=== PATIENT | male | born 1945 | race Caucasian/White ===

== ENCOUNTER 2018-05-06 15:55 | Inpatient (IN) | payer BC, OTHER ==
--- NOTE | 2018-05-06 16:17 | PDOC ---
Rapid Medical Evaluation Medical Evaluation: Allergies Allergy/AdvReac Type Severity Reaction Status Date / Time No Known Drug Allergies Allergy Verified 08/05/14 16:34 05/06/18 16:12 I have performed a brief in-person evaluation of this patient. The patient presents with a chief complaint of: b/l LE edema w/ sob, scant urine and constipation x several months. No CP. H/o HTN, HLD, PAD, AAA s/ open repair, RBBB, former smoker, COPD not on oxygen, BPH PMD: Dr Mcclendon Cards: Dr Borden Pertinent physical exam findings:Stable w/ ?minimal gross dyspnea and b/l LE edema I have ordered the following:ekg/cxr/labs The patient will proceed to the ED for further evaluation Discharge Disposition - Diagnosis SOB (shortness of breath) - Referrals - Patient Instructions - Post Discharge Activity
--- NOTE | 2018-05-06 16:35 | PDOC ---
History of Present Illness - General History Source: Patient <Verona Hardy - Last Filed: 05/06/18 18:29> - History of Present Illness Initial Comments: 05/06/18 16:36 Mr. Cuadra is a 72 yo male w/ pmh of peripheral neuropathy, HLD, COPD, femoral artery bypass, distant triple A repair, hernia repair, and appendectomy who presents for evaluation of several week history of shortness of breath on exertion with additional leg swelling and difficulty urinating. Patient reports this has never happened before. He describes his difficulty urinating as difficulty initiating stream although he is still able to urinate. The patient denies chest pain, headache and dizziness. Denies fever, chills, nausea, vomit, diarrhea and constipation. Denies dysuria, frequency, urgency and hematuria. Allergies: NKDA <Jose Miguel Mohan - Last Filed: 05/06/18 19:18> - General Chief Complaint: Shortness of Breath Stated Complaint: PCP SENT FOR ADMIT Time Seen by Provider: 05/06/18 16:22 Past History <Verona Hardy - Last Filed: 05/06/18 18:29> - Past Medical History Anemia: No Asthma: No Cancer: No Cardiac Disorders: Yes CVA: No COPD: Yes CHF: No Dementia: No Diabetes: No GI Disorders: No Disorders: No HTN: No Hypercholesterolemia: Yes Liver Disease: No Seizures: No Thyroid Disease: No - Surgical History Abdominal Surgery: Yes (umbilical hernia repair) Appendectomy: Yes Cardiac Surgery: Yes (femeral artery bypass) Cholecystectomy: No Lung Surgery: No Neurologic Surgery: No Orthopedic Surgery: No - Immunization History Immunization Up to Date: Yes - Suicide/Smoking/Psychosocial Hx Smoking Status: Yes Smoking History: Former smoker Have you smoked in the past 12 months: No Number of Cigarettes Smoked Daily: 2 If you are a former smoker, when did you quit?: 6 mos ago Information on smoking cessation initiated: No 'Breaking Loose' booklet given: 09/10/16 Hx Alcohol Use: Yes (socially beer) Drug/Substance Use Hx: No Substance Use Type: None Hx Substance Use Treatment: No <Jose Miguel Mohan - Last Filed: 05/06/18 19:18> - Past Medical History Allergies/Adverse Reactions: Allergies Allergy/AdvReac Type Severity Reaction Status Date / Time No Known Drug Allergies Allergy Verified 05/06/18 16:29 Home Medications: Ambulatory Orders Aspirin [Baby Aspirin] 81 mg PO DAILY 01/26/12 Atorvastatin Ca [Lipitor] 20 mg PO DAILY #0 tab 12/15/12 Duloxetine [Cymbalta -] 90 mg PO DAILY #0 capsule. 12/15/12 Tamsulosin HCl [Flomax -] 0.4 mg PO HS #0 cap.er.24h 12/15/12 Dutasteride [Avodart] 0.5 mg PO HS 08/05/14 Valsartan [Diovan] 160 mg PO DAILY 09/02/16 Oxycodone HCl/Acetaminophen [Percocet 5-325 mg Tablet] 1 tab PO Q4H PRN #42 tablet MDD 6 09/09/16 Review of Systems - Review of Systems Comments:: 05/06/18 18:08 GENERAL/CONSTITUTIONAL: No fever or chills. No weakness. HEAD, EYES, EARS, NOSE AND THROAT: No change in vision. No ear pain or discharge. No sore throat. CARDIOVASCULAR: +Dyspnea on exertion RESPIRATORY: No cough, wheezing, or hemoptysis. GASTROINTESTINAL: No nausea, vomiting, diarrhea or constipation. GENITOURINARY: No dysuria, frequency, or change in urination. MUSCULOSKELETAL: +Bilateral leg swelling. SKIN: No rash NEUROLOGIC: No headache, vertigo, loss of consciousness, or change in strength/ sensation. ENDOCRINE: No increased thirst. No abnormal weight change HEMATOLOGIC/LYMPHATIC: No anemia, easy bleeding, or history of blood clots. ALLERGIC/IMMUNOLOGIC: No hives or skin allergy. <Jose Miguel Mohan - Last Filed: 05/06/18 19:18> *Physical Exam - Vital Signs Last Vital Signs Temp Pulse Resp BP Pulse Ox 98.1 F 72 20 102/54 98 05/06/18 16:17 05/06/18 16:17 05/06/18 16:17 05/06/18 16:17 05/06/18 16:17 <Verona Hardy - Last Filed: 05/06/18 18:29> - Vital Signs Last Vital Signs Temp Pulse Resp BP Pulse Ox 98.1 F 72 20 102/54 98 05/06/18 16:17 05/06/18 16:17 05/06/18 16:17 05/06/18 16:17 05/06/18 16:17 - Physical Exam Comments: 05/06/18 18:09 GENERAL: Awake, alert, and fully oriented, in no acute distress HEAD: No signs of trauma, normocephalic, atraumatic EYES: PERRLA, EOMI, sclera anicteric, conjunctiva clear ENT: Auricles normal inspection, hearing grossly normal, nares patent, oropharynx clear without exudates. Moist mucosa NECK: Normal ROM, supple, no lymphadenopathy, JVD, or masses LUNGS: +Coarse lung sounds diffusely. No distress, speaks full sentences HEART: +Tachycardic, normal S1 and S2, no murmurs, rubs or gallops, peripheral pulses normal and equal bilaterally. ABDOMEN: Soft, nontender, normoactive bowel sounds. No guarding, no rebound. No masses EXTREMITIES: + 2+ HAMIDA lower extremity edema. Normal range of motion. No clubbing or cyanosis. NEUROLOGICAL: Cranial nerves II through XII grossly intact. Normal speech, normal gait, no focal sensorimotor deficits SKIN: Warm, Dry, normal turgor, no rashes or lesions noted. <Jose Miguel Mohan - Last Filed: 05/06/18 19:18> Procedures - Bedside Ultrasound Bedside Ultrasound: Cardiac Remarks: 05/06/18 17:29 POCUS Echo exam Advanced Practice Registered Nurse: Marcell Attending physician: Hayley Indication: chest pain +/- dyspnea Views: PSLA, PSS, A4, SX, IVC Findings: [x] pericardial effusion: no [x] ejection fraction: moderately depressed 30-50% on visual estimation [x] RV < LV [x] IVC size: plethoric (>2cm), min collapsibility <50% with inspiration Impression: moderately depressed LV function. plethoric IVC c/w hyper volemia POCUS Thoracic exam Advanced Practice Registered Nurse: Marcell Attending physician: Hayley Views: right anterior thorax, right lateral thorax, right posterior thorax, right base Left anterior thorax, left lateral thorax, left posterior thorax, left base Findings: [x] lung sliding: Yes - bilaterally [x] pleural effusion: No [x] B line profile, scant bilaterally, <3 B lines in both lung felix Impression: <B lines bilaterally with lung sliding, otherwise normal thoracic exam and no acute findings. 05/06/18 17:39 <Verona Hardy - Last Filed: 05/06/18 18:29> Heart Score/ECG Review - ECG Impressions Normal ECG: No Non-specific ST Elevation: No Tachycardia: Afib w/rapid Vent rate <Verona Hardy - Last Filed: 05/06/18 18:29> ED Treatment Course - LABORATORY CBC & Chemistry Diagram: 05/06/18 16:20 05/06/18 16:20 - ADDITIONAL ORDERS Additional order review: 05/06/18 16:20 RBC 4.32 MCV 95.0 MCHC 33.0 RDW 13.8 MPV 9.6 Neutrophils % 88.8 H Lymphocytes % 3.9 L D Monocytes % 7.1 Eosinophils % 0.0 D Basophils % 0.2 <Verona Hardy - Last Filed: 05/06/18 18:29> - LABORATORY CBC & Chemistry Diagram: 05/06/18 16:20 05/06/18 16:20 <Jose Miguel Mohan - Last Filed: 05/06/18 19:18> Medical Decision Making - Medical Decision Making 05/06/18 17:35 05/06/18 17:46 <Verona Hardy - Last Filed: 05/06/18 18:29> - Medical Decision Making Mr. Cuadra is a 72 yo male w/ pmh as described who presents for evaluation of symptoms concerning for CHF. Patient noted to have new onset afib on EKG, labs as below. Bedside US revealed decreased contractility c/w afib. Given elevated BNP, CXR suspicious for fluid overload, HAMIDA pedal edema, and corresponding US decision made to admit. Discussed patient with Dr. Suarez (cardiology) who will evaluate inpatient. Admitting to telemetry for further evaluation. Patient also noted to have rectal temperature of 100.6; blood cultures and IV ABX added to treatment regimen. Laboratory Results - last 24 hr 05/06/18 05/06/18 05/06/18 16:20 16:20 16:20 WBC 16.3 H RBC 4.32 Hgb 13.6 Hct 41.1 MCV 95.0 MCH 31.4 MCHC 33.0 RDW 13.8 Plt Count 201 D MPV 9.6 Absolute Neuts (auto) 14.4 Neutrophils % 88.8 H Lymphocytes % 3.9 L D Monocytes % 7.1 Eosinophils % 0.0 D Basophils % 0.2 Nucleated RBC % 0 Sodium 131 L Potassium 5.3 H Chloride 96 L Carbon Dioxide 24 D Anion Gap 11 BUN 51 H Creatinine 2.0 H Creat Clearance w eGFR 33.10 Random Glucose 91 Calcium 8.6 Total Bilirubin 2.3 H AST 836 H D ALT 894 H D Alkaline Phosphatase 335 H Creatine Kinase 612 H Creatine Kinase Index 2.6 CK-MB (CK-2) 16.26 H Troponin I 0.06 H D B-Natriuretic Peptide 93523.98 H Total Protein 6.3 L Albumin 3.1 L <Jose Miguel Mohan - Last Filed: 05/06/18 19:18> *DC/Admit/Observation/Transfer - Discharge Dispostion Decision to Admit order: Yes <Verona Hardy - Last Filed: 05/06/18 18:29> - Discharge Dispostion Decision to Admit order: Yes <Jose Miguel Mohan - Last Filed: 05/06/18 19:18> Diagnosis at time of Disposition: SOB (shortness of breath), COPD with exacerbation, Atrial fibrillation with RVR Acute exacerbation of CHF (congestive heart failure) Qualifiers: Heart failure type: unspecified Qualified Code(s): I50.9 - Heart failure, unspecified - Discharge Dispostion Condition at time of disposition: Guarded
[2018-05-06] MEDS ORDERED: LABETALOL HCL 5 MG/1 ML (200MG/40ML VIAL) IVPB ONE (17:01)
[2018-05-06] MEDS ORDERED: dilTIAZem HCL 125 MG/25 ML - 25 ML VIAL ONE (17:01)
[2018-05-06 17:05] LABS: BASO % 0.2 % (0-2.0); HEMATOCRIT 41.1 % (35.4-49); HEMOGLOBIN 13.6 GM/dL (11.7-16.9); LYMPH % 3.9 % (8-40); MCH 31.4 pg (25.7-33.7); MEAN PLT VOLUME 9.6 fl (7.5-11.1); MONO % 7.1 % (3.8-10.2); NEUT % 88.8 % (42.8-82.8); PLATELET COUNT 201 K/MM3 (134-434); RBC 4.32 M/mm3 (4.00-5.60); RDW 13.8 % (11.9-15.9); WHITE BLOOD COUNT 16.3 K/mm3 (4.0-10.0)
[2018-05-06] MEDS ORDERED: methylPREDNISolone NA SUCC 125 MG/2 ML VIAL IVPUSH ONE (17:08)
[2018-05-06] MEDS ORDERED: ALBUTEROL SO4 2.5/IPRATROPIUM 0.5 INH SOL 3 ML VIAL.NEB. NEB ONE ×4 (17:08→17:53)
[2018-05-06] MEDS ORDERED: dilTIAZem HCL 50 MG/10 ML - 10 ML VIAL IVPUSH ONE (17:09)
[2018-05-06] MEDS ORDERED: dilTIAZem HCL 60 MG TABLET (FP) ONE (17:20)
[2018-05-06] MEDS ORDERED: FUROSEMIDE 40 MG/4 ML INJECTABLE VIAL IVPUSH ONE ×2 (17:44→21:15)
--- NOTE | 2018-05-06 17:45 | PDOC ---
Attending Attestation - Physicial Exam PE: 05/06/18 18:37 General: Well appearing, awake and alert, NAD. HEENT: NCAT, PERRL, EOMI, clear conjunctiva, anicteric, moist mucus membranes, clear oropharynx, no oral lesions.. Neck: (+) JVD. neck supple, FROM Chest: no chest wall tenderness Resp: (+) bilateral wheezing w/ decreased breath sounds bilaterally. CTAB, (+) Mild respiratory distress, on Supplemental O2. CVS: irregularly irregular, tachycardic. 2+ peripheral pulses throughout, 4+ pitting edema bilaterally Abdomen: (+) distended but obese. soft, NT, no peritoneal signs. Back: nontender, normal inspection and ROM MSK: (+) 4+ bilateral pitting edema. No calf tenderness. COLUNGA x4, ROM intact. No clubbing or cyanosis. normal bulk and tone. Neuro: alert, oriented appropriately; no focal neurologic deficits. Skin: warm and well perfused, cap refill <2 sec, normal color; no rash <Mely Pagan - Last Filed: 05/06/18 18:37> - Resident Resident Name: Jose Miguel Mohan - ED Attending Attestation I have performed the following: I have examined & evaluated the patient, The case was reviewed & discussed with the resident, I agree w/resident's findings & plan - HPI HPI: 05/06/18 18:45 Mr. Oscar Cuadra is a 72-year-old male with a past medical history HLD, and COPD presents to the emergency department with shortness of breath. The patient presents with progressively worsening dyspnea for the past 2 weeks, accompanied with bilateral lower extremity edema, mild nonproductive cough and worsening dyspnea on exertion. +f abdominal bloating, with difficulty voiding and having bowel movements, but has BPH The patient states an improvement to lower extremity edema about 6-7 months prior s/p quitting smoking, states the past 2 weeks the leg swelling and dyspnea has been worsening. The patient reports last swing grinder f/u was 2 years ago, reports getting a cardiac echo done, with non- significant results. Denies recent medication change. Denies the use of water pills. Denies recent travel or sick contact. Denies past history of blood clot or anemia. Denies the use of O2 at home. Denies chest pain. Allergies: NKDA Social history: Former smoker, quit smoking 6-7 months ago. Occasional alcohol use reported. Denies the use of recreational drugs. Surgical history: AAA repair, femoral artery bypass, Appendectomy, and Hernia repair. PCP: Dr. Mcclendon. Sander And Polisher: Dr. Mina. - Medical Decision Making 05/06/18 17:46 MDM: Khalif 72 YOM with H/o HTN, HLD, PAD, AAA s/ open repair, RBBB, former smoker, COPD not on oxygen, BPH presenting with leg swelling, SOB and new onset Afib. SOB and leg edema progressively worsening x 2 weeks with minimal exertion , +nonproductive cough; no changes in meds. Last seen swing grinder 2 years ago. DDx SOB: ACS, PE, COPD exacerbation, new onset CHF, pulmonary edema, pleurisy, pneumonia, viral syndrome. effusion. anemia, electrolyte/metabolic derangements. Vital signs wnl, afebrile, however Afib RVR in 150s. mild respiratory distress on supp O2. treat as both Afib RVR, COPD/CHF exacerbation. EKG with afib RVR at 155 bpm Interventions: duonebs x3, solumedrol, diltiazem IV/PO. lasix. tylenol. ASA 325mg x1. Cef/azithromycin for CAP coverage. blood cultures. Bedside POCUS exam echo and thoracic performed for SOB, views obtained (PSLA, PSS, SX, a4, IVC, bilateral lung felix and bases)= findings consistent with new onset CHF with plethoric IVC/moderately depressed EF 30-50% on visual estimation, scant non-diffuse B lines bilaterally w/o pleural effusions, RV<LV and no pericardial effusion. - leukocytosis noted 16K, but prior results with elevated WBC ct, +fever rectally, contributing to Rapid Afib, also concurrently new onset CHF. will give Ceftriaxone/azithromycin for presumed respiratory infection/pneumonia, hold fluids as hypervolemic and nonseptic appearing. blood cultures x2 for fever , r/o bacteremia. - based on results -Will diurese when Afib rate control. Lasix 40mg IV x1, PO diltiazem for rate control. caution with labile pressures with antihypertensive agents and diuresis. BNP also significantly elevated c/w CHF. - trop elevated 0.06 likely demand with RVR, will give ASA 324 x1 - LFTS elevated, unclear etiology, possibly infectious vs inflammatory. c/w trending. - cards consulted, admit to Dr. Mcclendon/N[facility] service - spoke with Dr. Hollis will come to see - Admit for new onset CHF/possibly mixed COPD, new onset Afib RVR, early pneumonia and medical management. 05/06/18 18:39 05/06/18 18:46 <Verona Hardy - Last Filed: 05/06/18 18:47> Heart Score/ECG Review - ECG Impressions Normal ECG: No Non-specific ST Elevation: No Tachycardia: Afib w/rapid Vent rate <Verona Hardy - Last Filed: 05/06/18 18:47>
[2018-05-06] MEDS ORDERED: methylPREDNISolone NA SUCC 125 MG/2 ML VIAL ONE (17:53)
[2018-05-06] MEDS ORDERED: FUROSEMIDE 40 MG/4 ML INJECTABLE VIAL ONE (17:53)
[2018-05-06] MEDS ORDERED: dilTIAZem HCL 60 MG TABLET (FP) PO ONE ×2 (18:07→21:15)
[2018-05-06 18:23] LABS: ALBUMIN 3.1 g/dl (3.4-5.0); ANION GAP 11 (8-16); BILIRUBIN,TOTAL 2.3 mg/dL (0.2-1.0); BLOOD UREA NITROGEN 51 mg/dL (7-18); CALCIUM 8.6 mg/dL (8.5-10.1); CHLORIDE 96 mmol/L (98-107); CO2 24 mmol/L (21-32); GLUCOSE,RANDOM 91 mg/dL (74-106); SODIUM 131 mmol/L (136-145); TOT PROT 6.3 g/dl (6.4-8.2)
[2018-05-06 18:25] LABS: ALK PHOS 335 U/L (45-117)
[2018-05-06 18:28] LABS: POTASSIUM 5.3 mmol/L (3.5-5.1); SGPT/ALT 894 U/L (12-78)
[2018-05-06 18:29] LABS: SGOT/AST 836 U/L (15-37)
[2018-05-06] MEDS ORDERED: CEFTRIAXONE 1,000 MG in DEXTROSE 5%-WATER - 50 ML IVPB ONE (18:32)
[2018-05-06] MEDS ORDERED: AZITHROMYCIN IVPB 500 MG in DEXTROSE 5%-WATER - 250 ML IVPB ONE (18:32)
[2018-05-06] MEDS ORDERED: ACETAMINOPHEN 500 MG TABLET (FP) PO ONE (18:32)
[2018-05-06] MEDS ORDERED: oxyCODONE HCL 5 MG TABLET PO PRN (18:36)
[2018-05-06] MEDS ORDERED: ACETAMINOPHEN 325 MG TABLET (FP) PO PRN (18:36)
[2018-05-06] MEDS ORDERED: ASPIRIN 81 MG CHEWABLE TABLETS PO ONE (18:38)
[2018-05-06] MEDS ORDERED: ACETAMINOPHEN 325 MG TABLET (FP) ONE (18:39)
[2018-05-06] MEDS ORDERED: CEFTRIAXONE 1 GM/50 ML BAG ONE (18:40)
[2018-05-06] MEDS ORDERED: AZITHROMYCIN IVPB 250 ML IVPB ONE (18:40)
--- NOTE | 2018-05-06 18:56 | HP ---
Admitting History and Physical - Primary Care Physician PCP: Franklyn Mcclendon - Admission Chief Complaint: SOB and Leg swelling History of Present Illness: 72 yrs old pleasant man lives at home with the H/O Morbid Obesity BMI 39.2 , Htn, Dyslipedemia, COPD ex smoker quit in Oct 2017,PAD s/p AAA repair 12 yrs ago and Femoral bypass 4 yrs ago, bph last cardiology visit and ECHo was > 2 yrs ago present with c/o gradually worsening, SOB, KENNEY, decrease in ET, lower extremity swelling and dry cough for past 2-3 wks lately feels very weak and SOB even walking short distances or climbing 1 storry in the house, denies any palpittaion, chest pain, fevr, chills or expectoration, c/o mild subjective fever, on arrival to ED EKG shows Afib with RVR VR 152, , elevated BNP, TWBC, CXR pulmonary congestion SOB, hypertensive received Labetalol, Lasix IV 40 mg once, Diltizem 10 mg IVSS and 60 PO, at the tome of examination History Source: Patient - Past Medical History Cardiovascular: Yes: Aneurysm, Hyperlipdemia Pulmonary: Yes: COPD Musculoskeletal: Yes: Chronic low back pain - Past Surgical History Past Surgical History: Yes: AAA Repair, Appendectomy, Hernia Repair - Smoking History Smoking history: Former smoker Have you smoked in the past 12 months: No Aproximately how many cigarettes per day: 2 If you are a former smoker, when did you quit?: 6 mos ago - Alcohol/Substance Use Hx Alcohol Use: Yes (socially beer) Home Medications - Allergies Allergies/Adverse Reactions: Allergies Allergy/AdvReac Type Severity Reaction Status Date / Time No Known Drug Allergies Allergy Verified 05/06/18 16:29 - Home Medications Home Medications: Ambulatory Orders Aspirin [Baby Aspirin] 81 mg PO DAILY 01/26/12 Atorvastatin Ca [Lipitor] 20 mg PO DAILY #0 tab 12/15/12 Duloxetine [Cymbalta -] 90 mg PO DAILY #0 capsule.dr 12/15/12 Tamsulosin HCl [Flomax -] 0.4 mg PO HS #0 cap.er.24h 12/15/12 Dutasteride [Avodart] 0.5 mg PO HS 08/05/14 Valsartan [Diovan] 160 mg PO DAILY 09/02/16 Oxycodone HCl/Acetaminophen [Percocet 5-325 mg Tablet] 1 tab PO Q4H PRN #42 tablet MDD 6 09/09/16 Family Disease History - Family Disease History Family History: Unremarkable Review of Systems - Review of Systems Constitutional: reports: Diaphoresis Eyes: denies: Blind Spots, Blurred Vision, Double Vision HENT: denies: Difficult Swallowing, Ear Discharge, Ear Pain Neck: denies: Decreased ROM, Lumps, Pain on Movement Cardiovascular: reports: Edema, Palpitations, Shortness of Breath. denies: Chest Pain Respiratory: reports: Cough, Exercise Intolerance, SOB Gastrointestinal: denies: Abdominal Pain, Bloating Genitourinary: denies: Burning, Discharge, Dysuria Musculoskeletal: reports: Back Pain Neurological: denies: Change in LOC, Change in Speech Endocrine: denies: Excessive Sweating Hematology/Lymphatic: denies: Easily Bruised Psychiatric: reports: No Symptoms Physical Examination Vital Signs: Vital Signs Temperature 100.6 F H 05/06/18 18:29 Pulse Rate 134 H 05/06/18 18:10 Respiratory Rate 24 H 05/06/18 18:10 Blood Pressure 89/64 05/06/18 18:10 O2 Sat by Pulse Oximetry (%) 100 05/06/18 18:10 Constitutional: Yes: Well Nourished, No Distress, Calm Eyes: Yes: Conjunctiva Clear, EOM Intact HENT: Yes: Atraumatic, Normocephalic, Hoarseness Neck: Yes: Supple, Trachea Midline. No: Decreased ROM, Lymphadenopathy Cardiovascular: Yes: WNL, Tachycardia, Pulse Irregular, JVD, S1, S2 Respiratory: Yes: Regular, SOB Musculoskeletal: Yes: Back Pain. No: Joint Stiffness Edema: RUE: 1+, LLE: 1+ Peripheral Pulses: Left Doralis Pedis: 1+, Right Dorsalis Pedis: 1+ Neurological: Yes: Alert, Oriented, Aphasia ...Motor Strength: WNL, LUE, LLE, RUE Labs: CBC, BMP 05/06/18 16:20 05/06/18 16:20 Laboratory Results - last 24 hr 05/06/18 05/06/18 05/06/18 16:20 16:20 16:20 WBC 16.3 H RBC 4.32 Hgb 13.6 Hct 41.1 MCV 95.0 MCH 31.4 MCHC 33.0 RDW 13.8 Plt Count 201 D MPV 9.6 Absolute Neuts (auto) 14.4 Neutrophils % 88.8 H Lymphocytes % 3.9 L D Monocytes % 7.1 Eosinophils % 0.0 D Basophils % 0.2 Nucleated RBC % 0 Sodium 131 L Potassium 5.3 H Chloride 96 L Carbon Dioxide 24 D Anion Gap 11 BUN 51 H Creatinine 2.0 H Creat Clearance w eGFR 33.10 Random Glucose 91 Calcium 8.6 Magnesium Total Bilirubin 2.3 H AST 836 H D ALT 894 H D Alkaline Phosphatase 335 H Creatine Kinase 612 H Creatine Kinase Index 2.6 CK-MB (CK-2) 16.26 H Troponin I 0.06 H D B-Natriuretic Peptide 33867.98 H Total Protein 6.3 L Albumin 3.1 L Triglycerides Cholesterol Total LDL Cholesterol HDL Cholesterol 05/06/18 05/06/18 20:15 20:15 WBC RBC Hgb Hct MCV MCH MCHC RDW Plt Count MPV Absolute Neuts (auto) Neutrophils % Lymphocytes % Monocytes % Eosinophils % Basophils % Nucleated RBC % Sodium Potassium Chloride Carbon Dioxide Anion Gap BUN Creatinine Creat Clearance w eGFR Random Glucose Calcium Magnesium 2.0 Total Bilirubin AST ALT Alkaline Phosphatase Creatine Kinase Creatine Kinase Index CK-MB (CK-2) Troponin I 0.06 H B-Natriuretic Peptide Total Protein Albumin Triglycerides 63 Cholesterol 88 Total LDL Cholesterol 47 HDL Cholesterol 36 L Imaging - Results X-ray: Report Reviewed (Chest: Diffuse congestion with minimal effusion) EKG: Report Reviewed (Afib with RVR) Problem List - Problems (1) Acute exacerbation of CHF (congestive heart failure) Assessment/Plan: Present with CHS symptoms with Afib , Bed side ECHO shows Low EF will F/U ECHO , most luikely tachycardia induced F/U ECHO.Lasix 40 mg IVSS BID, Cardiology consult, will Introduce B Blockers, Valsartan held for worsening renal functions. Code(s): I50.9 - HEART FAILURE, UNSPECIFIED Qualifiers: Heart failure type: systolic Qualified Code(s): I50.23 - Acute on chronic systolic (congestive) heart failure (2) Atrial fibrillation with RVR Assessment/Plan: New Onset Recived IV D+iltizem 10 mg and 60 mg PO , night now rate is acceptable received Lovenox 100 mg once corrected with renal functions in ED will discussed with cardiology for AC F/U ECHO Code(s): I48.91 - UNSPECIFIED ATRIAL FIBRILLATION (3) COPD with exacerbation Assessment/Plan: Rx Smoker diffuse wheezing low dose steroid resume advair and PRN Duobneb Code(s): J44.1 - CHRONIC OBSTRUCTIVE PULMONARY DISEASE W (ACUTE) EXACERBATION (4) Elevated troponin I level Assessment/Plan: elevated troponin I no EKG changes, no chest pain most likely due to Demand ischemnia con ASA LDL at target cont Statin and Code(s): R74.8 - ABNORMAL LEVELS OF OTHER SERUM ENZYMES (5) Morbid obesity Assessment/Plan: Nutrition consult as out patient Code(s): E66.01 - MORBID (SEVERE) OBESITY DUE TO EXCESS CALORIES (6) JACKIE (acute kidney injury) Assessment/Plan: Worsening renal functions most likely obstructive uropathy will F/U recommendations cont Cevallos catheter and Renal consult Code(s): N17.9 - ACUTE KIDNEY FAILURE, UNSPECIFIED (7) Abdominal aortic aneurysm Assessment/Plan: Opertaed 12 yrs ago cont Statin Optimize BP Code(s): I71.4 - ABDOMINAL AORTIC ANEURYSM, WITHOUT RUPTURE (8) Dyslipidemia Assessment/Plan: LDL < 50 wi;ll optimize statin dose Code(s): E78.5 - HYPERLIPIDEMIA, UNSPECIFIED (9) Transaminitis Assessment/Plan: Elevated SGOT PT most likely congestive Hepatopathy on stain, considering morbid obesity vcan be due to ROJAS will F/U Hepatitis panel F/U LFTS, GI consult, Hold Statin LDL < 50 Code(s): R74.0 - NONSPEC ELEV OF LEVELS OF TRANSAMNS & LACTIC ACID DEHYDRGNSE (10) Urinary retention due to benign prostatic hyperplasia Assessment/Plan: Cont home meds s/p foleys consult Code(s): N40.1 - BENIGN PROSTATIC HYPERPLASIA WITH LOWER URINARY TRACT SYMP; R33.8 - OTHER RETENTION OF URINE
[2018-05-06] MEDS ORDERED: ENOXAPARIN NA (PORCINE) 100 MG/1 ML DISP.SYRIN SQ ONE ×3 (19:02→19:18)
[2018-05-06] MEDS ORDERED: ASPIRIN 325 MG TABLET ONE (19:12)
[2018-05-06] MEDS ORDERED: dilTIAZem HCL 25 MG/5 ML - 5 ML VIAL IV ONE (21:00)
[2018-05-06] MEDS ORDERED: PT OWN MED DRAWER 7, Y5N ONE (21:08)
[2018-05-06] MEDS ORDERED: dilTIAZem HCL 25 MG/5 ML - 5 ML VIAL IVPUSH ONE (21:15)
[2018-05-06] MEDS: TAMSULOSIN HCL 0.4 MG CAP.ER.24H (FP) PO SCH (21:17)
[2018-05-06] MEDS: FLUTICASONE/SALMETEROL 100 MCG/50 MCG DISKUS IH SCH (22:14)
[2018-05-06] MEDS: DUTASTERIDE 0.5 MG CAP (FP) PO SCH (22:15)
[2018-05-07] MEDS: methylPREDNISolone NA SUCC 125 MG/2 ML VIAL IVPB SCH ×2 (02:02→09:52)
[2018-05-07 02:25] LABS: URINE APPEARANCE CLEAR; URINE BILIRUBIN NEGATIVE (<2.0 mg/dL); URINE GLUCOSE (UA) NEGATIVE (NEGATIVE); URINE KETONE NEGATIVE (NEGATIVE); URINE LEUK ESTERASE NEGATIVE (NEGATIVE); URINE NITRITE NEGATIVE (NEGATIVE)
[2018-05-07 02:35] LABS: URINE PROTEIN 1+ (NEGATIVE)
[2018-05-07 02:36] LABS: URINE COLOR DK YELLOW
[2018-05-07 02:43] LABS: EPI CELLS RARE /HPF (FEW); URINE HYALINE CAST 9 /lpf; URINE MUCUS RARE
[2018-05-07 07:37] LABS: BASO % 0.1 % (0-2.0); HEMATOCRIT 37.2 % (35.4-49); HEMOGLOBIN 12.5 GM/dL (11.7-16.9); LYMPH % 4.4 % (8-40); MCH 31.7 pg (25.7-33.7); MCHC 33.4 g/dl (32.0-35.9); MEAN CELL VOLUME 94.9 fl (80-96); MEAN PLT VOLUME 9.5 fl (7.5-11.1); MONO % 2.6 % (3.8-10.2); NEUT % 92.9 % (42.8-82.8); PLATELET COUNT 162 K/MM3 (134-434); RBC 3.92 M/mm3 (4.00-5.60); WHITE BLOOD COUNT 12.8 K/mm3 (4.0-10.0)
[2018-05-07 08:08] LABS: CHLORIDE 94 mmol/L (98-107); POTASSIUM 4.6 mmol/L (3.5-5.1); SODIUM 130 mmol/L (136-145)
[2018-05-07 08:17] LABS: ALBUMIN 2.6 g/dl (3.4-5.0); ALK PHOS 263 U/L (45-117); ANION GAP 11 (8-16); BILIRUBIN,TOTAL 1.3 mg/dL (0.2-1.0); BLOOD UREA NITROGEN 60 mg/dL (7-18); CO2 25 mmol/L (21-32); CREATININE 2.2 mg/dL (0.7-1.3); GLUCOSE,RANDOM 136 mg/dL (74-106); TOT PROT 5.6 g/dl (6.4-8.2)
[2018-05-07 08:35] LABS: SGOT/AST 469 U/L (15-37); SGPT/ALT 691 U/L (12-78)
--- NOTE | 2018-05-07 08:58 | CON.CARD ---
Consult Consult Specialty:: Cardiology Referred by:: Nissa Reason for Consultation:: afib, CHF exac - History of Present Illness Chief Complaint: dyspnea, leg swelling History of Present Illness: 72M h/o HTN, HLD, COPD, ex smoker, PAD s/p AAA repair 12 years ago, femoral bypass 4 years ago p/w carrizales, lower extremity swelling, cough. In ER noted to have afib with RVR rate 150s, elevated BNP and WBC, CXR showed pulm congestion. Received labetolol, diltiazem 10 mg IV and diltiazem 60 mg PO. Rate initially improved, lasix had been ordered but held due to borderline BPs. Rate increased later to 130s, given additional diltiazem 10 mg IV and 60 mg PO as well as lasix 40 mg IV x 1. Also received IV abx for possible infection given elevated WBC. Symptoms had been ongoing for two weeks, patient feels better this morning. Also had urinary retention which improved with booth placement.. - History Source History Provided By: Patient Limitations to Obtaining History: No Limitations - Past Medical History Cardio/Vascular: Yes: Aneurysm, Hyperlipdemia Pulmonary: Yes: COPD Musculoskeletal: Yes: Chronic low back pain - Past Surgical History Past Surgical History: Yes: AAA Repair, Appendectomy, Hernia Repair - Alcohol/Substance Use Hx Alcohol Use: Yes (socially beer) - Smoking History Smoking history: Former smoker Have you smoked in the past 12 months: No Aproximately how many cigarettes per day: 2 If you are a former smoker, when did you quit?: 6 mos ago Home Medications - Allergies Allergies/Adverse Reactions: Allergies Allergy/AdvReac Type Severity Reaction Status Date / Time No Known Drug Allergies Allergy Verified 05/06/18 16:29 - Home Medications Home Medications: Ambulatory Orders Aspirin [Baby Aspirin] 81 mg PO DAILY 01/26/12 Atorvastatin Ca [Lipitor] 20 mg PO DAILY #0 tab 12/15/12 Duloxetine [Cymbalta -] 90 mg PO DAILY #0 capsule. 12/15/12 Tamsulosin HCl [Flomax -] 0.4 mg PO HS #0 cap.er.24h 12/15/12 Dutasteride [Avodart] 0.5 mg PO HS 08/05/14 Valsartan [Diovan] 160 mg PO DAILY 09/02/16 Oxycodone HCl/Acetaminophen [Percocet 5-325 mg Tablet] 1 tab PO Q4H PRN #42 tablet MDD 6 09/09/16 Review of Systems - Review of Systems Constitutional: reports: No Symptoms Eyes: reports: No Symptoms HENT: reports: No Symptoms Neck: reports: No Symptoms Cardiovascular: reports: Shortness of Breath Respiratory: reports: SOB on Exertion Gastrointestinal: reports: No Symptoms Musculoskeletal: reports: No Symptoms Neurological: reports: No Symptoms Endocrine: reports: No Symptoms Psychiatric: reports: No Symptoms Vital Signs: Vital Signs Temperature 98.8 F 05/07/18 01:17 Pulse Rate 107 H 05/07/18 06:00 Respiratory Rate 20 05/07/18 01:17 Blood Pressure 118/62 05/07/18 06:00 O2 Sat by Pulse Oximetry (%) 95 05/06/18 20:00 Constitutional: Yes: Well Nourished, No Distress, Calm Eyes: Yes: Conjunctiva Clear, EOM Intact HENT: Yes: Atraumatic, Normocephalic Neck: Yes: Supple Respiratory: Yes: Regular, Rales Gastrointestinal: Yes: Normal Bowel Sounds, Soft Renal/: Yes: Other (booth) Cardiovascular: Yes: Tachycardia, Pulse Irregular JVD: Yes Edema: Yes Edema: LLE: 1+, RLE: 1+ - Other Data Labs, Other Data: CBC, BMP 05/07/18 06:00 05/07/18 06:00 Troponin, BNP 05/06/18 05/06/18 05/06/18 16:20 16:20 20:15 Troponin I 0.06 H D 0.06 H B-Natriuretic Peptide 12463.98 H 05/07/18 05/07/18 06:00 06:00 Troponin I 0.04 D Cancelled B-Natriuretic Peptide Troponin, BNP 05/06/18 05/06/18 05/06/18 16:20 16:20 20:15 Troponin I 0.06 H D 0.06 H B-Natriuretic Peptide 15893.98 H 05/07/18 05/07/18 06:00 06:00 Troponin I 0.04 D Cancelled B-Natriuretic Peptide Assessment/Plan EKG 05/06/18 afib with RVR 155, RBBB tele afib with rates 110s-130s, occ 150s 72M h/o HTN, HLD, COPD, ex smoker, PAD s/p AAA repair 12 years ago, femoral bypass 4 years ago p/w carrizales, lower extremity swelling, cough for two weeks with new afib, CHF exac, JACKIE, leukocytosis Afib with RVR - rate control improved with diltiazem, start diltiazem 60 mg TID - if no contraindication would start anticoagulation with NOAC, currently has JACKIE in setting of urinary retention - has received lovenox - check echo, ordered CHF exacerbation - per patient prior echo was 2 years ago, check echo - may be due to acute AFib with RVR - improved SOB with IV lasix last night, holding on additional dose for now given rise in Cr, now s/p booth, if uop improves can give additional dose of IV lasix 40 mg in afternoon Elevated troponin - borderline elevation likely in setting of afib with RVR and CHF exac, flat trend, unlikely ACS COPD - on advair, duonebs, low dose steroid JACKIE - holding home valsartan - booth inserted today for obstructive uropathy - monitor Cr H/o AAA s/p repair - cont statin, asa HLD - cont statin
--- NOTE | 2018-05-07 09:01 | PN ---
Progress Note, Physician Chief Complaint: Feels improved less SOB, Foleys was inserted for urinary retention - Current Medication List Current Medications: Active Medications Acetaminophen (Tylenol -) 325 mg PO Q4H PRN PRN Reason: PAIN LEVEL 1-5 Stop: 05/09/18 18:35 Albuterol/Ipratropium (Duoneb -) 1 amp NEB Q6H PRN PRN Reason: SHORTNESS OF BREATH Aspirin (Asa -) 81 mg PO DAILY [facility] Atorvastatin Calcium (Lipitor -) 20 mg PO HS [facility] Duloxetine HCl (Cymbalta -) 90 mg PO DAILY [facility] Dutasteride (Avodart -) 0.5 mg PO HS [facility] Last Admin: 05/06/18 22:15 Dose: 0.5 mg Methylprednisolone Sodium Succinate (Solu-Medrol -) 60 mg IVPB Q8H-IV [facility] Last Admin: 05/07/18 02:02 Dose: 60 mg Oxycodone HCl (Roxicodone -) 5 mg PO Q4H PRN PRN Reason: PAIN LEVEL 1-5 Fluticasone/Salmeterol (Advair 100mcg/50mcg -) 1 puff IH BID [facility] Last Admin: 05/06/18 22:14 Dose: 1 puff Tamsulosin HCl (Flomax -) 0.4 mg PO HS [facility] Last Admin: 05/06/18 21:17 Dose: 0.4 mg - Objective Vital Signs: Vital Signs Temperature 98.8 F 05/07/18 01:17 Pulse Rate 107 H 05/07/18 06:00 Respiratory Rate 20 05/07/18 01:17 Blood Pressure 118/62 05/07/18 06:00 O2 Sat by Pulse Oximetry (%) 95 05/06/18 20:00 Constitutional: No SOB HEENT: No Difficult Swallowing, Ear Discharge, Ear Pain, mm moist Neck: NO JVD Decreased ROM, Lumps, Pain on Movement Cardiovascular: Irr S1S2 Tachycardia no murmur or Gallop Respiratory: B/L Basal crepts Gastrointestinal: Obese, non tender BS + Genitourinary: Urinary retention s/p Foleys LE and Musculoskeletal: rep Pulse +, Edema regressing, Back Pain Neurological: No AOx3 non focal Labs: CBC, BMP 05/07/18 06:00 05/07/18 06:00 Problem List - Problems (1) Acute exacerbation of CHF (congestive heart failure) Assessment/Plan: Present with CHS symptoms with Afib , Bed side ECHO shows Low EF will F/U ECHO , most luikely tachycardia induced F/U ECHO.Lasix , Cardiology consult, will Introduce B Blockers, Valsartan held for worsening renal functions. Code(s): I50.9 - HEART FAILURE, UNSPECIFIED Qualifiers: Heart failure type: systolic Qualified Code(s): I50.23 - Acute on chronic systolic (congestive) heart failure (2) Atrial fibrillation with RVR Assessment/Plan: New Onset Received IV D+iltizem 10 mg and 60 mg PO , additional 60 PO and 10 IV at night now rate is acceptable received Lovenox 100 mg once corrected with renal functions in ED will discussed with cardiology for AC F/U ECHO Code(s): I48.91 - UNSPECIFIED ATRIAL FIBRILLATION (3) COPD with exacerbation Assessment/Plan: Rx Smoker diffuse wheezing low dose steroid resume advair and PRN Duobneb Code(s): J44.1 - CHRONIC OBSTRUCTIVE PULMONARY DISEASE W (ACUTE) EXACERBATION (4) Elevated troponin I level Assessment/Plan: elevated troponin I no EKG changes, no chest pain most likely due to Demand ischemnia con ASA LDL at target cont Statin and Diltizem Code(s): R74.8 - ABNORMAL LEVELS OF OTHER SERUM ENZYMES (5) Morbid obesity Assessment/Plan: Nutrition consult as out patient Code(s): E66.01 - MORBID (SEVERE) OBESITY DUE TO EXCESS CALORIES (6) JACKIE (acute kidney injury) Assessment/Plan: Worsening renal functions most likely obstructive uropathy will F/U recommendations cont Cevallos catheter and Renal consult Code(s): N17.9 - ACUTE KIDNEY FAILURE, UNSPECIFIED (7) Abdominal aortic aneurysm Assessment/Plan: Opertaed 12 yrs ago cont Statin Optimize BP Code(s): I71.4 - ABDOMINAL AORTIC ANEURYSM, WITHOUT RUPTURE (8) Dyslipidemia Assessment/Plan: LDL < 50 will optimize statin dose Code(s): E78.5 - HYPERLIPIDEMIA, UNSPECIFIED (9) Transaminitis Assessment/Plan: Elevated SGOT PT most likely congestive Hepatopathy on stain, considering morbid obesity vcan be due to ROJAS will F/U Hepatitis panel F/U LFTS, GI consult, Hold Statin LDL < 50 Code(s): R74.0 - NONSPEC ELEV OF LEVELS OF TRANSAMNS & LACTIC ACID DEHYDRGNSE (10) Urinary retention due to benign prostatic hyperplasia Assessment/Plan: S/P Foleys catheter Code(s): N40.1 - BENIGN PROSTATIC HYPERPLASIA WITH LOWER URINARY TRACT SYMP; R33.8 - OTHER RETENTION OF URINE
[2018-05-07] MEDS: DULoxetine HCL 30 MG CAPSULE.DR (FP) PO SCH (09:51)
[2018-05-07] MEDS: ASPIRIN 81 MG CHEWABLE TABLETS PO SCH (09:51)
[2018-05-07] MEDS: FLUTICASONE/SALMETEROL 100 MCG/50 MCG DISKUS IH SCH ×2 (09:52→21:28)
[2018-05-07 10:55] LABS: ANISOCYTOSIS 1+; MACROCYTOSIS 1+; PLATELET ESTIMATE NORMAL
[2018-05-07] MEDS ORDERED: predniSONE 20 MG TABLET (UD) PO SCH (11:30)
[2018-05-07] MEDS: DOXYCYCLINE INJECTION 100 MG in DEXTROSE 5%-WATER - 100 ML IVPB SCH ×2 (12:31→21:30)
[2018-05-07] MEDS ORDERED: dilTIAZem HCL 60 MG TABLET (FP) PO SCH (14:00)
[2018-05-07] MEDS ORDERED: dilTIAZem HCL 25 MG/5 ML - 5 ML VIAL IV ONE (14:45)
--- NOTE | 2018-05-07 17:48 | CON.NEP ---
Consult Consult Specialty:: nephrology Referred by:: feliz Reason for Consultation:: renal failure - History of Present Illness Chief Complaint: new onset afib and hf History of Present Illness: 72M h/o HTN, HLD, COPD, ex smoker, PAD s/p AAA repair 12 years ago, femoral bypass 4 years ago p/w dyspnea on exertion ,lower extremity swelling, cough for two weeks found to be with new onset afib, CHF exac, JACKIE, leukocytosis EKG 05/06/18 afib with RVR 155, RBBB tele afib with rates 110s-130s, occ 150s - Past Medical History Cardio/Vascular: Yes: Aneurysm, Hyperlipdemia Pulmonary: Yes: COPD Musculoskeletal: Yes: Chronic low back pain - Past Surgical History Past Surgical History: Yes: AAA Repair, Appendectomy, Hernia Repair - Alcohol/Substance Use Hx Alcohol Use: Yes (socially beer) - Smoking History Smoking history: Former smoker Have you smoked in the past 12 months: No Aproximately how many cigarettes per day: 2 If you are a former smoker, when did you quit?: 6 mos ago Home Medications - Allergies Allergies/Adverse Reactions: Allergies Allergy/AdvReac Type Severity Reaction Status Date / Time No Known Drug Allergies Allergy Verified 05/06/18 16:29 - Home Medications Home Medications: Ambulatory Orders Aspirin [Baby Aspirin] 81 mg PO DAILY 01/26/12 Atorvastatin Ca [Lipitor] 20 mg PO DAILY #0 tab 12/15/12 Duloxetine [Cymbalta -] 90 mg PO DAILY #0 capsule.dr 12/15/12 Tamsulosin HCl [Flomax -] 0.4 mg PO HS #0 cap.er.24h 12/15/12 Dutasteride [Avodart] 0.5 mg PO HS 08/05/14 Valsartan [Diovan] 160 mg PO DAILY 09/02/16 Oxycodone HCl/Acetaminophen [Percocet 5-325 mg Tablet] 1 tab PO Q4H PRN #42 tablet MDD 6 09/09/16 Nephrology Consult - Height Height: 5 ft 7 in - Weight Weight: 250 lb - BMI Body Mass Index (BMI): 39.1 - Lab Results CBC,BMP: CBC, BMP 05/07/18 06:00 05/07/18 06:00 Anion Gap: Anion Gap Anion Gap 11 (8-16) 05/07/18 06:00 - Physical Examination Vital Signs: Vital Signs Temperature 96.8 F L 05/07/18 13:50 Pulse Rate 140 H 05/07/18 13:50 Respiratory Rate 18 05/07/18 13:50 Blood Pressure 121/51 05/07/18 13:50 O2 Sat by Pulse Oximetry (%) 95 05/07/18 10:00 Assessment/Plan JACKIE- in setting of heart dailure symptoms and leg edema may be 2/2 decreased cardiac output/ cardiac decompensation and renal hypoperfusion valsartan could impair autoregulation- agree with it being held r/o obstructive component viven h/o urinary retention -renal and bladder sono -monitor urine output and labs for renal function Afib with RVR CHF exacerbation COPD - on advair, duonebs, low dose steroid H/o AAA s/p repair - cont statin, asa HLD - cont statin Plan- follow serum chemistries
[2018-05-07] MEDS ORDERED: dilTIAZem HCL 30 MG TABLET (FP) PO ONE (18:15)
[2018-05-07] MEDS ORDERED: dilTIAZem HCL 30 MG TABLET (FP) ONE (21:25)
[2018-05-07] MEDS ORDERED: dilTIAZem HCL 60 MG TABLET (FP) ONE (21:25)
[2018-05-07] MEDS: DUTASTERIDE 0.5 MG CAP (FP) PO SCH (21:29)
[2018-05-07] MEDS: TAMSULOSIN HCL 0.4 MG CAP.ER.24H (FP) PO SCH (21:29)
[2018-05-07] MEDS: DILTIAZEM 30 MG, DILTIAZEM 60 MG PO SCH (21:29)
[2018-05-07] MEDS ORDERED: ATORVASTATIN CA 20 MG TABLET (FP) PO SCH (22:00)
[2018-05-08] MEDS ORDERED: VANCOMYCIN 1,000 MG in DEXTROSE 5%-WATER - 250 ML IVPB ONE (01:15)
[2018-05-08] MEDS ORDERED: dilTIAZem HCL 30 MG TABLET (FP) ONE ×3 (05:39→21:30)
[2018-05-08] MEDS ORDERED: dilTIAZem HCL 60 MG TABLET (FP) ONE ×3 (05:39→21:30)
[2018-05-08] MEDS: DILTIAZEM 30 MG, DILTIAZEM 60 MG PO SCH ×3 (05:40→21:34)
[2018-05-08 07:32] LABS: BASO % 0.1 % (0-2.0); HEMATOCRIT 37.1 % (35.4-49); HEMOGLOBIN 12.5 GM/dL (11.7-16.9); LYMPH % 2.8 % (8-40); MCH 31.5 pg (25.7-33.7); MCHC 33.6 g/dl (32.0-35.9); MEAN CELL VOLUME 93.8 fl (80-96); MEAN PLT VOLUME 9.4 fl (7.5-11.1); MONO % 3.7 % (3.8-10.2); NEUT % 93.4 % (42.8-82.8); PLATELET COUNT 202 K/MM3 (134-434); RBC 3.95 M/mm3 (4.00-5.60); RDW 13.9 % (11.9-15.9); WHITE BLOOD COUNT 17.7 K/mm3 (4.0-10.0)
[2018-05-08 07:59] LABS: CHLORIDE 91 mmol/L (98-107); POTASSIUM 4.8 mmol/L (3.5-5.1); SODIUM 128 mmol/L (136-145)
[2018-05-08 08:05] LABS: ANION GAP 11 (8-16); BLOOD UREA NITROGEN 66 mg/dL (7-18); CO2 26 mmol/L (21-32); CREATININE 2.1 mg/dL (0.7-1.3); GLUCOSE,RANDOM 132 mg/dL (74-106)
--- NOTE | 2018-05-08 09:05 | CON.GU ---
Consult Consult Specialty:: Urology Reason for Consultation:: AUR - History of Present Illness Chief Complaint: 72 yo male pt of Dr Olsen followed for BPH on Avodart and Tamsulosin now in AUR. Failed voiding trial. Cr 2.1 - Past Medical History Cardio/Vascular: Yes: Aneurysm, Hyperlipdemia Pulmonary: Yes: COPD Musculoskeletal: Yes: Chronic low back pain - Past Surgical History Past Surgical History: Yes: AAA Repair, Appendectomy, Hernia Repair - Alcohol/Substance Use Hx Alcohol Use: Yes (socially beer) - Smoking History Smoking history: Former smoker Have you smoked in the past 12 months: No Aproximately how many cigarettes per day: 2 If you are a former smoker, when did you quit?: 6 mos ago Home Medications - Allergies Allergies/Adverse Reactions: Allergies Allergy/AdvReac Type Severity Reaction Status Date / Time No Known Drug Allergies Allergy Verified 05/06/18 16:29 - Home Medications Home Medications: Ambulatory Orders Aspirin [Baby Aspirin] 81 mg PO DAILY 01/26/12 Atorvastatin Ca [Lipitor] 20 mg PO DAILY #0 tab 12/15/12 Duloxetine [Cymbalta -] 90 mg PO DAILY #0 capsule. 12/15/12 Tamsulosin HCl [Flomax -] 0.4 mg PO HS #0 cap.er.24h 12/15/12 Dutasteride [Avodart] 0.5 mg PO HS 08/05/14 Valsartan [Diovan] 160 mg PO DAILY 09/02/16 Oxycodone HCl/Acetaminophen [Percocet 5-325 mg Tablet] 1 tab PO Q4H PRN #42 tablet MDD 6 09/09/16 Physical Exam- Vital Signs: Vital Signs Temperature 97.6 F 05/08/18 05:30 Pulse Rate 125 H 05/08/18 05:30 Respiratory Rate 20 05/08/18 05:30 Blood Pressure 94/60 05/08/18 05:30 O2 Sat by Pulse Oximetry (%) 95 05/07/18 10:00 Labs: CBC, BMP 05/08/18 06:00 05/08/18 06:00 Problem List - Problems (1) Urinary retention due to benign prostatic hyperplasia Assessment/Plan: 72 yo makle on BPH meds now in AUR. Cevallos to sd clear. Would obtain CHANTEL Consider bph procedure for retention Code(s): N40.1 - BENIGN PROSTATIC HYPERPLASIA WITH LOWER URINARY TRACT SYMP; R33.8 - OTHER RETENTION OF URINE (2) Urinary retention due to benign prostatic hyperplasia Code(s): N40.1 - BENIGN PROSTATIC HYPERPLASIA WITH LOWER URINARY TRACT SYMP; R33.8 - OTHER RETENTION OF URINE (3) Urinary reflux, chronic, as indication for ute nephrectomy Code(s): N13.70 - VESICOURETERAL-REFLUX, UNSPECIFIED
[2018-05-08] MEDS ORDERED: FUROSEMIDE 40 MG/4 ML INJECTABLE VIAL IVPUSH ONE (09:50)
[2018-05-08] MEDS ORDERED: DEXTROSE 5%-WATER - 50 ML IVPB ONE (09:53)
[2018-05-08] MEDS ORDERED: cefTRIAXone SODIUM 1 GM VIAL ONE (09:53)
[2018-05-08] MEDS ORDERED: HEPARIN NA (PORCINE) 5,000 UNITS/ML 1ML VIAL IVPUSH PRN ×2 (09:54)
--- NOTE | 2018-05-08 09:56 | PN ---
Progress Note (short form) - Note Progress Note: s: no cp sob palps, feels better. edema improving as well. Tele: HR 100s-100s afib, occ 120s o: Vital Signs Period Temp Pulse Resp BP Sys/Carroll Pulse Ox Last 24 Hr 96.8 F-98.5 F 121-140 18-20 94-121/51-60 95 Constitutional: Yes: Well Nourished, No Distress, Calm Eyes: Yes: Conjunctiva Clear, EOM Intact HENT: Yes: Atraumatic, Normocephalic Neck: Yes: Supple Respiratory: Yes: Regular, Rales Gastrointestinal: Yes: Normal Bowel Sounds, Soft Renal/: Yes: Other (booth) Cardiovascular: Yes: Tachycardia, Pulse Irregular JVD: Yes Edema: Yes Edema: LLE: 1+, RLE: 1+ Current Medications Generic Name Dose Route Start Last Admin Trade Name Freq PRN Reason Stop Dose Admin Acetaminophen 325 mg 05/06/18 18:36 Tylenol - PO 05/09/18 18:35 Q4H PRN PAIN LEVEL 1-5 Albuterol/Ipratropium 1 amp 05/06/18 18:49 Duoneb - NEB Q6H PRN SHORTNESS OF BREATH Aspirin 81 mg 05/07/18 10:00 05/07/18 09:51 Asa - PO 81 mg DAILY KINGSLEY Administration Atorvastatin Calcium 20 mg 05/07/18 22:00 05/07/18 21:29 Lipitor - PO 20 mg HS KINGSLEY Administration Diltiazem HCl 30 mg/ Diltiazem 90 mg 05/07/18 22:00 05/08/18 05:40 HCl 60 mg PO 90 mg TID KINGSLEY Administration Duloxetine HCl 90 mg 05/07/18 10:00 05/07/18 09:51 Cymbalta - PO 90 mg DAILY KINGSLEY Administration Dutasteride 0.5 mg 05/06/18 22:00 05/07/18 21:29 Avodart - PO 0.5 mg HS KINGSLEY Administration Furosemide 40 mg 05/08/18 09:50 Lasix Injection - IVPUSH 05/08/18 09:51 ONCE ONE Ceftriaxone Sodium 1 gm/ 50 mls @ 100 mls/hr 05/08/18 10:00 Dextrose IVPB DAILY KINGSLEY Doxycycline Hyclate 100 mg/ 100 mls @ 100 mls/hr 05/07/18 11:30 05/07/18 21: 30 Dextrose IVPB 100 mls/hr BID KINGSLEY Administration Oxycodone HCl 5 mg 05/06/18 18:36 Roxicodone - PO Q4H PRN PAIN LEVEL 1-5 Prednisone 40 mg 05/07/18 11:30 05/07/18 12:32 Deltasone - PO Not Given DAILY KINGSLEY Fluticasone/Salmeterol 1 puff 05/06/18 22:00 05/07/18 21:28 Advair 100mcg/50mcg - IH 1 puff BID KINGSLEY Administration Tamsulosin HCl 0.4 mg 05/06/18 22:00 05/07/18 21:29 Flomax - PO 0.4 mg HS KINGSLEY Administration Assessment/Plan EKG 05/06/18 afib with RVR 155, RBBB tele afib with rates 110s-130s, occ 150s 72M h/o HTN, HLD, COPD, ex smoker, PAD s/p AAA repair 12 years ago, femoral bypass 4 years ago p/w carrizales, lower extremity swelling, cough for two weeks with new afib, CHF exac, JACKIE, leukocytosis Afib with RVR - rate control improved with diltiazem, continue - has received lovenox, renal function improving however Cr 2.1 - start heparin gtt, transition to NOAC prior to dc if no contraindication - check echo, ordered CHF exacerbation - per patient prior echo was 2 years ago, check echo - 05/06 received IV lasix 40 mg x1 in PM, 05/07 Cr 2.1->2.5 with obstruction and booth placement with improving UOP - lasix 40 mg IV x 1 05/08, monitor Cr, daily weights, I/O Elevated troponin - borderline elevation likely in setting of afib with RVR and CHF exac, flat trend, unlikely ACS COPD - on advair, duonebs, low dose steroid JACKIE - holding home valsartan - booth inserted today for obstruction, urology and nephrology consulted - monitor Cr H/o AAA s/p repair - cont statin, asa HLD - cont statin MSSA bacteremia - no signs/sx of infection - ID consulted - echo ordered
[2018-05-08] MEDS: DULoxetine HCL 30 MG CAPSULE.DR (FP) PO SCH (09:57)
[2018-05-08] MEDS: FLUTICASONE/SALMETEROL 100 MCG/50 MCG DISKUS IH SCH ×2 (09:57→21:35)
[2018-05-08] MEDS: predniSONE 10 MG TABLET (UD) PO SCH (09:57)
[2018-05-08] MEDS: ASPIRIN 81 MG CHEWABLE TABLETS PO SCH (09:57)
[2018-05-08] MEDS: DOXYCYCLINE INJECTION 100 MG in DEXTROSE 5%-WATER - 100 ML IVPB SCH (09:58)
[2018-05-08] MEDS ORDERED: CEFTRIAXONE 1 GM in DEXTROSE 5%-WATER - 50 ML IVPB SCH (10:00)
--- NOTE | 2018-05-08 10:01 | PN ---
Progress Note, Physician Chief Complaint: Patient Feels improved less SOB, Foleys was inserted for urinary retention, remained wafebrile, blood culture both bottles grew Gram + Cocci on clusters , considering H/O AAA repair and Femoral bypass , Vancomycin added last night - Current Medication List Current Medications: Active Medications Acetaminophen (Tylenol -) 325 mg PO Q4H PRN PRN Reason: PAIN LEVEL 1-5 Stop: 05/09/18 18:35 Albuterol/Ipratropium (Duoneb -) 1 amp NEB Q6H PRN PRN Reason: SHORTNESS OF BREATH Aspirin (Asa -) 81 mg PO DAILY [facility] Last Admin: 05/07/18 09:51 Dose: 81 mg Atorvastatin Calcium (Lipitor -) 20 mg PO [facility] Last Admin: 05/07/18 21:29 Dose: 20 mg Diltiazem HCl 30 mg/ Diltiazem (HCl 60 mg) 90 mg PO TID [facility] Last Admin: 05/08/18 05:40 Dose: 90 mg Duloxetine HCl (Cymbalta -) 90 mg PO DAILY [facility] Last Admin: 05/07/18 09:51 Dose: 90 mg Dutasteride (Avodart -) 0.5 mg PO [facility] Last Admin: 05/07/18 21:29 Dose: 0.5 mg Ceftriaxone Sodium 1 gm/ (Dextrose) 50 mls @ 100 mls/hr IVPB DAILY [facility] Doxycycline Hyclate 100 mg/ (Dextrose) 100 mls @ 100 mls/hr IVPB BID [facility] Last Admin: 05/07/18 21:30 Dose: 100 mls/hr Oxycodone HCl (Roxicodone -) 5 mg PO Q4H PRN PRN Reason: PAIN LEVEL 1-5 Prednisone (Deltasone -) 30 mg PO DAILY [facility] Fluticasone/Salmeterol (Advair 100mcg/50mcg -) 1 puff IH BID [facility] Last Admin: 05/07/18 21:28 Dose: 1 puff Tamsulosin HCl (Flomax -) 0.4 mg PO [facility] Last Admin: 05/07/18 21:29 Dose: 0.4 mg - Objective Vital Signs: Vital Signs Temperature 97.6 F 05/08/18 05:30 Pulse Rate 125 H 05/08/18 05:30 Respiratory Rate 20 05/08/18 05:30 Blood Pressure 94/60 05/08/18 05:30 O2 Sat by Pulse Oximetry (%) 95 05/07/18 10:00 Constitutional: No c/o fever chills or nausea HEENT: Mm mdry, no anemia, PERRLA, EOMI Neck: No JVd No BruitDecreased ROM, Lumps, Pain on Movement Cardiovascular: Irregular , no tachycardia no murmur Respiratory: No c/o Cough, Minimal basal crepts Gastrointestinal: No Abdominal Pain, no Bloating, BS + Genitourinary: S/P Foleys for retention Burning, Discharge, Dysuria Musculoskeletal & LE: reports: Back Pain, Edema LE is improving Neurological: AOx3 Change in LOC, Change in Speech Labs: CBC, BMP 05/08/18 06:00 05/08/18 06:00 - ....Imaging Other: Report Reviewed (Blood Culture Grew Possible MSSA in both Bottles) Problem List - Problems (1) Acute exacerbation of CHF (congestive heart failure) Assessment/Plan: Present with CHS symptoms with Afib , Bed side ECHO shows Low EF will F/U ECHO , most luikely tachycardia induced, responsded to Lasix and rate control with PO Diltiazem , yesterday lasix was on Hold. F/U ECHO.Cardiology consult, Valsartan held for worsening renal functions. Code(s): I50.9 - HEART FAILURE, UNSPECIFIED Qualifiers: Heart failure type: systolic Qualified Code(s): I50.23 - Acute on chronic systolic (congestive) heart failure (2) Atrial fibrillation with RVR Assessment/Plan: Cont Diltizem will consider adding AC after discussing with cardiology High [id number] score Code(s): I48.91 - UNSPECIFIED ATRIAL FIBRILLATION (3) COPD with exacerbation Assessment/Plan: Rx Smoker diffuse wheezing on hospitalization now improved no c/o cough or expectoration low dose steroid resume advair and PRN Duobneb will decrese PO Prednisone to 30 mg, on IV Ceftriaxone and Doxy Vanco added for + Blood culture Code(s): J44.1 - CHRONIC OBSTRUCTIVE PULMONARY DISEASE W (ACUTE) EXACERBATION (4) Elevated troponin I level Assessment/Plan: elevated troponin I no EKG changes, no chest pain most likely due to Demand ischemnia con ASA LDL at target cont Statin and Code(s): R74.8 - ABNORMAL LEVELS OF OTHER SERUM ENZYMES (5) Morbid obesity Assessment/Plan: Nutrition consult as out patient Code(s): E66.01 - MORBID (SEVERE) OBESITY DUE TO EXCESS CALORIES (6) JACKIE (acute kidney injury) Assessment/Plan: Worsening renal functions most likely obstructive uropathy will F/U recommendations cont Cevallos catheter and Renal consult and consult Code(s): N17.9 - ACUTE KIDNEY FAILURE, UNSPECIFIED (7) Abdominal aortic aneurysm Assessment/Plan: Opertaed 12 yrs ago cont Statin Optimize BP Code(s): I71.4 - ABDOMINAL AORTIC ANEURYSM, WITHOUT RUPTURE (8) Dyslipidemia Assessment/Plan: LDL < 50 wi;ll optimize statin dose Code(s): E78.5 - HYPERLIPIDEMIA, UNSPECIFIED (9) Transaminitis Assessment/Plan: Elevated SGOT PT most likely congestive Hepatopathy on stain, considering morbid obesity vcan be due to ROJAS will F/U Hepatitis panel F/U LFTS, GI consult, Hold Statin LDL < 50 Code(s): R74.0 - NONSPEC ELEV OF LEVELS OF TRANSAMNS & LACTIC ACID DEHYDRGNSE (10) Gram-positive bacteremia Assessment/Plan: Blood culture Grew Possible MSSA in both bottles sensitivity is pending will F/ U ECHO patient is status post AAA repair, recived one Gm Vancomycin F/U ID input Code(s): R78.81 - BACTEREMIA (11) Elevated WBC count Assessment/Plan: Most likely steroid induced although blood culture is + CXr no infiltrate intial UA -ve will Rpt UA decrese Prednisone to 30 mg daily. Code(s): D72.829 - ELEVATED WHITE BLOOD CELL COUNT, UNSPECIFIED
--- NOTE | 2018-05-08 11:23 | PN ---
Progress Note (short form) - Note Progress Note: ID consult dictated imp/reccd 72 year old man PMH copd, htn, Hyper lipidemia,, history of AAA repair and FEMFEM bypass, BPH admitted with 2 week history of bilateral lower extremity edema poor urinary output no fevers or chills at home went to see dr cabrales on Wednesday who advised admission has been using his advair frequently due to SOB found to be in rapid afib with CHF acute urinary retention requiring booth catheter now BACTEREMIA- admission cultures are now positive no skin sores but some abrasions on the knees Staph Bacteremia r/o endocarditis repeat blood cultures esr/crp echo prior AAA repair and bypass noted also has right shoulder replacement Thrush nystatin new afib chf abnl LFTs-?congestion, consider ultrasound, hep serology, avoid hepatotoxic agents appears to be improving, trend CPK as well urinary retention JACKIE suspect a component of the leukocytosis may be due to steroids d/c ceftriaxone and doxycycline continue vancomycin for now by levels due to changing renal function until final ID and sensitivity are back add cefazolin d/w patient and at length d/w hospitalist and re dye hand Problem List - Problems (1) Gram-positive bacteremia Code(s): R78.81 - BACTEREMIA (2) Thrush Code(s): B37.0 - CANDIDAL STOMATITIS (3) Atrial fibrillation with RVR Code(s): I48.91 - UNSPECIFIED ATRIAL FIBRILLATION (4) Urinary retention due to benign prostatic hyperplasia Code(s): N40.1 - BENIGN PROSTATIC HYPERPLASIA WITH LOWER URINARY TRACT SYMP; R33.8 - OTHER RETENTION OF URINE (5) Acute exacerbation of CHF (congestive heart failure) Code(s): I50.9 - HEART FAILURE, UNSPECIFIED Qualifiers: Heart failure type: systolic Qualified Code(s): I50.23 - Acute on chronic systolic (congestive) heart failure (6) Transaminitis Code(s): R74.0 - NONSPEC ELEV OF LEVELS OF TRANSAMNS & LACTIC ACID DEHYDRGNSE
--- NOTE | 2018-05-08 12:11 | CON.GI ---
Consult Consult Specialty:: GI Referred by:: Dr. Hollis Reason for Consultation:: Abnormal LFTs - History of Present Illness Chief Complaint: "I've been getting more short of breath and my legs were swelling" History of Present Illness: 72 M admitted for evaluation of progressive shortness of breath and LE swelling over the last 2 weeks. He attributed this to his known history of COPD and started using Advair more frequently. He saw his PMD Dr. Mcclendon wednesday who sent him to the ER. He was noted to have new onset a.fib have an elevated WBC, elevated transaminases and ALP/Bili. He denies a history of alcohol use, known family or personal history of liver disease, recent change in medications, OTC supplements. He takes aleve 3-4 times per week for back pain. He denied any associated abdominal pain but noticed a diminished appetite , constipation and less ferequent urination. He currently continues to be short of breath. he was evaluated by Dr. Manjarrez in the past and believes that his last colonoscopy was 2-3 years ago (OK per Mr. Cuadra). there is no family history of colorectaql cancer or other GI malignancy. - History Source History Provided By: Patient, Family Member ( bedside) Limitations to Obtaining History: No Limitations - Past Medical History Cardio/Vascular: Yes: Aneurysm, Hyperlipdemia Pulmonary: Yes: COPD Musculoskeletal: Yes: Chronic low back pain (Spinal stenosis) - Past Surgical History Past Surgical History: Yes: AAA Repair, Appendectomy, Bypass (fem-pop bypass), Hernia Repair (bilateral inguinal) Additional Surgical History: Right shoulder surgery - Alcohol/Substance Use Hx Alcohol Use: Yes (socially beer) - Smoking History Smoking history: Former smoker Have you smoked in the past 12 months: No Aproximately how many cigarettes per day: 2 If you are a former smoker, when did you quit?: 6 mos ago - Social History Usual Living Arrangement: With Spouse ADL: Independent Occupation: Retired Banker Place of : [facility] History of Recent Travel: No Home Medications - Allergies Allergies/Adverse Reactions: Allergies Allergy/AdvReac Type Severity Reaction Status Date / Time No Known Drug Allergies Allergy Verified 05/06/18 16:29 - Home Medications Home Medications: Ambulatory Orders Aspirin [Baby Aspirin] 81 mg PO DAILY 01/26/12 Atorvastatin Ca [Lipitor] 20 mg PO DAILY #0 tab 12/15/12 Duloxetine [Cymbalta -] 90 mg PO DAILY #0 capsule.dr 12/15/12 Tamsulosin HCl [Flomax -] 0.4 mg PO HS #0 cap.er.24h 12/15/12 Dutasteride [Avodart] 0.5 mg PO HS 08/05/14 Valsartan [Diovan] 160 mg PO DAILY 09/02/16 Oxycodone HCl/Acetaminophen [Percocet 5-325 mg Tablet] 1 tab PO Q4H PRN #42 tablet MDD 6 09/09/16 Family Disease History - Family Disease History Other Family History: No family history of colorectal cancer or other GI malignancy Review of Systems - Review of Systems Constitutional: denies: Unintentional Wgt. Loss Cardiovascular: denies: Chest Pain Respiratory: reports: SOB, SOB on Exertion Gastrointestinal: reports: Constipation. denies: Abdominal Pain, Diarrhea, Melena, Rectal Bleeding Physical Exam-GI Vital Signs: Vital Signs Temperature 97.9 F 05/08/18 10:00 Pulse Rate 100 H 05/08/18 10:00 Respiratory Rate 20 05/08/18 10:00 Blood Pressure 100/59 05/08/18 10:00 O2 Sat by Pulse Oximetry (%) 96 05/08/18 10:00 Constitutional: Yes: Calm Eyes: No: Sclera Icterus HENT: Yes: Thrush (+ oropharyngeal thrush) Cardiovascular: Yes: Tachycardia, Pulse Irregular Respiratory: Yes: Tachypnea, Wheezes (fine expiratory wheezing bilaterally) Gastrointestinal Inspection: Yes: Hernia (+ incisional hernia at the right paramedian caudad border of his aneurysm repair scar), Scars (long midline vertical abdominopelvic surgical scar). No: Distention ...Auscultate: Yes: Normoactive Bowel Sounds ...Palpate: Yes: Soft. No: Hepatomegaly, Splenomegaly, Tenderness ...Percussion: No: Tympanitic ...Rectal Exam: Yes: Other (No external lesions, no masses, no fecal impaction, trace light brown guaiac negative stool, 3+ prostate) Edema: Yes Edema: RUE: 1+ (distal RUE/Hand), LLE: 2+, RLE: 2+ Neurological: Yes: Alert, Oriented Labs: CBC, BMP 05/08/18 06:00 05/08/18 06:00 Hepatic Panel Total Bilirubin 1.3 mg/dL (0.2-1.0) H 05/07/18 06:00 AST 469 U/L (15-37) H D 05/07/18 06:00 ALT 691 U/L (12-78) H D 05/07/18 06:00 Alkaline Phosphatase 263 U/L (45-117) H D 05/07/18 06:00 Albumin 2.6 g/dl (3.4-5.0) L 05/07/18 06:00 Microbiology 05/06/18 18:48 Blood - Peripheral Venous Blood Culture - Preliminary Presumptive Mssa (Pbp2a Neg) 05/06/18 18:48 Blood - Peripheral Venous Blood Culture - Preliminary Presumptive Mssa (Pbp2a Neg) Problem List - Problems (1) Abnormal liver function tests Assessment/Plan: Mixed hepatocellular / cholestatic, Asymptomatic: Suspect congestive hepatopathy secondary to CHF / A. Fib Inflammatory process such as cholecystitis / cholangitis less likely and staph not common biliary tract pathogen Advise: Imaging of hepatobiliary tract: US ordered. pending findings of US, if he can tolerate, MRCP would be warranted Hepatitis A/B/C serologies ordered Monitor LFTs Eliminate non essential hepatotoxic agents. On nystatin S/S as opposed to diflucan secondary to liver dysfunction Code(s): R94.5 - ABNORMAL RESULTS OF LIVER FUNCTION STUDIES
[2018-05-08 12:24] LABS: URINE APPEARANCE CLOUDY; URINE BILIRUBIN NEGATIVE (<2.0 mg/dL); URINE COLOR YELLOW; URINE GLUCOSE (UA) NEGATIVE (NEGATIVE); URINE KETONE NEGATIVE (NEGATIVE); URINE LEUK ESTERASE 2+ (NEGATIVE); URINE NITRITE NEGATIVE (NEGATIVE); URINE PROTEIN NEGATIVE (NEGATIVE); URINE UROBILINOGEN NEGATIVE mg/dL (0.2-1.0)
[2018-05-08 12:30] LABS: URINE HYALINE CAST 87 /lpf; URINE MUCUS FEW
[2018-05-08] MEDS ORDERED: PT OWN MED DRAWER 7, Y5N ONE ×3 (12:37→21:31)
[2018-05-08] MEDS: NYSTATIN 500,000 UNITS/5 ML SUSPENSION PO SCH ×3 (12:49→23:12)
[2018-05-08] MEDS: HEPARIN - 25,000 UNIT in SODIUM CHLORIDE 495 ML IV SCH ×2 (12:49→20:25)
--- NOTE | 2018-05-08 13:18 | CONS ---
DATE OF CONSULTATION: DATE OF DICTATION: 05/08/2018 REQUESTED BY: Carlene Hollis MD The patient was seen and examined. Case was discussed with Dr. Hollis. I spoke with the jointer machine operator, Dr. Suarez, as well. This is a 72-year-old man, past medical history of hypertension, hyperlipidemia, obesity, COPD. He just stopped smoking 9 months ago. He presented to Dr. Mcclendon on Wednesday, who is his primary doctor, with 2 weeks of bilateral leg edema. He has a history of BPH and he had marked drop in his urinary output. He had been short of breath. He had been over-using his Advair at home to help with his breathing. He was seen by Dr. Mcclendon, who noted his legs were edematous and he appeared dyspneic, and advised him to come to the emergency room. He was evaluated in the emergency room, where he was found to be in rapid atrial fibrillation. He had a ventricular rate of over 150, he had an elevated BNP. He had a chest x-ray notable for congestion and lower extremity swelling. He was admitted with these findings. He had a low-grade temperature of 100.6 in the emergency room, and cultures were obtained. He denies any fevers or chills at home. He has been working for the last couple of weeks on an outdoor project, creating a pool for his grandkids. He has an abrasion on his knee. He has several ecchymoses on his arms, which he attributes to the work he had been doing. He has no known drug allergies. His medications as an outpatient include Diovan, Flomax, Percocet, Avodart, Cymbalta, Lipitor, and aspirin. Past medical history is notable for obesity, hypertension, hyperlipidemia, COPD, benign prostatic hypertrophy. Surgical history is notable for a left inguinal hernia repair in 2016. He fell off the roof of his house cleaning the gutter, and he underwent a right shoulder hemiarthroplasty in 2013. He is also status post femorofemoral bypass with Dr. Edge, which he reports he had prior to the shoulder replacement; and 12 years ago he had an abdominal aortic aneurysm, which was an open repair, done by Dr. Edge as well. His family history is notable for aneurysms in his mother and a sibling. SOCIAL HISTORY: He is . He lives with his . He is a former smoker. He just stopped smoking 9 months ago. He drinks alcohol socially and he retired 3 years ago. REVIEW OF SYSTEMS: He notes no chills or fevers at home. He has had this marked dyspnea and swelling of his legs, accompanied by a dry cough and lack of urine output. HOSPITAL COURSE: Since admission, he was treated with doxycycline and this morning when his blood cultures results were called in, he was given vancomycin and ceftriaxone. He was seen by Urology and he had a urinary catheter placed yesterday for urinary retention. He was seen by Renal, seen by Cardiology, and he was also started on some prednisone for possible COPD exacerbation. He received a dose of Lasix as well this morning. PHYSICAL EXAMINATION: General: He is awake and alert. Vital Signs: His temperature is 97.9, after 100.6. He has had no further fever. Pulse 100. Blood pressure 100/59. Respiratory rate 20. Saturating 96% on 3 L. He reports improvement in his dyspnea. HEENT: He is normocephalic. His eyes are anicteric. He has dentures, currently unable to remove, but both his tongue and his posterior pharynx, he has thrush. He has no conjunctival petechiae. Neck: Supple. Lungs: Scattered rhonchi. Heart: Irregularly irregular. Distant heart sounds. I do not here any murmurs. Abdomen: Soft, nontender. Extremities: He has bilateral lower extremity edema, which the family reports is much improved. He has no open abrasions on his feet. He has a small abrasion on his knee. He has no Osler nodes or Janeway lesions at this time. His labs are notable on admission. His white count was 16.3, today is 17.7, hemoglobin 12.5, platelets are 202. His BUN on admission was 51 and creatinine 2, with an AST of 836, ALT of 894, alkaline phosphatase of 335, and a CPK of 612. Repeat today, AST is 469, ALT is 691, with an alkaline phosphatase of 263. His urinalysis is negative except for 1+ protein and 1 white cell. Blood cultures, 4 of 4 bottles drawn in the emergency room, have gram-positive cocci in clusters, further ID pending. In summary, this is a 72-year-old man with staphylococcus bacteremia, rule out endocarditis, source may be the skin abrasions but otherwise no clear source is noted. Would check a sedimentation rate and a CRP. Would get an echo. He has had prior abdominal aortic aneurysm repair and bypass, as well as shoulder replacement. Currently there are no signs of anything to suggest septic arthritis of his shoulder and he has no skin manifestations consistent with endocarditis. The case was discussed with the jointer machine operator, who will follow up on the echo tomorrow. Number 2, thrush, most likely secondary to his Advair use. Would suggest nystatin, hold Diflucan given his abnormal LFTs. Number 3, new atrial fibrillation with congestive heart failure, possible chronic obstructive pulmonary disease exacerbation. Abnormal LFTs, possibly congestion. Would consider an ultrasound, hepatitis serologies. Will try to avoid hepatotoxic agents. Appears to be improving. Would trend a CPK as well. Urinary retention: Cevallos is in place but he does appear to have acute kidney injury with continued elevated creatinine, which is new. I suspect a component of leukocytosis may be due to steroids, which have been started since admission. I would stop his ceftriaxone and doxycycline at this time. Would continue vancomycin until further results can be obtained about the blood cultures. Case was discussed at length with the patient and his , as well as the hospitalist, Dr. Hollis, and the jointer machine operator. CINDY MANDEL M.D. [id number]
[2018-05-08 13:35] LABS: ANISOCYTOSIS 0; MACROCYTOSIS 0; PLATELET ESTIMATE NORMAL
[2018-05-08 17:10] LABS: ALBUMIN 2.8 g/dl (3.4-5.0); BILIRUBIN,DIRECT 0.7 mg/dL (0.0-0.2); BILIRUBIN,TOTAL 1.1 mg/dL (0.2-1.0); TOT PROT 5.9 g/dl (6.4-8.2)
[2018-05-08] MEDS ORDERED: VANCOMYCIN 1 GM PREMIX - 1 GM/200 ML BAG IVPB ONE (18:30)
[2018-05-08] MEDS ORDERED: MAGNESIUM HYDROXIDE 400 MG/5 ML SUSPENSION PO PRN (21:22)
[2018-05-08] MEDS ORDERED: MAG HYDROX/AL HYDROX/SIMETH 30 ML UNIT-DOSE CUP PO PRN (21:23)
[2018-05-08] MEDS ORDERED: MAGNESIUM HYDROX 2400MG/30ML ORAL SUSPENSION 30 ML CUP PO PRN (21:24)
[2018-05-08] MEDS: DUTASTERIDE 0.5 MG CAP (FP) PO SCH (21:34)
[2018-05-08] MEDS: TAMSULOSIN HCL 0.4 MG CAP.ER.24H (FP) PO SCH (21:34)
[2018-05-08] MEDS: RANITIDINE HCL 150 MG TABLET (FP) PO SCH (21:34)
[2018-05-09] MEDS: CEFAZOLIN 2 GM/D5W 2 GM/50 ML ML IVPB SCH ×3 (02:24→22:30)
[2018-05-09] MEDS ORDERED: dilTIAZem HCL 30 MG TABLET (FP) ONE ×3 (05:19→20:38)
[2018-05-09] MEDS ORDERED: dilTIAZem HCL 60 MG TABLET (FP) ONE ×3 (05:19→20:37)
[2018-05-09] MEDS: NYSTATIN 500,000 UNITS/5 ML SUSPENSION PO SCH ×4 (05:24→23:03)
[2018-05-09] MEDS: DILTIAZEM 30 MG, DILTIAZEM 60 MG PO SCH ×3 (05:24→21:12)
[2018-05-09] MEDS: ALBUTEROL SO4 2.5/IPRATROPIUM 0.5 INH SOL 3 ML VIAL.NEB. NEB PRN (05:30)
[2018-05-09 06:26] LABS: BASO % 0.2 % (0-2.0); HEMATOCRIT 35.8 % (35.4-49); HEMOGLOBIN 12.1 GM/dL (11.7-16.9); LYMPH % 4.1 % (8-40); MCH 31.7 pg (25.7-33.7); MCHC 33.7 g/dl (32.0-35.9); MEAN CELL VOLUME 94.2 fl (80-96); MEAN PLT VOLUME 9.2 fl (7.5-11.1); MONO % 5.1 % (3.8-10.2); NEUT % 90.6 % (42.8-82.8); PLATELET COUNT 192 K/MM3 (134-434); RDW 13.6 % (11.9-15.9); WHITE BLOOD COUNT 17.3 K/mm3 (4.0-10.0)
[2018-05-09 06:57] LABS: ANION GAP 11 (8-16); BLOOD UREA NITROGEN 76 mg/dL (7-18); CALCIUM 7.7 mg/dL (8.5-10.1); CHLORIDE 92 mmol/L (98-107); CO2 24 mmol/L (21-32); CREATININE 2.9 mg/dL (0.7-1.3); GLUCOSE,RANDOM 121 mg/dL (74-106); POTASSIUM 5.2 mmol/L (3.5-5.1); SODIUM 127 mmol/L (136-145)
[2018-05-09 07:03] LABS: ALBUMIN 2.8 g/dl (3.4-5.0); BILIRUBIN,DIRECT 0.6 mg/dL (0.0-0.2); BILIRUBIN,TOTAL 0.9 mg/dL (0.2-1.0)
[2018-05-09 07:04] LABS: TOT PROT 5.6 g/dl (6.4-8.2)
[2018-05-09] MEDS: FLUTICASONE/SALMETEROL 100 MCG/50 MCG DISKUS IH SCH ×2 (09:17→21:11)
[2018-05-09] MEDS: DULoxetine HCL 30 MG CAPSULE.DR (FP) PO SCH (09:18)
[2018-05-09] MEDS: ASPIRIN 81 MG CHEWABLE TABLETS PO SCH (09:18)
[2018-05-09] MEDS: predniSONE 10 MG TABLET (UD) PO SCH (09:18)
[2018-05-09] MEDS: RANITIDINE HCL 150 MG TABLET (FP) PO SCH ×2 (09:18→21:11)
--- NOTE | 2018-05-09 09:41 | PN ---
GI Progress Note Subjective: No acute events States feeling "a little better" in terms of his shortness of breath No abdominal pain - Objective Vital Signs: Vital Signs Temperature 97.0 F L 05/09/18 05:20 Pulse Rate 118 H 05/09/18 05:20 Respiratory Rate 22 05/09/18 05:20 Blood Pressure 107/50 05/09/18 05:20 O2 Sat by Pulse Oximetry (%) 97 05/08/18 20:43 Constitutional: Calm Eyes: No: Sclera Icterus HENT: Yes: Thrush (improved pharyngeal candidiasis) Cardiovascular: Yes: Tachycardia, Pulse Irregular Respiratory: Yes: Diminished (at bases b/l) ...Auscultate: Yes: Normoactive Bowel Sounds ...Palpate: No: Hepatomegaly, Splenomegaly, Tenderness ...Percussion: No: Tympanitic Edema: Yes Edema: LLE: 2+, RLE: 2+ Neurological: Yes: Alert, Oriented Labs: CBC, BMP 05/09/18 05:45 05/09/18 05:45 Hepatic Panel Total Bilirubin 0.9 mg/dL (0.2-1.0) 05/09/18 05:45 Direct Bilirubin 0.6 mg/dL (0.0-0.2) H 05/09/18 05:45 AST 142 U/L (15-37) H D 05/09/18 05:45 ALT 449 U/L (12-78) H 05/09/18 05:45 Alkaline Phosphatase 204 U/L (45-117) H D 05/09/18 05:45 Albumin 2.8 g/dl (3.4-5.0) L 05/09/18 05:45 Problem List - Problems (1) Abnormal liver function tests Assessment/Plan: Improving LFT abnormality. Suspect component of congestive hepatopathy Hepatitis serologies pending Abdominal US pending for today Code(s): R94.5 - ABNORMAL RESULTS OF LIVER FUNCTION STUDIES (2) Oropharyngeal candidiasis Assessment/Plan: Receiving nystatin S/S. improvement in appearacne of pharyngeal candidiasis Code(s): B37.0 - CANDIDAL STOMATITIS
--- NOTE | 2018-05-09 10:46 | EKG ---
Test Reason : Blood Pressure : / mmHG Vent. Rate : 155 BPM Atrial Rate : 163 BPM P-R Int : 000 ms QRS Dur : 144 ms QT Int : 312 ms P-R-T Axes : 000 -16 060 degrees QTc Int : 501 ms ATRIAL FIBRILLATION WITH RAPID VENTRICULAR RESPONSE RIGHT BUNDLE BRANCH BLOCK ABNORMAL ECG WHEN COMPARED WITH ECG OF 09-SEP-2016 16:32, ATRIAL FIBRILLATION HAS REPLACED SINUS RHYTHM VENT. RATE HAS INCREASED BY 88 BPM Confirmed by JAVIER UBENO, RICKY ([id number]) on 05/09/2018 10:46:20 AM Referred By: Confirmed By:RICKY HERRERA MD
[2018-05-09] MEDS ORDERED: PT OWN MED DRAWER 7, Y5N ONE ×2 (11:45→20:38)
[2018-05-09] MEDS: HEPARIN - 25,000 UNIT in SODIUM CHLORIDE 495 ML IV SCH (11:48)
--- NOTE | 2018-05-09 12:33 | PN ---
Progress Note (short form) - Note Progress Note: feels improved having echo no complaints feels better Vital Signs Period Temp Pulse Resp BP Sys/Carroll Pulse Ox Last 24 Hr 96.9 F-97.9 F 80-130 18-22 93-123/47-72 97 cor-rrr llungs decreased bs at bases abd soft,nt ext trace edema CBC, BMP 05/09/18 05:45 05/09/18 05:45 Microbiology 05/08/18 11:35 Blood - Peripheral Venous Blood Culture - Preliminary NO GROWTH OBTAINED AFTER 24 HOURS, INCUBATION TO CONTINUE FOR 4 DAYS. 05/08/18 11:30 Blood - Peripheral Venous Blood Culture - Preliminary NO GROWTH OBTAINED AFTER 24 HOURS, INCUBATION TO CONTINUE FOR 4 DAYS. 05/06/18 18:48 Blood - Peripheral Venous Blood Culture - Final Staphylococcus Aureus 05/06/18 18:48 Blood - Peripheral Venous Blood Culture - Preliminary Presumptive Mssa (Pbp2a Neg) Laboratory Tests 05/06/18 05/08/18 05/09/18 16:20 16:11 05:45 Creatine Kinase 612 H C-Reactive Protein Random Vancomycin 7.91 14.92 05/09/18 05:45 Creatine Kinase C-Reactive Protein 4.9 H Random Vancomycin a/p MSSA bacteremia r/o endocarditis repeat blood cultures pending esr/crp echo prior AAA repair and bypass noted also has right shoulder replacement cefazolin Thrush-improved nystatin new afib chf abnl LFTs-?congestion, consider ultrasound, hep serology, avoid hepatotoxic agents appears to be improving, trend CPK as well urinary retention JACKIE suspect a component of the leukocytosis may be due to steroids continue cefazolin await echo and repeat cultures adjust antibiotics for elevated creatinine Problem List - Problems (1) Gram-positive bacteremia Code(s): R78.81 - BACTEREMIA (2) Atrial fibrillation with RVR Code(s): I48.91 - UNSPECIFIED ATRIAL FIBRILLATION (3) Acute exacerbation of CHF (congestive heart failure) Code(s): I50.9 - HEART FAILURE, UNSPECIFIED Qualifiers: Heart failure type: systolic Qualified Code(s): I50.23 - Acute on chronic systolic (congestive) heart failure (4) Transaminitis Code(s): R74.0 - NONSPEC ELEV OF LEVELS OF TRANSAMNS & LACTIC ACID DEHYDRGNSE (5) Urinary retention due to benign prostatic hyperplasia Code(s): N40.1 - BENIGN PROSTATIC HYPERPLASIA WITH LOWER URINARY TRACT SYMP; R33.8 - OTHER RETENTION OF URINE (6) Thrush Code(s): B37.0 - CANDIDAL STOMATITIS
--- NOTE | 2018-05-09 13:24 | PN ---
Progress Note (short form) - Note Progress Note: s: no cp sob palps, feels that sob is much better, edema near resolved Tele: HR 100s-100s afib, occ 120s o: Vital Signs Period Temp Pulse Resp BP Sys/Carroll Pulse Ox Last 24 Hr 96.8 F-98.5 F 121-140 18-20 94-121/51-60 95 Constitutional: Yes: Well Nourished, No Distress, Calm Eyes: Yes: Conjunctiva Clear, EOM Intact HENT: Yes: Atraumatic, Normocephalic Neck: Yes: Supple Respiratory: Yes: Regular, Rales Gastrointestinal: Yes: Normal Bowel Sounds, Soft Renal/: Yes: Other (booth) Cardiovascular: Yes: Tachycardia, Pulse Irregular JVD: Yes Edema: Yes Edema: LLE: 1+, RLE: 1+ Current Medications Generic Name Dose Route Start Last Admin Trade Name Freq PRN Reason Stop Dose Admin Acetaminophen 325 mg 05/06/18 18:36 Tylenol - PO 05/09/18 18:35 Q4H PRN PAIN LEVEL 1-5 Albuterol/Ipratropium 1 amp 05/06/18 18:49 Duoneb - NEB Q6H PRN SHORTNESS OF BREATH Aspirin 81 mg 05/07/18 10:00 05/07/18 09:51 Asa - PO 81 mg DAILY KINGSLEY Administration Atorvastatin Calcium 20 mg 05/07/18 22:00 05/07/18 21:29 Lipitor - PO 20 mg HS KINGSLEY Administration Diltiazem HCl 30 mg/ Diltiazem 90 mg 05/07/18 22:00 05/08/18 05:40 HCl 60 mg PO 90 mg TID KINGSLEY Administration Duloxetine HCl 90 mg 05/07/18 10:00 05/07/18 09:51 Cymbalta - PO 90 mg DAILY KINGSLEY Administration Dutasteride 0.5 mg 05/06/18 22:00 05/07/18 21:29 Avodart - PO 0.5 mg HS KINGSLEY Administration Furosemide 40 mg 05/08/18 09:50 Lasix Injection - IVPUSH 05/08/18 09:51 ONCE ONE Ceftriaxone Sodium 1 gm/ 50 mls @ 100 mls/hr 05/08/18 10:00 Dextrose IVPB DAILY KINGSLEY Doxycycline Hyclate 100 mg/ 100 mls @ 100 mls/hr 05/07/18 11:30 05/07/18 21: 30 Dextrose IVPB 100 mls/hr BID KINGSLEY Administration Oxycodone HCl 5 mg 05/06/18 18:36 Roxicodone - PO Q4H PRN PAIN LEVEL 1-5 Prednisone 40 mg 05/07/18 11:30 05/07/18 12:32 Deltasone - PO Not Given DAILY KINGSLEY Fluticasone/Salmeterol 1 puff 05/06/18 22:00 05/07/18 21:28 Advair 100mcg/50mcg - IH 1 puff BID KINGSLEY Administration Tamsulosin HCl 0.4 mg 05/06/18 22:00 05/07/18 21:29 Flomax - PO 0.4 mg HS KINGSLEY Administration Assessment/Plan EKG 05/06/18 afib with RVR 155, RBBB tele afib with rates 110s-130s, occ 150s 72M h/o HTN, HLD, COPD, ex smoker, PAD s/p AAA repair 12 years ago, femoral bypass 4 years ago p/w carrizales, lower extremity swelling, cough for two weeks with new afib, CHF exac, JACKIE, leukocytosis Afib with RVR - rate control improved with diltiazem, continue - has received lovenox, renal function improving however Cr 2.1 - start heparin gtt, transition to NOAC prior to dc if no contraindication - echo read pending CHF exacerbation - per patient prior echo was 2 years ago, check echo - 05/06 received IV lasix 40 mg x1 in PM, 05/07 Cr 2.1->2.5 with obstruction and booth placement with improving UOP - lasix 40 mg IV x 1 05/08, Cr 2.1 -> 2.9 today, nephrology consulted, uop noted in booth - hold lasix today, dyspnea and edema Elevated troponin - borderline elevation likely in setting of afib with RVR and CHF exac, flat trend, unlikely ACS COPD - on advair, duonebs, low dose steroid JACKIE - holding home valsartan - booth inserted today for obstruction, urology and nephrology consulted - monitor Cr H/o AAA s/p repair - cont statin, asa HLD - cont statin MSSA bacteremia - no signs/sx of infection - ID consulted - echo ordered for r/o endocarditis, pending
--- NOTE | 2018-05-09 14:05 | PN ---
Progress Note, Physician Chief Complaint: Mr Cuadra says he is feeling much better today. Says no longer sob. Swelling much improved. No cp or n/v. - Current Medication List Current Medications: Active Medications Acetaminophen (Tylenol -) 325 mg PO Q4H PRN PRN Reason: PAIN LEVEL 1-5 Stop: 05/09/18 18:35 Al Hydroxide/Mg Hydroxide (Mylanta Oral Suspension -) 30 ml PO Q6H PRN PRN Reason: INDIGESTION Last Admin: 05/08/18 21:34 Dose: 30 ml Albuterol/Ipratropium (Duoneb -) 1 amp NEB Q6H PRN PRN Reason: SHORTNESS OF BREATH Last Admin: 05/09/18 05:30 Dose: 1 amp Aspirin (Asa -) 81 mg PO DAILY [facility] Last Admin: 05/09/18 09:18 Dose: 81 mg Diltiazem HCl 30 mg/ Diltiazem (HCl 60 mg) 90 mg PO TID [facility] Last Admin: 05/09/18 05:24 Dose: 90 mg Duloxetine HCl (Cymbalta -) 90 mg PO DAILY [facility] Last Admin: 05/09/18 09:18 Dose: 90 mg Dutasteride (Avodart -) 0.5 mg PO HS [facility] Last Admin: 05/08/18 21:34 Dose: 0.5 mg Heparin Sodium (Porcine) (Heparin -) 1,000 unit IVPUSH PRN PRN PRN Reason: Heparin Heparin Sodium (Porcine) (Heparin -) 5,000 unit IVPUSH PRN PRN PRN Reason: Heparin Last Admin: 05/08/18 20:24 Dose: 5,000 unit Heparin Sodium (Porcine) 25, (000 unit/ Sodium Chloride) 500 mls @ 20 mls/hr IV TITR [facility]; Protocol Last Admin: 05/09/18 11:48 Dose: 1,150 unit/hr, 23 mls/hr Cefazolin Sodium/Dextrose (Ancef 2 Gm Premixed Ivpb -) 2 gm in 50 mls @ 100 mls /hr IVPB BID [facility] Magnesium Hydroxide (Milk Of Magnesia -) 30 ml PO HS PRN PRN Reason: INDIGESTION Nystatin (Nystatin Oral Suspension -) 500,000 units PO Q6HPO [facility] Last Admin: 05/09/18 11:48 Dose: 500,000 units Oxycodone HCl (Roxicodone -) 5 mg PO Q4H PRN PRN Reason: PAIN LEVEL 1-5 Prednisone (Deltasone -) 30 mg PO DAILY [facility] Last Admin: 05/09/18 09:18 Dose: 30 mg Ranitidine HCl (Zantac -) 150 mg PO BID [facility] Last Admin: 05/09/18 09:18 Dose: 150 mg Fluticasone/Salmeterol (Advair 100mcg/50mcg -) 1 puff IH BID [facility] Last Admin: 05/09/18 09:17 Dose: 1 puff Tamsulosin HCl (Flomax -) 0.4 mg PO HS [facility] Last Admin: 05/08/18 21:34 Dose: 0.4 mg - Objective Vital Signs: Vital Signs Temperature 36.1 C L 05/09/18 05:20 Pulse Rate 118 H 05/09/18 05:20 Respiratory Rate 22 05/09/18 05:20 Blood Pressure 107/50 05/09/18 05:20 O2 Sat by Pulse Oximetry (%) 97 05/09/18 09:00 Constitutional: Yes: No Distress, Calm, Obese Cardiovascular: Yes: Pulse Irregular. No: Tachycardia, Gallop, Murmur, Rub Respiratory: Yes: Regular, CTA Bilaterally. No: Rales, Rhonchi, Wheezes Gastrointestinal: Yes: Normal Bowel Sounds, Soft. No: Distention, Tenderness Extremities: Yes: WNL Edema: Yes Edema: LLE: 1+, RLE: 1+ Labs: CBC, BMP 05/09/18 05:45 05/09/18 05:45 Problem List - Problems (1) Atrial fibrillation with RVR Assessment/Plan: -appreciate cardiology assistance -continue diltiazem -continue heparin gtt Code(s): I48.91 - UNSPECIFIED ATRIAL FIBRILLATION (2) Acute exacerbation of CHF (congestive heart failure) Assessment/Plan: -secondary to afib with rvr -much improved with lasix and heart rate control -follow up ECHO results Code(s): I50.9 - HEART FAILURE, UNSPECIFIED Qualifiers: Heart failure type: systolic Qualified Code(s): I50.23 - Acute on chronic systolic (congestive) heart failure (3) MSSA bacteremia Assessment/Plan: -case d/w Dr Mccray -continue cefazolin -will need at least 4 weeks Code(s): R78.81 - BACTEREMIA (4) COPD (chronic obstructive pulmonary disease) Assessment/Plan: -not in exacerbation -stop prednisone -continue bronchodilators Code(s): J44.9 - CHRONIC OBSTRUCTIVE PULMONARY DISEASE, UNSPECIFIED (5) JACKIE (acute kidney injury) Assessment/Plan: -nephrology following Code(s): N17.9 - ACUTE KIDNEY FAILURE, UNSPECIFIED (6) Abnormal liver function tests Assessment/Plan: -suspect secondary to congestion -improving -appreciate GI assistance Code(s): R94.5 - ABNORMAL RESULTS OF LIVER FUNCTION STUDIES (7) Thrush Assessment/Plan: -continue nystatin -improving Code(s): B37.0 - CANDIDAL STOMATITIS (8) Urinary retention due to benign prostatic hyperplasia Assessment/Plan: -appreciate urology assistance -booht in place Code(s): N40.1 - BENIGN PROSTATIC HYPERPLASIA WITH LOWER URINARY TRACT SYMP; R33.8 - OTHER RETENTION OF URINE
--- NOTE | 2018-05-09 15:18 | PN ---
Progress Note, Physician Chief Complaint: The patient seen in is room. Cevallos catheter draining large amounts of ark urine. Still minimally short of breath. No chest pain. History of Present Illness: 72M h/o HTN, HLD, COPD, ex smoker, PAD s/p AAA repair 12 years ago, femoral bypass 4 years ago , lower extremity swelling, cough. In ER noted to have afib with RVR rate 150s, elevated BNP and WBC, CXR showed pulm congestion. Received labetolol, diltiazem 10 mg IV and diltiazem 60 mg PO. The patient has h/o BPH, s/p TURP, and during this hospitalization, the patient went into acute urinary retention, and a Cevallos catheter was place. renal functions still with no signs of improvement. - Current Medication List Current Medications: Active Medications Acetaminophen (Tylenol -) 325 mg PO Q4H PRN PRN Reason: PAIN LEVEL 1-5 Stop: 05/09/18 18:35 Al Hydroxide/Mg Hydroxide (Mylanta Oral Suspension -) 30 ml PO Q6H PRN PRN Reason: INDIGESTION Last Admin: 05/08/18 21:34 Dose: 30 ml Albuterol/Ipratropium (Duoneb -) 1 amp NEB Q6H PRN PRN Reason: SHORTNESS OF BREATH Last Admin: 05/09/18 05:30 Dose: 1 amp Aspirin (Asa -) 81 mg PO DAILY [facility] Last Admin: 05/09/18 09:18 Dose: 81 mg Diltiazem HCl 30 mg/ Diltiazem (HCl 60 mg) 90 mg PO TID [facility] Last Admin: 05/09/18 14:12 Dose: 90 mg Duloxetine HCl (Cymbalta -) 90 mg PO DAILY [facility] Last Admin: 05/09/18 09:18 Dose: 90 mg Dutasteride (Avodart -) 0.5 mg PO HS [facility] Last Admin: 05/08/18 21:34 Dose: 0.5 mg Heparin Sodium (Porcine) (Heparin -) 1,000 unit IVPUSH PRN PRN PRN Reason: Heparin Heparin Sodium (Porcine) (Heparin -) 5,000 unit IVPUSH PRN PRN PRN Reason: Heparin Last Admin: 05/08/18 20:24 Dose: 5,000 unit Heparin Sodium (Porcine) 25, (000 unit/ Sodium Chloride) 500 mls @ 20 mls/hr IV TITR [facility]; Protocol Last Admin: 05/09/18 11:48 Dose: 1,150 unit/hr, 23 mls/hr Cefazolin Sodium/Dextrose (Ancef 2 Gm Premixed Ivpb -) 2 gm in 50 mls @ 100 mls /hr IVPB BID [facility] Magnesium Hydroxide (Milk Of Magnesia -) 30 ml PO HS PRN PRN Reason: INDIGESTION Nystatin (Nystatin Oral Suspension -) 500,000 units PO Q6HPO [facility] Last Admin: 05/09/18 11:48 Dose: 500,000 units Oxycodone HCl (Roxicodone -) 5 mg PO Q4H PRN PRN Reason: PAIN LEVEL 1-5 Ranitidine HCl (Zantac -) 150 mg PO BID [facility] Last Admin: 05/09/18 09:18 Dose: 150 mg Fluticasone/Salmeterol (Advair 100mcg/50mcg -) 1 puff IH BID [facility] Last Admin: 05/09/18 09:17 Dose: 1 puff Tamsulosin HCl (Flomax -) 0.4 mg PO HS [facility] Last Admin: 05/08/18 21:34 Dose: 0.4 mg - Objective Vital Signs: Vital Signs Temperature 96.5 F L 05/09/18 14:00 Pulse Rate 93 H 05/09/18 14:00 Respiratory Rate 22 05/09/18 10:00 Blood Pressure 101/63 05/09/18 14:00 O2 Sat by Pulse Oximetry (%) 97 05/09/18 09:00 Constitutional: Yes: Well Nourished, Anxious Eyes: Yes: Conjunctiva Clear HENT: Yes: Normocephalic Cardiovascular: Yes: Tachycardia, S1, S2 Respiratory: Yes: CTA Bilaterally, Diminished, Rhonchi, Wheezes Gastrointestinal: Yes: Normal Bowel Sounds, Abdomen, Obese Genitourinary: Yes: Cevallos Present Edema: Yes Edema: LLE: Trace, RLE: Trace Neurological: Yes: Alert, Oriented Labs: CBC, BMP 05/09/18 05:45 05/09/18 05:45 Problem List - Problems (1) JACKIE (acute kidney injury) Code(s): N17.9 - ACUTE KIDNEY FAILURE, UNSPECIFIED (2) Acute exacerbation of CHF (congestive heart failure) Code(s): I50.9 - HEART FAILURE, UNSPECIFIED Qualifiers: Heart failure type: systolic Qualified Code(s): I50.23 - Acute on chronic systolic (congestive) heart failure (3) Atrial fibrillation with RVR Code(s): I48.91 - UNSPECIFIED ATRIAL FIBRILLATION (4) COPD with exacerbation Code(s): J44.1 - CHRONIC OBSTRUCTIVE PULMONARY DISEASE W (ACUTE) EXACERBATION (5) Dyslipidemia Code(s): E78.5 - HYPERLIPIDEMIA, UNSPECIFIED (6) Morbid obesity Code(s): E66.01 - MORBID (SEVERE) OBESITY DUE TO EXCESS CALORIES (7) Acute urinary retention Code(s): R33.8 - OTHER RETENTION OF URINE Assessment/Plan 72M h/o HTN, HLD, COPD, ex smoker, PAD s/p AAA repair 12 years ago, femoral bypass 4 years ago p/w carrizales, lower extremity swelling, cough. The patient has new onset A Fib. Now has a Cevallos catheter for acute urinary retention. No signs of renal recovery yet. JACKIE, most likely related to altered renal hemodynamics. But one need to consider the possibility of intrinsic renal injury (with renal ischemia.) Will monitor the renl functions. Avoid Hypotensions. IV fluids to continue. Will monitor the renal functions with you. Thank you. Kristyn Castro MD
--- NOTE | 2018-05-09 17:11 | ECHO ---
Name: CHELLE NAVARRO Exam:Adult Echocardiogram Study Date: 05/09/2018 12:06 PM Age: 72 yrs Reason For Study: SYNCOPE Height: 67 in Weight: 250 lb BSA: 2.2 m2 MMode/2D Measurements & Calculations IVSd: 1.0 cm Ao root diam: 3.4 cm LVIDd: 5.6 cm LA dimension: 5.0 cm LVIDs: 4.7 cm ACS: 0.99 cm LVPWd: 1.0 cm IVSs: 1.0 cm LVPWs: 1.1 cm EDV(Teich): 150.6 ml ESV(Teich): 104.3 ml LVOT diam: 2.1 cm Doppler Measurements & Calculations MV E max venkatesh: 59.9 cm/sec Ao V2 max: 195.5 cm/sec MV A max venkatesh: 62.4 cm/sec Ao max P.4 mmHg MV E/A: 0.96 Ao V2 mean: 149.0 cm/sec Ao mean P.7 mmHg Ao V2 VTI: 28.2 cm KOLE(I,D): 1.4 cm2 KOLE(V,D): 1.3 cm2 LV V1 max P.2 mmHg MR max venkatesh: 393.9 cm/sec LV V1 mean P.2 mmHg MR max P.1 mmHg LV V1 max: 73.4 cm/sec LV V1 mean: 50.4 cm/sec LV V1 VTI: 11.7 cm SV(LVOT): 39.4 ml TR max venkatesh: 220.2 cm/sec TR max P.5 mmHg Med Peak E' Venkatesh: 7.8 cm/sec Med E/e': 7.7 Lat Peak E' Venkatesh: 9.4 cm/sec Lat E/e': 6.4 Procedure Technically limited study. Left Ventricle The left ventricle is normal in size. Left ventricular systolic function is severely reduced. Ejectio n Fraction = 30-35%. There is severe global hypokinesis of the left ventricle. Right Ventricle The right ventricle is mildly dilated. The right ventricular systolic function is moderately reduced. Atria The left atrium is moderately dilated. The right atrium is mild to moderately dilated. Mitral Valve There is mild mitral annular calcification. There is mild mitral regurgitation. Tricuspid Valve The tricuspid valve is normal in structure and function. There is mild tricuspid regurgitation. Pulmo nary artery systolic pressure is at least 39 mmHg assuming RA pressure of 8 mmHg (normal IVC with <50% col lapse). Aortic Valve There is moderate aortic sclerosis.;. There is mild aortic valve thickening. The calculated aortic va lve area using the continuity equation is 1.3 cm2. Aortic mean pressure gradient= 10 mmHg. DI (dimentionless i ndex) is 0.37. No aortic regurgitation is present. Pulmonic Valve The pulmonic valve is not well visualized. Great Vessels The aortic root is normal size. Pericardium/Pleura There is no pericardial effusion. Interpretation Summary Technically limited study The left ventricle is normal in size. Left ventricular systolic function is severely reduced. There is severe global hypokinesis of the left ventricle. Ejection Fraction = 30-35%. The right ventricle is mildly dilated. The right ventricular systolic function is moderately reduced. The left atrium is moderately dilated. The right atrium is mild to moderately dilated. There is mild mitral regurgitation. There is mild mitral annular calcification. There is mild tricuspid regurgitation. Pulmonary artery systolic pressure is at least 39 mmHg assuming RA pressure of 8 mmHg (normal IVC wit h <50% collapse) There is moderate aortic sclerosis There is mild aortic valve thickening. See aortic valve gradient as outlined There is no pericardial effusion. Previous study is not available for comparison Shelton Mercado MD 05/09/2018 05:11 PM
[2018-05-09] MEDS: DUTASTERIDE 0.5 MG CAP (FP) PO SCH (21:12)
[2018-05-09] MEDS: TAMSULOSIN HCL 0.4 MG CAP.ER.24H (FP) PO SCH (21:12)
[2018-05-09] MEDS ORDERED: TAMSULOSIN HCL 0.4 MG CAP.ER.24H (FP) PO ONE (22:19)
[2018-05-09] MEDS ORDERED: OXYBUTYNIN CHLORIDE 5 MG TABLET PO ONE (22:52)
[2018-05-10] MEDS ORDERED: dilTIAZem HCL 60 MG TABLET (FP) ONE ×2 (05:02→13:32)
[2018-05-10] MEDS ORDERED: dilTIAZem HCL 30 MG TABLET (FP) ONE ×2 (05:02→13:32)
[2018-05-10] MEDS: DILTIAZEM 30 MG, DILTIAZEM 60 MG PO SCH ×2 (05:10→15:27)
[2018-05-10] MEDS: NYSTATIN 500,000 UNITS/5 ML SUSPENSION PO SCH ×4 (05:10→23:17)
[2018-05-10 06:08] LABS: HEP.C VIRUS AB <0.1 s/co ratio (0.0-0.9)
[2018-05-10 06:08] LABS: HBSAG SCREEN Negative (Negative); HEP B CORE AB, TOT Negative (Negative)
[2018-05-10 07:15] LABS: HEMATOCRIT 37.4 % (35.4-49); HEMOGLOBIN 12.4 GM/dL (11.7-16.9); MCH 31.2 pg (25.7-33.7); MCHC 33.2 g/dl (32.0-35.9); MEAN CELL VOLUME 94.1 fl (80-96); MEAN PLT VOLUME 9.1 fl (7.5-11.1); PLATELET COUNT 195 K/MM3 (134-434); RBC 3.98 M/mm3 (4.00-5.60); WHITE BLOOD COUNT 17.2 K/mm3 (4.0-10.0)
[2018-05-10 07:36] LABS: INR 1.17 (0.83-1.09); PROTHROMBIN TIME (PATIENT) 13.2 SEC (9.7-13.0)
[2018-05-10 08:02] LABS: CHLORIDE 92 mmol/L (98-107); POTASSIUM 5.7 mmol/L (3.5-5.1); SODIUM 127 mmol/L (136-145)
[2018-05-10 08:21] LABS: ALBUMIN 3.1 g/dl (3.4-5.0); ALK PHOS 196 U/L (45-117); ANION GAP 13 (8-16); BILIRUBIN,DIRECT 0.6 mg/dL (0.0-0.2); BILIRUBIN,TOTAL 0.9 mg/dL (0.2-1.0); BLOOD UREA NITROGEN 78 mg/dL (7-18); CALCIUM 8.1 mg/dL (8.5-10.1); CO2 22 mmol/L (21-32); CREATININE 2.8 mg/dL (0.7-1.3); GLUCOSE,RANDOM 73 mg/dL (74-106); MAGNESIUM 2.6 mg/dL (1.8-2.4); SGOT/AST 108 U/L (15-37); SGPT/ALT 284 U/L (12-78); TOT PROT 6.1 g/dl (6.4-8.2)
[2018-05-10] MEDS ORDERED: PT OWN MED DRAWER 7, Y5N ONE ×2 (08:43→20:51)
[2018-05-10] MEDS ORDERED: SODIUM POLYSTYRENE SULFONATE 15 GM/60 ML BOTTLE PO ONE (08:54)
[2018-05-10] MEDS: DULoxetine HCL 30 MG CAPSULE.DR (FP) PO SCH (09:20)
[2018-05-10] MEDS: RANITIDINE HCL 150 MG TABLET (FP) PO SCH ×2 (09:20→21:33)
[2018-05-10] MEDS: FLUTICASONE/SALMETEROL 100 MCG/50 MCG DISKUS IH SCH ×2 (09:21→21:33)
[2018-05-10] MEDS: ASPIRIN 81 MG CHEWABLE TABLETS PO SCH (09:21)
[2018-05-10] MEDS: CEFAZOLIN 2 GM/D5W 2 GM/50 ML ML IVPB SCH ×2 (09:21→18:00)
--- NOTE | 2018-05-10 11:08 | PN ---
Progress Note, Physician Chief Complaint: Mr Cuadra had some pain at the booth site yesterday but improved today. No cp, sob, n/v. - Current Medication List Current Medications: Active Medications Al Hydroxide/Mg Hydroxide (Mylanta Oral Suspension -) 30 ml PO Q6H PRN PRN Reason: INDIGESTION Last Admin: 05/08/18 21:34 Dose: 30 ml Albuterol/Ipratropium (Duoneb -) 1 amp NEB Q6H PRN PRN Reason: SHORTNESS OF BREATH Last Admin: 05/09/18 05:30 Dose: 1 amp Aspirin (Asa -) 81 mg PO DAILY [facility] Last Admin: 05/10/18 09:21 Dose: 81 mg Diltiazem HCl 30 mg/ Diltiazem (HCl 60 mg) 90 mg PO TID [facility] Last Admin: 05/10/18 05:10 Dose: 90 mg Duloxetine HCl (Cymbalta -) 90 mg PO DAILY [facility] Last Admin: 05/10/18 09:20 Dose: 90 mg Dutasteride (Avodart -) 0.5 mg PO HS [facility] Last Admin: 05/09/18 21:12 Dose: 0.5 mg Heparin Sodium (Porcine) (Heparin -) 1,000 unit IVPUSH PRN PRN PRN Reason: Heparin Last Admin: 05/10/18 07:55 Dose: 1,000 unit Heparin Sodium (Porcine) (Heparin -) 5,000 unit IVPUSH PRN PRN PRN Reason: Heparin Last Admin: 05/08/18 20:24 Dose: 5,000 unit Heparin Sodium (Porcine) 25, (000 unit/ Sodium Chloride) 500 mls @ 20 mls/hr IV TITR [facility]; Protocol Last Titration: 05/10/18 07:57 Dose: 1,250 unit/hr, 25 mls/hr Cefazolin Sodium/Dextrose (Ancef 2 Gm Premixed Ivpb -) 2 gm in 50 mls @ 100 mls /hr IVPB BID [facility] Last Admin: 05/10/18 09:21 Dose: 100 mls/hr Magnesium Hydroxide (Milk Of Magnesia -) 30 ml PO HS PRN PRN Reason: INDIGESTION Nystatin (Nystatin Oral Suspension -) 500,000 units PO Q6HPO [facility] Last Admin: 05/10/18 05:10 Dose: 500,000 units Oxycodone HCl (Roxicodone -) 5 mg PO Q4H PRN PRN Reason: PAIN LEVEL 1-5 Last Admin: 05/09/18 21:59 Dose: 5 mg Ranitidine HCl (Zantac -) 150 mg PO BID [facility] Last Admin: 05/10/18 09:20 Dose: 150 mg Fluticasone/Salmeterol (Advair 100mcg/50mcg -) 1 puff IH BID [facility] Last Admin: 05/10/18 09:21 Dose: 1 puff Tamsulosin HCl (Flomax -) 0.4 mg PO HS [facility] Last Admin: 05/09/18 21:12 Dose: 0.4 mg - Objective Vital Signs: Vital Signs Temperature 36.4 C 05/10/18 10:00 Pulse Rate 108 H 05/10/18 10:00 Respiratory Rate 20 05/10/18 10:00 Blood Pressure 137/80 05/10/18 10:00 O2 Sat by Pulse Oximetry (%) 98 05/10/18 09:00 Constitutional: Yes: No Distress, Calm, Obese Cardiovascular: Yes: Pulse Irregular. No: Tachycardia, Gallop, Murmur, Rub Respiratory: Yes: Regular, On Nasal O2, Wheezes (slight). No: CTA Bilaterally, Rales, Rhonchi Gastrointestinal: Yes: Normal Bowel Sounds, Soft. No: Distention, Tenderness Extremities: Yes: WNL Edema: No Labs: CBC, BMP 05/10/18 06:10 05/10/18 06:10 INR, PTT INR 1.17 (0.83-1.09) 05/10/18 06:10 Problem List - Problems (1) Atrial fibrillation with RVR Code(s): I48.91 - UNSPECIFIED ATRIAL FIBRILLATION (2) Acute exacerbation of CHF (congestive heart failure) Code(s): I50.9 - HEART FAILURE, UNSPECIFIED Qualifiers: Heart failure type: systolic Qualified Code(s): I50.23 - Acute on chronic systolic (congestive) heart failure (3) MSSA bacteremia Code(s): R78.81 - BACTEREMIA (4) COPD (chronic obstructive pulmonary disease) Code(s): J44.9 - CHRONIC OBSTRUCTIVE PULMONARY DISEASE, UNSPECIFIED (5) JACKIE (acute kidney injury) Code(s): N17.9 - ACUTE KIDNEY FAILURE, UNSPECIFIED (6) Abnormal liver function tests Code(s): R94.5 - ABNORMAL RESULTS OF LIVER FUNCTION STUDIES (7) Thrush Code(s): B37.0 - CANDIDAL STOMATITIS (8) Urinary retention due to benign prostatic hyperplasia Code(s): N40.1 - BENIGN PROSTATIC HYPERPLASIA WITH LOWER URINARY TRACT SYMP; R33.8 - OTHER RETENTION OF URINE (9) Hyperkalemia Code(s): E87.5 - HYPERKALEMIA Assessment/Plan (1) Atrial fibrillation with RVR Assessment/Plan: -appreciate cardiology assistance -continue diltiazem -continue heparin gtt Code(s): I48.91 - UNSPECIFIED ATRIAL FIBRILLATION (2) Acute exacerbation of CHF (congestive heart failure) Assessment/Plan: -ECHO reviewed -EF 30-35% -cardiology following -holding lasix as appears stable and with acute renal failure Code(s): I50.9 - HEART FAILURE, UNSPECIFIED Qualifiers: Heart failure type: systolic Qualified Code(s): I50.23 - Acute on chronic systolic (congestive) heart failure (3) MSSA bacteremia Assessment/Plan: -case d/w Dr Mccray -continue cefazolin -will need at least 4 weeks -suspect leukocytosis exacerbated by steroids Code(s): R78.81 - BACTEREMIA (4) COPD (chronic obstructive pulmonary disease) Assessment/Plan: -not in exacerbation -continue bronchodilators Code(s): J44.9 - CHRONIC OBSTRUCTIVE PULMONARY DISEASE, UNSPECIFIED (5) JACKIE (acute kidney injury) Assessment/Plan: -nephrology following and case discussed Code(s): N17.9 - ACUTE KIDNEY FAILURE, UNSPECIFIED (6) Abnormal liver function tests Assessment/Plan: -suspect secondary to congestion -improving -appreciate GI assistance Code(s): R94.5 - ABNORMAL RESULTS OF LIVER FUNCTION STUDIES (7) Thrush Assessment/Plan: -continue nystatin -improving Code(s): B37.0 - CANDIDAL STOMATITIS (8) Urinary retention due to benign prostatic hyperplasia Assessment/Plan: -appreciate urology assistance -booth in place Code(s): N40.1 - BENIGN PROSTATIC HYPERPLASIA WITH LOWER URINARY TRACT SYMP; R33.8 - OTHER RETENTION OF URINE (9) Hyperkalemia -suspect secondary to renal function and heparin gtt -case d/w cardiology and nephrology -kayexalate given -will recheck later today -continue heparin gtt currently but may need to stop if continues to elevate -renal diet to limit potassium intake
[2018-05-10] MEDS: HEPARIN - 25,000 UNIT in SODIUM CHLORIDE 495 ML IV SCH (12:00)
--- NOTE | 2018-05-10 13:58 | PN ---
Progress Note (short form) - Note Progress Note: urine is clearing today. continue booth for now.
--- NOTE | 2018-05-10 15:41 | PN ---
Progress Note, Physician Chief Complaint: sob History of Present Illness: sob signif improved vs admit, ditto for weakness. still sob and wheezing (wheezes chronically from copd he says) legs swollen no cp, palpitations ex cigs - Current Medication List Current Medications: Active Medications Al Hydroxide/Mg Hydroxide (Mylanta Oral Suspension -) 30 ml PO Q6H PRN PRN Reason: INDIGESTION Last Admin: 05/08/18 21:34 Dose: 30 ml Albuterol/Ipratropium (Duoneb -) 1 amp NEB Q6H PRN PRN Reason: SHORTNESS OF BREATH Last Admin: 05/09/18 05:30 Dose: 1 amp Aspirin (Asa -) 81 mg PO DAILY [facility] Last Admin: 05/10/18 09:21 Dose: 81 mg Diltiazem HCl 30 mg/ Diltiazem (HCl 60 mg) 90 mg PO TID [facility] Last Admin: 05/10/18 15:27 Dose: 90 mg Duloxetine HCl (Cymbalta -) 90 mg PO DAILY [facility] Last Admin: 05/10/18 09:20 Dose: 90 mg Dutasteride (Avodart -) 0.5 mg PO HS [facility] Last Admin: 05/09/18 21:12 Dose: 0.5 mg Heparin Sodium (Porcine) (Heparin -) 1,000 unit IVPUSH PRN PRN PRN Reason: Heparin Last Admin: 05/10/18 07:55 Dose: 1,000 unit Heparin Sodium (Porcine) (Heparin -) 5,000 unit IVPUSH PRN PRN PRN Reason: Heparin Last Admin: 05/08/18 20:24 Dose: 5,000 unit Heparin Sodium (Porcine) 25, (000 unit/ Sodium Chloride) 500 mls @ 20 mls/hr IV TITR [facility]; Protocol Last Admin: 05/10/18 12:00 Dose: 1,250 unit/hr, 25 mls/hr Cefazolin Sodium/Dextrose (Ancef 2 Gm Premixed Ivpb -) 2 gm in 50 mls @ 100 mls /hr IVPB BID [facility] Last Admin: 05/10/18 09:21 Dose: 100 mls/hr Magnesium Hydroxide (Milk Of Magnesia -) 30 ml PO HS PRN PRN Reason: INDIGESTION Nystatin (Nystatin Oral Suspension -) 500,000 units PO Q6HPO [facility] Last Admin: 05/10/18 11:12 Dose: 500,000 units Oxycodone HCl (Roxicodone -) 5 mg PO Q4H PRN PRN Reason: PAIN LEVEL 1-5 Last Admin: 05/09/18 21:59 Dose: 5 mg Ranitidine HCl (Zantac -) 150 mg PO BID [facility] Last Admin: 05/10/18 09:20 Dose: 150 mg Fluticasone/Salmeterol (Advair 100mcg/50mcg -) 1 puff IH BID [facility] Last Admin: 05/10/18 09:21 Dose: 1 puff Tamsulosin HCl (Flomax -) 0.4 mg PO HS [facility] Last Admin: 05/09/18 21:12 Dose: 0.4 mg - Objective Vital Signs: Vital Signs Temperature 97.5 F L 05/10/18 14:00 Pulse Rate 111 H 05/10/18 14:00 Respiratory Rate 20 05/10/18 14:00 Blood Pressure 117/74 05/10/18 14:00 O2 Sat by Pulse Oximetry (%) 98 05/10/18 09:00 Constitutional: Yes: No Distress, Calm, Obese Eyes: No: Sclera Icterus HENT: No: Nasal Congestion Cardiovascular: Yes: Pulse Irregular (decr intensity sounds), S1, S2, Other ( PMI non diplaced). No: Gallop, Murmur Respiratory: Yes: CTA Bilaterally. No: Accessory Muscle Use, Rales, Wheezes Gastrointestinal: Yes: Normal Bowel Sounds, Soft. No: Tenderness Musculoskeletal: Yes: Other (No kyphosis) Extremities: No: Cold Edema: Yes (2+ pretibs) Integumentary: No: Jaundice Neurological: Yes: Alert, Oriented (x3) Psychiatric: No: Agitated Labs: CBC, BMP 05/10/18 06:10 05/10/18 06:10 INR, PTT INR 1.17 (0.83-1.09) 05/10/18 06:10 Assessment/Plan EKG 05/06/18 afib with RVR 155, RBBB Echo 04/27 (here): nl LV size, severely reduced LVSF global (EF 30-35%). mild RVE , mod decr RVSF. L/TODD. mild MR/TR. no signif (KOLE 1.3, mean gradient 10). RVSP at least 39. tele: AF 100s-110s 72M h/o HTN, HLD, COPD, ex smoker, PAD s/p AAA repair 12 years ago, femoral bypass 4 years ago p/w carrizales, lower extremity swelling, cough for two weeks with new afib, CHF exac, JACKIE, leukocytosis Afib with RVR - rate control has been suboptimal here, receiving diltiazem hi dose (90 TID) - d/c diltiazem in setting of severe LV dysfunction of unknown etiology--change to lopressor 50 tid with prn IV pushes (doubt bronchospasm will tolerate propranolol with nonselective b-antagonism effects) - may need amio gtt in the short term if hypotension precludes adequate BB dose - given severe LV dysfunction/CHF, with strong suspicion that AF caused his LV dysfunction, and/or AF is driving ongoing CHF decomp, and difficult to control HRs (hypotension), will plan for DCCV at time of EL. defer EL until HF status is better optimized--? 05/12 - cont UFH gtt as doing--NOAC to be inititated later once renal fxn stable and no invasive procedures planned acute syst CHF - global LV dysfunction, ? due to rapid AF (unknown duration--no sx's at home until decomp CHF) - need to r/o diffuse CAD in PAD pt with mult other RFs--defer ischemia eval until other active issues resolve. will consider MPI vs cath at that time, depending on pt preferences and renal fxn outcome - 05/06 received IV lasix 40 mg x1 in PM, 05/07 Cr 2.1->2.5 with obstruction and booth placement with improving UOP - 05/08 given lasix 40 mg IV x 1 with Cr 2.1 -> 2.9 - 05/09 lasix held - 05/10: no weights. clinically appears likely volume up still, severe LE edema with sob/wheezing (? copd component as well). creat improving 2.5. net positive fluid status yesterday, today appears to be auto-diuresing at a brisker pace ( 750cc already)--? post-ATN diuresis. lasix 80 IV x 1 now. - daily wts.--reassess wt, I/O and renal fxn in AM. MSSA bacteremia - no signs/sx of infection - pt with shoulder hardware, LE arterial graft material--may need minimum of 4 weeks abx regardless - no other stigmata of I.E., no vegetations seen on echo, no signif valve dysfunction. - d/w'd ID--BCx's positive again today. will possibly need EL to r/o valvular involvement--also planned eventually for cardioversion, as above. - no urgent indications for EL at this time as there is no indication of hemodynamically significant valve lesion or other I.E. complications that would be an indication for surgical treatment Elevated troponin - intermediate range, flat trend--not c/w ACS - trop sec to decomp CHF vs demand ischemia from rapid AF COPD - on advair, duonebs, low dose steroid JACKIE, ? underlying CKD - no baseline creat values available - creat 2.0 on admit--worsened significantly after only 2 doses of IV lasix (40 mg). bun progressively rising - component of urinary obstruction, booth placed, following - suspect also component of cardiorenal syndrome +/- low output (renal note appreciated--suspect hemodynamic cause) - holding home valsartan - bun/creat improving, ? component of post-ATN resolution as well. transaminitis: - AST/LT 800s on admit--both trending down progressively - likely congestive hepatopathy per GI, improving with improvement in HF status - sonogram with fatty infiltration vs hepatocellular dz picture - plan per GI H/o AAA s/p repair - holding home statin due to acute LFT elevation here--resume once LFTs stabilize - stop ASA, as pt now on AC
[2018-05-10 16:29] LABS: ANION GAP 8 (8-16); BLOOD UREA NITROGEN 74 mg/dL (7-18); CHLORIDE 92 mmol/L (98-107); CO2 27 mmol/L (21-32); CREATININE 2.5 mg/dL (0.7-1.3); GLUCOSE,RANDOM 82 mg/dL (74-106); POTASSIUM 4.5 mmol/L (3.5-5.1); SODIUM 127 mmol/L (136-145)
--- NOTE | 2018-05-10 17:26 | PN ---
Progress Note (short form) - Note Progress Note: Renal follow up for JACKIE Pt seen and examined at the bedside no acute complaints denies any sob, chest pain, abd pain, N/V booth in place with clear urine Vital Signs Temperature 97.5 F L 05/10/18 14:00 Pulse Rate 111 H 05/10/18 14:00 Respiratory Rate 20 05/10/18 14:00 Blood Pressure 117/74 05/10/18 14:00 O2 Sat by Pulse Oximetry (%) 98 05/10/18 09:00 Intake & Output 05/07/18 05/08/18 05/09/18 05/10/18 23:59 23:59 23:59 23:59 Intake Total 500 1208 615 161 Output Total 1100 775 950 750 Balance -600 433 335 -589 Weight 113.398 kg NAD awake and alert RRR, No M/R CTA soft NT/ND + edema in LE CBC, BMP 05/10/18 06:10 05/10/18 15:30 Current Medications Al Hydroxide/Mg Hydroxide (Mylanta Oral Suspension -) 30 ml PO Q6H PRN PRN Reason: INDIGESTION Last Admin: 05/08/18 21:34 Dose: 30 ml Albuterol/Ipratropium (Duoneb -) 1 amp NEB Q6H PRN PRN Reason: SHORTNESS OF BREATH Last Admin: 05/09/18 05:30 Dose: 1 amp Diltiazem HCl 30 mg/ Diltiazem (HCl 60 mg) 90 mg PO TID [facility] Last Admin: 05/10/18 15:27 Dose: 90 mg Duloxetine HCl (Cymbalta -) 90 mg PO DAILY [facility] Last Admin: 05/10/18 09:20 Dose: 90 mg Dutasteride (Avodart -) 0.5 mg PO HS [facility] Last Admin: 05/09/18 21:12 Dose: 0.5 mg Heparin Sodium (Porcine) (Heparin -) 1,000 unit IVPUSH PRN PRN PRN Reason: Heparin Last Admin: 05/10/18 07:55 Dose: 1,000 unit Heparin Sodium (Porcine) (Heparin -) 5,000 unit IVPUSH PRN PRN PRN Reason: Heparin Last Admin: 05/08/18 20:24 Dose: 5,000 unit Heparin Sodium (Porcine) 25, (000 unit/ Sodium Chloride) 500 mls @ 20 mls/hr IV TITR [facility]; Protocol Last Admin: 05/10/18 12:00 Dose: 1,250 unit/hr, 25 mls/hr Cefazolin Sodium/Dextrose (Ancef 2 Gm Premixed Ivpb -) 2 gm in 50 mls @ 100 mls /hr IVPB Q8H-IV [facility] Magnesium Hydroxide (Milk Of Magnesia -) 30 ml PO HS PRN PRN Reason: INDIGESTION Nystatin (Nystatin Oral Suspension -) 500,000 units PO Q6HPO [facility] Last Admin: 05/10/18 17:02 Dose: 500,000 units Oxycodone HCl (Roxicodone -) 5 mg PO Q4H PRN PRN Reason: PAIN LEVEL 1-5 Last Admin: 05/09/18 21:59 Dose: 5 mg Ranitidine HCl (Zantac -) 150 mg PO BID [facility] Last Admin: 05/10/18 09:20 Dose: 150 mg Fluticasone/Salmeterol (Advair 100mcg/50mcg -) 1 puff IH BID [facility] Last Admin: 05/10/18 09:21 Dose: 1 puff Tamsulosin HCl (Flomax -) 0.4 mg PO HS [facility] Last Admin: 05/09/18 21:12 Dose: 0.4 mg 72M h/o HTN, HLD, COPD, ex smoker, PAD s/p AAA repair 12 years ago, femoral bypass 4 years ago p/w carrizales, lower extremity swelling, cough and found to have new onset afib with CHF and JACKIE. #JACKIE (baseline Cr is 0.8 in January 2018) secondary to hemodyanic injury/renal hypoprofusion +/- obstruction/urinary retention #New Afib #Acute CHF #Hyponatremia in setting of volume overload Cr peaked at 2.9, now 2.5 wit repeat labs would hold Lasix for now as pt is not acutely sob check urine studies for FeNa, FeUrea maintain booth for now continue rate control of Afib keep MAP > 65 Trend daily weights, renal function and electrolytes Joe Boss DO
--- NOTE | 2018-05-10 17:28 | PN ---
Progress Note (short form) - Note Progress Note: a bit more tachypneic today but overall feels well sitting at bedside Vital Signs Period Temp Pulse Resp BP Sys/Carroll Pulse Ox Last 24 Hr 96.5 F-97.8 F 92-117 18-20 85-137/36-80 95-98 no thrush cor-rrr lungs occasional wheeze abd soft,nt ext +edema CBC, BMP 05/10/18 06:10 05/10/18 15:30 Microbiology 05/08/18 11:30 Blood - Peripheral Venous Blood Culture - Preliminary Staphylococcus Latex Coag Pos 05/08/18 11:35 Blood - Peripheral Venous Blood Culture - Preliminary Staphylococcus Latex Coag Pos 05/06/18 18:48 Blood - Peripheral Venous Blood Culture - Final Staphylococcus Aureus 05/06/18 18:48 Blood - Peripheral Venous Blood Culture - Final Staphylococcus Aureus echo noted ef 30% a/p Staph Bacteremia-MSSA- day #3 antibiotics r/o endocarditis repeat blood cultures again today continue cefazolin- avoiding nafcillin due to elevated LFTS (now improving) may need EL if he fails to clear his bacteremia prior AAA repair and bypass noted also has right shoulder replacement Thrush-improved nystatin new afib chf abnl LFTs-?congestion, consider ultrasound, hep serology, avoid hepatotoxic agents appears to be improving, trend CPK as well urinary retention JACKIE suspect a component of the leukocytosis may be due to steroids-d/hernandez after dose yesterday d/w cardiology Problem List - Problems (1) Gram-positive bacteremia Code(s): R78.81 - BACTEREMIA (2) Thrush Code(s): B37.0 - CANDIDAL STOMATITIS (3) Atrial fibrillation with RVR Code(s): I48.91 - UNSPECIFIED ATRIAL FIBRILLATION (4) Urinary retention due to benign prostatic hyperplasia Code(s): N40.1 - BENIGN PROSTATIC HYPERPLASIA WITH LOWER URINARY TRACT SYMP; R33.8 - OTHER RETENTION OF URINE (5) Acute exacerbation of CHF (congestive heart failure) Code(s): I50.9 - HEART FAILURE, UNSPECIFIED Qualifiers: Heart failure type: systolic Qualified Code(s): I50.23 - Acute on chronic systolic (congestive) heart failure (6) Transaminitis Code(s): R74.0 - NONSPEC ELEV OF LEVELS OF TRANSAMNS & LACTIC ACID DEHYDRGNSE
[2018-05-10] MEDS ORDERED: FUROSEMIDE 40 MG/4 ML INJECTABLE VIAL IVPUSH ONE (17:30)
[2018-05-10] MEDS ORDERED: METOPROLOL TARTRATE 5 MG/5 ML VIAL IVPUSH PRN (17:36)
[2018-05-10] MEDS: ALBUTEROL SO4 2.5/IPRATROPIUM 0.5 INH SOL 3 ML VIAL.NEB. NEB PRN (20:30)
[2018-05-10] MEDS: TAMSULOSIN HCL 0.4 MG CAP.ER.24H (FP) PO SCH (21:33)
[2018-05-10] MEDS: DUTASTERIDE 0.5 MG CAP (FP) PO SCH (21:33)
[2018-05-10] MEDS ORDERED: METOPROLOL TARTRATE 50 MG TABLET (FP) PO SCH (22:00)
--- NOTE | 2018-05-11 01:13 | RAPID ---
Physical Examination Vital Signs: Vital Signs Temperature 98.0 F 05/10/18 20:40 Pulse Rate 117 H 05/10/18 20:40 Respiratory Rate 24 05/10/18 20:40 Blood Pressure 117/82 05/10/18 20:40 O2 Sat by Pulse Oximetry (%) 93 L 05/10/18 20:35 Findings/Remarks: Rapid response was called at 1am. On arrival, nurse reported patient has new onset altered mental status and "color change from being flushed to sallow". Patient being treated for CHF exacerbation and MSSA bacteremia rule out endocarditis. Patient is no acute distress, denies any pain. Patient wants to use the bathroom and is unaware of where he is. PE: VS:BP 104/58 HR 80 RR 14 O2sat 96% Temp 96.7 General:A &Ox2, no acute distress Eyes: Pupils, EOMI Lungs: clear b/l HEart: Irregularly irregular rate abdomen: soft, nontender Neuro: nonfocal, CN intact, motor strength 5/5 Assessment/Plan: 72 year old male being treated for CHF, Afib and MSSA bacteremia with new onset altered mental status. -will order CBC, CMP, EKG, Lactate, Trop, UA -will follow-up. Labs: CBC, BMP 05/10/18 06:10 05/10/18 15:30
--- NOTE | 2018-05-11 02:06 | PROC ---
Intubation - Intubation Reason for Intubation: Respiratory Failure Time of Intubation: 01:45 Intubation Method: orotracheal Blade used: Mac (4) Tube Size (cm): 8.0 Tube position @ lip (cm): 23 Tube position confirmed by: Direct visualization, CO2 detector, Chest x-ray, Breath sounds Breath Sounds after Intubation: equal Post Intubation Xray: Yes
[2018-05-11] MEDS: CEFAZOLIN 2 GM/D5W 2 GM/50 ML ML IVPB SCH ×2 (02:08→09:52)
[2018-05-11] MEDS ORDERED: PHENYLEPHRINE HCL 10 MG/1 ML SINGLE DOSE VIAL ONE ×3 (02:11→14:50)
[2018-05-11] MEDS: PHENYLEPHRINE HCL 20,000 MCG in SODIUM CHLORIDE 248 ML IVPB SCH ×2 (02:15→09:53)
[2018-05-11 02:33] LABS: BASO % 0.1 % (0-2.0); EOS % 0.1 % (0-4.5); HEMATOCRIT 33.6 % (35.4-49); HEMOGLOBIN 11.2 GM/dL (11.7-16.9); LYMPH % 6.6 % (8-40); MCH 31.5 pg (25.7-33.7); MCHC 33.2 g/dl (32.0-35.9); MEAN CELL VOLUME 94.8 fl (80-96); MONO % 8.5 % (3.8-10.2); NEUT % 84.7 % (42.8-82.8); PLATELET COUNT 173 K/MM3 (134-434); RBC 3.55 M/mm3 (4.00-5.60); WHITE BLOOD COUNT 13.6 K/mm3 (4.0-10.0)
--- NOTE | 2018-05-11 02:37 | CONSULT ---
Consultation: REQUESTING PROVIDER: CONSULT REQUEST: We have been asked to medically evaluate this patient for ( specify). HISTORY OF PRESENT ILLNESS: The patient is a 72 year old male with a significant PMH of CHF, low EF, new onset A.Fib., PAD s/p AAA repair, femoral bypass, BPH, obesity, COPD, former smoker (quit in 6 months ago) presented to the hospital with SOB, rapid A.Fib, treated for suspected endocarditis due to MSSA, CHF exacerbation, transaminitis. Rapid responses was initiated for AMS and seizure activity noticed by the nurse. The patient fell to the ground in the bathroom, but was able to communicate and his vital signs were stable. Later on the patient lost consciousness, code 99 was called. ROSC in 9 minutes, 2 epinephrines given, intubated and admitted to ICU for further monitoring. In ICU the patient was found to be hypotensive to 53/42, phenylephrine and dobutamine was started with good response. REVIEW OF SYSTEMS: N/A, the patient is intubated. PHYSICAL EXAMINATION Vital Signs - 24 hr 05/10/18 05/10/18 05/10/18 05:15 09:00 10:00 Temperature 97.5 F L 97.6 F Pulse Rate 101 H 108 H Respiratory 20 20 Rate Blood Pressure 100/56 137/80 O2 Sat by Pulse 98 Oximetry (%) 05/10/18 05/10/18 05/10/18 14:00 16:30 20:35 Temperature 97.5 F L 96.8 F L Pulse Rate 111 H 112 H Respiratory 20 20 Rate Blood Pressure 117/74 111/70 O2 Sat by Pulse 93 L Oximetry (%) 05/10/18 05/11/18 20:40 02:05 Temperature 98.0 F Pulse Rate 117 H Respiratory 24 16 Rate Blood Pressure 117/82 O2 Sat by Pulse Oximetry (%) GENERAL: Intubated, sedated. HEAD: Normal with no signs of trauma. EYES: Pupils equal, round and reactive to light, sclera anicteric, conjunctiva clear. EARS, NOSE, THROAT: oropharynx clear without exudates. Moist mucous membranes. NECK: Normal range of motion, supple without lymphadenopathy. LUNGS: Breath sounds equal, clear to auscultation bilaterally. No wheezes, and no crackles. No accessory muscle use. HEART: Regular rate and rhythm, normal S1 and S2 without murmur, rub or gallop. ABDOMEN: Obese, soft, nontender, not distended, normoactive bowel sounds, no guarding, no rebound, no masses. UPPER EXTREMITIES: 2+ pulses, warm, no peripheral edema. LOWER EXTREMITIES: 1+ pulses, warm, well-perfused. No calf tenderness. No peripheral edema. Cold to touch. NEUROLOGICAL: Intubated, sedated. SKIN: Warm, dry, normal turgor, no rashes. Laboratory Results - last 24 hr 05/08/18 05/09/18 05/10/18 16:11 05:45 06:00 WBC RBC Hgb Hct MCV MCH MCHC RDW Plt Count MPV Absolute Neuts (auto) Neutrophils % Lymphocytes % Monocytes % Eosinophils % Basophils % Nucleated RBC % PT with INR INR PTT (Actin FS) Sodium Potassium Chloride Carbon Dioxide Anion Gap BUN Creatinine Creat Clearance w eGFR Random Glucose Serum Osmolality 289 Calcium Phosphorus Magnesium Total Bilirubin Direct Bilirubin AST ALT Alkaline Phosphatase Total Protein Albumin Urine Osmolality U Random Total Protein Ur Random Sodium Ur Random Potassium Ur Random Chloride Ur Random Urea Nitrogn Urine Creatinine Hepatitis A IgM Ab Negative Hepatitis A Ab Total Negative Hep Bs Antigen Negative Negative Hep Bs Antibody Non reactive Hep B Core Total Ab Negative Hep B Core IgM Ab Negative Hep C Ab Diagnostic <0.1 Hepatitis C Antibody <0.1 Liver Fibrosis Interp 05/10/18 05/10/18 05/10/18 06:10 06:10 06:10 WBC 17.2 H RBC 3.98 L Hgb 12.4 Hct 37.4 MCV 94.1 MCH 31.2 MCHC 33.2 RDW 14.0 Plt Count 195 MPV 9.1 Absolute Neuts (auto) Neutrophils % Lymphocytes % Monocytes % Eosinophils % Basophils % Nucleated RBC % PT with INR 13.20 INR 1.17 PTT (Actin FS) 47.0 D Sodium Potassium Chloride Carbon Dioxide Anion Gap BUN Creatinine Creat Clearance w eGFR Random Glucose Serum Osmolality Calcium Phosphorus Magnesium Total Bilirubin Direct Bilirubin AST ALT Alkaline Phosphatase Total Protein Albumin Urine Osmolality U Random Total Protein Ur Random Sodium Ur Random Potassium Ur Random Chloride Ur Random Urea Nitrogn Urine Creatinine Hepatitis A IgM Ab Hepatitis A Ab Total Hep Bs Antigen Hep Bs Antibody Hep B Core Total Ab Hep B Core IgM Ab Hep C Ab Diagnostic Hepatitis C Antibody Liver Fibrosis Interp 05/10/18 05/10/18 05/10/18 06:10 12:00 12:00 WBC RBC Hgb Hct MCV MCH MCHC RDW Plt Count MPV Absolute Neuts (auto) Neutrophils % Lymphocytes % Monocytes % Eosinophils % Basophils % Nucleated RBC % PT with INR INR PTT (Actin FS) Sodium 127 L Potassium 5.7 H Chloride 92 L Carbon Dioxide 22 Anion Gap 13 BUN 78 H Creatinine 2.8 H Creat Clearance w eGFR 22.45 Random Glucose 73 L D Serum Osmolality Calcium 8.1 L Phosphorus 5.0 H Magnesium 2.6 H D Total Bilirubin 0.9 Direct Bilirubin 0.6 H AST 108 H D ALT 284 H D Alkaline Phosphatase 196 H Total Protein 6.1 L Albumin 3.1 L Urine Osmolality 524 U Random Total Protein 71 H Cancelled Ur Random Sodium 23 Ur Random Potassium 19.9 Ur Random Chloride < 10 Ur Random Urea Nitrogn 975 Urine Creatinine 120.0 Cancelled Hepatitis A IgM Ab Hepatitis A Ab Total Hep Bs Antigen Hep Bs Antibody Hep B Core Total Ab Hep B Core IgM Ab Hep C Ab Diagnostic Hepatitis C Antibody Liver Fibrosis Interp 05/10/18 05/10/18 05/10/18 12:00 13:40 15:30 WBC RBC Hgb Hct MCV MCH MCHC RDW Plt Count MPV Absolute Neuts (auto) Neutrophils % Lymphocytes % Monocytes % Eosinophils % Basophils % Nucleated RBC % PT with INR INR PTT (Actin FS) 55.6 Sodium 127 L Potassium 4.5 D Chloride 92 L Carbon Dioxide 27 D Anion Gap 8 BUN 74 H Creatinine 2.5 H Creat Clearance w eGFR 25.59 Random Glucose 82 Serum Osmolality Calcium 8.0 L Phosphorus Magnesium Total Bilirubin Direct Bilirubin AST ALT Alkaline Phosphatase Total Protein Albumin Urine Osmolality U Random Total Protein Ur Random Sodium Ur Random Potassium Ur Random Chloride Ur Random Urea Nitrogn Cancelled Urine Creatinine Hepatitis A IgM Ab Hepatitis A Ab Total Hep Bs Antigen Hep Bs Antibody Hep B Core Total Ab Hep B Core IgM Ab Hep C Ab Diagnostic Hepatitis C Antibody Liver Fibrosis Interp 05/11/18 02:20 WBC 13.6 H RBC 3.55 L Hgb 11.2 L Hct 33.6 L MCV 94.8 MCH 31.5 MCHC 33.2 RDW 14.0 Plt Count 173 MPV 9.0 Absolute Neuts (auto) 11.5 Neutrophils % 84.7 H Lymphocytes % 6.6 L D Monocytes % 8.5 Eosinophils % 0.1 D Basophils % 0.1 Nucleated RBC % 1 H PT with INR INR PTT (Actin FS) Sodium Potassium Chloride Carbon Dioxide Anion Gap BUN Creatinine Creat Clearance w eGFR Random Glucose Serum Osmolality Calcium Phosphorus Magnesium Total Bilirubin Direct Bilirubin AST ALT Alkaline Phosphatase Total Protein Albumin Urine Osmolality U Random Total Protein Ur Random Sodium Ur Random Potassium Ur Random Chloride Ur Random Urea Nitrogn Urine Creatinine Hepatitis A IgM Ab Hepatitis A Ab Total Hep Bs Antigen Hep Bs Antibody Hep B Core Total Ab Hep B Core IgM Ab Hep C Ab Diagnostic Hepatitis C Antibody Liver Fibrosis Interp Active Medications Generic Name Dose Route Start Last Admin Trade Name Freq PRN Reason Stop Dose Admin Al Hydroxide/Mg Hydroxide 30 ml 05/08/18 21:23 05/08/18 21:34 Mylanta Oral Suspension - PO 30 ml Q6H PRN Administration INDIGESTION Albuterol/Ipratropium 1 amp 05/06/18 18:49 05/10/18 20:30 Duoneb - NEB 1 amp Q6H PRN Administration SHORTNESS OF BREATH Duloxetine HCl 90 mg 05/07/18 10:00 05/10/18 09:20 Cymbalta - PO 90 mg DAILY KINGSLEY Administration Dutasteride 0.5 mg 05/06/18 22:00 05/10/18 21:33 Avodart - PO 0.5 mg HS KINGSLEY Administration Heparin Sodium (Porcine) 1,000 unit 05/08/18 09:54 05/10/18 07:55 Heparin - IVPUSH 1,000 unit PRN PRN Administration Heparin Heparin Sodium (Porcine) 5,000 unit 05/08/18 09:54 05/08/18 20:24 Heparin - IVPUSH 5,000 unit PRN PRN Administration Heparin Heparin Sodium (Porcine) 25, 500 mls @ 20 mls/hr 05/08/18 10:00 05/10/18 12: 00 000 unit/ Sodium Chloride IV 1,250 unit/hr TITR KINGSLEY 25 mls/hr Administration Protocol 1,000 UNIT/HR Cefazolin Sodium/Dextrose 2 gm in 50 mls @ 100 mls/hr 05/10/18 18:00 18:00 Ancef 2 Gm Premixed Ivpb - IVPB 100 mls/hr Q8H-IV KINGSLEY Administration Phenylephrine HCl 20,000 mcg/ 250 mls @ 75 mls/hr 05/11/18 02:15 05/11/18 02: 15 Sodium Chloride IVPB 100 mcg/min TITR KINGSLEY 75 mls/hr Administration Protocol 100 MCG/MIN Magnesium Hydroxide 30 ml 05/08/18 21:24 Milk Of Magnesia - PO HS PRN INDIGESTION Metoprolol Tartrate 5 mg 05/10/18 17:36 Lopressor Injection - IVPUSH Q1H PRN TACHYCARDIA Metoprolol Tartrate 50 mg 05/10/18 22:00 05/10/18 22:46 Lopressor - PO 50 mg TID KINGSLEY Administration Nystatin 500,000 units 05/08/18 12:00 05/10/18 23:17 Nystatin Oral Suspension - PO 500,000 units Q6HPO KINGSLEY Administration Oxycodone HCl 5 mg 05/06/18 18:36 05/09/18 21:59 Roxicodone - PO 5 mg Q4H PRN Administration PAIN LEVEL 1-5 Ranitidine HCl 150 mg 05/08/18 22:00 05/10/18 21:33 Zantac - PO 150 mg BID KINGSLEY Administration Fluticasone/Salmeterol 1 puff 05/06/18 22:00 05/10/18 21:33 Advair 100mcg/50mcg - IH 1 puff BID KINGSLEY Administration Tamsulosin HCl 0.4 mg 05/06/18 22:00 05/10/18 21:33 Flomax - PO 0.4 mg HS KINGSLEY Administration ASSESSMENT/PLAN: The patient is a 72 year old male with a significant PMH of CHF, low EF 30-35%, A.Fib., PAD s/p AAA repair, femoral bypass, BPH, obesity, COPD, former smoker ( quit in 6 months ago) presented to the hospital with SOB, new onset rapid A.Fib , treated for suspected endocarditis due to MSSA, CHF exacerbation, transaminitis. s/p cardiac arrest with ROSC acute hypoxic respiratory failure CHF exacerbation MSSA bacteremia new onset A.Fib COPD leukocytosis AAA JACKIE HTN obesity BPH PAD hyperlipidemia Plan: -unknown cause of his unresponsiveness, possibly related to endocarditis, less likely PE, ACS, troponins negative, although EKG with T wave inversions in inferior -leads, BP controlled with two peripheral pressors; dobutamine and phenylephrine-consulted with Dr Mina, keep MAP >65 -currently intubated and sedated with Versed, FIO2 80%, PEEP 5, TV 550, will obtain ABG -LA elevated to 2.6, f/u in AM -the patient was found to have AMS before the event, he also fell down, CT head w/o contrast ordered for the morning when his BP is stable -hold Heparin drip for now, wait for CT results -repleated Mg 2g IV, f/u -continue Metoprol tartrate -continue antibiotics; Vancomycin and Cefazolin -continue GI PPX, DVT PPX Family present at bedside. Full code. Dispo: We will continue to follow the patient. Thank you for this consultative opportunity. Problem List - Problems (1) JACKIE (acute kidney injury) Code(s): N17.9 - ACUTE KIDNEY FAILURE, UNSPECIFIED (2) Abdominal aortic aneurysm Code(s): I71.4 - ABDOMINAL AORTIC ANEURYSM, WITHOUT RUPTURE (3) Abnormal liver function tests Code(s): R94.5 - ABNORMAL RESULTS OF LIVER FUNCTION STUDIES (4) Acute exacerbation of CHF (congestive heart failure) Code(s): I50.9 - HEART FAILURE, UNSPECIFIED Qualifiers: Heart failure type: systolic Qualified Code(s): I50.23 - Acute on chronic systolic (congestive) heart failure (5) COPD (chronic obstructive pulmonary disease) Code(s): J44.9 - CHRONIC OBSTRUCTIVE PULMONARY DISEASE, UNSPECIFIED (6) COPD with exacerbation Code(s): J44.1 - CHRONIC OBSTRUCTIVE PULMONARY DISEASE W (ACUTE) EXACERBATION (7) Dyslipidemia Code(s): E78.5 - HYPERLIPIDEMIA, UNSPECIFIED (8) Elevated WBC count Code(s): D72.829 - ELEVATED WHITE BLOOD CELL COUNT, UNSPECIFIED (9) Gram-positive bacteremia Code(s): R78.81 - BACTEREMIA (10) MSSA bacteremia Code(s): R78.81 - BACTEREMIA (11) Morbid obesity Code(s): E66.01 - MORBID (SEVERE) OBESITY DUE TO EXCESS CALORIES (12) SOB (shortness of breath) Code(s): R06.02 - SHORTNESS OF BREATH (13) Transaminitis Code(s): R74.0 - NONSPEC ELEV OF LEVELS OF TRANSAMNS & LACTIC ACID DEHYDRGNSE Visit type - Emergency Visit Emergency Visit: Yes ED Registration Date: 05/06/18 Care time: The patient presented to the Emergency Department on the above date and was hospitalized for further evaluation of their emergent condition. - New Patient This patient is new to me today: Yes Date on this admission: 05/11/18 - Critical Care Critical Care patient: Yes Total Critical Care Time (in minutes): 40 Critical Care Statement: The care of this patient involved high complexity decision making to prevent further life threatening deterioration of the patient 's condition and/or to evaluate & treat vital organ system(s) failure or risk of failure.
[2018-05-11] MEDS ORDERED: DOBUTAMINE 250 MG/D5W - 250,000 MCG/250 ML INFUS.BAG ONE (02:48)
[2018-05-11 02:51] LABS: ARTERIAL BLD GAS O2 SATURATION 99.6 % (90-98.9); ARTERIAL BLOOD GAS BASE EXCESS -5.7 meq/l (-2-2); ARTERIAL BLOOD GAS PCO2 45.3 mmHg (35-45); ARTERIAL BLOOD GAS pH 7.28 (7.35-7.45)
--- NOTE | 2018-05-11 02:51 | HOSP ---
Subjective - Review of Symptoms Events since last encounter: Pt is s/p cardiac arrest. Initially a rapid response was called for patient as he was more confused from his baseline. As per RN, MIKY AGUIRREL. Pt alert, talking, but believes he is in a restaurant. Stated he had to have a BM. A second rapid response was called when nurses heard him fall to the ground. he was found on the ground face down, agonally breathing, ? seizure activity, was rolled over onto his back and pulled partially out of the bathroom. he began to kick and punch and then became unresponsive and was not breathing. CPR was initiated and a code 99 was called. Pt was given a total of 2 doses epinephrine and resumed spontaneously breathing on his own with rhythm on monitor appearing to be afib. SBP 159. Respirations were deep and labored but slow and oxygen saturation was in 80s. Pt was intubated and transferred to the ICU. In the ICU pt is unresponsive to noxious stimuli. Physical Examination Vital Signs: Vital Signs Temperature 99.3 F 05/11/18 02:00 Pulse Rate 72 05/11/18 02:35 Respiratory Rate 16 05/11/18 02:30 Blood Pressure 62/36 05/11/18 02:35 O2 Sat by Pulse Oximetry (%) 93 L 05/10/18 20:35 Constitutional: Yes: Other (sedated s/p intubation) Cardiovascular: Yes: Pulse Irregular, S1, S2 Respiratory: Yes: Other (severely diminished bilat) Gastrointestinal: Yes: Soft, Distention Edema: LLE: 2+, RLE: 2+ Labs: CBC, BMP 05/11/18 02:20 Hospitalist Encounter Assessment: 72 year old male with a significant PMH of CHF, low EF, new onset A.Fib., PAD s/ p AAA repair, femoral bypass, BPH, obesity, COPD, former smoker (quit in 6 months ago) presented to the hospital with SOB, rapid A.Fib, treated for suspected endocarditis due to MSSA as well as CHF exacerbation now s/p cardiac arrest. s/p cardiac arrest - started on phenylephrine gtt for BP, not responding. - dw Dr. Mina who recommends dobutamine gtt in addition to phenylephrine. if pt becomes tachycardic, may initiate amiodarone - will need CT head as pt likely hit his head and was on heparin drip. CT when bp stable - monitor mental status and initiate sedation if restless - CXR with increased congestion noted c/w previous ECG, bp too low for lasix , would redose lasix when BP improves - labs ordered: CBC, CMP, lactic acid, troponin - dc po meds, reinitiate metoprolol when BP stable - ECG with new TWI in inferior leads, cardiology f/u in am This pt currently requires continued ICU level care. Critical Care Total Critical Care Time (in minutes): 50 Critical Care Statement: The care of this patient involved high complexity decision making to prevent further life threatening deterioration of the patient 's condition and/or to evaluate & treat vital organ system(s) failure or risk of failure.
[2018-05-11 02:53] LABS: ALLENS TEST POSITIVE
[2018-05-11 02:55] LABS: ALBUMIN 1.9 g/dl (3.4-5.0); ANION GAP 9 (8-16); BILIRUBIN,TOTAL 0.6 mg/dL (0.2-1.0); BLOOD UREA NITROGEN 59 mg/dL (7-18); CHLORIDE 104 mmol/L (98-107); CO2 22 mmol/L (21-32); CREATININE 2.1 mg/dL (0.7-1.3); GLUCOSE,RANDOM 110 mg/dL (74-106); MAGNESIUM 1.6 mg/dL (1.8-2.4); POTASSIUM 3.6 mmol/L (3.5-5.1); SGOT/AST 90 U/L (15-37); SGPT/ALT 128 U/L (12-78); SODIUM 135 mmol/L (136-145)
[2018-05-11 02:58] LABS: ALK PHOS 120 U/L (45-117)
[2018-05-11 02:59] LABS: CALCIUM 5.5 mg/dL (8.5-10.1)
[2018-05-11] MEDS: DOBUTAMINE 250 MG/D5W - 250,000 MCG/250 ML INFUS.BAG IV SCH ×5 (03:19→15:04)
[2018-05-11] MEDS ORDERED: MAGNESIUM SULF 50% (8.12 MEQ/2 ML-1 GM VIAL) IVPB ONE (03:19)
[2018-05-11] MEDS: MIDAZOLAM 100 MG in SODIUM CHLORIDE 100 ML IVPB SCH ×2 (03:37→11:51)
[2018-05-11 05:56] LABS: BASO % 0.2 % (0-2.0); EOS % 0.1 % (0-4.5); HEMATOCRIT 30.3 % (35.4-49); HEMOGLOBIN 9.9 GM/dL (11.7-16.9); LYMPH % 2.8 % (8-40); MCH 31.7 pg (25.7-33.7); MCHC 32.8 g/dl (32.0-35.9); MEAN CELL VOLUME 96.6 fl (80-96); MEAN PLT VOLUME 9.5 fl (7.5-11.1); MONO % 11.7 % (3.8-10.2); NEUT % 85.2 % (42.8-82.8); PLATELET COUNT 152 K/MM3 (134-434); RBC 3.14 M/mm3 (4.00-5.60); RDW 14.2 % (11.9-15.9); WHITE BLOOD COUNT 13.3 K/mm3 (4.0-10.0)
[2018-05-11 06:15] LABS: ALBUMIN 1.5 g/dl (3.4-5.0); ANION GAP 17 (8-16); BILIRUBIN,TOTAL 1.1 mg/dL (0.2-1.0); BLOOD UREA NITROGEN 48 mg/dL (7-18); CHLORIDE 87 mmol/L (98-107); CO2 18 mmol/L (21-32); CREATININE 2.2 mg/dL (0.7-1.3); MAGNESIUM 1.8 mg/dL (1.8-2.4); SGOT/AST 60 U/L (15-37); SGPT/ALT 92 U/L (12-78)
[2018-05-11 06:20] LABS: ALK PHOS 99 U/L (45-117)
[2018-05-11 06:43] LABS: CALCIUM < 5.0 mg/dL (8.5-10.1); GLUCOSE,RANDOM 781 mg/dL (74-106); POTASSIUM 2.8 mmol/L (3.5-5.1); SODIUM 122 mmol/L (136-145)
[2018-05-11] MEDS ORDERED: POTASSIUM CHLORIDE 20 MEQ PREMIX IVPB 100 ML IVPB ONE (06:48)
[2018-05-11 06:56] LABS: ARTERIAL BLD GAS O2 SATURATION 99.5 % (90-98.9); ARTERIAL BLOOD GAS BASE EXCESS -3.8 meq/l (-2-2); ARTERIAL BLOOD GAS PCO2 46.1 mmHg (35-45)
[2018-05-11 06:58] LABS: ALLENS TEST POSITIVE
[2018-05-11] MEDS: KCL 10 MEQ IVPB 10 MEQ/100 ML INFUS.BAG IVPB SCH ×3 (07:01→11:51)
[2018-05-11] MEDS ORDERED: PT OWN MED DRAWER 7, Y5N ONE (08:05)
[2018-05-11 08:53] LABS: URINE APPEARANCE CLOUDY; URINE BILIRUBIN NEGATIVE (<2.0 mg/dL); URINE COLOR AMBER; URINE GLUCOSE (UA) NEGATIVE (NEGATIVE); URINE KETONE NEGATIVE (NEGATIVE); URINE NITRITE NEGATIVE (NEGATIVE); URINE UROBILINOGEN NEGATIVE mg/dL (0.2-1.0)
[2018-05-11 08:54] LABS: URINE LEUK ESTERASE 2+ (NEGATIVE); URINE PROTEIN 3+ (NEGATIVE)
[2018-05-11 09:00] LABS: EPI CELLS RARE /HPF (FEW); URINE HYALINE CAST 83 /lpf; URINE MUCUS RARE
--- NOTE | 2018-05-11 09:04 | PROC ---
Central Line Insertion Indication: Vasopressor Risks and Benefits Explained: Yes Consent on Chart: Yes Central Line: Triple Lumen Catheter Anesthesia: 1% Lidocaine Sterile Technique: Yes Ultrasound Guided Assistance: Yes Position: Right Internal Jugular Post Insertion: Yes: Chest X-Ray Ordered Sterile Dressing Applied: Yes Remarks: RIJ Central line placed under sterile conditions with ultrasound guidance with lidocaine 1% for local anesthetic with supervision under Dr. Iza He and Dr. Mane. Modified seldinger technique used to insert guide wire and triple lumen catheter. Guide wire removed. Placement confirmed with CXR.
--- NOTE | 2018-05-11 09:10 | PN ---
Progress Note (short form) - Note Progress Note: S: patient intubated and sedated. overnight had episode of altered mental status, ANTENNA RIGGER was called, patient then took of his own monitor and went to the bathroom to have BM (had been given kayexalate earlier in the day) and was found unresponsive after someone heard him fell. was in cardiac arrest, CPR was initiated, epi given x 2, ROSC was attained. no documentation of rhythm other than "no rhythm," no shocks given. New TWI noted on EKG, cardiology called overnight. Patient was intubated, started on phenylephrine drip as well as dobutamine. head CT was ordered not done yet given pt was on heparin gtt. ex smoker Current Medications Generic Name Dose Route Start Last Admin Trade Name Freq PRN Reason Stop Dose Admin Al Hydroxide/Mg Hydroxide 30 ml 05/08/18 21:23 05/08/18 21:34 Mylanta Oral Suspension - PO 30 ml Q6H PRN Administration INDIGESTION Albuterol/Ipratropium 1 amp 05/06/18 18:49 05/10/18 20:30 Duoneb - NEB 1 amp Q6H PRN Administration SHORTNESS OF BREATH Heparin Sodium (Porcine) 1,000 unit 05/08/18 09:54 05/10/18 07:55 Heparin - IVPUSH 1,000 unit PRN PRN Administration Heparin Heparin Sodium (Porcine) 5,000 unit 05/08/18 09:54 05/08/18 20:24 Heparin - IVPUSH 5,000 unit PRN PRN Administration Heparin Heparin Sodium (Porcine) 25, 500 mls @ 20 mls/hr 05/08/18 10:00 05/10/18 12: 00 000 unit/ Sodium Chloride IV 1,250 unit/hr TITR KINGSLEY 25 mls/hr Administration Protocol 1,000 UNIT/HR Cefazolin Sodium/Dextrose 2 gm in 50 mls @ 100 mls/hr 05/10/18 18:00 02:08 Ancef 2 Gm Premixed Ivpb - IVPB 100 mls/hr Q8H-IV KINGSLEY Administration Phenylephrine HCl 20,000 mcg/ 250 mls @ 75 mls/hr 05/11/18 02:15 05/11/18 02: 35 Sodium Chloride IVPB 180 mcg/min TITR KINGSLEY 135 mls/hr Titration Protocol 100 MCG/MIN Dobutamine HCl/Dextrose 250,000 mcg in 250 mls @ 35.516 mls/hr 05/11/18 03:00 05/11/18 03:19 Dobutamine 250 Mg/D5w - IV 15 mcg/kg/min TITR KINGSLEY 106.549 mls/hr Titration Protocol 5 MCG/KG/MIN Midazolam HCl 100 mg/ Sodium 100 mls @ 1 mls/hr 05/11/18 03:30 05/11/18 03:37 Chloride IVPB 5 mg/hr TITR IKNGSLEY 5 mls/hr Administration Protocol 1 MG/HR Potassium Chloride 10 meq in 100 mls @ 100 mls/hr 05/11/18 07:00 05/11/18 07: 01 Potassium Chloride 10 Meq Premix Ivpb - IVPB 05/11/18 10:59 100 mls/hr Q60M KINGSLEY Administration Fluticasone/Salmeterol 1 puff 05/06/18 22:00 05/10/18 21:33 Advair 100mcg/50mcg - IH 1 puff BID KINGSLEY Administration - Objective Vital Signs: Vital Signs Period Temp Pulse Resp BP Sys/Carroll Pulse Ox Last 24 Hr 96.8 F-99.3 F 72-117 16-24 55-137/36-82 93-100 Constitutional: Yes: intubated, sedated Obese Eyes: No: Sclera Icterus HENT: No: NCAT Cardiovascular: +JVD, Pulse Irregular (decr intensity sounds), S1, S2, Other ( PMI non diplaced). No: Gallop, Murmur Respiratory: mechanically ventilated, no rales Gastrointestinal: Yes: Normal Bowel Sounds, Soft. No: Tenderness Musculoskeletal: Yes: Other (No kyphosis) Extremities: No: Cold Edema: Yes (2+ pretibs) Integumentary: No: Jaundice Neurological: Yes: Alert, Oriented (x3) Psychiatric: No: Agitated Assessment/Plan EKG 05/06/18 afib with RVR 155, RBBB Echo 04/27 (here): nl LV size, severely reduced LVSF global (EF 30-35%). mild RVE , mod decr RVSF. L/TODD. mild MR/TR. no signif (KOLE 1.3, mean gradient 10). RVSP at least 39. tele: AF 100s-110s EKG 05/11/18 afib rate 70s, diffuse TWI 72M h/o HTN, HLD, COPD, ex smoker, PAD s/p AAA repair 12 years ago, femoral bypass 4 years ago p/w carrizales, lower extremity swelling, cough for two weeks with new afib, CHF exac, JACKIE, leukocytosis now s/p cardiac arrest with ROSC transferred to ICU on pressors, dobutamine on 05/11 Afib with RVR - echo showed severe LV dysfunction, likely related to tachycardia induced myopathy diltiazem was dc'ed and replaced with lopressor 50 mg, received x 1 last night - rates now 70s on sedation, phenylephrine - holding metoprolol, if rate increases would consider amiodarone given hypotension - holding heparin gtt after fall, head CT ordered to rule out bleed - will consider EL while sedated for possible cardioversion and rule out endocarditis when more clinically stable acute syst CHF - may be tachycardia induced in setting of afib with RVR, EF 30-35% on echo, will eventually need ischemic workup as outpatient - 05/06 received IV lasix 40 mg x1 in PM, 05/07 Cr 2.1->2.5 with obstruction and booth placement with improving UOP - 05/08 given lasix 40 mg IV x 1 with Cr 2.1 -> 2.9 - 05/09 lasix held due to rising Cr, auto diuresing post ATN - 05/10: received lasix 80 mg IV x1 - 05/11 overnight transferred to ICU, on dobumtamine and phenylephrine, remains with LE edema, JVD - discussed with ICU team, changing phenylephrine to levophed, will give additional dose of IV lasix 80 mg - strict I/O, monitor renal function MSSA bacteremia, possible aspiration during code - no signs/sx of infection - pt with shoulder hardware, LE arterial graft material--may need minimum of 4 weeks abx regardless - no other stigmata of I.E., no vegetations seen on echo, no signif valve dysfunction - EL when patient more clinically stable - ID following, changing to broad spectrum abx given possible aspiration Elevated troponin - intermediate range, flat trend--not c/w ACS - trop sec to decomp CHF vs demand ischemia from rapid AF COPD - on advair, duonebs, low dose steroid JACKIE, ? underlying CKD - cardiorenal syndrome vs ATN, had been improving, now Cr 2.6 after code last night, renal following - diuresis as above, on pressors - holding home valsartan transaminitis: - AST/LT 800s on admit--both trending down progressively - likely congestive hepatopathy per GI, improving with improvement in HF status - sonogram with fatty infiltration vs hepatocellular dz picture - plan per GI H/o AAA s/p repair - holding home statin due to acute LFT elevation here--resume once LFTs stabilize - stop ASA, as pt now on AC
--- NOTE | 2018-05-11 09:34 | PN ---
Progress Note (short form) - Note Progress Note: events noted was seen by son last evening felt well overnight became confused Rapid response called for confusion -he was alert but not sure where he was later he was found in the bathroom he was combative, had a seizure like episode and then became apneic/unresponsive code 99 was called and he was resuscitated and transferred to ICU- now intubated with central line on pressors and dobutamine Vital Signs Period Temp Pulse Resp BP Sys/Carroll Pulse Ox Last 24 Hr 96.8 F-99.3 F 72-117 16-24 55-137/36-82 93-100 orally intubated cor-rrr lungs decreased bs at bases, no wheezing abd soft,nt ext +edema CBC, BMP 05/11/18 05:30 cmp pending Microbiology 05/08/18 11:30 Blood - Peripheral Venous Blood Culture - Preliminary Staphylococcus Latex Coag Pos 05/08/18 11:35 Blood - Peripheral Venous Blood Culture - Preliminary Staphylococcus Latex Coag Pos 05/06/18 18:48 Blood - Peripheral Venous Blood Culture - Final Staphylococcus Aureus 05/06/18 18:48 Blood - Peripheral Venous Blood Culture - Final Staphylococcus Aureus echo noted ef 30% a/p Code 99- needs head ct resp failure afib Staph Bacteremia-MSSA- day #4 antibiotics r/o endocarditis repeat blood cultures pending lfts normalizing will switch to nafcillin 2 q4h EL TTE without vegetation/valvular disease d/w Dr Daniela Jorge-improved nystatin new afib chf abnl LFTs-?congestion, improved urinary retention JACKIE overall prognosis is guarded d/w family at length d/w cardiology overl 40 minutes spent in the care of this critically ill ICU patient Problem List - Problems (1) Gram-positive bacteremia Code(s): R78.81 - BACTEREMIA (2) Thrush Code(s): B37.0 - CANDIDAL STOMATITIS (3) Atrial fibrillation with RVR Code(s): I48.91 - UNSPECIFIED ATRIAL FIBRILLATION (4) Urinary retention due to benign prostatic hyperplasia Code(s): N40.1 - BENIGN PROSTATIC HYPERPLASIA WITH LOWER URINARY TRACT SYMP; R33.8 - OTHER RETENTION OF URINE (5) Acute exacerbation of CHF (congestive heart failure) Code(s): I50.9 - HEART FAILURE, UNSPECIFIED Qualifiers: Heart failure type: systolic Qualified Code(s): I50.23 - Acute on chronic systolic (congestive) heart failure (6) Transaminitis Code(s): R74.0 - NONSPEC ELEV OF LEVELS OF TRANSAMNS & LACTIC ACID DEHYDRGNSE
[2018-05-11] MEDS: HEPARIN - 25,000 UNIT in SODIUM CHLORIDE 495 ML IV SCH (09:50)
[2018-05-11] MEDS ORDERED: NAFCILLIN - 2 GM in DEXTROSE 5%-WATER - 100 ML IVPB SCH (10:00)
[2018-05-11 10:05] LABS: ALBUMIN 2.3 g/dl (3.4-5.0); ANION GAP 11 (8-16); BILIRUBIN,TOTAL 0.8 mg/dL (0.2-1.0); BLOOD UREA NITROGEN 69 mg/dL (7-18); CHLORIDE 94 mmol/L (98-107); CO2 24 mmol/L (21-32); CREATININE 2.6 mg/dL (0.7-1.3); GLUCOSE,RANDOM 122 mg/dL (74-106); POTASSIUM 4.5 mmol/L (3.5-5.1); SGOT/AST 83 U/L (15-37); SGPT/ALT 121 U/L (12-78); SODIUM 129 mmol/L (136-145); TOT PROT 4.7 g/dl (6.4-8.2)
[2018-05-11 10:06] LABS: ALK PHOS 143 U/L (45-117)
[2018-05-11] MEDS ORDERED: NOREPINEPHRINE BITARTRATE 4 MG/4 ML ML IV ONE ×2 (10:32→19:50)
[2018-05-11 10:41] LABS: MAGNESIUM 2.9 mg/dL (1.8-2.4)
[2018-05-11] MEDS ORDERED: PIPERACILLIN/TAZOB 4.5 GM 4.5 GM in DEXTROSE 5%-WATER 100 ML IVPB SCH (10:45)
--- NOTE | 2018-05-11 10:49 | EKG ---
Test Reason : Blood Pressure : / mmHG Vent. Rate : 082 BPM Atrial Rate : 141 BPM P-R Int : 000 ms QRS Dur : 162 ms QT Int : 420 ms P-R-T Axes : -63 105 -73 degrees QTc Int : 490 ms UNDETERMINED RHYTHM RIGHT BUNDLE BRANCH BLOCK T WAVE ABNORMALITY, CONSIDER INFERIOR ISCHEMIA ABNORMAL ECG WHEN COMPARED WITH ECG OF 06-MAY-2018 16:48, CURRENT UNDETERMINED RHYTHM PRECLUDES RHYTHM COMPARISON, NEEDS REVIEW QRS AXIS SHIFTED RIGHT T WAVE INVERSION NOW EVIDENT IN INFERIOR LEADS INVERTED T WAVES HAVE REPLACED NONSPECIFIC T WAVE ABNORMALITY IN ANTERIOR LEADS Confirmed by STEVEN BUENO, LOGAN ([id number]) on 05/11/2018 10:49:12 AM Referred By: Confirmed By:LOGAN HARRIS MD
[2018-05-11] MEDS ORDERED: VANCOMYCIN 1,500 MG in DEXTROSE 5%-WATER - 500 ML IVPB ONE (11:00)
--- NOTE | 2018-05-11 11:09 | PN ---
Progress Note, Physician Chief Complaint: Unable to obtain, intubated - Current Medication List Current Medications: Active Medications Al Hydroxide/Mg Hydroxide (Mylanta Oral Suspension -) 30 ml PO Q6H PRN PRN Reason: INDIGESTION Last Admin: 05/08/18 21:34 Dose: 30 ml Albuterol/Ipratropium (Duoneb -) 1 amp NEB Q6H PRN PRN Reason: SHORTNESS OF BREATH Last Admin: 05/10/18 20:30 Dose: 1 amp Heparin Sodium (Porcine) (Heparin -) 1,000 unit IVPUSH PRN PRN PRN Reason: Heparin Last Admin: 05/10/18 07:55 Dose: 1,000 unit Heparin Sodium (Porcine) (Heparin -) 5,000 unit IVPUSH PRN PRN PRN Reason: Heparin Last Admin: 05/08/18 20:24 Dose: 5,000 unit Heparin Sodium (Porcine) 25, (000 unit/ Sodium Chloride) 500 mls @ 20 mls/hr IV TITR [facility]; Protocol Last Admin: 05/11/18 09:50 Dose: Not Given Phenylephrine HCl 20,000 mcg/ (Sodium Chloride) 250 mls @ 75 mls/hr IVPB TITR [facility]; Protocol Last Admin: 05/11/18 09:53 Dose: 180 mcg/min, 135 mls/hr Dobutamine HCl/Dextrose (Dobutamine 250 Mg/D5w -) 250,000 mcg in 250 mls @ 35.516 mls/hr IV TITR [facility]; Protocol Last Admin: 05/11/18 10:49 Dose: 20 mcg/kg/min, 142.066 mls/hr Midazolam HCl 100 mg/ Sodium (Chloride) 100 mls @ 1 mls/hr IVPB TITR [facility]; Protocol Last Admin: 05/11/18 03:37 Dose: 5 mg/hr, 5 mls/hr Piperacillin Sod/Tazobactam (Sod 4.5 gm/ Dextrose) 100 mls @ 200 mls/hr IVPB Q8H-IV [facility]; Protocol Vancomycin HCl 1,500 mg/ (Dextrose) 500 mls @ 250 mls/hr IVPB ONCE ONE; Protocol Stop: 05/11/18 12:59 Fluticasone/Salmeterol (Advair 100mcg/50mcg -) 1 puff IH BID [facility] Last Admin: 05/10/18 21:33 Dose: 1 puff - Objective Vital Signs: Vital Signs Temperature 35.5 C L 05/11/18 10:00 Pulse Rate 74 05/11/18 10:00 Respiratory Rate 16 05/11/18 10:00 Blood Pressure 97/70 05/11/18 10:49 O2 Sat by Pulse Oximetry (%) 100 05/11/18 02:00 Constitutional: Yes: Obese, Other (sedated) Cardiovascular: Yes: Pulse Irregular. No: Tachycardia, Gallop, Murmur, Rub Respiratory: Yes: Regular, CTA Bilaterally, Intubated, Mechanically Ventilated. No: Rales, Rhonchi, Wheezes Gastrointestinal: Yes: Normal Bowel Sounds, Soft. No: Distention, Tenderness Extremities: Yes: WNL Edema: Yes Edema: LLE: 2+, RLE: 2+ Labs: CBC, BMP 05/11/18 05:30 05/11/18 08:40 INR, PTT INR 1.17 (0.83-1.09) 05/10/18 06:10 Problem List - Problems (1) Acute respiratory failure with hypoxemia Code(s): J96.01 - ACUTE RESPIRATORY FAILURE WITH HYPOXIA (2) Atrial fibrillation with RVR Code(s): I48.91 - UNSPECIFIED ATRIAL FIBRILLATION (3) Acute exacerbation of CHF (congestive heart failure) Code(s): I50.9 - HEART FAILURE, UNSPECIFIED Qualifiers: Heart failure type: systolic Qualified Code(s): I50.23 - Acute on chronic systolic (congestive) heart failure (4) MSSA bacteremia Code(s): R78.81 - BACTEREMIA (5) COPD (chronic obstructive pulmonary disease) Code(s): J44.9 - CHRONIC OBSTRUCTIVE PULMONARY DISEASE, UNSPECIFIED (6) JACKIE (acute kidney injury) Code(s): N17.9 - ACUTE KIDNEY FAILURE, UNSPECIFIED (7) Abnormal liver function tests Code(s): R94.5 - ABNORMAL RESULTS OF LIVER FUNCTION STUDIES (8) Thrush Code(s): B37.0 - CANDIDAL STOMATITIS (9) Urinary retention due to benign prostatic hyperplasia Code(s): N40.1 - BENIGN PROSTATIC HYPERPLASIA WITH LOWER URINARY TRACT SYMP; R33.8 - OTHER RETENTION OF URINE (10) Hyperkalemia Code(s): E87.5 - HYPERKALEMIA Assessment/Plan (1) Atrial fibrillation with RVR Assessment/Plan: -case d/w cardiology -changed to metoprolol yesterday -cause of code unclear currently -rate controlled off emily agents at this moment Code(s): I48.91 - UNSPECIFIED ATRIAL FIBRILLATION (2) Acute exacerbation of CHF (congestive heart failure) Assessment/Plan: -ECHO reviewed -EF 30-35% -lung exam clear anteriorly but intubated -lasix ordered per ICU team Code(s): I50.9 - HEART FAILURE, UNSPECIFIED Qualifiers: Heart failure type: systolic Qualified Code(s): I50.23 - Acute on chronic systolic (congestive) heart failure (3) MSSA bacteremia Assessment/Plan: -case d/w Dr Mccray -now with aspiration pneumonia -change to vancomycin for expanded coverage -considering endocarditis -Head CT for possible septic emboli Code(s): R78.81 - BACTEREMIA (4) COPD (chronic obstructive pulmonary disease) Assessment/Plan: -now intubated Code(s): J44.9 - CHRONIC OBSTRUCTIVE PULMONARY DISEASE, UNSPECIFIED (5) JACKIE (acute kidney injury) Assessment/Plan: -nephrology following and case discussed -worsened secondary to code and resuscitation Code(s): N17.9 - ACUTE KIDNEY FAILURE, UNSPECIFIED (6) Abnormal liver function tests Assessment/Plan: -expect some worsening secondary to resuscitation Code(s): R94.5 - ABNORMAL RESULTS OF LIVER FUNCTION STUDIES (7) Thrush Assessment/Plan: -hold nystatn Code(s): B37.0 - CANDIDAL STOMATITIS (8) Urinary retention due to benign prostatic hyperplasia Assessment/Plan: -appreciate urology assistance -booth in place Code(s): N40.1 - BENIGN PROSTATIC HYPERPLASIA WITH LOWER URINARY TRACT SYMP; R33.8 - OTHER RETENTION OF URINE (9) Hyperkalemia -normalized -continue heparin gtt (10) Acute hypoxic respiratory failure requiring intubation -unclear cause -pulmonary following -continue mechanical ventilation -duplex dopplers ordered for possible DVT (11) Aspiration pneumonia -case d/w Dr Mccray -as above (12) Hemodynamic instability -? cardiogenic shock, but possible septic shock even though on antibiotics -continue pressors -continue antibiotics 40 minutes spent in preparation of this discharge
--- NOTE | 2018-05-11 11:48 | PN ---
Progress Note (short form) - Note Progress Note: Renal follow up for JACKIE Pt seen and examined in the ICU overnight events reviewed, s/p AMS/Cardiac arrest pt currently intubated on 40% FiO2 on dobutamine, levophed, and phenylephrine booth in place with urine Vital Signs Temperature 96 F L 05/11/18 10:00 Pulse Rate 74 05/11/18 10:00 Respiratory Rate 16 05/11/18 11:36 Blood Pressure 97/70 05/11/18 10:49 O2 Sat by Pulse Oximetry (%) 100 05/11/18 02:00 Intake & Output 05/08/18 05/09/18 05/10/18 05/11/18 23:59 23:59 23:59 23:59 Intake Total 1208 078 397 1486 Output Total 766 594 4690 500 Balance 648 -234 -7581 822 Weight 118.388 kg 123 kg NAD awake and alert RRR, No M/R CTA soft NT/ND + edema in LE CBC, BMP 05/11/18 05:30 05/11/18 08:40 Current Medications Al Hydroxide/Mg Hydroxide (Mylanta Oral Suspension -) 30 ml PO Q6H PRN PRN Reason: INDIGESTION Last Admin: 05/08/18 21:34 Dose: 30 ml Albuterol/Ipratropium (Duoneb -) 1 amp NEB Q6H PRN PRN Reason: SHORTNESS OF BREATH Last Admin: 05/10/18 20:30 Dose: 1 amp Heparin Sodium (Porcine) (Heparin -) 1,000 unit IVPUSH PRN PRN PRN Reason: Heparin Last Admin: 05/10/18 07:55 Dose: 1,000 unit Heparin Sodium (Porcine) (Heparin -) 5,000 unit IVPUSH PRN PRN PRN Reason: Heparin Last Admin: 05/08/18 20:24 Dose: 5,000 unit Heparin Sodium (Porcine) 25, (000 unit/ Sodium Chloride) 500 mls @ 20 mls/hr IV TITR [facility]; Protocol Last Admin: 05/11/18 09:50 Dose: Not Given Phenylephrine HCl 20,000 mcg/ (Sodium Chloride) 250 mls @ 75 mls/hr IVPB TITR [facility]; Protocol Last Admin: 05/11/18 09:53 Dose: 180 mcg/min, 135 mls/hr Dobutamine HCl/Dextrose (Dobutamine 250 Mg/D5w -) 250,000 mcg in 250 mls @ 35.516 mls/hr IV TITR [facility]; Protocol Last Admin: 05/11/18 10:49 Dose: 20 mcg/kg/min, 142.066 mls/hr Midazolam HCl 100 mg/ Sodium (Chloride) 100 mls @ 1 mls/hr IVPB TITR [facility]; Protocol Last Admin: 05/11/18 03:37 Dose: 5 mg/hr, 5 mls/hr Piperacillin Sod/Tazobactam (Sod 4.5 gm/ Dextrose) 100 mls @ 200 mls/hr IVPB Q8H-IV [facility]; Protocol Vancomycin HCl 1,500 mg/ (Dextrose) 500 mls @ 250 mls/hr IVPB ONCE ONE; Protocol Stop: 05/11/18 12:59 Fluticasone/Salmeterol (Advair 100mcg/50mcg -) 1 puff IH BID [facility] Last Admin: 05/10/18 21:33 Dose: 1 puff 72M h/o HTN, HLD, COPD, ex smoker, PAD s/p AAA repair 12 years ago, femoral bypass 4 years ago p/w carrizales, lower extremity swelling, cough and found to have new onset afib with CHF and JACKIE. #JACKIE (baseline Cr is 0.8 in January 2018) secondary to hemodyanic injury/renal hypoprofusion +/- obstruction/urinary retention #New Afib #Acute CHF #Hyponatremia in setting of volume overload #AMS/Cardiac arrest etiology of Cardiac arrest uncertain, K was WNL at that time, however corrected Ca was 7.1 and can potentially lead to hypotension and decreased myocardial performance. Ca was WNL earlier in the day. Ca is now WNL Pt now with secondary JACKIE from hypoprofusion. continue diuresis as needed per cardiology maintain map > 65, CVP 8-10 monitor urine output K is now WNL, continue heparin gtt. Trend renal function and electrolytes no indication for [employer] Joe Boss DO
[2018-05-11] MEDS ORDERED: PIPERACILLIN/TAZOBACTAM 4.5 GM VIAL IVPB ONE (11:54)
[2018-05-11] MEDS ORDERED: DEXTROSE 5%-WATER 100 ML IVPB ONE (11:54)
[2018-05-11] MEDS: NOREPINEPHRINE BITARTRATE 8,000 MCG in DEXTROSE 5%-WATER - 492 ML IV SCH (12:00)
[2018-05-11] MEDS ORDERED: FUROSEMIDE 100 MG/10 ML INJECTABLE VIAL IVPB ONE (12:21)
[2018-05-11] MEDS ORDERED: PANTOPRAZOLE SODIUM 160 MG in SODIUM CHLORIDE 290 ML IVPB SCH (12:30)
[2018-05-11] MEDS ORDERED: FUROSEMIDE 40 MG/4 ML INJECTABLE VIAL IVPUSH ONE (12:47)
--- NOTE | 2018-05-11 13:10 | PN ---
Teaching Attending Note Name of Resident: Fortino Pineda ATTENDING PHYSICIAN STATEMENT I saw and evaluated the patient. I reviewed the resident's note and discussed the case with the resident. I agree with the resident's findings and plan as documented. SUBJECTIVE: Pt seen and examined in the ICU. Pt transferred down s/p cardiopulmonary arrest with ROSC after 9 minutes. Currently intubated, sedated on dobutamine and phenylephrine gtts. OBJECTIVE: Vital Signs Period Temp Pulse Resp BP Sys/Carroll Pulse Ox Last 24 Hr 96 F-99.3 F 72-117 16-24 55-117/36-82 93-100 Intake & Output 05/08/18 05/09/18 05/10/18 05/11/18 23:59 23:59 23:59 23:59 Intake Total 1208 405 954 9715 Output Total 139 548 0104 500 Balance 809 -084 -9133 820 Weight 118.388 kg 123 kg Gen: intubated, sedated Heart: irregular Lung: scattered rhonchi Abd: soft, nontender Ext: + edema CBC, BMP 05/11/18 05:30 05/11/18 08:40 ABG Results ABG pH 7.30 (7.35-7.45) L 05/11/18 06:35 ABG pCO2 at Pt Temp 46.1 mmHg (35-45) H 05/11/18 06:35 ABG pO2 at Pt Temp 182.0 mmHg (70-100) H* D 05/11/18 06:35 ABG HCO3 22.1 meq/L (22-26) 05/11/18 06:35 ABG O2 Sat (Measured) 99.5 % (90-98.9) H 05/11/18 06:35 ABG O2 Content 16.3 % vol (15-22) 05/11/18 06:35 ABG Base Excess -3.8 meq/l (-2-2) L 05/11/18 06:35 Active Medications Al Hydroxide/Mg Hydroxide (Mylanta Oral Suspension -) 30 ml PO Q6H PRN PRN Reason: INDIGESTION Last Admin: 05/08/18 21:34 Dose: 30 ml Albuterol/Ipratropium (Duoneb -) 1 amp NEB Q6H PRN PRN Reason: SHORTNESS OF BREATH Last Admin: 05/10/18 20:30 Dose: 1 amp Fentanyl (Sublimaze Injection -) 100 mcg IVPUSH ONCE PRN PRN Reason: AGITATION Stop: 05/12/18 12:18 Heparin Sodium (Porcine) (Heparin -) 1,000 unit IVPUSH PRN PRN PRN Reason: Heparin Last Admin: 05/10/18 07:55 Dose: 1,000 unit Heparin Sodium (Porcine) (Heparin -) 5,000 unit IVPUSH PRN PRN PRN Reason: Heparin Last Admin: 05/08/18 20:24 Dose: 5,000 unit Heparin Sodium (Porcine) 25, (000 unit/ Sodium Chloride) 500 mls @ 20 mls/hr IV TITR [facility]; Protocol Last Admin: 05/11/18 09:50 Dose: Not Given Phenylephrine HCl 20,000 mcg/ (Sodium Chloride) 250 mls @ 75 mls/hr IVPB TITR [facility]; Protocol Last Titration: 05/11/18 11:55 Dose: 90 mcg/min, 67.5 mls/hr Dobutamine HCl/Dextrose (Dobutamine 250 Mg/D5w -) 250,000 mcg in 250 mls @ 35.516 mls/hr IV TITR [facility]; Protocol Last Admin: 05/11/18 11:56 Dose: 20 mcg/kg/min, 142.066 mls/hr Midazolam HCl 100 mg/ Sodium (Chloride) 100 mls @ 1 mls/hr IVPB TITR [facility]; Protocol Last Admin: 05/11/18 11:51 Dose: 10 mg/hr, 10 mls/hr Piperacillin Sod/Tazobactam (Sod 4.5 gm/ Dextrose) 100 mls @ 200 mls/hr IVPB Q8H-IV [facility]; Protocol Last Admin: 05/11/18 11:54 Dose: 200 mls/hr Norepinephrine Bitartrate 8, (000 mcg/ Dextrose) 500 mls @ 18.75 mls/hr IV TITR [facility]; Protocol Propofol (Diprivan -) 1,000,000 mcg in 100 mls @ 3.69 mls/hr IVPB TITR [facility]; Protocol Pantoprazole Sodium 160 mg/ (Sodium Chloride) 290 mls @ 14.5 mls/hr IVPB Q10H [facility] Fluticasone/Salmeterol (Advair 100mcg/50mcg -) 1 puff IH BID [facility] Last Admin: 05/10/18 21:33 Dose: 1 puff ASSESSMENT AND PLAN: Acute Hypoxic Respiratory Failure s/p Cardiopulmonary Arrest Staph Bacteremia Shock - Cardiogenic vs Septic Acute on Chronic Systolic Heart Failure Atrial Fibrillation Acute Kidney Injury Elevated LFTs likely congestive hepatopathy +Troponins Hyponatremia PAD - CT head - resume anticoagulation if no bleed on CT head - rate control - continue antibiotics, agree with broadening coverage to treat pneumonia - f/u pending cultures - cardiology considering EL/DCCV - check CVP, keep 8-12 - pressor support to maintain MAP >65, change phenylephrine to levophed - continue dobutamine gtt - IV lasix - monitor urine output, creatinine - inhaled bronchodilators - lighten sedation in AM to assess mental status - spontaneous breathing trials as tolerated when mental status improved - enteral feeds in AM if unable to extubate - DVT/GI prophylaxis - continue ICU monitoring critical care time spent in reviewing chart, evaluating patient and formulating plan 45 min
[2018-05-11] MEDS: PROPOFOL 1,000,000 MCG/100 ML VIAL IVPB SCH (14:00)
[2018-05-11] MEDS: PANTOPRAZOLE SODIUM 40 MG VIAL IVPUSH SCH (15:15)
[2018-05-11] MEDS ORDERED: DOBUTAMINE 250 MG/D5W - 250,000 MCG/250 ML INFUS.BAG IV SCH (15:45)
[2018-05-11] MEDS ORDERED: DEXTROSE 5% IVPB SCH (16:19)
[2018-05-11] MEDS ORDERED: WATER IVPB SCH (16:19)
[2018-05-11] MEDS ORDERED: DOBUTAMINE HCL IVPB SCH (16:19)
[2018-05-11] MEDS ORDERED: HEPARIN NA (PORCINE) 5,000 UNITS/ML 1ML VIAL IVPUSH PRN ×3 (16:27→17:02)
[2018-05-11] MEDS ORDERED: HEPARIN - 25,000 UNIT in SODIUM CHLORIDE 495 ML IV SCH (16:30)
[2018-05-11] MEDS ORDERED: PIPERACILLIN/TAZOBACTAM 3.375 GM VIAL IVPB ONE (16:57)
[2018-05-11] MEDS ORDERED: DEXTROSE 5%-WATER - 50 ML IVPB ONE (16:57)
[2018-05-11] MEDS ORDERED: fentaNYL CITRATE 250 MCG/5 ML VIAL ONE (16:59)
[2018-05-11] MEDS ORDERED: HEPARIN NA (PORCINE) 5,000 UNITS/ML 1ML VIAL IVPUSH ONE (17:00)
[2018-05-11] MEDS: HEPARIN INFUSION - 25,000 UNITS/500 ML INFUS.BAG IVPB SCH (17:38)
--- NOTE | 2018-05-11 17:54 | PN ---
Physical Exam: SUBJECTIVE: Patient seen and examined this am and evening in icu. Currently intubated, central line inserted today. Son at bedside. OBJECTIVE: Vital Signs Period Temp Pulse Resp BP Sys/Carroll Pulse Ox Last 24 Hr 96 F-99.3 F 72-117 13-24 55-117/36-82 93-100 GENERAL: Intubated HEAD: NC/AT EYES: Pinpoint pupils. ENT: Unable to assess throat, intubated. Nose, Ears WNL. NECK: Trachea midline. LUNGS: Rhonchi B/L HEART: Irregular. Tachycardic ABDOMEN: NT, ND, No HSM. Hard nodule right lower abdomen. Pt has had numerous abd surgeries. Scar tissue? EXTREMITIES: B/L edema lower extremities 2-3+. NEUROLOGICAL: Unable to assess PSYCH: Unable to assess. SKIN: Warm. No rashes appreciated. Laboratory Results - last 24 hr 05/11/18 05/11/18 05/11/18 02:20 02:20 02:20 WBC 13.6 H RBC 3.55 L Hgb 11.2 L Hct 33.6 L MCV 94.8 MCH 31.5 MCHC 33.2 RDW 14.0 Plt Count 173 MPV 9.0 Absolute Neuts (auto) 11.5 Total Counted 100 Neutrophils % 84.7 H Neutrophils % (Manual) 85.0 H Band Neutrophils % 3.0 Lymphocytes % 6.6 L D Lymphocytes % (Manual) 8.0 D Monocytes % 8.5 Monocytes % (Manual) 3 L Eosinophils % 0.1 D Eosinophils % (Manual) 1.0 D Basophils % 0.1 Nucleated RBC % 1 H PTT (Actin FS) Anticoagulation Therapy Puncture Site ABG pH ABG pCO2 at Pt Temp ABG pO2 at Pt Temp ABG HCO3 ABG O2 Sat (Measured) ABG O2 Content ABG Base Excess Leodan Test O2 Delivery Device Oxygen Flow Rate Vent Mode Vent Rate Mechanical Rate PEEP Pressure Support Vent Sodium 135 L Potassium 3.6 Chloride 104 D Carbon Dioxide 22 Anion Gap 9 BUN 59 H Creatinine 2.1 H Creat Clearance w eGFR 31.29 POC Glucometer Random Glucose 110 H D Lactic Acid 2.6 H* Calcium 5.5 L* D Phosphorus Magnesium 1.6 L D Total Bilirubin 0.6 AST 90 H ALT 128 H D Alkaline Phosphatase 120 H D Creatine Kinase 443 H Creatine Kinase Index 5.2 H CK-MB (CK-2) 23.39 H Troponin I 0.05 Total Protein 4.0 L D Albumin 1.9 L Urine Color Urine Appearance Urine pH Ur Specific Ione Urine Protein Urine Glucose (UA) Urine Ketones Urine Blood Urine Nitrite Urine Bilirubin Urine Urobilinogen Ur Leukocyte Esterase Urine WBC (Auto) Urine RBC (Auto) Ur Epithelial Cells Hyaline Casts Urine Mucus 05/11/18 05/11/18 05/11/18 02:30 02:35 05:30 WBC RBC Hgb Hct MCV MCH MCHC RDW Plt Count MPV Absolute Neuts (auto) Total Counted Neutrophils % Neutrophils % (Manual) Band Neutrophils % Lymphocytes % Lymphocytes % (Manual) Monocytes % Monocytes % (Manual) Eosinophils % Eosinophils % (Manual) Basophils % Nucleated RBC % PTT (Actin FS) 48.7 35.6 Anticoagulation Therapy No Result Required. Puncture Site Right brachial ABG pH 7.28 L ABG pCO2 at Pt Temp 45.3 H ABG pO2 at Pt Temp 309.0 H* ABG HCO3 20.5 L ABG O2 Sat (Measured) 99.6 H* ABG O2 Content 18.3 ABG Base Excess -5.7 L Leodan Test Positive O2 Delivery Device A/c Oxygen Flow Rate 100% Vent Mode No Result Required. Vent Rate No Result Required. Mechanical Rate No Result Required. PEEP 5.0 Pressure Support Vent 550 Sodium Potassium Chloride Carbon Dioxide Anion Gap BUN Creatinine Creat Clearance w eGFR POC Glucometer Random Glucose Lactic Acid Calcium Phosphorus Magnesium Total Bilirubin AST ALT Alkaline Phosphatase Creatine Kinase Creatine Kinase Index CK-MB (CK-2) Troponin I Total Protein Albumin Urine Color Urine Appearance Urine pH Ur Specific Ione Urine Protein Urine Glucose (UA) Urine Ketones Urine Blood Urine Nitrite Urine Bilirubin Urine Urobilinogen Ur Leukocyte Esterase Urine WBC (Auto) Urine RBC (Auto) Ur Epithelial Cells Hyaline Casts Urine Mucus 05/11/18 05/11/18 05/11/18 05:30 05:30 05:30 WBC 13.3 H RBC 3.14 L Hgb 9.9 L Hct 30.3 L MCV 96.6 H MCH 31.7 MCHC 32.8 RDW 14.2 Plt Count 152 MPV 9.5 Absolute Neuts (auto) 11.3 Total Counted Neutrophils % 85.2 H Neutrophils % (Manual) Band Neutrophils % Lymphocytes % 2.8 L D Lymphocytes % (Manual) Monocytes % 11.7 H Monocytes % (Manual) Eosinophils % 0.1 Eosinophils % (Manual) Basophils % 0.2 Nucleated RBC % 0 PTT (Actin FS) Anticoagulation Therapy Puncture Site ABG pH ABG pCO2 at Pt Temp ABG pO2 at Pt Temp ABG HCO3 ABG O2 Sat (Measured) ABG O2 Content ABG Base Excess Leodan Test O2 Delivery Device Oxygen Flow Rate Vent Mode Vent Rate Mechanical Rate PEEP Pressure Support Vent Sodium 122 L* Potassium 2.8 L* D Chloride 87 L D Carbon Dioxide 18 L Anion Gap 17 H BUN 48 H Creatinine 2.2 H Creat Clearance w eGFR 29.65 POC Glucometer Random Glucose 781 H* D Lactic Acid 1.1 Calcium < 5.0 L* Phosphorus 3.0 D Magnesium 1.8 Total Bilirubin 1.1 H AST 60 H D ALT 92 H D Alkaline Phosphatase 99 D Creatine Kinase Creatine Kinase Index CK-MB (CK-2) Troponin I Total Protein 3.0 L Albumin 1.5 L Urine Color Urine Appearance Urine pH Ur Specific Ione Urine Protein Urine Glucose (UA) Urine Ketones Urine Blood Urine Nitrite Urine Bilirubin Urine Urobilinogen Ur Leukocyte Esterase Urine WBC (Auto) Urine RBC (Auto) Ur Epithelial Cells Hyaline Casts Urine Mucus 05/11/18 05/11/18 05/11/18 06:00 06:35 06:58 WBC RBC Hgb Hct MCV MCH MCHC RDW Plt Count MPV Absolute Neuts (auto) Total Counted Neutrophils % Neutrophils % (Manual) Band Neutrophils % Lymphocytes % Lymphocytes % (Manual) Monocytes % Monocytes % (Manual) Eosinophils % Eosinophils % (Manual) Basophils % Nucleated RBC % PTT (Actin FS) Anticoagulation Therapy No Result Required. Puncture Site Right radial ABG pH 7.30 L ABG pCO2 at Pt Temp 46.1 H ABG pO2 at Pt Temp 182.0 H* D ABG HCO3 22.1 ABG O2 Sat (Measured) 99.5 H ABG O2 Content 16.3 ABG Base Excess -3.8 L Leodan Test Positive O2 Delivery Device No Result Required. Oxygen Flow Rate 60% Vent Mode A/c Vent Rate 16 Mechanical Rate No Result Required. PEEP 5.0 Pressure Support Vent 550 Sodium Potassium Chloride Carbon Dioxide Anion Gap BUN Creatinine Creat Clearance w eGFR POC Glucometer [phone] Random Glucose Lactic Acid Calcium Phosphorus Magnesium Total Bilirubin AST ALT Alkaline Phosphatase Creatine Kinase Creatine Kinase Index CK-MB (CK-2) Troponin I Total Protein Albumin Urine Color Anette Urine Appearance Cloudy Urine pH 5.0 Ur Specific Ione 1.016 Urine Protein 3+ H Urine Glucose (UA) Negative Urine Ketones Negative Urine Blood 3+ H Urine Nitrite Negative Urine Bilirubin Negative Urine Urobilinogen Negative Ur Leukocyte Esterase 2+ H Urine WBC (Auto) 2 Urine RBC (Auto) 693 Ur Epithelial Cells Rare Hyaline Casts 83 Urine Mucus Rare 05/11/18 05/11/18 05/11/18 08:40 08:40 15:30 WBC RBC Hgb Hct MCV MCH MCHC RDW Plt Count MPV Absolute Neuts (auto) Total Counted Neutrophils % Neutrophils % (Manual) Band Neutrophils % Lymphocytes % Lymphocytes % (Manual) Monocytes % Monocytes % (Manual) Eosinophils % Eosinophils % (Manual) Basophils % Nucleated RBC % PTT (Actin FS) Anticoagulation Therapy Puncture Site ABG pH ABG pCO2 at Pt Temp ABG pO2 at Pt Temp ABG HCO3 ABG O2 Sat (Measured) ABG O2 Content ABG Base Excess Leodan Test O2 Delivery Device Oxygen Flow Rate Vent Mode Vent Rate Mechanical Rate PEEP Pressure Support Vent Sodium 129 L Potassium 4.5 D Chloride 94 L Carbon Dioxide 24 D Anion Gap 11 BUN 69 H Creatinine 2.6 H Creat Clearance w eGFR 24.45 POC Glucometer Random Glucose 122 H D Lactic Acid Calcium 7.0 L D Phosphorus Magnesium 2.9 H D Total Bilirubin 0.8 AST 83 H D ALT 121 H D Alkaline Phosphatase 143 H D Creatine Kinase 339 H 256 Creatine Kinase Index 6.2 H* CK-MB (CK-2) 21.27 H Troponin I 0.11 H D 0.06 H D Total Protein 4.7 L Albumin 2.3 L Urine Color Urine Appearance Urine pH Ur Specific Ione Urine Protein Urine Glucose (UA) Urine Ketones Urine Blood Urine Nitrite Urine Bilirubin Urine Urobilinogen Ur Leukocyte Esterase Urine WBC (Auto) Urine RBC (Auto) Ur Epithelial Cells Hyaline Casts Urine Mucus Active Medications Generic Name Dose Route Start Last Admin Trade Name Freq PRN Reason Stop Dose Admin Al Hydroxide/Mg Hydroxide 30 ml 05/08/18 21:23 05/08/18 21:34 Mylanta Oral Suspension - PO 30 ml Q6H PRN Administration INDIGESTION Albuterol/Ipratropium 1 amp 05/06/18 18:49 05/10/18 20:30 Duoneb - NEB 1 amp Q6H PRN Administration SHORTNESS OF BREATH Heparin Sodium (Porcine) 1,000 unit 05/11/18 17:06 Heparin - IVPUSH PRN PRN Heparin Heparin Sodium (Porcine) 5,000 unit 05/11/18 17:02 Heparin - IVPUSH PRN PRN Heparin Midazolam HCl 100 mg/ Sodium 100 mls @ 1 mls/hr 05/11/18 03:30 05/11/18 11:51 Chloride IVPB 10 mg/hr TITR KINGSLEY 10 mls/hr Administration Protocol 1 MG/HR Norepinephrine Bitartrate 8, 500 mls @ 18.75 mls/hr 05/11/18 12:15 05/11/18 12:00 000 mcg/ Dextrose IV 5 mcg/min TITR KINGSLEY 18.75 mls/hr Administration Protocol 5 MCG/MIN Propofol 1,000,000 mcg in 100 mls @ 3.69 mls/hr 05/11/18 12:30 05/11/18 14:00 Diprivan - IVPB 5 mcg/kg/min TITR KINGSLEY 3.69 mls/hr Administration Protocol 5 MCG/KG/MIN Dobutamine HCl 500,000 mcg/ 290 mls @ 85.6 mls/hr 05/11/18 16:19 Dextrose IVPB TITR KINGSLEY Protocol 20 MCG/KG/MIN Fentanyl 500 mcg/ Dextrose 100 mls @ 0.4 mls/hr 05/11/18 16:30 IVPB TITR KINGSLEY Protocol 2 MCG/HR Piperacillin Sod/Tazobactam 50 mls @ 100 mls/hr 05/11/18 18:00 Sod 3.375 gm/ Dextrose IVPB Q8H-IV KINGSLEY Protocol Heparin Sodium/Dextrose 25,000 units in 500 mls @ 20 mls/hr 05/11/18 17:15 17:38 Heparin Infusion - IVPB 1,000 units/hr TITR KINGSLEY 20 mls/hr Administration Protocol 1,000 UNITS/HR Pantoprazole Sodium 40 mg 05/11/18 14:30 05/11/18 15:15 Protonix Iv IVPUSH 40 mg DAILY KINGSLEY Administration Fluticasone/Salmeterol 1 puff 05/06/18 22:00 05/10/18 21:33 Advair 100mcg/50mcg - IH 1 puff BID KINGSLEY Administration ASSESSMENT/PLAN: 72 y/o gentleman with PMH of CHF, low EF, new onset Atrial fibrillation, AAA repair, femoral bypass, BPH, obesity, COPD, former smoker (quit in 6 months ago ) who presented to [facility] with SOB, rapid A.Fib, and CHF exacerbation. S/P cardiac arrest. ROSC achieved after 9 minutes. Acute Hypoxic Respiratory Railure -Intubated -Sedation, Versed currently being weaned. Fentanyl and Propofol now for sedation. -Dobutamine continued, started on Levophed, Phenylephrine d/c'ed - Lower Extremity Doppler B/L to r/o P.E -Chest XRAY 05/11/2018-->Congestive changes w/ possible basilar infiltrates CHF exacerbation possibly 2/2 AFIB -Given IV Lasix 80 MG -Pressor support to maintain MAP >65 -EL to r/o endocarditis -Toprol being held due to likely cardiogenic shock. EKG Today 05/11/2018-->RBBB, Inferior ischemia, T wave inversion inferior leads ECHO 05/09-->LV Systolic fucntion severely reduced, Severe global hypokinesis left ventricle, EF 30-35%, Right ventricular systolic function moderately reduced, left, right atriums mod dilated, mr regurg, tri regurg, MSSA bacteremia -EL to be done in near future to r/o endocarditis -ID on board -Broad spectrum ABX started due to possible aspiration pneumonia -Vancomycin/Zosyn JACKIE- Most likely 2/2 renal hypoprofusion -Baseline Cr is 0.8 in 01/2018 -BUN/CR today-->69/2.6 -Trend renal function and electrolytes Head CT 05/11/2018 -> No Intracranial Hemorrhage identified. FEN No Fluids Monitor Electrolytes NPO DVT ppx: Heparin gtt. Started after Ct Head revealed no bleed. Dispo: Continue to monitor icu. Visit type - Emergency Visit Emergency Visit: Yes ED Registration Date: 05/06/18 Care time: The patient presented to the Emergency Department on the above date and was hospitalized for further evaluation of their emergent condition. - New Patient This patient is new to me today: Yes Date on this admission: 05/11/18 - Critical Care Critical Care patient: Yes Total Critical Care Time (in minutes): 36 Critical Care Statement: The care of this patient involved high complexity decision making to prevent further life threatening deterioration of the patient 's condition and/or to evaluate & treat vital organ system(s) failure or risk of failure.
[2018-05-11] MEDS: PIPERACILLIN/TAZOB 3.375 GM 3.375 GM in DEXTROSE 5%-WATER - 50 ML IVPB SCH (17:58)
[2018-05-11] MEDS: FENTANYL INJECTION 500 MCG in DEXTROSE 5%-WATER - 90 ML IVPB SCH ×3 (17:59→19:00)
[2018-05-11] MEDS ORDERED: ESMOLOL IVPB ONE (18:27)
[2018-05-11] MEDS: FLUTICASONE/SALMETEROL 100 MCG/50 MCG DISKUS IH SCH (21:55)
[2018-05-11] MEDS ORDERED: PANTOPRAZOLE SODIUM 40 MG VIAL IVPUSH ONE (23:15)
[2018-05-11 23:34] LABS: HEMOGLOBIN 12.6 GM/dL (11.7-16.9); MCH 31.1 pg (25.7-33.7); MCHC 33.2 g/dl (32.0-35.9); MEAN CELL VOLUME 93.7 fl (80-96); MEAN PLT VOLUME 9.3 fl (7.5-11.1); PLATELET COUNT 153 K/MM3 (134-434); RBC 4.06 M/mm3 (4.00-5.60); WHITE BLOOD COUNT 15.4 K/mm3 (4.0-10.0)
[2018-05-12] MEDS ORDERED: DEXTROSE 5%-WATER - 50 ML IVPB ONE ×4 (00:29→21:06)
[2018-05-12] MEDS ORDERED: PIPERACILLIN/TAZOBACTAM 3.375 GM VIAL IVPB ONE ×4 (00:29→21:06)
[2018-05-12] MEDS: PIPERACILLIN/TAZOB 3.375 GM 3.375 GM in DEXTROSE 5%-WATER - 50 ML IVPB SCH ×4 (02:01→21:13)
[2018-05-12] MEDS: MIDAZOLAM 100 MG in SODIUM CHLORIDE 100 ML IVPB SCH (03:51)
[2018-05-12 05:59] LABS: BASO % 0.1 % (0-2.0); EOS % 0.6 % (0-4.5); HEMATOCRIT 36.6 % (35.4-49); HEMOGLOBIN 12.4 GM/dL (11.7-16.9); LYMPH % 6.8 % (8-40); MCH 31.4 pg (25.7-33.7); MCHC 33.9 g/dl (32.0-35.9); MEAN CELL VOLUME 92.5 fl (80-96); MEAN PLT VOLUME 9.5 fl (7.5-11.1); MONO % 9.9 % (3.8-10.2); NEUT % 82.6 % (42.8-82.8); PLATELET COUNT 141 K/MM3 (134-434); RBC 3.96 M/mm3 (4.00-5.60); WHITE BLOOD COUNT 14.2 K/mm3 (4.0-10.0)
[2018-05-12 06:35] LABS: CHLORIDE 92 mmol/L (98-107); POTASSIUM 3.8 mmol/L (3.5-5.1); SODIUM 130 mmol/L (136-145)
[2018-05-12 06:43] LABS: ALBUMIN 2.4 g/dl (3.4-5.0); ALK PHOS 140 U/L (45-117); ANION GAP 10 (8-16); BILIRUBIN,TOTAL 1.2 mg/dL (0.2-1.0); BLOOD UREA NITROGEN 55 mg/dL (7-18); CALCIUM 7.2 mg/dL (8.5-10.1); CO2 28 mmol/L (21-32); CREATININE 2.3 mg/dL (0.7-1.3); GLUCOSE,RANDOM 137 mg/dL (74-106); MAGNESIUM 2.2 mg/dL (1.8-2.4); PHOSPHOROUS 4.2 mg/dL (2.5-4.9); SGOT/AST 48 U/L (15-37); SGPT/ALT 76 U/L (12-78)
[2018-05-12] MEDS ORDERED: POTASSIUM CHLORIDE 20 MEQ PREMIX IVPB 100 ML IVPB ONE (08:08)
[2018-05-12] MEDS ORDERED: POTASSIUM CHLORIDE TABS 20 MEQ TABLET.ER (FP) PO ONE (08:10)
[2018-05-12] MEDS: PANTOPRAZOLE SODIUM 40 MG VIAL IVPUSH SCH (09:06)
[2018-05-12] MEDS: HEPARIN NA (PORCINE) 5,000 UNITS/ML 1ML VIAL IVPUSH PRN (09:07)
[2018-05-12] MEDS: PROPOFOL 1,000,000 MCG/100 ML VIAL IVPB SCH ×2 (09:08→21:12)
[2018-05-12] MEDS ORDERED: PT OWN MED DRAWER 7, Y5N ONE ×2 (10:43→21:06)
[2018-05-12] MEDS ORDERED: fentaNYL CITRATE 250 MCG/5 ML VIAL ONE (11:37)
[2018-05-12] MEDS ORDERED: NOREPINEPHRINE BITARTRATE 4 MG/4 ML ML IV ONE ×2 (11:38→19:21)
[2018-05-12] MEDS ORDERED: FUROSEMIDE 40 MG/4 ML INJECTABLE VIAL IVPUSH ONE (12:25)
--- NOTE | 2018-05-12 12:25 | PN ---
Progress Note (short form) - Note Progress Note: S: patient intubated and sedated. no overnight events o: Vital Signs Temp 98 F 05/12/18 11:00 Pulse 120 H 05/12/18 11:00 Resp 14 05/12/18 11:00 BP 98/82 05/12/18 11:00 Pulse Ox 99 05/12/18 09:00 Intake & Output 05/11/18 05/12/18 05/12/18 23:59 11:59 23:59 Intake Total 3555.8 1979.9 Output Total 4450 2100 Balance -894.2 -120.1 Weight 271 lb 6 oz Intake: IV 2855.8 1879.9 DIPRIVAN - 1,000,000 mcg 14.8 88.5 In 100 ml @ 5 MCG/KG/MIN 3.69 mls/hr IVPB TITR KINGSLEY Rx#:[id number] DOBUTAMINE 250 MG/D5W - 1480 250,000 mcg In 250 ml @ 20 MCG/KG/MIN 147.6 mls/ hr IV TITR KINGSLEY Rx#: [id number] Dobutrex - 500,000 Mcg In 148 663.4 D5w - 250 ml @ 20 MCG/KG /MIN 85.6 mls/hr IVPB TITR KINGSLEY Rx#:[id number] Fentanyl drip 5 60 HEPARIN INFUSION - 25,000 20 168 units In 500 ml @ 1,000 UNITS/HR 20 mls/hr IVPB TITR KINGSLEY Rx#:[id number] Heparin - 25,000 Unit In 40 Normal Saline - 495 ml @ 1,000 UNIT/HR 20 mls/hr IV TITR KINGSLEY Rx#: [id number] Levophed - 8,000 Mcg In 294 900 D5w - 492 ml @ 5 MCG/MIN 18.75 mls/hr IV TITR KINGSLEY Rx#:[id number] Andrei-Synephrine - 20,000 734 Mcg In Normal Saline - 248 ml @ 100 MCG/MIN 75 mls/hr IVPB TITR KINGSLEY Rx#: [id number] Versed - 100 mg In Normal 120 Saline - 100 ml @ 1 MG/ HR 1 mls/hr IVPB TITR KINGSLEY Rx#:[id number] IVPB 700 100 Output: Urine 4450 2100 Booth 4450 2100 Other: Voiding Method Indwelling Catheter Indwelling Catheter Bowel Movement No Weight Measurement Method Built in [facility] Last Values WBC 14.2 K/mm3 (4.0-10.0) H 05/12/18 05:30 RBC 3.96 M/mm3 (4.00-5.60) L 05/12/18 05:30 Hgb 12.4 GM/dL (11.7-16.9) 05/12/18 05:30 Hct 36.6 % (35.4-49) 05/12/18 05:30 MCV 92.5 fl (80-96) 05/12/18 05:30 MCH 31.4 pg (25.7-33.7) 05/12/18 05:30 MCHC 33.9 g/dl (32.0-35.9) 05/12/18 05:30 RDW 14.0 % (11.9-15.9) 05/12/18 05:30 Plt Count 141 K/MM3 (134-434) 05/12/18 05:30 MPV 9.5 fl (7.5-11.1) 05/12/18 05:30 Absolute Neuts (auto) 11.8 # 05/12/18 05:30 Total Counted 100 05/11/18 02:20 Neutrophils % 82.6 % (42.8-82.8) 05/12/18 05:30 Neutrophils % (Manual) 85.0 % (42.8-82.8) H 05/11/18 02:20 Band Neutrophils % 3.0 % 05/11/18 02:20 Lymphocytes % 6.8 % (8-40) L D 05/12/18 05:30 Lymphocytes % (Manual) 8.0 % (8-40) D 05/11/18 02:20 Monocytes % 9.9 % (3.8-10.2) 05/12/18 05:30 Monocytes % (Manual) 3 % (3.8-10.2) L 05/11/18 02:20 Eosinophils % 0.6 % (0-4.5) D 05/12/18 05:30 Eosinophils % (Manual) 1.0 % (0-4.5) D 05/11/18 02:20 Basophils % 0.1 % (0-2.0) 05/12/18 05:30 Basophils % (Manual) 0.0 % (0-2.0) 05/08/18 06:00 Myelocytes % (Man) 0 % (0-2) 05/08/18 06:00 Promyelocytes % (Man) 0 % (0-2) 05/08/18 06:00 Blast Cells % (Manual) 0 % (0-0) 05/08/18 06:00 Nucleated RBC % 0 % (0-0) 05/12/18 05:30 Metamyelocytes 0 % (0-2) 05/08/18 06:00 Hypochromia 0 05/08/18 06:00 Platelet Estimate Normal 05/08/18 06:00 Polychromasia 1+ 05/08/18 06:00 Poikilocytosis 0 05/08/18 06:00 Anisocytosis 0 05/08/18 06:00 Microcytosis 0 05/08/18 06:00 Macrocytosis 0 05/08/18 06:00 ESR 5 mm/hr (0-20) 05/09/18 05:45 PT with INR 13.20 SEC (9.7-13.0) 05/10/18 06:10 INR 1.17 (0.83-1.09) 05/10/18 06:10 PTT (Actin FS) 43.5 SECONDS (25.2-36.5) H 05/12/18 07:00 Anticoagulation Therapy No Result Required. 05/11/18 06:35 Puncture Site Right radial 05/11/18 06:35 ABG pH 7.30 (7.35-7.45) L 05/11/18 06:35 ABG pCO2 at Pt Temp 46.1 mmHg (35-45) H 05/11/18 06:35 ABG pO2 at Pt Temp 182.0 mmHg (70-100) H* D 05/11/18 06:35 ABG HCO3 22.1 meq/L (22-26) 05/11/18 06:35 ABG O2 Sat (Measured) 99.5 % (90-98.9) H 05/11/18 06:35 ABG O2 Content 16.3 % vol (15-22) 05/11/18 06:35 ABG Base Excess -3.8 meq/l (-2-2) L 05/11/18 06:35 Leodan Test Positive 05/11/18 06:35 O2 Delivery Device No Result Required. 05/11/18 06:35 Oxygen Flow Rate 60% 05/11/18 06:35 Vent Mode A/c 05/11/18 06:35 Vent Rate 16 05/11/18 06:35 Mechanical Rate No Result Required. 05/11/18 06:35 PEEP 5.0 cmH2O 05/11/18 06:35 Pressure Support Vent 550 05/11/18 06:35 Sodium 130 mmol/L (136-145) L 05/12/18 05:30 Potassium 3.8 mmol/L (3.5-5.1) 05/12/18 05:30 Chloride 92 mmol/L (98-107) L 05/12/18 05:30 Carbon Dioxide 28 mmol/L (21-32) 05/12/18 05:30 Anion Gap 10 (8-16) 05/12/18 05:30 BUN 55 mg/dL (7-18) H 05/12/18 05:30 Creatinine 2.3 mg/dL (0.7-1.3) H 05/12/18 05:30 Creat Clearance w eGFR 28.17 (>60) 05/12/18 05:30 POC Glucometer 138.53150 UNITS (80-120) 05/11/18 06:58 Random Glucose 137 mg/dL (74-106) H 05/12/18 05:30 Hemoglobin A1c % 6.6 % (4.8-6.0) H 05/07/18 08:00 Serum Osmolality 289 mosm/kg (278-305) 05/10/18 06:00 Lactic Acid 1.1 mmol/L (0.0-2.0) 05/11/18 05:30 Calcium 7.2 mg/dL (8.5-10.1) L 05/12/18 05:30 Phosphorus 4.2 mg/dL (2.5-4.9) D 05/12/18 05:30 Magnesium 2.2 mg/dL (1.8-2.4) D 05/12/18 05:30 Total Bilirubin 1.2 mg/dL (0.2-1.0) H 05/12/18 05:30 Direct Bilirubin 0.6 mg/dL (0.0-0.2) H 05/10/18 06:10 AST 48 U/L (15-37) H D 05/12/18 05:30 ALT 76 U/L (12-78) D 05/12/18 05:30 Alkaline Phosphatase 140 U/L (45-117) H 05/12/18 05:30 Creatine Kinase 256 IU/L (39-308) 05/11/18 15:30 Creatine Kinase Index 6.9 % (0.0-5.0) H* 05/11/18 15:30 CK-MB (CK-2) 17.68 ng/mL (0.5-3.6) H 05/11/18 15:30 Troponin I 0.06 ng/ml (0.00-0.05) H D 05/11/18 15:30 C-Reactive Protein 4.9 MG/DL (0.00-0.3) H 05/09/18 05:45 B-Natriuretic Peptide 56999.98 pg/ml (5-125) H 05/06/18 16:20 Total Protein 5.0 g/dl (6.4-8.2) L 05/12/18 05:30 Albumin 2.4 g/dl (3.4-5.0) L 05/12/18 05:30 Triglycerides 63 mg/dL (35-160) 05/06/18 20:15 Cholesterol 88 mg/dL (50-200) 05/06/18 20:15 Total LDL Cholesterol 47 mg/dL (5-100) 05/06/18 20:15 HDL Cholesterol 36 mg/dL (40-60) L 05/06/18 20:15 Urine Color Anette 05/11/18 06:00 Urine Appearance Cloudy 05/11/18 06:00 Urine pH 5.0 (5.0-8.0) 05/11/18 06:00 Ur Specific [place] 1.016 (1.001-1.035) 05/11/18 06:00 Urine Protein 3+ (NEGATIVE) H 05/11/18 06:00 Urine Glucose (UA) Negative (NEGATIVE) 05/11/18 06:00 Urine Ketones Negative (NEGATIVE) 05/11/18 06:00 Urine Blood 3+ (NEGATIVE) H 05/11/18 06:00 Urine Nitrite Negative (NEGATIVE) 05/11/18 06:00 Urine Bilirubin Negative (<2.0 mg/dL) 05/11/18 06:00 Urine Urobilinogen Negative mg/dL (0.2-1.0) 05/11/18 06:00 Ur Leukocyte Esterase 2+ (NEGATIVE) H 05/11/18 06:00 Urine WBC (Auto) 2 /hpf (3-5) 05/11/18 06:00 Urine RBC (Auto) 693 /hpf (0-3) 05/11/18 06:00 Ur Epithelial Cells Rare /HPF (FEW) 05/11/18 06:00 Hyaline Casts 83 /lpf 05/11/18 06:00 Urine Mucus Rare 05/11/18 06:00 Urine Osmolality 524 mosm/kg (300-900) 05/10/18 12:00 U Random Total Protein 71 mg/dl (5-11.9) H 05/10/18 12:00 Ur Random Sodium 23 MMOL/L 05/10/18 12:00 Ur Random Potassium 19.9 MMOL/L 05/10/18 12:00 Ur Random Chloride < 10 MMOL/L 05/10/18 12:00 Ur Random Urea Nitrogn 975 mg/dL 05/10/18 12:00 Urine Creatinine 120.0 mg/dL (20-370) 05/10/18 12:00 Stool Occult Blood Negative (NEGATIVE) 05/09/18 20:00 Random Vancomycin 17.66 ug/ml 05/12/18 05:30 Hepatitis A IgM Ab Negative (Negative) 05/08/18 16:11 Hepatitis A Ab Total Negative (Negative) 05/09/18 05:45 Hep Bs Antigen Negative (Negative) 05/09/18 05:45 Hep Bs Antibody Non reactive (.) 05/09/18 05:45 Hep B Core Total Ab Negative (Negative) 05/09/18 05:45 Hep B Core IgM Ab Negative (Negative) 05/08/18 16:11 Hep C Ab Diagnostic <0.1 s/co ratio (0.0-0.9) 05/09/18 05:45 Hepatitis C Antibody <0.1 s/co ratio (0.0-0.9) 05/08/18 16:11 Liver Fibrosis Interp (.) 05/09/18 05:45 Constitutional: Yes: intubated, sedated Obese Eyes: No: Sclera Icterus HENT: No: NCAT Cardiovascular: +JVD, Pulse Irregular (decr intensity sounds), S1, S2, Other ( PMI non diplaced). No: Gallop, Murmur Respiratory: mechanically ventilated, no rales Gastrointestinal: Yes: Normal Bowel Sounds, Soft. No: Tenderness Extremities: No: Cold Edema: Yes (1+ pretibs) Integumentary: No: Jaundice diaphoresis Neurological: Yes: Alert, Oriented (x3) Psychiatric: No: Agitated EKG 05/06/18 afib with RVR 155, RBBB Echo 04/27 (here): nl LV size, severely reduced LVSF global (EF 30-35%). mild RVE , mod decr RVSF. L/TODD. mild MR/TR. no signif (KOLE 1.3, mean gradient 10). RVSP at least 39. tele: AF 100s-130s EKG 05/11/18 afib rate 70s, diffuse TWI cxr: b/l effs est cct 35 mins a/p: 72M h/o HTN, HLD, COPD, ex smoker, PAD s/p AAA repair 12 years ago, femoral bypass 4 years ago p/w carrizales, lower extremity swelling, cough for two weeks with new afib, CHF exac, JACKIE, leukocytosis now s/p cardiac arrest with ROSC transferred to ICU on pressors, dobutamine on 05/11 Afib with RVR - echo showed severe LV dysfunction, likely related to tachycardia induced myopathy diltiazem was dc'ed and replaced with lopressor 50 mg - now with hypotension on pressors. hr fast at times so d/w nurse and will titrate off dobutamine - holding metoprolol, if rate increases would consider amiodarone given hypotension - on hep gtt for ac - will consider EL for possible cardioversion and rule out endocarditis when more clinically stable (off pressors) - cont tele acute syst CHF - may be tachycardia induced in setting of afib with RVR, EF 30-35% on echo, will eventually need ischemic workup as outpatient - 05/06 received IV lasix 40 mg x1 in PM, 05/07 Cr 2.1->2.5 with obstruction and booth placement with improving UOP - 05/08 given lasix 40 mg IV x 1 with Cr 2.1 -> 2.9 - 05/09 lasix held due to rising Cr, auto diuresing post ATN - 05/10: received lasix 80 mg IV x1 - 05/11 overnight transferred to ICU, on dobumtamine and phenylephrine, remains with LE edema, JVD - discussed with ICU team, changing phenylephrine to levophed, will give additional dose of IV lasix 80 mg -05/12: effs on cxr, le edema, will give lasix 80 iv today - strict I/O, monitor renal function MSSA bacteremia, possible aspiration during code - no signs/sx of infection - repeat bld cxs ngtd - pt with shoulder hardware, LE arterial graft material--may need minimum of 4 weeks abx regardless - no other stigmata of I.E., no vegetations seen on echo, no signif valve dysfunction - EL when patient more clinically stable - abx per ID Elevated troponin - intermediate range, flat trend--not c/w ACS - trop sec to decomp CHF vs demand ischemia from rapid AF COPD - on advair, duonebs, low dose steroid JACKIE, ? underlying CKD - cardiorenal syndrome vs ATN, had been improving, renal following - diuresis as above, on pressors - holding home valsartan transaminitis: - AST/LT 800s on admit--both trending down progressively - likely congestive hepatopathy per GI, improving with improvement in HF status - sonogram with fatty infiltration vs hepatocellular dz picture - plan per GI H/o AAA s/p repair - holding home statin due to acute LFT elevation here--resume once LFTs stabilize - stop ASA, as pt now on AC
--- NOTE | 2018-05-12 12:30 | PN ---
Teaching Attending Note Name of Resident: Fortino Pineda ATTENDING PHYSICIAN STATEMENT I saw and evaluated the patient. I reviewed the resident's note and discussed the case with the resident. I agree with the resident's findings and plan as documented. SUBJECTIVE: Patient seen and examined in the ICU. Intubated and sedated. Remains on NE and Dobutamine for hemodynamic support. Intake & Output 05/09/18 05/10/18 05/11/18 05/12/18 23:59 23:59 23:59 23:59 Intake Total 846 385 4830.8 1979.9 Output Total 950 2350 4950 2100 Balance -335 -2064 -72.2 -120.1 Weight 261 lb 271 lb 2.697 oz 271 lb 6 oz Last Vital Signs Temp Pulse Resp BP Pulse Ox 98 F 120 H 14 98/82 99 05/12/18 11:00 05/12/18 11:00 05/12/18 11:00 05/12/18 11:00 05/12/18 09:00 Active Medications Al Hydroxide/Mg Hydroxide (Mylanta Oral Suspension -) 30 ml PO Q6H PRN PRN Reason: INDIGESTION Last Admin: 05/08/18 21:34 Dose: 30 ml Albuterol/Ipratropium (Duoneb -) 1 amp NEB Q6H PRN PRN Reason: SHORTNESS OF BREATH Last Admin: 05/10/18 20:30 Dose: 1 amp Furosemide (Lasix Injection -) 80 mg IVPUSH ONCE ONE Stop: 05/12/18 12:26 Heparin Sodium (Porcine) (Heparin -) 1,000 unit IVPUSH PRN PRN PRN Reason: Heparin Last Admin: 05/12/18 09:07 Dose: 1,000 unit Heparin Sodium (Porcine) (Heparin -) 5,000 unit IVPUSH PRN PRN PRN Reason: Heparin Norepinephrine Bitartrate 8, (000 mcg/ Dextrose) 500 mls @ 18.75 mls/hr IV TITR [facility]; Protocol Last Titration: 05/12/18 06:38 Dose: 10 mcg/min, 37.5 mls/hr Propofol (Diprivan -) 1,000,000 mcg in 100 mls @ 3.69 mls/hr IVPB TITR [facility]; Protocol Last Admin: 05/12/18 09:08 Dose: 10 mcg/kg/min, 7.38 mls/hr Dobutamine HCl 500,000 mcg/ (Dextrose) 290 mls @ 85.6 mls/hr IVPB TITR [facility]; Protocol Last Titration: 05/12/18 05:07 Dose: 5 mcg/kg/min, 21.4 mls/hr Fentanyl 500 mcg/ Dextrose 100 mls @ 0.4 mls/hr IVPB TITR [facility]; Protocol Last Admin: 05/11/18 19:00 Dose: 5 mls/hr Piperacillin Sod/Tazobactam (Sod 3.375 gm/ Dextrose) 50 mls @ 100 mls/hr IVPB Q8H-IV [facility]; Protocol Last Admin: 05/12/18 09:06 Dose: 100 mls/hr Heparin Sodium/Dextrose (Heparin Infusion -) 25,000 units in 500 mls @ 20 mls/ hr IVPB TITR [facility]; Protocol Last Titration: 05/12/18 09:12 Dose: 950 units/hr, 19 mls/hr Pantoprazole Sodium (Protonix Iv) 40 mg IVPUSH DAILY [facility] Last Admin: 05/12/18 09:06 Dose: 40 mg Fluticasone/Salmeterol (Advair 100mcg/50mcg -) 1 puff IH BID [facility] Last Admin: 05/11/18 21:55 Dose: Not Given Gen: Intubated, sedated Heart: irregular Lung: scattered rhonchi Abd: soft, nontender Ext: + edema Laboratory Results - last 24 hr 05/11/18 05/11/18 05/11/18 15:30 23:08 23:08 WBC 15.4 H RBC 4.06 Hgb 12.6 Hct 38.0 D MCV 93.7 MCH 31.1 MCHC 33.2 RDW 14.0 Plt Count 153 MPV 9.3 Absolute Neuts (auto) Neutrophils % Lymphocytes % Monocytes % Eosinophils % Basophils % Nucleated RBC % PTT (Actin FS) Cancelled Sodium Potassium Chloride Carbon Dioxide Anion Gap BUN Creatinine Creat Clearance w eGFR Random Glucose Calcium Phosphorus Magnesium Total Bilirubin AST ALT Alkaline Phosphatase Creatine Kinase 256 Creatine Kinase Index 6.9 H* CK-MB (CK-2) 17.68 H Troponin I 0.06 H D Total Protein Albumin Random Vancomycin 05/11/18 05/12/18 05/12/18 23:12 05:30 05:30 WBC RBC Hgb Hct MCV MCH MCHC RDW Plt Count MPV Absolute Neuts (auto) Neutrophils % Lymphocytes % Monocytes % Eosinophils % Basophils % Nucleated RBC % PTT (Actin FS) 121.2 H 46.2 H Sodium Potassium Chloride Carbon Dioxide Anion Gap BUN Creatinine Creat Clearance w eGFR Random Glucose Calcium Phosphorus Magnesium Total Bilirubin AST ALT Alkaline Phosphatase Creatine Kinase Creatine Kinase Index CK-MB (CK-2) Troponin I Total Protein Albumin Random Vancomycin 17.66 05/12/18 05/12/18 05/12/18 05:30 05:30 07:00 WBC 14.2 H RBC 3.96 L Hgb 12.4 Hct 36.6 MCV 92.5 MCH 31.4 MCHC 33.9 RDW 14.0 Plt Count 141 MPV 9.5 Absolute Neuts (auto) 11.8 Neutrophils % 82.6 Lymphocytes % 6.8 L D Monocytes % 9.9 Eosinophils % 0.6 D Basophils % 0.1 Nucleated RBC % 0 PTT (Actin FS) 43.5 H Sodium 130 L Potassium 3.8 Chloride 92 L Carbon Dioxide 28 Anion Gap 10 BUN 55 H Creatinine 2.3 H Creat Clearance w eGFR 28.17 Random Glucose 137 H Calcium 7.2 L Phosphorus 4.2 D Magnesium 2.2 D Total Bilirubin 1.2 H AST 48 H D ALT 76 D Alkaline Phosphatase 140 H Creatine Kinase Creatine Kinase Index CK-MB (CK-2) Troponin I Total Protein 5.0 L Albumin 2.4 L Random Vancomycin ASSESSMENT AND PLAN: Acute Hypoxic Respiratory Failure s/p Cardiopulmonary Arrest Staph Bacteremia Shock - Cardiogenic vs Septic Acute on Chronic Systolic Heart Failure Atrial Fibrillation Acute Kidney Injury Elevated LFTs likely congestive hepatopathy +Troponins Hyponatremia PAD - AC with IV Heparin - rate control - ABX coverage - Follow final cultures - check CVP, keep 8-12 - Wean NE and Dobutamine as hemodynamics tolerate - No diuretics today - Monitor urine output, creatinine - Inhaled bronchodilators - Hold sedation to assess mental status/neuro exam - Spontaneous breathing trials as tolerated when mental status improved - Enteral feeds - DVT/GI prophylaxis - ICU monitoring Dr Poon Critical care time spent in reviewing chart, evaluating patient and formulating plan 40 min
--- NOTE | 2018-05-12 12:42 | PN ---
Progress Note, Physician Chief Complaint: Unable to obtain, intubated - Current Medication List Current Medications: Active Medications Al Hydroxide/Mg Hydroxide (Mylanta Oral Suspension -) 30 ml PO Q6H PRN PRN Reason: INDIGESTION Last Admin: 05/08/18 21:34 Dose: 30 ml Albuterol/Ipratropium (Duoneb -) 1 amp NEB Q6H PRN PRN Reason: SHORTNESS OF BREATH Last Admin: 05/10/18 20:30 Dose: 1 amp Heparin Sodium (Porcine) (Heparin -) 1,000 unit IVPUSH PRN PRN PRN Reason: Heparin Last Admin: 05/12/18 09:07 Dose: 1,000 unit Heparin Sodium (Porcine) (Heparin -) 5,000 unit IVPUSH PRN PRN PRN Reason: Heparin Norepinephrine Bitartrate 8, (000 mcg/ Dextrose) 500 mls @ 18.75 mls/hr IV TITR [facility]; Protocol Last Titration: 05/12/18 06:38 Dose: 10 mcg/min, 37.5 mls/hr Propofol (Diprivan -) 1,000,000 mcg in 100 mls @ 3.69 mls/hr IVPB TITR [facility]; Protocol Last Admin: 05/12/18 09:08 Dose: 10 mcg/kg/min, 7.38 mls/hr Dobutamine HCl 500,000 mcg/ (Dextrose) 290 mls @ 85.6 mls/hr IVPB TITR [facility]; Protocol Last Titration: 05/12/18 05:07 Dose: 5 mcg/kg/min, 21.4 mls/hr Fentanyl 500 mcg/ Dextrose 100 mls @ 0.4 mls/hr IVPB TITR [facility]; Protocol Last Admin: 05/11/18 19:00 Dose: 5 mls/hr Piperacillin Sod/Tazobactam (Sod 3.375 gm/ Dextrose) 50 mls @ 100 mls/hr IVPB Q8H-IV [facility]; Protocol Last Admin: 05/12/18 09:06 Dose: 100 mls/hr Heparin Sodium/Dextrose (Heparin Infusion -) 25,000 units in 500 mls @ 20 mls/ hr IVPB TITR [facility]; Protocol Last Titration: 05/12/18 09:12 Dose: 950 units/hr, 19 mls/hr Pantoprazole Sodium (Protonix Iv) 40 mg IVPUSH DAILY [facility] Last Admin: 05/12/18 09:06 Dose: 40 mg Fluticasone/Salmeterol (Advair 100mcg/50mcg -) 1 puff IH BID [facility] Last Admin: 05/11/18 21:55 Dose: Not Given - Objective Vital Signs: Vital Signs Temperature 36.6 C 05/12/18 11:00 Pulse Rate 133 H 05/12/18 12:00 Respiratory Rate 14 05/12/18 12:00 Blood Pressure 120/68 05/12/18 12:00 O2 Sat by Pulse Oximetry (%) 99 05/12/18 09:00 Constitutional: Yes: Other (sedated) Cardiovascular: Yes: Tachycardia, Pulse Irregular. No: Gallop, Murmur, Rub Respiratory: Yes: Regular, Intubated, Mechanically Ventilated, Rhonchi. No: CTA Bilaterally, Rales, Wheezes Gastrointestinal: Yes: Normal Bowel Sounds, Soft. No: Distention, Tenderness Extremities: Yes: WNL Edema: No Labs: CBC, BMP 05/12/18 05:30 05/12/18 05:30 INR, PTT INR 1.17 (0.83-1.09) 05/10/18 06:10 Problem List - Problems (1) Acute respiratory failure with hypoxemia Code(s): J96.01 - ACUTE RESPIRATORY FAILURE WITH HYPOXIA (2) Atrial fibrillation with RVR Code(s): I48.91 - UNSPECIFIED ATRIAL FIBRILLATION (3) Acute exacerbation of CHF (congestive heart failure) Code(s): I50.9 - HEART FAILURE, UNSPECIFIED Qualifiers: Heart failure type: systolic Qualified Code(s): I50.23 - Acute on chronic systolic (congestive) heart failure (4) MSSA bacteremia Code(s): R78.81 - BACTEREMIA (5) COPD (chronic obstructive pulmonary disease) Code(s): J44.9 - CHRONIC OBSTRUCTIVE PULMONARY DISEASE, UNSPECIFIED (6) JACKIE (acute kidney injury) Code(s): N17.9 - ACUTE KIDNEY FAILURE, UNSPECIFIED (7) Abnormal liver function tests Code(s): R94.5 - ABNORMAL RESULTS OF LIVER FUNCTION STUDIES (8) Thrush Code(s): B37.0 - CANDIDAL STOMATITIS (9) Urinary retention due to benign prostatic hyperplasia Code(s): N40.1 - BENIGN PROSTATIC HYPERPLASIA WITH LOWER URINARY TRACT SYMP; R33.8 - OTHER RETENTION OF URINE (10) Hyperkalemia Code(s): E87.5 - HYPERKALEMIA Assessment/Plan (1) Atrial fibrillation with RVR Assessment/Plan: -cardiology following -defer addition of agents -possible restart heparin today Code(s): I48.91 - UNSPECIFIED ATRIAL FIBRILLATION (2) Acute exacerbation of CHF (congestive heart failure) Assessment/Plan: -ECHO reviewed -EF 30-35% -no lasix today Code(s): I50.9 - HEART FAILURE, UNSPECIFIED Qualifiers: Heart failure type: systolic Qualified Code(s): I50.23 - Acute on chronic systolic (congestive) heart failure (3) MSSA bacteremia Assessment/Plan: -case d/w Dr Mccray -now with aspiration pneumonia -on zosyn -vancomycin per level -CT head negative Code(s): R78.81 - BACTEREMIA (4) COPD (chronic obstructive pulmonary disease) Assessment/Plan: -now intubated Code(s): J44.9 - CHRONIC OBSTRUCTIVE PULMONARY DISEASE, UNSPECIFIED (5) JACKIE (acute kidney injury) Assessment/Plan: -nephrology following and case discussed -improved today Code(s): N17.9 - ACUTE KIDNEY FAILURE, UNSPECIFIED (6) Abnormal liver function tests Assessment/Plan: -expect some worsening secondary to resuscitation Code(s): R94.5 - ABNORMAL RESULTS OF LIVER FUNCTION STUDIES (7) Thrush Assessment/Plan: -hold nystatn Code(s): B37.0 - CANDIDAL STOMATITIS (8) Urinary retention due to benign prostatic hyperplasia Assessment/Plan: -appreciate urology assistance -booth in place Code(s): N40.1 - BENIGN PROSTATIC HYPERPLASIA WITH LOWER URINARY TRACT SYMP; R33.8 - OTHER RETENTION OF URINE (9) Hyperkalemia -normalized (10) Acute hypoxic respiratory failure requiring intubation -unclear cause -pulmonary following -continue mechanical ventilation -negative for DVT (11) Aspiration pneumonia -case d/w Dr Mccray -as above (12) Hemodynamic instability -? cardiogenic shock, but possible septic shock even though on antibiotics -continue pressors -continue antibiotics Dispo -poor prognosis 37 minutes spent in preparation of this discharge
[2018-05-12] MEDS: FLUTICASONE/SALMETEROL 100 MCG/50 MCG DISKUS IH SCH ×2 (13:08→21:13)
[2018-05-12] MEDS: POTASSIUM CHLORIDE 10 MEQ PREMIX IVPB (POTASSIUM RIDER) IVPB SCH ×2 (13:08→14:36)
[2018-05-12] MEDS: NOREPINEPHRINE BITARTRATE 8,000 MCG in DEXTROSE 5%-WATER - 492 ML IV SCH (13:08)
--- NOTE | 2018-05-12 14:37 | PN ---
Progress Note (short form) - Note Progress Note: per RN alert when sedation is stopped remains intubated on levophed Vital Signs Period Temp Pulse Resp BP Sys/Carroll Pulse Ox Last 24 Hr 96.4 F-98 F 84-133 10-69 80-129/56-97 99-100 cor-rrr, tachy lungs decreased bs at bases abd soft,nt ext less edema booth vanco level 17 CBC, BMP 05/12/18 05:30 05/12/18 05:30 Microbiology 05/11/18 11:55 Blood - Peripheral Venous Blood Culture - Preliminary NO GROWTH OBTAINED AFTER 24 HOURS, INCUBATION TO CONTINUE FOR 4 DAYS. 05/11/18 11:15 Blood - Central Line Blood Culture - Preliminary NO GROWTH OBTAINED AFTER 24 HOURS, INCUBATION TO CONTINUE FOR 4 DAYS. 05/10/18 19:00 Blood - Peripheral Venous Blood Culture - Preliminary Pending Organism 05/10/18 18:15 Blood - Peripheral Venous Blood Culture - Preliminary NO GROWTH OBTAINED AFTER 24 HOURS, INCUBATION TO CONTINUE FOR 4 DAYS. 05/08/18 11:30 Blood - Peripheral Venous Blood Culture - Final Staphylococcus Aureus 05/08/18 11:35 Blood - Peripheral Venous Blood Culture - Final Staphylococcus Aureus 05/06/18 18:48 Blood - Peripheral Venous Blood Culture - Final Staphylococcus Aureus 05/06/18 18:48 Blood - Peripheral Venous Blood Culture - Final Staphylococcus Aureus cxray ?RLL infiltrate head ct no bleed echo noted ef 30% a/p Code 99- resp failure- ?aspiration failure afib -rapid afib jackie-improved Staph Bacteremia-MSSA- day #5 antibiotics r/o endocarditis repeat blood cultures pending needs EL TTE without vegetation/valvular disease hypotension- ?cardiac Thrush-improved nystatin new afib chf abnl LFTs-?congestion, improved urinary retention JACKIE continue vanco by levels continue zosyn coverage for aspiration (hospital pathogens) and staph bacteremia overall prognosis is guarded o Problem List - Problems (1) Gram-positive bacteremia Code(s): R78.81 - BACTEREMIA (2) Thrush Code(s): B37.0 - CANDIDAL STOMATITIS (3) Atrial fibrillation with RVR Code(s): I48.91 - UNSPECIFIED ATRIAL FIBRILLATION (4) Urinary retention due to benign prostatic hyperplasia Code(s): N40.1 - BENIGN PROSTATIC HYPERPLASIA WITH LOWER URINARY TRACT SYMP; R33.8 - OTHER RETENTION OF URINE (5) Acute exacerbation of CHF (congestive heart failure) Code(s): I50.9 - HEART FAILURE, UNSPECIFIED Qualifiers: Heart failure type: systolic Qualified Code(s): I50.23 - Acute on chronic systolic (congestive) heart failure (6) Transaminitis Code(s): R74.0 - NONSPEC ELEV OF LEVELS OF TRANSAMNS & LACTIC ACID DEHYDRGNSE
[2018-05-12] MEDS ORDERED: AMIODARONE HCL 150 MG/3 ML VIAL IVPUSH ONE (15:15)
[2018-05-12] MEDS ORDERED: VANCOMYCIN 1 GM PREMIX - 1 GM/200 ML BAG IVPB ONE (15:15)
[2018-05-12] MEDS: HEPARIN INFUSION - 25,000 UNITS/500 ML INFUS.BAG IVPB SCH (16:27)
[2018-05-12] MEDS: FENTANYL INJECTION 500 MCG in DEXTROSE 5%-WATER - 90 ML IVPB SCH (16:28)
--- NOTE | 2018-05-12 17:37 | PN ---
Progress Note (short form) - Note Progress Note: Renal follow up for JACKIE Pt seen and examined in the ICU on Vent FiO2 40% on Levophed gtt making urine no fevers, chills Vital Signs Temperature 98 F 05/12/18 16:00 Pulse Rate 100 H 05/12/18 17:00 Respiratory Rate 16 05/12/18 17:00 Blood Pressure 93/55 05/12/18 17:00 O2 Sat by Pulse Oximetry (%) 99 05/12/18 09:00 Intake & Output 05/09/18 05/10/18 05/11/18 05/12/18 23:59 23:59 23:59 23:59 Intake Total 690 655 2078.8 3211.9 Output Total 950 2350 4950 3700 Balance -335 -2064 -72.2 -488.1 Weight 118.388 kg 123 kg 122.924 kg NAD awake and alert RRR, No M/R CTA soft NT/ND + edema in LE CBC, BMP 05/12/18 05:30 05/12/18 05:30 Current Medications Al Hydroxide/Mg Hydroxide (Mylanta Oral Suspension -) 30 ml PO Q6H PRN PRN Reason: INDIGESTION Last Admin: 05/08/18 21:34 Dose: 30 ml Albuterol/Ipratropium (Duoneb -) 1 amp NEB Q6H PRN PRN Reason: SHORTNESS OF BREATH Last Admin: 05/10/18 20:30 Dose: 1 amp Heparin Sodium (Porcine) (Heparin -) 1,000 unit IVPUSH PRN PRN PRN Reason: Heparin Last Admin: 05/12/18 09:07 Dose: 1,000 unit Heparin Sodium (Porcine) (Heparin -) 5,000 unit IVPUSH PRN PRN PRN Reason: Heparin Norepinephrine Bitartrate 8, (000 mcg/ Dextrose) 500 mls @ 18.75 mls/hr IV TITR [facility]; Protocol Last Titration: 05/12/18 16:30 Dose: 6 mcg/min, 22.5 mls/hr Propofol (Diprivan -) 1,000,000 mcg in 100 mls @ 3.69 mls/hr IVPB TITR [facility]; Protocol Last Admin: 05/12/18 09:08 Dose: 10 mcg/kg/min, 7.38 mls/hr Fentanyl 500 mcg/ Dextrose 100 mls @ 0.4 mls/hr IVPB TITR [facility]; Protocol Last Admin: 05/12/18 16:28 Dose: 5 mls/hr Heparin Sodium/Dextrose (Heparin Infusion -) 25,000 units in 500 mls @ 20 mls/ hr IVPB TITR [facility]; Protocol Last Admin: 05/12/18 16:27 Dose: 950 units/hr, 19 mls/hr Piperacillin Sod/Tazobactam (Sod 3.375 gm/ Dextrose) 50 mls @ 100 mls/hr IVPB Q6H-IV [facility]; Protocol Last Admin: 05/12/18 15:25 Dose: 100 mls/hr Pantoprazole Sodium (Protonix Iv) 40 mg IVPUSH DAILY [facility] Last Admin: 05/12/18 09:06 Dose: 40 mg Fluticasone/Salmeterol (Advair 100mcg/50mcg -) 1 puff IH BID [facility] Last Admin: 05/12/18 13:08 Dose: Not Given 72M h/o HTN, HLD, COPD, ex smoker, PAD s/p AAA repair 12 years ago, femoral bypass 4 years ago p/w carrizales, lower extremity swelling, cough and found to have new onset afib with CHF and JACKIE. #JACKIE (baseline Cr is 0.8 in January 2018) secondary to hemodyanic injury/renal hypoprofusion +/- obstruction/urinary retention #New Afib #Acute CHF #Hyponatremia in setting of volume overload #AMS/Cardiac arrest Renal function stable at this time and pt is non-oliguric no indication for M[employer]ICE [employer] Keep Map > 65 continue lasix as needed for volume management trend renal function and electrolytes trend serum Na ICU care Whitman Gera ROSARIO
--- NOTE | 2018-05-12 17:41 | PN ---
Physical Exam: SUBJECTIVE: Patient seen and examined this am in icu. Remains intubated, sedation was temporarily weaned to assess mental status. Was able to follow some commands. OBJECTIVE: Vital Signs Period Temp Pulse Resp BP Sys/Carroll Pulse Ox Last 24 Hr 96.6 F-98 F 95-133 10-69 80-129/55-97 99-100 GENERAL: Intubated. Responded to some commands. HEAD: NC/AT EYES: Pinpoint pupils. ENT: Unable to assess throat, intubated. Nose, Ears WNL. NECK: Trachea midline. LUNGS: Rhonchi B/L HEART: Irregular. Tachycardic ABDOMEN: NT, ND, No HSM. Hard nodule right lower abdomen. Pt has had numerous abd surgeries. Scar tissue? EXTREMITIES: B/L edema lower extremities 2-3+. NEUROLOGICAL: N/A PSYCH: N/A SKIN: Warm. No rashes appreciated. Laboratory Results - last 24 hr 05/11/18 05/11/18 05/11/18 15:30 23:08 23:08 WBC 15.4 H RBC 4.06 Hgb 12.6 Hct 38.0 D MCV 93.7 MCH 31.1 MCHC 33.2 RDW 14.0 Plt Count 153 MPV 9.3 Absolute Neuts (auto) Neutrophils % Lymphocytes % Monocytes % Eosinophils % Basophils % Nucleated RBC % PTT (Actin FS) Cancelled Sodium Potassium Chloride Carbon Dioxide Anion Gap BUN Creatinine Creat Clearance w eGFR Random Glucose Calcium Phosphorus Magnesium Total Bilirubin AST ALT Alkaline Phosphatase Creatine Kinase Index 6.9 H* CK-MB (CK-2) 17.68 H Total Protein Albumin Random Vancomycin 05/11/18 05/12/18 05/12/18 23:12 05:30 05:30 WBC RBC Hgb Hct MCV MCH MCHC RDW Plt Count MPV Absolute Neuts (auto) Neutrophils % Lymphocytes % Monocytes % Eosinophils % Basophils % Nucleated RBC % PTT (Actin FS) 121.2 H 46.2 H Sodium Potassium Chloride Carbon Dioxide Anion Gap BUN Creatinine Creat Clearance w eGFR Random Glucose Calcium Phosphorus Magnesium Total Bilirubin AST ALT Alkaline Phosphatase Creatine Kinase Index CK-MB (CK-2) Total Protein Albumin Random Vancomycin 17.66 05/12/18 05/12/18 05/12/18 05:30 05:30 07:00 WBC 14.2 H RBC 3.96 L Hgb 12.4 Hct 36.6 MCV 92.5 MCH 31.4 MCHC 33.9 RDW 14.0 Plt Count 141 MPV 9.5 Absolute Neuts (auto) 11.8 Neutrophils % 82.6 Lymphocytes % 6.8 L D Monocytes % 9.9 Eosinophils % 0.6 D Basophils % 0.1 Nucleated RBC % 0 PTT (Actin FS) 43.5 H Sodium 130 L Potassium 3.8 Chloride 92 L Carbon Dioxide 28 Anion Gap 10 BUN 55 H Creatinine 2.3 H Creat Clearance w eGFR 28.17 Random Glucose 137 H Calcium 7.2 L Phosphorus 4.2 D Magnesium 2.2 D Total Bilirubin 1.2 H AST 48 H D ALT 76 D Alkaline Phosphatase 140 H Creatine Kinase Index CK-MB (CK-2) Total Protein 5.0 L Albumin 2.4 L Random Vancomycin 05/12/18 15:00 WBC RBC Hgb Hct MCV MCH MCHC RDW Plt Count MPV Absolute Neuts (auto) Neutrophils % Lymphocytes % Monocytes % Eosinophils % Basophils % Nucleated RBC % PTT (Actin FS) 57.9 H Sodium Potassium Chloride Carbon Dioxide Anion Gap BUN Creatinine Creat Clearance w eGFR Random Glucose Calcium Phosphorus Magnesium Total Bilirubin AST ALT Alkaline Phosphatase Creatine Kinase Index CK-MB (CK-2) Total Protein Albumin Random Vancomycin Active Medications Generic Name Dose Route Start Last Admin Trade Name Freq PRN Reason Stop Dose Admin Al Hydroxide/Mg Hydroxide 30 ml 05/08/18 21:23 05/08/18 21:34 Mylanta Oral Suspension - PO 30 ml Q6H PRN Administration INDIGESTION Albuterol/Ipratropium 1 amp 05/06/18 18:49 05/10/18 20:30 Duoneb - NEB 1 amp Q6H PRN Administration SHORTNESS OF BREATH Heparin Sodium (Porcine) 1,000 unit 05/11/18 17:06 05/12/18 09:07 Heparin - IVPUSH 1,000 unit PRN PRN Administration Heparin Heparin Sodium (Porcine) 5,000 unit 05/11/18 17:02 Heparin - IVPUSH PRN PRN Heparin Norepinephrine Bitartrate 8, 500 mls @ 18.75 mls/hr 05/11/18 12:15 05/12/18 16:30 000 mcg/ Dextrose IV 6 mcg/min TITR KINGSLEY 22.5 mls/hr Titration Protocol 5 MCG/MIN Propofol 1,000,000 mcg in 100 mls @ 3.69 mls/hr 05/11/18 12:30 05/12/18 09:08 Diprivan - IVPB 10 mcg/kg/min TITR [facility] 7.38 mls/hr Administration Protocol 5 MCG/KG/MIN Fentanyl 500 mcg/ Dextrose 100 mls @ 0.4 mls/hr 05/11/18 16:30 05/12/18 16:28 IVPB 5 mls/hr TITR [facility] Administration Protocol 2 MCG/HR Heparin Sodium/Dextrose 25,000 units in 500 mls @ 20 mls/hr 05/11/18 17:15 16:27 Heparin Infusion - IVPB 950 units/hr TITR [facility]LEY 19 mls/hr Administration Protocol 1,000 UNITS/HR Piperacillin Sod/Tazobactam 50 mls @ 100 mls/hr 05/12/18 15:15 05/12/18 15:25 Sod 3.375 gm/ Dextrose IVPB 100 mls/hr Q6H-IV [facility] Administration Protocol Pantoprazole Sodium 40 mg 05/11/18 14:30 05/12/18 09:06 Protonix Iv IVPUSH 40 mg DAILY K[facility] Administration Fluticasone/Salmeterol 1 puff 05/06/18 22:00 05/12/18 13:08 Advair 100mcg/50mcg - IH Not Given BID [facility] ASSESSMENT/PLAN: 72 y/o gentleman with PMH of CHF, low EF, new onset Atrial fibrillation, AAA repair, femoral bypass, BPH, obesity, COPD, former smoker (quit in 6 months ago ) who presented to [facility] with SOB, rapid A.Fib, and CHF exacerbation. S/P cardiac arrest. ROSC achieved after 9 minutes. Acute Hypoxic Respiratory Railure -Intubated -Sedation-Fentanyl and Propofol now for sedation. -Dobutamine continued, started on Levophed, Phenylephrine d/c'ed - Lower Extremity Doppler B/L to r/o P.E -Chest XRAY 05/12/2018--> B/L pleural effusions. Right sided vascular congestive changes. Duplex U/S B/L Lower Extrem: No evidence of DVT's- 05/11/18 CHF exacerbation possibly 2/2 AFIB -Given IV Lasix 80 MG -Pressor support to maintain MAP >65 -EL to r/o endocarditis -Toprol being held due to likely cardiogenic shock. EKG 05/11/2018-->RBBB, Inferior ischemia, T wave inversion inferior leads ECHO 05/09-->LV Systolic function severely reduced, Severe global hypokinesis left ventricle, EF 30-35%, Right ventricular systolic function moderately reduced, left, right atriums mod dilated, mr regurg, tri regurg, MSSA bacteremia -EL to be done in near future to r/o endocarditis -ID on board -Broad spectrum ABX started due to possible aspiration pneumonia -Vancomycin/Zosyn JACKIE- Most likely 2/2 renal hypoprofusion -Baseline Cr is 0.8 in 01/2018 -BUN/CR today-->55/2.3 -Trend renal function and electrolytes Head CT 05/11/2018 -> No Intracranial Hemorrhage identified. FEN No Fluids Monitor Electrolytes NPO DVT ppx: Heparin gtt. Dispo: Continue to monitor icu. Visit type - Emergency Visit Emergency Visit: Yes ED Registration Date: 05/06/18 Care time: The patient presented to the Emergency Department on the above date and was hospitalized for further evaluation of their emergent condition. - New Patient This patient is new to me today: No - Critical Care Critical Care patient: Yes Total Critical Care Time (in minutes): 36 Critical Care Statement: The care of this patient involved high complexity decision making to prevent further life threatening deterioration of the patient 's condition and/or to evaluate & treat vital organ system(s) failure or risk of failure.
[2018-05-12] MEDS ORDERED: SODIUM CHLORIDE 1,000 ML IV SCH (19:30)
[2018-05-13] MEDS ORDERED: PIPERACILLIN/TAZOBACTAM 3.375 GM VIAL IVPB ONE ×2 (03:03→08:47)
[2018-05-13] MEDS ORDERED: DEXTROSE 5%-WATER - 50 ML IVPB ONE ×2 (03:03→08:47)
[2018-05-13] MEDS: PIPERACILLIN/TAZOB 3.375 GM 3.375 GM in DEXTROSE 5%-WATER - 50 ML IVPB SCH ×3 (03:05→16:52)
[2018-05-13 05:51] LABS: HEMATOCRIT 39.2 % (35.4-49); HEMOGLOBIN 13.1 GM/dL (11.7-16.9); MCH 31.1 pg (25.7-33.7); MCHC 33.4 g/dl (32.0-35.9); MEAN CELL VOLUME 93.1 fl (80-96); MEAN PLT VOLUME 9.9 fl (7.5-11.1); PLATELET COUNT 186 K/MM3 (134-434); RBC 4.22 M/mm3 (4.00-5.60); RDW 14.3 % (11.9-15.9); WHITE BLOOD COUNT 16.2 K/mm3 (4.0-10.0)
[2018-05-13 07:44] LABS: ALBUMIN 2.4 g/dl (3.4-5.0); ALK PHOS 134 U/L (45-117); ANION GAP 8 (8-16); BILIRUBIN,TOTAL 1.2 mg/dL (0.2-1.0); BLOOD UREA NITROGEN 45 mg/dL (7-18); CALCIUM 7.8 mg/dL (8.5-10.1); CHLORIDE 94 mmol/L (98-107); CO2 31 mmol/L (21-32); GLUCOSE,RANDOM 125 mg/dL (74-106); PHOSPHOROUS 3.9 mg/dL (2.5-4.9); POTASSIUM 3.9 mmol/L (3.5-5.1); SGOT/AST 29 U/L (15-37); SGPT/ALT 61 U/L (12-78); SODIUM 133 mmol/L (136-145); TOT PROT 5.2 g/dl (6.4-8.2)
[2018-05-13] MEDS ORDERED: fentaNYL CITRATE 250 MCG/5 ML VIAL ONE ×2 (08:47→23:48)
[2018-05-13] MEDS ORDERED: FUROSEMIDE 40 MG/4 ML INJECTABLE VIAL IVPUSH ONE (09:15)
--- NOTE | 2018-05-13 09:16 | PN ---
Progress Note (short form) - Note Progress Note: awake intubated levophed off Vital Signs Period Temp Pulse Resp BP Sys/Carroll Pulse Ox Last 24 Hr 97.7 F-98.3 F 100-137 12-16 88-143/55-110 99-99 cor-rrr lungs- decreased bs at bases abd soft,nt ext no edema CBC, BMP 05/13/18 05:30 05/13/18 07:24 Microbiology 05/10/18 18:15 Blood - Peripheral Venous Blood Culture - Preliminary NO GROWTH OBTAINED AFTER 48 HOURS, INCUBATION TO CONTINUE FOR 3 DAYS. 05/11/18 15:40 Sputum - Endotrachea Suction/Ventilator Gram Stain - Final 05/11/18 11:55 Blood - Peripheral Venous Blood Culture - Preliminary NO GROWTH OBTAINED AFTER 24 HOURS, INCUBATION TO CONTINUE FOR 4 DAYS. 05/11/18 11:15 Blood - Central Line Blood Culture - Preliminary NO GROWTH OBTAINED AFTER 24 HOURS, INCUBATION TO CONTINUE FOR 4 DAYS. 05/10/18 19:00 Blood - Peripheral Venous Blood Culture - Preliminary Pending Organism 05/08/18 11:30 Blood - Peripheral Venous Blood Culture - Final Staphylococcus Aureus 05/08/18 11:35 Blood - Peripheral Venous Blood Culture - Final Staphylococcus Aureus 05/06/18 18:48 Blood - Peripheral Venous Blood Culture - Final Staphylococcus Aureus 05/06/18 18:48 Blood - Peripheral Venous Blood Culture - Final Staphylococcus Aureus a/p Code 99- resp failure- ?aspiration failure afib -rapid afib jackie-improved Staph Bacteremia-MSSA- day #5 antibiotics r/o endocarditis repeat blood cultures pending needs EL would get ct scan of chest/abd/pelvis when stable to be moved to evaluate for abscess (no iv contrast) TTE without vegetation/valvular disease hypotension- ?cardiac-improved, off pressors new afib-on a/c chf-diuresing abnl LFTs-?congestion, improved urinary retention JACKIE-improved continue vanco by levels continue zosyn coverage for aspiration (hospital pathogens) and staph aureus bacteremia overall prognosis is guarded o Problem List - Problems (1) Gram-positive bacteremia Code(s): R78.81 - BACTEREMIA (2) Thrush Code(s): B37.0 - CANDIDAL STOMATITIS (3) Atrial fibrillation with RVR Code(s): I48.91 - UNSPECIFIED ATRIAL FIBRILLATION (4) Urinary retention due to benign prostatic hyperplasia Code(s): N40.1 - BENIGN PROSTATIC HYPERPLASIA WITH LOWER URINARY TRACT SYMP; R33.8 - OTHER RETENTION OF URINE (5) Acute exacerbation of CHF (congestive heart failure) Code(s): I50.9 - HEART FAILURE, UNSPECIFIED Qualifiers: Heart failure type: systolic Qualified Code(s): I50.23 - Acute on chronic systolic (congestive) heart failure (6) Transaminitis Code(s): R74.0 - NONSPEC ELEV OF LEVELS OF TRANSAMNS & LACTIC ACID DEHYDRGNSE
[2018-05-13] MEDS: MUPIROCIN 2% TOPICAL OINTMENT 22 GM TUBE TP SCH ×2 (09:22→22:00)
[2018-05-13] MEDS: PANTOPRAZOLE SODIUM 40 MG VIAL IVPUSH SCH (09:22)
[2018-05-13] MEDS: FENTANYL INJECTION 500 MCG in DEXTROSE 5%-WATER - 90 ML IVPB SCH ×2 (09:31→16:47)
--- NOTE | 2018-05-13 10:01 | PN ---
Progress Note, Physician Chief Complaint: unable to obtain, pt intubated - Current Medication List Current Medications: Active Medications Al Hydroxide/Mg Hydroxide (Mylanta Oral Suspension -) 30 ml PO Q6H PRN PRN Reason: INDIGESTION Last Admin: 05/08/18 21:34 Dose: 30 ml Albuterol/Ipratropium (Duoneb -) 1 amp NEB RTID KINGSLEY Chlorhexidine Gluconate (Hibiclens For Decolonization -) 1 applic TP HS KINGSLEY Heparin Sodium (Porcine) (Heparin -) 1,000 unit IVPUSH PRN PRN PRN Reason: Heparin Last Admin: 05/12/18 09:07 Dose: 1,000 unit Heparin Sodium (Porcine) (Heparin -) 5,000 unit IVPUSH PRN PRN PRN Reason: Heparin Norepinephrine Bitartrate 8, (000 mcg/ Dextrose) 500 mls @ 18.75 mls/hr IV TITR KINGSLEY; Protocol Last Titration: 05/13/18 08:19 Dose: 0 mcg/min, 0 mls/hr Propofol (Diprivan -) 1,000,000 mcg in 100 mls @ 3.69 mls/hr IVPB TITR KINGSLEY; Protocol Last Titration: 05/13/18 08:23 Dose: 10 mcg/kg/min, 7.38 mls/hr Fentanyl 500 mcg/ Dextrose 100 mls @ 0.4 mls/hr IVPB TITR KINGSLEY; Protocol Last Admin: 05/13/18 09:31 Dose: 0.4 mls/hr Heparin Sodium/Dextrose (Heparin Infusion -) 25,000 units in 500 mls @ 20 mls/ hr IVPB TITR KINGSLEY; Protocol Last Admin: 05/12/18 16:27 Dose: 950 units/hr, 19 mls/hr Piperacillin Sod/Tazobactam (Sod 3.375 gm/ Dextrose) 50 mls @ 100 mls/hr IVPB Q6H-IV KINGSLEY; Protocol Last Admin: 05/13/18 09:22 Dose: 100 mls/hr Mupirocin (Bactroban 2% Ointment -) 1 applic TP BID KINGSLEY Last Admin: 05/13/18 09:22 Dose: 1 applic Pantoprazole Sodium (Protonix Iv) 40 mg IVPUSH DAILY KINGSLEY Last Admin: 05/13/18 09:22 Dose: 40 mg Fluticasone/Salmeterol (Advair 100mcg/50mcg -) 1 puff IH BID KINGSLEY Last Admin: 05/12/18 21:13 Dose: Not Given - Objective Vital Signs: Vital Signs Temperature 98.0 F 05/13/18 08:00 Pulse Rate 133 H 05/13/18 09:00 Respiratory Rate 15 05/13/18 09:00 Blood Pressure 141/122 05/13/18 09:00 O2 Sat by Pulse Oximetry (%) 99 05/13/18 08:40 Cardiovascular: Yes: Tachycardia, Pulse Irregular Respiratory: Yes: Regular, Diminished, Mechanically Ventilated, Rhonchi. No: Accessory Muscle Use, Tachypnea Gastrointestinal: Yes: WNL, Normal Bowel Sounds, Soft, Abdomen, Obese. No: Distention, Tenderness Genitourinary: Yes: [place] Present Edema: Yes Edema: LLE: 1+, RLE: 1+ Neurological: Yes: Lethargy Labs: CBC, BMP 05/13/18 05:30 05/13/18 07:24 INR, PTT INR 1.17 (0.83-1.09) 05/10/18 06:10 Problem List - Problems (1) Acute respiratory failure with hypoxemia Code(s): J96.01 - ACUTE RESPIRATORY FAILURE WITH HYPOXIA (2) Septic shock Code(s): A41.9 - SEPSIS, UNSPECIFIED ORGANISM; R65.21 - SEVERE SEPSIS WITH SEPTIC SHOCK (3) JACKIE (acute kidney injury) Code(s): N17.9 - ACUTE KIDNEY FAILURE, UNSPECIFIED (4) Abnormal liver function tests Code(s): R94.5 - ABNORMAL RESULTS OF LIVER FUNCTION STUDIES (5) Atrial fibrillation with RVR Code(s): I48.91 - UNSPECIFIED ATRIAL FIBRILLATION (6) Acute exacerbation of CHF (congestive heart failure) Code(s): I50.9 - HEART FAILURE, UNSPECIFIED Qualifiers: Heart failure type: systolic Qualified Code(s): I50.23 - Acute on chronic systolic (congestive) heart failure (7) COPD (chronic obstructive pulmonary disease) Code(s): J44.9 - CHRONIC OBSTRUCTIVE PULMONARY DISEASE, UNSPECIFIED (8) MSSA bacteremia Code(s): R78.81 - BACTEREMIA (9) Acute urinary retention Code(s): R33.8 - OTHER RETENTION OF URINE (10) Elevated troponin I level Code(s): R74.8 - ABNORMAL LEVELS OF OTHER SERUM ENZYMES (11) Thrush Code(s): B37.0 - CANDIDAL STOMATITIS (12) JACKIE (acute kidney injury) Code(s): N17.9 - ACUTE KIDNEY FAILURE, UNSPECIFIED (13) Elevated LFTs Code(s): R94.5 - ABNORMAL RESULTS OF LIVER FUNCTION STUDIES (14) Dyslipidemia Code(s): E78.5 - HYPERLIPIDEMIA, UNSPECIFIED (15) Elevated WBC count Code(s): D72.829 - ELEVATED WHITE BLOOD CELL COUNT, UNSPECIFIED (16) Morbid obesity Code(s): E66.01 - MORBID (SEVERE) OBESITY DUE TO EXCESS CALORIES (17) Hemodynamic instability Code(s): R09.89 - OTH SYMPTOMS AND SIGNS INVOLVING THE CIRC AND RESP SYSTEMS Assessment/Plan Vent support Continue pressors- maintain MAP>65 amiodarone drip for rate control monitor urine output heparin drip- AC lasix per cardiology EL r/o endocarditis when clinically stable Antibx per ID monitor renal/liver function continue ICU monitoring. I agree with the ICU attending plan prognosis poor time spent reviewing chart/formulating plan:32 minutes
[2018-05-13] MEDS: AMIODARONE IN DEXTROSE,ISO-OSM 360 MG/200 ML BAG IVPB SCH ×2 (11:59→16:50)
--- NOTE | 2018-05-13 12:27 | PN ---
Teaching Attending Note Name of Resident: Fortino Pineda ATTENDING PHYSICIAN STATEMENT I saw and evaluated the patient. I reviewed the resident's note and discussed the case with the resident. I agree with the resident's findings and plan as documented. SUBJECTIVE: Patient seen and examined in the ICU. Intubated and lightly sedated. Able to track, move all extremities, and follow some simple commands. Currently off NE and Dobutamine for hemodynamic support. Rapid AFib noted. Intake & Output 05/10/18 05/11/18 05/12/18 05/13/18 23:59 23:59 23:59 23:59 Intake Total 286 4877.8 3557.1 452.5 Output Total 2350 4950 4600 2500 Balance -2064 -72.2 -1042.9 -2047.5 Weight 261 lb 271 lb 2.697 oz 271 lb 265 lb 1 oz Last Vital Signs Temp Pulse Resp BP Pulse Ox 97.6 F 122 H 15 83/58 99 05/13/18 12:00 05/13/18 12:00 05/13/18 12:00 05/13/18 12:00 05/13/18 08:40 Active Medications Al Hydroxide/Mg Hydroxide (Mylanta Oral Suspension -) 30 ml PO Q6H PRN PRN Reason: INDIGESTION Last Admin: 05/08/18 21:34 Dose: 30 ml Albuterol/Ipratropium (Duoneb -) 1 amp NEB RTID KINGSLEY Chlorhexidine Gluconate (Hibiclens For Decolonization -) 1 applic TP HS KINGSLEY Heparin Sodium (Porcine) (Heparin -) 1,000 unit IVPUSH PRN PRN PRN Reason: Heparin Last Admin: 05/12/18 09:07 Dose: 1,000 unit Heparin Sodium (Porcine) (Heparin -) 5,000 unit IVPUSH PRN PRN PRN Reason: Heparin Norepinephrine Bitartrate 8, (000 mcg/ Dextrose) 500 mls @ 18.75 mls/hr IV TITR KINGSLEY; Protocol Last Titration: 05/13/18 08:19 Dose: 0 mcg/min, 0 mls/hr Propofol (Diprivan -) 1,000,000 mcg in 100 mls @ 3.69 mls/hr IVPB TITR KINGSLEY; Protocol Last Titration: 05/13/18 08:23 Dose: 10 mcg/kg/min, 7.38 mls/hr Fentanyl 500 mcg/ Dextrose 100 mls @ 0.4 mls/hr IVPB TITR KINGSLEY; Protocol Last Admin: 05/13/18 09:31 Dose: 0.4 mls/hr Heparin Sodium/Dextrose (Heparin Infusion -) 25,000 units in 500 mls @ 20 mls/ hr IVPB TITR KINGSLEY; Protocol Last Admin: 05/12/18 16:27 Dose: 950 units/hr, 19 mls/hr Piperacillin Sod/Tazobactam (Sod 3.375 gm/ Dextrose) 50 mls @ 100 mls/hr IVPB Q6H-IV KINGSLEY; Protocol Last Admin: 05/13/18 09:22 Dose: 100 mls/hr Amiodarone HCl/Dextrose (Nexterone 360 Mg/200 Ml Bag) 360 mg in 200 mls @ 33.333 mls/hr IVPB TITR KINGSLEY; Protocol Last Admin: 05/13/18 11:59 Dose: 1 mg/min, 33.333 mls/hr Mupirocin (Bactroban 2% Ointment -) 1 applic TP BID KINGSLEY Last Admin: 05/13/18 09:22 Dose: 1 applic Pantoprazole Sodium (Protonix Iv) 40 mg IVPUSH DAILY KINGSLEY Last Admin: 05/13/18 09:22 Dose: 40 mg Fluticasone/Salmeterol (Advair 100mcg/50mcg -) 1 puff IH BID KINGSLEY Last Admin: 05/12/18 21:13 Dose: Not Given Gen: Intubated, lightly sedated Heart: irregular, rapid Lung: scattered rhonchi Abd: soft, nontender Ext: + edema Laboratory Results - last 24 hr 05/12/18 05/13/18 05/13/18 15:00 05:30 05:30 WBC 16.2 H RBC 4.22 Hgb 13.1 Hct 39.2 MCV 93.1 MCH 31.1 MCHC 33.4 RDW 14.3 Plt Count 186 D MPV 9.9 PTT (Actin FS) 57.9 H Sodium Potassium Chloride Carbon Dioxide Anion Gap BUN Creatinine Creat Clearance w eGFR Random Glucose Calcium Phosphorus Magnesium Total Bilirubin AST ALT Alkaline Phosphatase Total Protein Albumin Random Vancomycin 18.26 05/13/18 05/13/18 05:30 07:24 WBC RBC Hgb Hct MCV MCH MCHC RDW Plt Count MPV PTT (Actin FS) 51.4 H Sodium 133 L Potassium 3.9 Chloride 94 L Carbon Dioxide 31 Anion Gap 8 BUN 45 H Creatinine 2.0 H Creat Clearance w eGFR 33.10 Random Glucose 125 H Calcium 7.8 L Phosphorus 3.9 Magnesium 2.0 Total Bilirubin 1.2 H AST 29 D ALT 61 Alkaline Phosphatase 134 H Total Protein 5.2 L Albumin 2.4 L Random Vancomycin ASSESSMENT AND PLAN: Acute Hypoxic Respiratory Failure s/p Cardiopulmonary Arrest Staph Bacteremia Shock - Cardiogenic vs Septic Acute on Chronic Systolic Heart Failure Atrial Fibrillation Acute Kidney Injury Elevated LFTs likely congestive hepatopathy +Troponins Hyponatremia PAD - Amiodarone for rate control - AC with IV Heparin - ABX coverage - CVP, keep 8-12 - Low threshold for inotropes/pressors - Monitor urine output, creatinine - Lasix if hemodynamics allow - Inhaled bronchodilators - Hold sedation to assess mental status/neuro exam - Spontaneous breathing trials with hopes of extubation in next 24 to 48 hours - Enteral feeds - DVT/GI prophylaxis - ICU monitoring Dr Poon Critical care time spent in reviewing chart, evaluating patient and formulating plan 40 min
--- NOTE | 2018-05-13 13:06 | PN ---
Progress Note (short form) - Note Progress Note: S: patient intubated and sedated. pressors off this AM but bp on low side again and rvr o: Vital Signs Temp 97.6 F 05/13/18 12:00 Pulse 122 H 05/13/18 12:00 Resp 15 05/13/18 12:00 BP 83/58 05/13/18 12:00 Pulse Ox 99 05/13/18 08:40 Intake & Output 05/12/18 05/13/18 05/13/18 23:59 11:59 23:59 Intake Total 1577.2 452.5 Output Total 2500 2500 Balance -922.8 -2047.5 Weight 271 lb 265 lb 1 oz Intake: IV 1027.2 402.5 DIPRIVAN - 1,000,000 mcg 113.2 52.5 In 100 ml @ 5 MCG/KG/MIN 3.69 mls/hr IVPB TITR KINGSLEY Rx#:[id number] Dobutrex - 500,000 Mcg In 60 D5w - 250 ml @ 20 MCG/KG /MIN 85.6 mls/hr IVPB TITR KINGSLEY Rx#:[id number] Fentanyl drip 100 35 HEPARIN INFUSION - 25,000 304 133 units In 500 ml @ 1,000 UNITS/HR 20 mls/hr IVPB TITR KINGSLEY Rx#:[id number] Levophed - 8,000 Mcg In 450 182 D5w - 492 ml @ 5 MCG/MIN 18.75 mls/hr IV TITR KINGSLEY Rx#:[id number] IVPB 550 50 Output: Urine 2500 2500 Booth 2500 2500 Other: Voiding Method Indwelling Catheter Indwelling Catheter Bowel Movement No No Height 5 ft 7 in Body Mass Index (BMI) 42.4 Weight Measurement Method Built in [facility] Constitutional: Yes: intubated, sedated Obese Eyes: No: Sclera Icterus HENT: No: NCAT Cardiovascular: +JVD, Pulse Irregular (decr intensity sounds), S1, S2, Other ( PMI non diplaced). No: Gallop, Murmur Respiratory: mechanically ventilated, no rales Gastrointestinal: Yes: Normal Bowel Sounds, Soft. No: Tenderness Extremities: No: Cold Edema: Yes (1+ pretibs) Integumentary: No: Jaundice diaphoresis Neurological: Yes: Alert, Oriented (x3) Psychiatric: No: Agitated Laboratory Last Values WBC 16.2 K/mm3 (4.0-10.0) H 05/13/18 05:30 RBC 4.22 M/mm3 (4.00-5.60) 05/13/18 05:30 Hgb 13.1 GM/dL (11.7-16.9) 05/13/18 05:30 Hct 39.2 % (35.4-49) 05/13/18 05:30 MCV 93.1 fl (80-96) 05/13/18 05:30 MCH 31.1 pg (25.7-33.7) 05/13/18 05:30 MCHC 33.4 g/dl (32.0-35.9) 05/13/18 05:30 RDW 14.3 % (11.9-15.9) 05/13/18 05:30 Plt Count 186 K/MM3 (134-434) D 05/13/18 05:30 MPV 9.9 fl (7.5-11.1) 05/13/18 05:30 Absolute Neuts (auto) 11.8 # 05/12/18 05:30 Total Counted 100 05/11/18 02:20 Neutrophils % 82.6 % (42.8-82.8) 05/12/18 05:30 Neutrophils % (Manual) 85.0 % (42.8-82.8) H 05/11/18 02:20 Band Neutrophils % 3.0 % 05/11/18 02:20 Lymphocytes % 6.8 % (8-40) L D 05/12/18 05:30 Lymphocytes % (Manual) 8.0 % (8-40) D 05/11/18 02:20 Monocytes % 9.9 % (3.8-10.2) 05/12/18 05:30 Monocytes % (Manual) 3 % (3.8-10.2) L 05/11/18 02:20 Eosinophils % 0.6 % (0-4.5) D 05/12/18 05:30 Eosinophils % (Manual) 1.0 % (0-4.5) D 05/11/18 02:20 Basophils % 0.1 % (0-2.0) 05/12/18 05:30 Basophils % (Manual) 0.0 % (0-2.0) 05/08/18 06:00 Myelocytes % (Man) 0 % (0-2) 05/08/18 06:00 Promyelocytes % (Man) 0 % (0-2) 05/08/18 06:00 Blast Cells % (Manual) 0 % (0-0) 05/08/18 06:00 Nucleated RBC % 0 % (0-0) 05/12/18 05:30 Metamyelocytes 0 % (0-2) 05/08/18 06:00 Hypochromia 0 05/08/18 06:00 Platelet Estimate Normal 05/08/18 06:00 Polychromasia 1+ 05/08/18 06:00 Poikilocytosis 0 05/08/18 06:00 Anisocytosis 0 05/08/18 06:00 Microcytosis 0 05/08/18 06:00 Macrocytosis 0 05/08/18 06:00 ESR 5 mm/hr (0-20) 05/09/18 05:45 PT with INR 13.20 SEC (9.7-13.0) 05/10/18 06:10 INR 1.17 (0.83-1.09) 05/10/18 06:10 PTT (Actin FS) 51.4 SECONDS (25.2-36.5) H 05/13/18 05:30 Anticoagulation Therapy No Result Required. 05/11/18 06:35 Puncture Site Right radial 05/11/18 06:35 ABG pH 7.30 (7.35-7.45) L 05/11/18 06:35 ABG pCO2 at Pt Temp 46.1 mmHg (35-45) H 05/11/18 06:35 ABG pO2 at Pt Temp 182.0 mmHg (70-100) H* D 05/11/18 06:35 ABG HCO3 22.1 meq/L (22-26) 05/11/18 06:35 ABG O2 Sat (Measured) 99.5 % (90-98.9) H 05/11/18 06:35 ABG O2 Content 16.3 % vol (15-22) 05/11/18 06:35 ABG Base Excess -3.8 meq/l (-2-2) L 05/11/18 06:35 Leodan Test Positive 05/11/18 06:35 O2 Delivery Device No Result Required. 05/11/18 06:35 Oxygen Flow Rate 60% 05/11/18 06:35 Vent Mode A/c 05/11/18 06:35 Vent Rate 16 05/11/18 06:35 Mechanical Rate No Result Required. 05/11/18 06:35 PEEP 5.0 cmH2O 05/11/18 06:35 Pressure Support Vent 550 05/11/18 06:35 Sodium 133 mmol/L (136-145) L 05/13/18 07:24 Potassium 3.9 mmol/L (3.5-5.1) 05/13/18 07:24 Chloride 94 mmol/L (98-107) L 05/13/18 07:24 Carbon Dioxide 31 mmol/L (21-32) 05/13/18 07:24 Anion Gap 8 (8-16) 05/13/18 07:24 BUN 45 mg/dL (7-18) H 05/13/18 07:24 Creatinine 2.0 mg/dL (0.7-1.3) H 05/13/18 07:24 Creat Clearance w eGFR 33.10 (>60) 05/13/18 07:24 POC Glucometer 138.68067 UNITS (80-120) 05/11/18 06:58 Random Glucose 125 mg/dL (74-106) H 05/13/18 07:24 Hemoglobin A1c % 6.6 % (4.8-6.0) H 05/07/18 08:00 Serum Osmolality 289 mosm/kg (278-305) 05/10/18 06:00 Lactic Acid 1.1 mmol/L (0.0-2.0) 05/11/18 05:30 Calcium 7.8 mg/dL (8.5-10.1) L 05/13/18 07:24 Phosphorus 3.9 mg/dL (2.5-4.9) 05/13/18 07:24 Magnesium 2.0 mg/dL (1.8-2.4) 05/13/18 07:24 Total Bilirubin 1.2 mg/dL (0.2-1.0) H 05/13/18 07:24 Direct Bilirubin 0.6 mg/dL (0.0-0.2) H 05/10/18 06:10 AST 29 U/L (15-37) D 05/13/18 07:24 ALT 61 U/L (12-78) 05/13/18 07:24 Alkaline Phosphatase 134 U/L (45-117) H 05/13/18 07:24 Creatine Kinase 256 IU/L (39-308) 05/11/18 15:30 Creatine Kinase Index 6.9 % (0.0-5.0) H* 05/11/18 15:30 CK-MB (CK-2) 17.68 ng/mL (0.5-3.6) H 05/11/18 15:30 Troponin I 0.06 ng/ml (0.00-0.05) H D 05/11/18 15:30 C-Reactive Protein 4.9 MG/DL (0.00-0.3) H 05/09/18 05:45 B-Natriuretic Peptide 93404.98 pg/ml (5-125) H 05/06/18 16:20 Total Protein 5.2 g/dl (6.4-8.2) L 05/13/18 07:24 Albumin 2.4 g/dl (3.4-5.0) L 05/13/18 07:24 Triglycerides 63 mg/dL (35-160) 05/06/18 20:15 Cholesterol 88 mg/dL (50-200) 05/06/18 20:15 Total LDL Cholesterol 47 mg/dL (5-100) 05/06/18 20:15 HDL Cholesterol 36 mg/dL (40-60) L 05/06/18 20:15 Urine Color Anette 05/11/18 06:00 Urine Appearance Cloudy 05/11/18 06:00 Urine pH 5.0 (5.0-8.0) 05/11/18 06:00 Ur Specific [place] 1.016 (1.001-1.035) 05/11/18 06:00 Urine Protein 3+ (NEGATIVE) H 05/11/18 06:00 Urine Glucose (UA) Negative (NEGATIVE) 05/11/18 06:00 Urine Ketones Negative (NEGATIVE) 05/11/18 06:00 Urine Blood 3+ (NEGATIVE) H 05/11/18 06:00 Urine Nitrite Negative (NEGATIVE) 05/11/18 06:00 Urine Bilirubin Negative (<2.0 mg/dL) 05/11/18 06:00 Urine Urobilinogen Negative mg/dL (0.2-1.0) 05/11/18 06:00 Ur Leukocyte Esterase 2+ (NEGATIVE) H 05/11/18 06:00 Urine WBC (Auto) 2 /hpf (3-5) 05/11/18 06:00 Urine RBC (Auto) 693 /hpf (0-3) 05/11/18 06:00 Ur Epithelial Cells Rare /HPF (FEW) 05/11/18 06:00 Hyaline Casts 83 /lpf 05/11/18 06:00 Urine Mucus Rare 05/11/18 06:00 Urine Osmolality 524 mosm/kg (300-900) 05/10/18 12:00 U Random Total Protein 71 mg/dl (5-11.9) H 05/10/18 12:00 Ur Random Sodium 23 MMOL/L 05/10/18 12:00 Ur Random Potassium 19.9 MMOL/L 05/10/18 12:00 Ur Random Chloride < 10 MMOL/L 05/10/18 12:00 Ur Random Urea Nitrogn 975 mg/dL 05/10/18 12:00 Urine Creatinine 120.0 mg/dL (20-370) 05/10/18 12:00 Stool Occult Blood Negative (NEGATIVE) 05/09/18 20:00 Random Vancomycin 18.26 ug/ml 05/13/18 05:30 Hepatitis A IgM Ab Negative (Negative) 05/08/18 16:11 Hepatitis A Ab Total Negative (Negative) 05/09/18 05:45 Hep Bs Antigen Negative (Negative) 05/09/18 05:45 Hep Bs Antibody Non reactive (.) 05/09/18 05:45 Hep B Core Total Ab Negative (Negative) 05/09/18 05:45 Hep B Core IgM Ab Negative (Negative) 05/08/18 16:11 Hep C Ab Diagnostic <0.1 s/co ratio (0.0-0.9) 05/09/18 05:45 Hepatitis C Antibody <0.1 s/co ratio (0.0-0.9) 05/08/18 16:11 Liver Fibrosis Interp (.) 05/09/18 05:45 EKG 05/06/18 afib with RVR 155, RBBB Echo 04/27 (here): nl LV size, severely reduced LVSF global (EF 30-35%). mild RVE , mod decr RVSF. L/TODD. mild MR/TR. no signif (KOLE 1.3, mean gradient 10). RVSP at least 39. tele: AF 100s-130s EKG 05/11/18 afib rate 70s, diffuse TWI cxr:improved aeration est cct 35 mins a/p: 72M h/o HTN, HLD, COPD, ex smoker, PAD s/p AAA repair 12 years ago, femoral bypass 4 years ago p/w carrizales, lower extremity swelling, cough for two weeks with new afib, CHF exac, JACKIE, leukocytosis now s/p cardiac arrest with ROSC transferred to ICU on pressors, dobutamine on 05/11 Afib with RVR - echo showed severe LV dysfunction, likely related to tachycardia induced myopathy diltiazem was dc'ed and replaced with lopressor 50 mg-->stopped due to low bp - now with hypotension and HR fast at times so will start amio gtt - on hep gtt for ac - will consider EL for possible cardioversion and rule out endocarditis when more clinically stable (off pressors and bp stable) - cont tele acute syst CHF - may be tachycardia induced in setting of afib with RVR, EF 30-35% on echo, will eventually need ischemic workup as outpatient - 05/06 received IV lasix 40 mg x1 in PM, 05/07 Cr 2.1->2.5 with obstruction and booth placement with improving UOP - 05/08 given lasix 40 mg IV x 1 with Cr 2.1 -> 2.9 - 05/09 lasix held due to rising Cr, auto diuresing post ATN - 05/10: received lasix 80 mg IV x1 - 05/11 overnight transferred to ICU, on dobumtamine and phenylephrine, remains with LE edema, JVD - discussed with ICU team, changing phenylephrine to levophed, will give additional dose of IV lasix 80 mg -05/12: effs on cxr, le edema, will give lasix 80 iv today -05/13: cxr improved, cont with prn lasix for now - strict I/O, monitor renal function MSSA bacteremia, possible aspiration during code, septic shock - repeat bld cxs ngtd - pt with shoulder hardware, LE arterial graft material--may need minimum of 4 weeks abx regardless - no other stigmata of I.E., no vegetations seen on echo, no signif valve dysfunction - EL when patient more clinically stable - abx per ID -now off pressors but bp low again, may need to resume levophed Elevated troponin - intermediate range, flat trend--not c/w ACS - trop sec to decomp CHF vs demand ischemia from rapid AF COPD - on advair, duonebs, low dose steroid JACKIE, ? underlying CKD - cardiorenal syndrome vs ATN, had been improving, renal following - diuresis as above - holding home valsartan transaminitis: - AST/LT 800s on admit--both trending down progressively - likely congestive hepatopathy per GI, improving with improvement in HF status - sonogram with fatty infiltration vs hepatocellular dz picture - plan per GI H/o AAA s/p repair - holding home statin due to acute LFT elevation here--resume once LFTs stabilize - stopped ASA, as pt now on AC
[2018-05-13] MEDS: NOREPINEPHRINE BITARTRATE 8,000 MCG in DEXTROSE 5%-WATER - 492 ML IV SCH (13:22)
--- NOTE | 2018-05-13 13:27 | PN ---
Progress Note (short form) - Note Progress Note: Renal follow up for JACKIE Pt seen and examined in the ICU on vent, sedated on low dose levophed in Afib with RVR, started on Amino gtt BP is low now Vital Signs Temperature 97.6 F 05/13/18 12:00 Pulse Rate 111 H 05/13/18 13:00 Respiratory Rate 13 05/13/18 13:00 Blood Pressure 90/75 05/13/18 13:00 O2 Sat by Pulse Oximetry (%) 99 05/13/18 08:40 Intake & Output 05/10/18 05/11/18 05/12/18 05/13/18 23:59 23:59 23:59 23:59 Intake Total 286 4877.8 3557.1 452.5 Output Total 2350 4950 4600 2500 Balance -2064 -72.2 -1042.9 -2047.5 Weight 118.388 kg 123 kg 122.924 kg 120.23 kg NAD awake and alert RRR, No M/R CTA soft NT/ND + edema in LE CBC, BMP 05/13/18 05:30 05/13/18 07:24 Current Medications Al Hydroxide/Mg Hydroxide (Mylanta Oral Suspension -) 30 ml PO Q6H PRN PRN Reason: INDIGESTION Last Admin: 05/08/18 21:34 Dose: 30 ml Albuterol/Ipratropium (Duoneb -) 1 amp NEB RTID KINGSLEY Chlorhexidine Gluconate (Hibiclens For Decolonization -) 1 applic TP HS KINGSLEY Heparin Sodium (Porcine) (Heparin -) 1,000 unit IVPUSH PRN PRN PRN Reason: Heparin Last Admin: 05/12/18 09:07 Dose: 1,000 unit Heparin Sodium (Porcine) (Heparin -) 5,000 unit IVPUSH PRN PRN PRN Reason: Heparin Norepinephrine Bitartrate 8, (000 mcg/ Dextrose) 500 mls @ 18.75 mls/hr IV TITR KINGSLEY; Protocol Last Admin: 05/13/18 13:22 Dose: Not Given Propofol (Diprivan -) 1,000,000 mcg in 100 mls @ 3.69 mls/hr IVPB TITR KINGSLEY; Protocol Last Titration: 05/13/18 08:23 Dose: 10 mcg/kg/min, 7.38 mls/hr Fentanyl 500 mcg/ Dextrose 100 mls @ 0.4 mls/hr IVPB TITR [facility]; Protocol Last Admin: 05/13/18 09:31 Dose: 0.4 mls/hr Heparin Sodium/Dextrose (Heparin Infusion -) 25,000 units in 500 mls @ 20 mls/ hr IVPB TITR [facility]; Protocol Last Admin: 05/12/18 16:27 Dose: 950 units/hr, 19 mls/hr Piperacillin Sod/Tazobactam (Sod 3.375 gm/ Dextrose) 50 mls @ 100 mls/hr IVPB Q6H-IV [facility]LEY; Protocol Last Admin: 05/13/18 09:22 Dose: 100 mls/hr Amiodarone HCl/Dextrose (Nexterone 360 Mg/200 Ml Bag) 360 mg in 200 mls @ 33.333 mls/hr IVPB TITR [facility]; Protocol Last Admin: 05/13/18 11:59 Dose: 1 mg/min, 33.333 mls/hr Mupirocin (Bactroban 2% Ointment -) 1 applic TP BID [facility] Last Admin: 05/13/18 09:22 Dose: 1 applic Pantoprazole Sodium (Protonix Iv) 40 mg IVPUSH DAILY [facility] Last Admin: 05/13/18 09:22 Dose: 40 mg Fluticasone/Salmeterol (Advair 100mcg/50mcg -) 1 puff IH BID [facility] Last Admin: 05/12/18 21:13 Dose: Not Given 72M h/o HTN, HLD, COPD, ex smoker, PAD s/p AAA repair 12 years ago, femoral bypass 4 years ago p/w carrizales, lower extremity swelling, cough and found to have new onset afib with CHF and JACKIE. #JACKIE (baseline Cr is 0.8 in January 2018) secondary to hemodyanic injury/renal hypoprofusion +/- obstruction/urinary retention #New Afib #Acute CHF #Hyponatremia in setting of volume overload #AMS/Cardiac arrest Renal function with gradual improvement and pt is non-oliguric on lasix BP is low and urine output is tapering down, will check CVP to access intravascular volume status and can decide on further diuretics continue vaospressers to maintain map > 65 ICU monitoring Abx as per ID Vent support Joe Boss DO
[2018-05-13] MEDS: ALBUTEROL SO4 2.5/IPRATROPIUM 0.5 INH SOL 3 ML VIAL.NEB. NEB SCH ×2 (14:05→20:34)
[2018-05-13] MEDS ORDERED: DOBUTAMINE 250 MG/D5W - 250,000 MCG/250 ML INFUS.BAG ONE (16:41)
[2018-05-13] MEDS: PROPOFOL 1,000,000 MCG/100 ML VIAL IVPB SCH (16:43)
[2018-05-13] MEDS: HEPARIN INFUSION - 25,000 UNITS/500 ML INFUS.BAG IVPB SCH (16:46)
[2018-05-13] MEDS: DOBUTAMINE 250 MG/D5W - 250,000 MCG/250 ML INFUS.BAG IV SCH (16:53)
[2018-05-13] MEDS: CEFAZOLIN 2 GM/D5W 2 GM/50 ML ML IVPB SCH (17:29)
[2018-05-13] MEDS: MEROPENEM 1 GM in DEXTROSE 5%-WATER 100 ML IVPB SCH (17:31)
--- NOTE | 2018-05-13 18:52 | PN ---
Physical Exam: SUBJECTIVE: Patient seen and examined this am and evening in icu. Pt intubated and sedated. Daughter at bedside. OBJECTIVE: Vital Signs Period Temp Pulse Resp BP Sys/Carroll Pulse Ox Last 24 Hr 97.6 F-98.3 F 102-137 12-19 64-143/46-122 97-99 GENERAL: Intubated. HEAD: NC/AT EYES: Pupils equal and reactive to light. ENT: WNL NECK: Trachea midline. LUNGS: Rhonchi B/L HEART: Irregular. Tachy. ABDOMEN: NT, ND, No HSM. Hard nodule right lower abdomen. Pt has had numerous abd surgeries. Scar tissue? EXTREMITIES: B/L edema lower extremities 1-2+. Feet Cool to touch NEUROLOGICAL: N/A PSYCH: N/A SKIN: Extremities cool to touch. Laboratory Results - last 24 hr 05/13/18 05/13/18 05/13/18 05:30 05:30 05:30 WBC 16.2 H RBC 4.22 Hgb 13.1 Hct 39.2 MCV 93.1 MCH 31.1 MCHC 33.4 RDW 14.3 Plt Count 186 D MPV 9.9 PTT (Actin FS) 51.4 H Sodium Potassium Chloride Carbon Dioxide Anion Gap BUN Creatinine Creat Clearance w eGFR Random Glucose Calcium Phosphorus Magnesium Total Bilirubin AST ALT Alkaline Phosphatase Total Protein Albumin Random Vancomycin 18.26 05/13/18 07:24 WBC RBC Hgb Hct MCV MCH MCHC RDW Plt Count MPV PTT (Actin FS) Sodium 133 L Potassium 3.9 Chloride 94 L Carbon Dioxide 31 Anion Gap 8 BUN 45 H Creatinine 2.0 H Creat Clearance w eGFR 33.10 Random Glucose 125 H Calcium 7.8 L Phosphorus 3.9 Magnesium 2.0 Total Bilirubin 1.2 H AST 29 D ALT 61 Alkaline Phosphatase 134 H Total Protein 5.2 L Albumin 2.4 L Random Vancomycin Active Medications Generic Name Dose Route Start Last Admin Trade Name Freq PRN Reason Stop Dose Admin Al Hydroxide/Mg Hydroxide 30 ml 05/08/18 21:23 05/08/18 21:34 Mylanta Oral Suspension - PO 30 ml Q6H PRN Administration INDIGESTION Albuterol/Ipratropium 1 amp 05/13/18 14:00 05/13/18 14:05 Duoneb - NEB 1 amp RTID KINGSLEY Administration Chlorhexidine Gluconate 1 applic 05/13/18 22:00 Hibiclens For Decolonization - TP HS KINGSLEY Heparin Sodium (Porcine) 1,000 unit 05/11/18 17:06 05/12/18 09:07 Heparin - IVPUSH 1,000 unit PRN PRN Administration Heparin Heparin Sodium (Porcine) 5,000 unit 05/11/18 17:02 Heparin - IVPUSH PRN PRN Heparin Propofol 1,000,000 mcg in 100 mls @ 3.69 mls/hr 05/11/18 12:30 05/13/18 17:40 Diprivan - IVPB 15 mcg/kg/min TITR KINGSLEY 11.07 mls/hr Titration Protocol 5 MCG/KG/MIN Fentanyl 500 mcg/ Dextrose 100 mls @ 0.4 mls/hr 05/11/18 16:30 05/13/18 16:47 IVPB Not Given TITR [facility] Protocol 2 MCG/HR Heparin Sodium/Dextrose 25,000 units in 500 mls @ 20 mls/hr 05/11/18 17:15 16:46 Heparin Infusion - IVPB 950 units/hr TITR KINGS[facility] 19 mls/hr Administration Protocol 1,000 UNITS/HR Amiodarone HCl/Dextrose 360 mg in 200 mls @ 33.333 mls/hr 05/13/18 11:45 12/26 16:50 Nexterone 360 Mg/200 Ml Bag IVPB 1 mg/min TITR KINGSLEY 33.333 mls/hr Administration Protocol 1 MG/MIN Cefazolin Sodium/Dextrose 2 gm in 50 mls @ 200 mls/hr 05/13/18 18:00 17:29 Ancef 2 Gm Premixed Ivpb - IVPB 200 mls/hr Q8H-IV [facility] Administration Meropenem 1 gm/ Dextrose 100 mls @ 200 mls/hr 05/13/18 18:00 05/13/18 17:31 IVPB 200 mls/hr Q8H-IV [facility] Administration Dobutamine HCl/Dextrose 250,000 mcg in 250 mls @ 36.069 mls/hr 05/13/18 16:45 05/13/18 16:53 Dobutamine 250 Mg/D5w - IV 5 mcg/kg/min TITR KINGSLEY 36.069 mls/hr Administration Protocol 5 MCG/KG/MIN Mupirocin 1 applic 05/13/18 10:00 05/13/18 09:22 Bactroban 2% Ointment - TP 1 applic BID K[facility] Administration Pantoprazole Sodium 40 mg 05/11/18 14:30 05/13/18 09:22 Protonix Iv IVPUSH 40 mg DAILY KINGS[facility] Administration Fluticasone/Salmeterol 1 puff 05/06/18 22:00 05/12/18 21:13 Advair 100mcg/50mcg - IH Not Given BID K[facility] ASSESSMENT/PLAN: 72 y/o gentleman with PMH of CHF, low EF, new onset Atrial fibrillation, AAA repair, femoral bypass, BPH, obesity, COPD, former smoker (quit in 6 months ago ) who presented to [facility] with SOB, rapid A.Fib, and CHF exacerbation. S/P cardiac arrest. ROSC achieved after 9 minutes. Acute Hypoxic Respiratory Railure -Intubated -Sedation-Fentanyl and Propofol now for sedation. -Dobutamine -Chest XRAY 05/13/2018--> Bibasilar pulmonary and pleural changes. Lung better aerated than xray 05/12/18. Duplex U/S B/L Lower Extrem: No evidence of DVT's- 05/11/18 CHF exacerbation possibly 2/2 AFIB -Amiodorone gtt Started today for Rate Control. Dr Mina On Board. -Pressor support to maintain MAP >65 -EL to r/o endocarditis -Toprol being held due to likely cardiogenic shock. EKG 05/11/2018-->RBBB, Inferior ischemia, T wave inversion inferior leads ECHO 05/09-->LV Systolic function severely reduced, Severe global hypokinesis left ventricle, EF 30-35%, Right ventricular systolic function moderately reduced, left, right atriums mod dilated, mr regurg, tri regurg, MSSA bacteremia -EL to be done in near future to r/o endocarditis -ID on board -Meropenem 1 gm JACKIE- Most likely 2/2 renal hypoprofusion -Baseline Cr is 0.8 in 01/2018 -BUN/CR today--> 45/2.0 -Trend renal function and electrolytes Head CT 05/11/2018 -> No Intracranial Hemorrhage identified. FEN No Fluids Monitor Electrolytes NPO DVT ppx: Heparin gtt. Dispo: Continue to monitor icu. Visit type - Emergency Visit Emergency Visit: Yes ED Registration Date: 05/06/18 Care time: The patient presented to the Emergency Department on the above date and was hospitalized for further evaluation of their emergent condition. - New Patient This patient is new to me today: No - Critical Care Critical Care patient: Yes Total Critical Care Time (in minutes): 35 Critical Care Statement: The care of this patient involved high complexity decision making to prevent further life threatening deterioration of the patient 's condition and/or to evaluate & treat vital organ system(s) failure or risk of failure.
[2018-05-13] MEDS: CHLORHEXIDINE GLUCONATE 4% CLEANSER FOR DECOLONIZATION TP SCH (22:00)
[2018-05-13] MEDS: FLUTICASONE/SALMETEROL 100 MCG/50 MCG DISKUS IH SCH (22:00)
[2018-05-14] MEDS: MEROPENEM 1 GM in DEXTROSE 5%-WATER 100 ML IVPB SCH ×3 (01:39→18:17)
[2018-05-14] MEDS: CEFAZOLIN 2 GM/D5W 2 GM/50 ML ML IVPB SCH ×3 (01:49→17:33)
[2018-05-14] MEDS: NOREPINEPHRINE BITARTRATE 8,000 MCG in DEXTROSE 5%-WATER - 492 ML IV SCH (02:30)
[2018-05-14 06:04] LABS: HEMATOCRIT 36.9 % (35.4-49); HEMOGLOBIN 12.3 GM/dL (11.7-16.9); MCH 31.3 pg (25.7-33.7); MCHC 33.4 g/dl (32.0-35.9); MEAN CELL VOLUME 93.7 fl (80-96); MEAN PLT VOLUME 9.4 fl (7.5-11.1); PLATELET COUNT 179 K/MM3 (134-434); RBC 3.94 M/mm3 (4.00-5.60); RDW 14.3 % (11.9-15.9); WHITE BLOOD COUNT 18.6 K/mm3 (4.0-10.0)
[2018-05-14] MEDS ORDERED: fentaNYL CITRATE 250 MCG/5 ML VIAL ONE ×2 (06:17→17:11)
[2018-05-14 06:27] LABS: CHLORIDE 89 mmol/L (98-107); POTASSIUM 3.9 mmol/L (3.5-5.1); SODIUM 130 mmol/L (136-145)
[2018-05-14] MEDS ORDERED: SODIUM CHLORIDE 250 ML IV STA (06:28)
[2018-05-14 06:32] LABS: ALBUMIN 2.2 g/dl (3.4-5.0); ALK PHOS 117 U/L (45-117); ANION GAP 8 (8-16); BILIRUBIN,TOTAL 0.7 mg/dL (0.2-1.0); BLOOD UREA NITROGEN 46 mg/dL (7-18); CALCIUM 7.9 mg/dL (8.5-10.1); CO2 33 mmol/L (21-32); CREATININE 2.6 mg/dL (0.7-1.3); GLUCOSE,RANDOM 113 mg/dL (74-106); SGOT/AST 25 U/L (15-37); SGPT/ALT 37 U/L (12-78); TOT PROT 5.2 g/dl (6.4-8.2)
[2018-05-14] MEDS: ALBUTEROL SO4 2.5/IPRATROPIUM 0.5 INH SOL 3 ML VIAL.NEB. NEB SCH ×3 (07:07→20:40)
[2018-05-14 07:47] LABS: MAGNESIUM 1.8 mg/dL (1.8-2.4); PHOSPHOROUS 5.6 mg/dL (2.5-4.9)
[2018-05-14] MEDS: PANTOPRAZOLE SODIUM 40 MG VIAL IVPUSH SCH (09:27)
[2018-05-14] MEDS: MUPIROCIN 2% TOPICAL OINTMENT 22 GM TUBE TP SCH ×2 (09:28→21:28)
--- NOTE | 2018-05-14 09:42 | PN ---
Progress Note, Physician History of Present Illness: Awake on ventilator Remains hypotensive on pressors Afebrile WBC elevated 18K - Current Medication List Current Medications: Active Medications Al Hydroxide/Mg Hydroxide (Mylanta Oral Suspension -) 30 ml PO Q6H PRN PRN Reason: INDIGESTION Last Admin: 05/08/18 21:34 Dose: 30 ml Albuterol/Ipratropium (Duoneb -) 1 amp NEB RTID KINGSLEY Last Admin: 05/14/18 07:07 Dose: 1 amp Chlorhexidine Gluconate (Hibiclens For Decolonization -) 1 applic TP HS KINGSLEY Last Admin: 05/13/18 22:00 Dose: 1 applic Heparin Sodium (Porcine) (Heparin -) 1,000 unit IVPUSH PRN PRN PRN Reason: Heparin Last Admin: 05/12/18 09:07 Dose: 1,000 unit Heparin Sodium (Porcine) (Heparin -) 5,000 unit IVPUSH PRN PRN PRN Reason: Heparin Propofol (Diprivan -) 1,000,000 mcg in 100 mls @ 3.69 mls/hr IVPB TITR KNIGSLEY; Protocol Last Titration: 05/13/18 17:40 Dose: 15 mcg/kg/min, 11.07 mls/hr Fentanyl 500 mcg/ Dextrose 100 mls @ 0.4 mls/hr IVPB TITR KINGSLEY; Protocol Last Admin: 05/13/18 16:47 Dose: Not Given Heparin Sodium/Dextrose (Heparin Infusion -) 25,000 units in 500 mls @ 20 mls/ hr IVPB TITR KINGSLEY; Protocol Last Admin: 05/13/18 16:46 Dose: 950 units/hr, 19 mls/hr Amiodarone HCl/Dextrose (Nexterone 360 Mg/200 Ml Bag) 360 mg in 200 mls @ 33.333 mls/hr IVPB TITR KINGSLEY; Protocol Last Admin: 05/13/18 16:50 Dose: 1 mg/min, 33.333 mls/hr Cefazolin Sodium/Dextrose (Ancef 2 Gm Premixed Ivpb -) 2 gm in 50 mls @ 200 mls /hr IVPB Q8H-IV K[facility]LEY Last Admin: 05/14/18 09:29 Dose: 200 mls/hr Meropenem 1 gm/ Dextrose 100 mls @ 200 mls/hr IVPB Q8H-IV KINGSLEY Last Admin: 05/14/18 01:39 Dose: 200 mls/hr Dobutamine HCl/Dextrose (Dobutamine 250 Mg/D5w -) 250,000 mcg in 250 mls @ 36.069 mls/hr IV TITR KINGSLEY; Protocol Last Admin: 05/13/18 16:53 Dose: 5 mcg/kg/min, 36.069 mls/hr Norepinephrine Bitartrate 8, (000 mcg/ Dextrose) 500 mls @ 18.75 mls/hr IV TITR KINGSLEY; Protocol Last Admin: 05/14/18 02:30 Dose: 5 mcg/min, 18.75 mls/hr Mupirocin (Bactroban 2% Ointment -) 1 applic TP BID KINGSLEY Last Admin: 05/14/18 09:28 Dose: 1 applic Pantoprazole Sodium (Protonix Iv) 40 mg IVPUSH DAILY KINGSLEY Last Admin: 05/14/18 09:27 Dose: 40 mg Fluticasone/Salmeterol (Advair 100mcg/50mcg -) 1 puff IH BID KINGSLEY Last Admin: 05/13/18 22:00 Dose: Not Given - Objective Vital Signs: Vital Signs Temperature 97.8 F 05/14/18 08:00 Pulse Rate 110 H 05/14/18 09:00 Respiratory Rate 11 L 05/14/18 09:00 Blood Pressure 88/73 05/14/18 09:00 O2 Sat by Pulse Oximetry (%) 97 05/14/18 08:10 Constitutional: Yes: No Distress Eyes: Yes: Conjunctiva Clear Cardiovascular: Yes: Regular Rate and Rhythm, S1, S2 Respiratory: Yes: Mechanically Ventilated Gastrointestinal: Yes: Normal Bowel Sounds, Soft, Abdomen, Obese Edema: Yes Labs: CBC, BMP 05/14/18 05:30 05/14/18 05:30 INR, PTT INR 1.17 (0.83-1.09) 05/10/18 06:10 Assessment/Plan MSSA bacteremia, possible endocarditis Respiratory failure ? pneumonia Leukocytosis Azotemia Final sputum c/s pending Continue cefazolin/ meropenem Hemodynamic/ ventilatory support
[2018-05-14] MEDS: PROPOFOL 1,000,000 MCG/100 ML VIAL IVPB SCH ×2 (10:36→12:50)
--- NOTE | 2018-05-14 11:31 | PN ---
Progress Note (short form) - Note Progress Note: Renal follow up for JACKIE Pt seen and examined in the ICU on vent, 40% FiO2 remains hypotensive with MAPs in 50's urine output is diminished restarted on Levophed overnight Vital Signs Temperature 97.8 F 05/14/18 08:00 Pulse Rate 106 H 05/14/18 11:08 Respiratory Rate 13 05/14/18 11:00 Blood Pressure 76/50 05/14/18 11:08 O2 Sat by Pulse Oximetry (%) 97 05/14/18 08:10 Intake & Output 05/11/18 05/12/18 05/13/18 05/14/18 23:59 23:59 23:59 23:59 Intake Total 4877.8 3557.1 1180.3 1654 Output Total 4950 4600 3525 300 Balance -72.2 -1042.9 -2344.7 1354 Weight 123 kg 122.924 kg 120.23 kg 122.5 kg NAD awake and alert RRR, No M/R CTA soft NT/ND + edema in LE CBC, BMP 05/14/18 05:30 05/14/18 05:30 Laboratory Tests 05/14/18 05:30 Calcium 7.9 L Albumin 2.2 L Current Medications Al Hydroxide/Mg Hydroxide (Mylanta Oral Suspension -) 30 ml PO Q6H PRN PRN Reason: INDIGESTION Last Admin: 05/08/18 21:34 Dose: 30 ml Albuterol/Ipratropium (Duoneb -) 1 amp NEB RTID KINGSLEY Last Admin: 05/14/18 07:07 Dose: 1 amp Chlorhexidine Gluconate (Hibiclens For Decolonization -) 1 applic TP HS KINGSLEY Last Admin: 05/13/18 22:00 Dose: 1 applic Heparin Sodium (Porcine) (Heparin -) 1,000 unit IVPUSH PRN PRN PRN Reason: Heparin Last Admin: 05/12/18 09:07 Dose: 1,000 unit Heparin Sodium (Porcine) (Heparin -) 5,000 unit IVPUSH PRN PRN PRN Reason: Heparin Propofol (Diprivan -) 1,000,000 mcg in 100 mls @ 3.69 mls/hr IVPB TITR KINGSLEY; Protocol Last Admin: 05/14/18 10:36 Dose: 10 mcg/kg/min, 7.38 mls/hr Fentanyl 500 mcg/ Dextrose 100 mls @ 0.4 mls/hr IVPB TITR KINGSLEY; Protocol Last Admin: 05/13/18 16:47 Dose: Not Given Heparin Sodium/Dextrose (Heparin Infusion -) 25,000 units in 500 mls @ 20 mls/ hr IVPB TITR KINGSLEY; Protocol Last Admin: 05/13/18 16:46 Dose: 950 units/hr, 19 mls/hr Amiodarone HCl/Dextrose (Nexterone 360 Mg/200 Ml Bag) 360 mg in 200 mls @ 33.333 mls/hr IVPB TITR KINGSLEY; Protocol Last Admin: 05/13/18 16:50 Dose: 1 mg/min, 33.333 mls/hr Cefazolin Sodium/Dextrose (Ancef 2 Gm Premixed Ivpb -) 2 gm in 50 mls @ 200 mls /hr IVPB Q8H-IV [facility] Last Admin: 05/14/18 09:29 Dose: 200 mls/hr Meropenem 1 gm/ Dextrose 100 mls @ 200 mls/hr IVPB Q8H-IV K[facility] Last Admin: 05/14/18 10:33 Dose: 200 mls/hr Dobutamine HCl/Dextrose (Dobutamine 250 Mg/D5w -) 250,000 mcg in 250 mls @ 36.069 mls/hr IV TITR KINGSLEY; Protocol Last Admin: 05/13/18 16:53 Dose: 5 mcg/kg/min, 36.069 mls/hr Norepinephrine Bitartrate 8, (000 mcg/ Dextrose) 500 mls @ 18.75 mls/hr IV TITR KINGSLEY; Protocol Last Titration: 05/14/18 11:08 Dose: 4 mcg/min, 15 mls/hr Mupirocin (Bactroban 2% Ointment -) 1 applic TP BID KINGSLEY Last Admin: 05/14/18 09:28 Dose: 1 applic Pantoprazole Sodium (Protonix Iv) 40 mg IVPUSH DAILY KINGSLEY Last Admin: 05/14/18 09:27 Dose: 40 mg Fluticasone/Salmeterol (Advair 100mcg/50mcg -) 1 puff IH BID KINGSLEY Last Admin: 05/13/18 22:00 Dose: Not Given 72M h/o HTN, HLD, COPD, ex smoker, PAD s/p AAA repair 12 years ago, femoral bypass 4 years ago p/w carrizales, lower extremity swelling, cough and found to have new onset afib with CHF and JACKIE. #JACKIE (baseline Cr is 0.8 in January 2018) secondary to hemodyanic injury/renal hypoprofusion #New Afib #Acute CHF #Hyponatremia in setting of volume overload #AMS/Cardiac arrest #Sepsis/Septic Shock Renal function declined from yesterday and urine output is diminished this morning likely due to hypoprofusion from sepsis/hypotension will need to maintain map ~70, titrate Levophed CVP ~14 with increasing pleural effusion on CXR and will need diuresis, agree with lasix bolous but only after MAP > 65-70 can consider lasix gtt if pt is responsive to Lasix bolous no indication for [employer] at the present time Dose all meds for CrCl < 20 Vent support ICU care Abx as per ID Case discussed with the ICU team Joe Boss DO
[2018-05-14] MEDS ORDERED: ALBUTEROL SO4 2.5/IPRATROPIUM 0.5 INH SOL 3 ML VIAL.NEB. NEB SCH (12:00)
[2018-05-14] MEDS ORDERED: FUROSEMIDE INJECTION 100 MG in SODIUM CHLORIDE 90 ML IVPB SCH ×2 (12:15→18:00)
--- NOTE | 2018-05-14 12:24 | PN ---
Progress Note, Physician History of Present Illness: On Amio, HR 100s Spontaneous breathing trial this AM - Current Medication List Current Medications: Active Medications Al Hydroxide/Mg Hydroxide (Mylanta Oral Suspension -) 30 ml PO Q6H PRN PRN Reason: INDIGESTION Last Admin: 05/08/18 21:34 Dose: 30 ml Albuterol/Ipratropium (Duoneb -) 1 amp NEB RTID KINGSLEY Last Admin: 05/14/18 07:07 Dose: 1 amp Chlorhexidine Gluconate (Hibiclens For Decolonization -) 1 applic TP HS KINGSLEY Last Admin: 05/13/18 22:00 Dose: 1 applic Heparin Sodium (Porcine) (Heparin -) 1,000 unit IVPUSH PRN PRN PRN Reason: Heparin Last Admin: 05/12/18 09:07 Dose: 1,000 unit Heparin Sodium (Porcine) (Heparin -) 5,000 unit IVPUSH PRN PRN PRN Reason: Heparin Propofol (Diprivan -) 1,000,000 mcg in 100 mls @ 3.69 mls/hr IVPB TITR KINGSLEY; Protocol Last Admin: 05/14/18 10:36 Dose: 10 mcg/kg/min, 7.38 mls/hr Fentanyl 500 mcg/ Dextrose 100 mls @ 0.4 mls/hr IVPB TITR KINGSLEY; Protocol Last Admin: 05/13/18 16:47 Dose: Not Given Heparin Sodium/Dextrose (Heparin Infusion -) 25,000 units in 500 mls @ 20 mls/ hr IVPB TITR KINGSLEY; Protocol Last Admin: 05/13/18 16:46 Dose: 950 units/hr, 19 mls/hr Amiodarone HCl/Dextrose (Nexterone 360 Mg/200 Ml Bag) 360 mg in 200 mls @ 33.333 mls/hr IVPB TITR KINGSLEY; Protocol Last Admin: 05/13/18 16:50 Dose: 1 mg/min, 33.333 mls/hr Cefazolin Sodium/Dextrose (Ancef 2 Gm Premixed Ivpb -) 2 gm in 50 mls @ 200 mls /hr IVPB Q8H-IV [facility]NIGSLEY Last Admin: 05/14/18 09:29 Dose: 200 mls/hr Meropenem 1 gm/ Dextrose 100 mls @ 200 mls/hr IVPB Q8H-IV K[facility]LEY Last Admin: 05/14/18 10:33 Dose: 200 mls/hr Dobutamine HCl/Dextrose (Dobutamine 250 Mg/D5w -) 250,000 mcg in 250 mls @ 36.069 mls/hr IV TITR KINGSLEY; Protocol Last Admin: 05/13/18 16:53 Dose: 5 mcg/kg/min, 36.069 mls/hr Norepinephrine Bitartrate 8, (000 mcg/ Dextrose) 500 mls @ 18.75 mls/hr IV TITR KINGSLEY; Protocol Last Titration: 05/14/18 11:08 Dose: 4 mcg/min, 15 mls/hr Furosemide 100 mg/ Sodium (Chloride) 100 mls @ 5 mls/hr IVPB TITR KINGSLEY; Protocol Methylprednisolone Sodium Succinate (Solu-Medrol -) 60 mg IVPUSH Q8H-IV KINGSLEY Mupirocin (Bactroban 2% Ointment -) 1 applic TP BID [facility] Last Admin: 05/14/18 09:28 Dose: 1 applic Pantoprazole Sodium (Protonix Iv) 40 mg IVPUSH DAILY [facility] Last Admin: 05/14/18 09:27 Dose: 40 mg Fluticasone/Salmeterol (Advair 100mcg/50mcg -) 1 puff IH BID KINGSLEY Last Admin: 05/13/18 22:00 Dose: Not Given - Objective Vital Signs: Vital Signs Temperature 97.8 F 05/14/18 08:00 Pulse Rate 109 H 05/14/18 12:00 Respiratory Rate 12 05/14/18 12:00 Blood Pressure 100/61 05/14/18 12:00 O2 Sat by Pulse Oximetry (%) 98 05/14/18 11:43 Constitutional: Yes: No Distress, Calm (Intubated) Eyes: Yes: WNL HENT: Yes: WNL Neck: Yes: WNL Cardiovascular: Yes: Tachycardia Respiratory: Yes: CTA Bilaterally Gastrointestinal: Yes: Normal Bowel Sounds Musculoskeletal: Yes: WNL Extremities: Yes: WNL Labs: CBC, BMP 05/14/18 05:30 05/14/18 05:30 INR, PTT INR 1.17 (0.83-1.09) 05/10/18 06:10 Assessment/Plan a/p: 72M h/o HTN, HLD, COPD, ex smoker, PAD s/p AAA repair 12 years ago, femoral bypass 4 years ago p/w carrizales, lower extremity swelling, cough for two weeks with new afib, CHF exac, JACKIE, leukocytosis now s/p cardiac arrest with ROSC transferred to ICU on pressors, dobutamine on 05/11 Afib with RVR - echo showed severe LV dysfunction, likely related to tachycardia induced myopathy diltiazem was dc'ed and replaced with lopressor 50 mg-->stopped due to low bp - now with hypotension and HR fast at times so will start amio gtt - on hep gtt for ac - will consider EL for possible cardioversion and rule out endocarditis when more clinically stable (off pressors and bp stable) - cont tele acute syst CHF - may be tachycardia induced in setting of afib with RVR, EF 30-35% on echo, will eventually need ischemic workup as outpatient - 05/06 received IV lasix 40 mg x1 in PM, 05/07 Cr 2.1->2.5 with obstruction and booth placement with improving UOP - 05/08 given lasix 40 mg IV x 1 with Cr 2.1 -> 2.9 - 05/09 lasix held due to rising Cr, auto diuresing post ATN - 05/10: received lasix 80 mg IV x1 - 05/11 overnight transferred to ICU, on dobumtamine and phenylephrine, remains with LE edema, JVD - discussed with ICU team, changing phenylephrine to levophed, will give additional dose of IV lasix 80 mg -05/12: effs on cxr, le edema, will give lasix 80 iv today -05/13: cxr improved, cont with prn lasix for now -05/14: Creat 2.6. CXR this AM worse. Would give lasix 80IV today, agree with considering lasix Gtt MSSA bacteremia, possible aspiration during code, septic shock - repeat bld cxs ngtd - pt with shoulder hardware, LE arterial graft material--may need minimum of 4 weeks abx regardless - no other stigmata of I.E., no vegetations seen on echo, no signif valve dysfunction - EL when patient more clinically stable - abx per ID -weaning off pressors Elevated troponin - intermediate range, flat trend--not c/w ACS - trop sec to decomp CHF vs demand ischemia from rapid AF COPD - on advair, duonebs, low dose steroid JACKIE, ? underlying CKD - cardiorenal syndrome vs ATN, had been improving, renal following - diuresis as above - holding home valsartan transaminitis: - AST/LT 800s on admit--both trending down progressively - likely congestive hepatopathy per GI, improving with improvement in HF status - sonogram with fatty infiltration vs hepatocellular dz picture - plan per GI H/o AAA s/p repair - holding home statin due to acute LFT elevation here--resume once LFTs stabilize - stopped ASA, as pt now on AC
[2018-05-14] MEDS ORDERED: POTASSIUM CHLORIDE 20 MEQ PREMIX IVPB 100 ML IVPB ONE (12:45)
[2018-05-14] MEDS: methylPREDNISolone NA SUCC 40 MG/1 ML VIAL IVPUSH SCH ×2 (12:49→17:33)
[2018-05-14] MEDS: AMIODARONE IN DEXTROSE,ISO-OSM 360 MG/200 ML BAG IVPB SCH (12:49)
[2018-05-14] MEDS ORDERED: FUROSEMIDE 40 MG/4 ML INJECTABLE VIAL ONE (12:52)
[2018-05-14] MEDS: DOBUTAMINE 250 MG/D5W - 250,000 MCG/250 ML INFUS.BAG IV SCH ×2 (12:58→17:32)
--- NOTE | 2018-05-14 13:05 | PN ---
Teaching Attending Note Name of Resident: Fortino Pineda ATTENDING PHYSICIAN STATEMENT I saw and evaluated the patient. I reviewed the resident's note and discussed the case with the resident. I agree with the resident's findings and plan as documented. SUBJECTIVE: Pt seen and examined in the ICU. Remains intubated, awake and following commands off sedation. Tolerated CPAP/PS with high PS but started to breathe with accessory muscles with lower pressure support. Placed back on assist control and sedation. OBJECTIVE: Vital Signs Period Temp Pulse Resp BP Sys/Carroll Pulse Ox Last 24 Hr 97.8 F-98.2 F 101-136 11-21 63-100/48-81 95-99 Intake & Output 05/11/18 05/12/18 05/13/18 05/14/18 23:59 23:59 23:59 23:59 Intake Total 4877.8 3557.1 1180.3 1654 Output Total 4950 4600 3525 300 Balance -72.2 -1042.9 -2344.7 1354 Weight 123 kg 122.924 kg 120.23 kg 122.5 kg Gen: intubated, awake Heart: tachycardic Lung: scattered rhonchi Abd: soft, nontender Ext: + edema CBC, BMP 05/14/18 05:30 05/14/18 05:30 Active Medications Al Hydroxide/Mg Hydroxide (Mylanta Oral Suspension -) 30 ml PO Q6H PRN PRN Reason: INDIGESTION Last Admin: 05/08/18 21:34 Dose: 30 ml Albuterol/Ipratropium (Duoneb -) 1 amp NEB RTID [facility]INGS[facility] Last Admin: 05/14/18 07:07 Dose: 1 amp Chlorhexidine Gluconate (Hibiclens For Decolonization -) 1 applic TP HS KINGSLEY Last Admin: 05/13/18 22:00 Dose: 1 applic Heparin Sodium (Porcine) (Heparin -) 1,000 unit IVPUSH PRN PRN PRN Reason: Heparin Last Admin: 05/12/18 09:07 Dose: 1,000 unit Heparin Sodium (Porcine) (Heparin -) 5,000 unit IVPUSH PRN PRN PRN Reason: Heparin Propofol (Diprivan -) 1,000,000 mcg in 100 mls @ 3.69 mls/hr IVPB TITR KINGSLEY; Protocol Last Admin: 05/14/18 12:50 Dose: Not Given Fentanyl 500 mcg/ Dextrose 100 mls @ 0.4 mls/hr IVPB TITR [facility]; Protocol Last Admin: 05/13/18 16:47 Dose: Not Given Heparin Sodium/Dextrose (Heparin Infusion -) 25,000 units in 500 mls @ 20 mls/ hr IVPB TITR [facility]INGSLEY; Protocol Last Admin: 05/13/18 16:46 Dose: 950 units/hr, 19 mls/hr Amiodarone HCl/Dextrose (Nexterone 360 Mg/200 Ml Bag) 360 mg in 200 mls @ 33.333 mls/hr IVPB TITR [facility]INGSLEY; Protocol Last Admin: 05/14/18 12:49 Dose: 0.5 mg/min, 16.667 mls/hr Cefazolin Sodium/Dextrose (Ancef 2 Gm Premixed Ivpb -) 2 gm in 50 mls @ 200 mls /hr IVPB Q8H-IV [facility] Last Admin: 05/14/18 09:29 Dose: 200 mls/hr Meropenem 1 gm/ Dextrose 100 mls @ 200 mls/hr IVPB Q8H-IV [facility] Last Admin: 05/14/18 10:33 Dose: 200 mls/hr Dobutamine HCl/Dextrose (Dobutamine 250 Mg/D5w -) 250,000 mcg in 250 mls @ 36.069 mls/hr IV TITR [facility]; Protocol Last Admin: 05/14/18 12:58 Dose: 5 mcg/kg/min, 36.069 mls/hr Norepinephrine Bitartrate 8, (000 mcg/ Dextrose) 500 mls @ 18.75 mls/hr IV TITR [facility]LEY; Protocol Last Titration: 05/14/18 11:08 Dose: 4 mcg/min, 15 mls/hr Furosemide 100 mg/ Sodium (Chloride) 100 mls @ 5 mls/hr IVPB TITR [facility]LEY; Protocol Methylprednisolone Sodium Succinate (Solu-Medrol -) 60 mg IVPUSH Q8H-IV [facility] Last Admin: 05/14/18 12:49 Dose: 60 mg Mupirocin (Bactroban 2% Ointment -) 1 applic TP BID [facility] Last Admin: 05/14/18 09:28 Dose: 1 applic Pantoprazole Sodium (Protonix Iv) 40 mg IVPUSH DAILY [facility] Last Admin: 05/14/18 09:27 Dose: 40 mg Fluticasone/Salmeterol (Advair 100mcg/50mcg -) 1 puff IH BID [facility] Last Admin: 05/13/18 22:00 Dose: Not Given ASSESSMENT AND PLAN: Acute Hypoxic Respiratory Failure s/p Cardiopulmonary Arrest Staph Bacteremia Shock - Cardiogenic vs Septic Acute on Chronic Systolic Heart Failure Atrial Fibrillation Acute Kidney Injury Elevated LFTs likely congestive hepatopathy +Troponins Hyponatremia PAD - continue antibiotics - cardiology considering EL/DCCV - rate control with amiodarone gtt - continue anticoagulation - pressor support to maintain MAP >65 - continue dobutamine gtt - IV lasix - monitor urine output, creatinine - keep net negative - inhaled bronchodilators - daily sedation vacations to assess mental status - spontaneous breathing trials as tolerated - enteral feeds - DVT/GI prophylaxis - continue ICU monitoring critical care time spent in reviewing chart, evaluating patient and formulating plan 35 min
--- NOTE | 2018-05-14 14:10 | PN ---
Physical Exam: SUBJECTIVE: Patient seen and examined this am and afternoon in icu. Was off sedation earlier today, CPAP trial unsuccessful. Remains intubated and back on sedation. OBJECTIVE: Vital Signs Period Temp Pulse Resp BP Sys/Carroll Pulse Ox Last 24 Hr 97.8 F-98.2 F 101-136 11-21 63-100/48-81 95-99 GENERAL: Intubated. HEAD: NC/AT EYES: Pupils equal and reactive to light. ENT: WNL NECK: Trachea midline. LUNGS: Rhonchi B/L HEART: Irregular. Tachycardia. ABDOMEN: NT, ND, No HSM. Hard nodule right lower abdomen. EXTREMITIES: B/L edema lower extremities 1-2+. Feet Cool to touch NEUROLOGICAL: N/A PSYCH: N/A SKIN: Extremities cool to touch. Laboratory Results - last 24 hr 05/14/18 05/14/18 05/14/18 05:30 05:30 05:30 WBC 18.6 H RBC 3.94 L Hgb 12.3 Hct 36.9 MCV 93.7 MCH 31.3 MCHC 33.4 RDW 14.3 Plt Count 179 MPV 9.4 PTT (Actin FS) 53.9 H Sodium Potassium Chloride Carbon Dioxide Anion Gap BUN Creatinine Creat Clearance w eGFR Random Glucose Calcium Phosphorus Magnesium Total Bilirubin AST ALT Alkaline Phosphatase Total Protein Albumin Vancomycin Pre-Dose 14.36 H 05/14/18 05/14/18 05:30 05:30 WBC RBC Hgb Hct MCV MCH MCHC RDW Plt Count MPV PTT (Actin FS) Sodium 130 L Cancelled Potassium 3.9 Cancelled Chloride 89 L Cancelled Carbon Dioxide 33 H Cancelled Anion Gap 8 Cancelled BUN 46 H Cancelled Creatinine 2.6 H Cancelled Creat Clearance w eGFR 24.45 Cancelled Random Glucose 113 H Cancelled Calcium 7.9 L Cancelled Phosphorus 5.6 H D Magnesium 1.8 Total Bilirubin 0.7 Cancelled AST 25 Cancelled ALT 37 D Cancelled Alkaline Phosphatase 117 D Cancelled Total Protein 5.2 L Cancelled Albumin 2.2 L Cancelled Vancomycin Pre-Dose Active Medications Generic Name Dose Route Start Last Admin Trade Name Freq PRN Reason Stop Dose Admin Al Hydroxide/Mg Hydroxide 30 ml 05/08/18 21:23 05/08/18 21:34 Mylanta Oral Suspension - PO 30 ml Q6H PRN Administration INDIGESTION Albuterol/Ipratropium 1 amp 05/13/18 14:00 05/14/18 07:07 Duoneb - NEB 1 amp RTID KINGSLEY Administration Chlorhexidine Gluconate 1 applic 05/13/18 22:00 05/13/18 22:00 Hibiclens For Decolonization - TP 1 applic HS KINGSLEY Administration Heparin Sodium (Porcine) 1,000 unit 05/11/18 17:06 05/12/18 09:07 Heparin - IVPUSH 1,000 unit PRN PRN Administration Heparin Heparin Sodium (Porcine) 5,000 unit 05/11/18 17:02 Heparin - IVPUSH PRN PRN Heparin Propofol 1,000,000 mcg in 100 mls @ 3.69 mls/hr 05/11/18 12:30 05/14/18 12:50 Diprivan - IVPB Not Given TITR [facility] Protocol 5 MCG/KG/MIN Fentanyl 500 mcg/ Dextrose 100 mls @ 0.4 mls/hr 05/11/18 16:30 05/13/18 16:47 IVPB Not Given TITR [facility] Protocol 2 MCG/HR Heparin Sodium/Dextrose 25,000 units in 500 mls @ 20 mls/hr 05/11/18 17:15 16:46 Heparin Infusion - IVPB 950 units/hr TITR [facility] 19 mls/hr Administration Protocol 1,000 UNITS/HR Amiodarone HCl/Dextrose 360 mg in 200 mls @ 33.333 mls/hr 05/13/18 11:45 01/26 12:49 Nexterone 360 Mg/200 Ml Bag IVPB 0.5 mg/min TITR K[facility] 16.667 mls/hr Administration Protocol 1 MG/MIN Cefazolin Sodium/Dextrose 2 gm in 50 mls @ 200 mls/hr 05/13/18 18:00 09:29 Ancef 2 Gm Premixed Ivpb - IVPB 200 mls/hr Q8H-IV [facility] Administration Meropenem 1 gm/ Dextrose 100 mls @ 200 mls/hr 05/13/18 18:00 05/14/18 10:33 IVPB 200 mls/hr Q8H-IV [facility] Administration Dobutamine HCl/Dextrose 250,000 mcg in 250 mls @ 36.069 mls/hr 05/13/18 16:45 05/14/18 12:58 Dobutamine 250 Mg/D5w - IV 5 mcg/kg/min TITR KINGS[facility] 36.069 mls/hr Administration Protocol 5 MCG/KG/MIN Norepinephrine Bitartrate 8, 500 mls @ 18.75 mls/hr 05/14/18 02:15 05/14/18 11:08 000 mcg/ Dextrose IV 4 mcg/min TITR [facility] 15 mls/hr Titration Protocol 5 MCG/MIN Furosemide 100 mg/ Sodium 100 mls @ 5 mls/hr 05/14/18 12:15 Chloride IVPB TITR K[facility] Protocol Methylprednisolone Sodium Succinate 60 mg 05/14/18 12:00 05/14/18 12:49 Solu-Medrol - IVPUSH 60 mg Q8H-IV [facility] Administration Mupirocin 1 applic 05/13/18 10:00 05/14/18 09:28 Bactroban 2% Ointment - TP 1 applic BID KINGS[facility] Administration Pantoprazole Sodium 40 mg 05/11/18 14:30 05/14/18 09:27 Protonix Iv IVPUSH 40 mg DAILY KINGS[facility] Administration Fluticasone/Salmeterol 1 puff 05/06/18 22:00 05/13/18 22:00 Advair 100mcg/50mcg - IH Not Given BID K[facility] ASSESSMENT/PLAN: 72 y/o gentleman with PMH of CHF, low EF, new onset Atrial fibrillation, AAA repair, femoral bypass, BPH, obesity, COPD, former smoker (quit in 6 months ago ) who presented to [facility] with SOB, rapid A.Fib, and CHF exacerbation. S/P cardiac arrest. ROSC achieved after 9 minutes. Acute Hypoxic Respiratory Railure -Intubated -Levofed resumed after pt's systolic blood pressure dropped to low 60's and MAP fell to mid 50's. -Sedation-Fentanyl and Propofol now for sedation. -Dobutamine 5 mcg/kg/min -Chest XRAY 05/14/2018--> Progressive B/L basilar pleural effusions w/ atelectasis or infiltrates. Duplex U/S B/L Lower Extrem: No evidence of DVT's- 05/11/18 CHF exacerbation possibly 2/2 AFIB -Amiodorone gtt Rate Control. Cardiology on board. -Lasix gtt started this morning. -Pressor support to maintain MAP >65 -EL to r/o endocarditis -Toprol being held due to likely cardiogenic shock. EKG 05/11/2018-->RBBB, Inferior ischemia, T wave inversion inferior leads ECHO 05/09-->LV Systolic function severely reduced, Severe global hypokinesis left ventricle, EF 30-35%, Right ventricular systolic function moderately reduced, left, right atriums mod dilated, mr regurg, tri regurg, MSSA bacteremia -EL to be done in near future to r/o endocarditis -ID on board -Meropenem 1 gm -Ancef 2 Gm Premixed Ivpb JACKIE- Most likely 2/[address] Boss On Board -Baseline Cr is 0.8 in 01/2018 -BUN/CR today--> 46/2.6 -Trend renal function and electrolytes -Head CT 05/11/2018 -> No Intracranial Hemorrhage identified. FEN No Fluids Monitor Electrolytes NPO DVT ppx: Heparin gtt. Dispo: Continue to monitor icu. Visit type - Emergency Visit Emergency Visit: Yes ED Registration Date: 05/06/18 Care time: The patient presented to the Emergency Department on the above date and was hospitalized for further evaluation of their emergent condition. - New Patient This patient is new to me today: No - Critical Care Critical Care patient: Yes Total Critical Care Time (in minutes): 35 Critical Care Statement: The care of this patient involved high complexity decision making to prevent further life threatening deterioration of the patient 's condition and/or to evaluate & treat vital organ system(s) failure or risk of failure.
--- NOTE | 2018-05-14 16:13 | PN ---
Progress Note, Physician Chief Complaint: Patient remained intubated required pressors to maintain BP, off sedation evaluated by the ICU team, patient was following verbal commands - Current Medication List Current Medications: Active Medications Al Hydroxide/Mg Hydroxide (Mylanta Oral Suspension -) 30 ml PO Q6H PRN PRN Reason: INDIGESTION Last Admin: 05/08/18 21:34 Dose: 30 ml Albuterol/Ipratropium (Duoneb -) 1 amp NEB RTID KINGSLEY Last Admin: 05/14/18 13:56 Dose: 1 amp Chlorhexidine Gluconate (Hibiclens For Decolonization -) 1 applic TP HS KINGSLEY Last Admin: 05/13/18 22:00 Dose: 1 applic Heparin Sodium (Porcine) (Heparin -) 1,000 unit IVPUSH PRN PRN PRN Reason: Heparin Last Admin: 05/12/18 09:07 Dose: 1,000 unit Heparin Sodium (Porcine) (Heparin -) 5,000 unit IVPUSH PRN PRN PRN Reason: Heparin Propofol (Diprivan -) 1,000,000 mcg in 100 mls @ 3.69 mls/hr IVPB TITR [facility]LEY; Protocol Last Admin: 05/14/18 12:50 Dose: Not Given Fentanyl 500 mcg/ Dextrose 100 mls @ 0.4 mls/hr IVPB TITR KINGSLEY; Protocol Last Admin: 05/13/18 16:47 Dose: Not Given Heparin Sodium/Dextrose (Heparin Infusion -) 25,000 units in 500 mls @ 20 mls/ hr IVPB TITR KINGSLEY; Protocol Last Admin: 05/13/18 16:46 Dose: 950 units/hr, 19 mls/hr Amiodarone HCl/Dextrose (Nexterone 360 Mg/200 Ml Bag) 360 mg in 200 mls @ 33.333 mls/hr IVPB TITR KINGSLEY; Protocol Last Admin: 05/14/18 12:49 Dose: 0.5 mg/min, 16.667 mls/hr Cefazolin Sodium/Dextrose (Ancef 2 Gm Premixed Ivpb -) 2 gm in 50 mls @ 200 mls /hr IVPB Q8H-IV [facility] Last Admin: 05/14/18 09:29 Dose: 200 mls/hr Meropenem 1 gm/ Dextrose 100 mls @ 200 mls/hr IVPB Q8H-IV [facility] Last Admin: 05/14/18 10:33 Dose: 200 mls/hr Dobutamine HCl/Dextrose (Dobutamine 250 Mg/D5w -) 250,000 mcg in 250 mls @ 36.069 mls/hr IV TITR KINGSLEY; Protocol Last Admin: 05/14/18 12:58 Dose: 5 mcg/kg/min, 36.069 mls/hr Norepinephrine Bitartrate 8, (000 mcg/ Dextrose) 500 mls @ 18.75 mls/hr IV TITR KINGSLEY; Protocol Last Titration: 05/14/18 11:08 Dose: 4 mcg/min, 15 mls/hr Furosemide 100 mg/ Sodium (Chloride) 100 mls @ 5 mls/hr IVPB TITR KINGSLEY; Protocol Methylprednisolone Sodium Succinate (Solu-Medrol -) 60 mg IVPUSH Q8H-IV [facility]LEY Last Admin: 05/14/18 12:49 Dose: 60 mg Mupirocin (Bactroban 2% Ointment -) 1 applic TP BID KINGSLEY Last Admin: 05/14/18 09:28 Dose: 1 applic Pantoprazole Sodium (Protonix Iv) 40 mg IVPUSH DAILY [facility] Last Admin: 05/14/18 09:27 Dose: 40 mg Fluticasone/Salmeterol (Advair 100mcg/50mcg -) 1 puff IH BID [facility] Last Admin: 05/13/18 22:00 Dose: Not Given - Objective Vital Signs: Vital Signs Temperature 97.7 F 05/14/18 14:22 Pulse Rate 121 H 05/14/18 14:22 Respiratory Rate 18 05/14/18 14:22 Blood Pressure 89/53 05/14/18 14:22 O2 Sat by Pulse Oximetry (%) 98 05/14/18 11:43 Constitutional: sedated s/p intubation , ETT and NG tube at place. HEENT: Sedated ETT at place Neck: NO JVD Decreased ROM, Lumps, Pain on Movement Cardiovascular: Irr S1S2 Tachycardia no murmur or Gallop Respiratory: B/L Basal crepts on Vent Gastrointestinal: Obese, non tender BS + Genitourinary: Urinary retention s/p Foleys LE and Musculoskeletal: B/L LE edema nad puplish discoloration ICU team is aware Neurological: Sedated as per ICU team able to follow commands in am off sedation. Labs: CBC, BMP 05/14/18 05:30 05/14/18 05:30 INR, PTT INR 1.17 (0.83-1.09) 05/10/18 06:10 - ....Imaging X-ray: Report Reviewed (S/P intubation Rt IJ , Cardiomegaly atelactasis/ infiltrates) Problem List - Problems (1) Acute exacerbation of CHF (congestive heart failure) Assessment/Plan: Present with CHS symptoms with Afib , Bed side ECHO shows Low EF will F/U ECHO , most likely tachycardia induced, initially responsded to Lasix and rate control with PO Diltiazem , had a cardiac arrest on 05/11/2018 intubated now in ICU on Vent Code(s): I50.9 - HEART FAILURE, UNSPECIFIED Qualifiers: Heart failure type: systolic Qualified Code(s): I50.23 - Acute on chronic systolic (congestive) heart failure (2) Atrial fibrillation with RVR Assessment/Plan: On Heparin infusion and Amiodarone rate controlled possible EL and Cardioversion once stable. Code(s): I48.91 - UNSPECIFIED ATRIAL FIBRILLATION (3) COPD with exacerbation Assessment/Plan: On Vent cont Duoneb and IV Steroids Code(s): J44.1 - CHRONIC OBSTRUCTIVE PULMONARY DISEASE W (ACUTE) EXACERBATION (4) Elevated troponin I level Assessment/Plan: Most likely Demand ischemia F/U Ischemic w/u once stable Code(s): R74.8 - ABNORMAL LEVELS OF OTHER SERUM ENZYMES (5) JACKIE (acute kidney injury) Assessment/Plan: Worsening renal functions most likely JACKIE on CKD F/U Renal recommendations Code(s): N17.9 - ACUTE KIDNEY FAILURE, UNSPECIFIED (6) Transaminitis Assessment/Plan: Elevated SGOT PT most likely congestive Hepatopathy on stain, considering morbid obesity vcan be due to ROJAS will F/U Hepatitis panel F/U LFTS and GI recommondations Code(s): R74.0 - NONSPEC ELEV OF LEVELS OF TRANSAMNS & LACTIC ACID DEHYDRGNSE (7) Gram-positive bacteremia Assessment/Plan: Blood culture Grew Possible MSSA in both bottles sensitivity IV Cefazolin Code(s): R78.81 - BACTEREMIA (8) VAP (ventilator-associated pneumonia) Assessment/Plan: ETTT aspirates grew Pseudomonas and MSSA on abx f/u ID recommendations Code(s): J95.851 - VENTILATOR ASSOCIATED PNEUMONIA
[2018-05-14] MEDS: FENTANYL INJECTION 500 MCG in DEXTROSE 5%-WATER - 90 ML IVPB SCH (17:31)
[2018-05-14] MEDS ORDERED: PT OWN MED DRAWER 7, Y5N ONE (17:40)
[2018-05-14] MEDS: HEPARIN INFUSION - 25,000 UNITS/500 ML INFUS.BAG IVPB SCH (17:42)
[2018-05-14] MEDS ORDERED: MAGNESIUM SULF 50% (8.12 MEQ/2 ML-1 GM VIAL) IVPB ONE (19:59)
[2018-05-14] MEDS ORDERED: MAGNESIUM SULFATE IN WATER 2 GM/50 ML IVPB IVPB ONE (20:15)
[2018-05-14] MEDS: CHLORHEXIDINE GLUCONATE 4% CLEANSER FOR DECOLONIZATION TP SCH (21:28)
[2018-05-14] MEDS: FLUTICASONE/SALMETEROL 100 MCG/50 MCG DISKUS IH SCH (21:28)
[2018-05-14 22:34] VITALS: BMI 42.5
[2018-05-15] MEDS ORDERED: fentaNYL CITRATE 250 MCG/5 ML VIAL ONE ×4 (00:22→21:15)
[2018-05-15] MEDS: CEFAZOLIN 2 GM/D5W 2 GM/50 ML ML IVPB SCH ×3 (01:37→17:49)
[2018-05-15] MEDS ORDERED: PT OWN MED DRAWER 7, Y5N ONE ×4 (01:38→18:53)
[2018-05-15] MEDS: MEROPENEM 1 GM in DEXTROSE 5%-WATER 100 ML IVPB SCH ×3 (01:41→17:21)
[2018-05-15] MEDS: methylPREDNISolone NA SUCC 40 MG/1 ML VIAL IVPUSH SCH ×2 (01:41→09:24)
[2018-05-15] MEDS: NOREPINEPHRINE BITARTRATE 8,000 MCG in DEXTROSE 5%-WATER - 492 ML IV SCH ×2 (01:44→19:30)
[2018-05-15] MEDS ORDERED: FUROSEMIDE INJECTION 100 MG in SODIUM CHLORIDE 90 ML IVPB SCH (05:56)
[2018-05-15 06:07] LABS: BASO % 0.3 % (0-2.0); HEMATOCRIT 38.4 % (35.4-49); HEMOGLOBIN 12.8 GM/dL (11.7-16.9); LYMPH % 3.3 % (8-40); MCH 31.2 pg (25.7-33.7); MCHC 33.3 g/dl (32.0-35.9); MEAN CELL VOLUME 93.8 fl (80-96); MEAN PLT VOLUME 8.9 fl (7.5-11.1); MONO % 3.2 % (3.8-10.2); NEUT % 93.2 % (42.8-82.8); PLATELET COUNT 188 K/MM3 (134-434); RBC 4.09 M/mm3 (4.00-5.60); RDW 14.3 % (11.9-15.9); WHITE BLOOD COUNT 15.1 K/mm3 (4.0-10.0)
[2018-05-15 06:33] LABS: ALBUMIN 2.3 g/dl (3.4-5.0); ANION GAP 8 (8-16); BLOOD UREA NITROGEN 44 mg/dL (7-18); CALCIUM 7.9 mg/dL (8.5-10.1); CHLORIDE 87 mmol/L (98-107); CO2 32 mmol/L (21-32); CREATININE 2.4 mg/dL (0.7-1.3); GLUCOSE,RANDOM 175 mg/dL (74-106); MAGNESIUM 2.1 mg/dL (1.8-2.4); POTASSIUM 3.9 mmol/L (3.5-5.1); SGOT/AST 23 U/L (15-37); SGPT/ALT 27 U/L (12-78); SODIUM 127 mmol/L (136-145)
[2018-05-15 06:35] LABS: ALK PHOS 121 U/L (45-117); BILIRUBIN,TOTAL 0.6 mg/dL (0.2-1.0); TOT PROT 5.5 g/dl (6.4-8.2)
[2018-05-15] MEDS: FUROSEMIDE INJECTION 100 MG in SODIUM CHLORIDE 90 ML IVPB SCH (06:45)
[2018-05-15] MEDS: HEPARIN NA (PORCINE) 5,000 UNITS/ML 1ML VIAL IVPUSH PRN (07:33)
[2018-05-15] MEDS: ALBUTEROL SO4 2.5/IPRATROPIUM 0.5 INH SOL 3 ML VIAL.NEB. NEB SCH ×3 (08:00→20:05)
[2018-05-15] MEDS: PROPOFOL 1,000,000 MCG/100 ML VIAL IVPB SCH (08:45)
[2018-05-15 08:55] LABS: PLATELET ESTIMATE ADEQUATE
[2018-05-15] MEDS: MUPIROCIN 2% TOPICAL OINTMENT 22 GM TUBE TP SCH ×2 (09:23→21:36)
[2018-05-15] MEDS: PANTOPRAZOLE SODIUM 40 MG VIAL IVPUSH SCH (09:24)
[2018-05-15] MEDS: DOBUTAMINE HCL 250,000 MCG in SODIUM CHLORIDE 230 ML IV SCH (09:25)
[2018-05-15] MEDS: FLUTICASONE/SALMETEROL 100 MCG/50 MCG DISKUS IH SCH ×3 (09:27→21:36)
--- NOTE | 2018-05-15 09:47 | PN ---
Progress Note (short form) - Note Progress Note: Renal follow up for JACKIE Pt seen and examined in the ICU on Vent 40% FiO2 no CVP reading yet today making urine via booth pt is hypothermic this am on Levophed gtt sedated on propofol Vital Signs Temperature 95.6 F L 05/15/18 08:00 Pulse Rate 116 H 05/15/18 09:25 Respiratory Rate 16 05/15/18 08:25 Blood Pressure 103/80 05/15/18 09:25 O2 Sat by Pulse Oximetry (%) 97 05/15/18 08:25 Intake & Output 05/12/18 05/13/18 05/14/18 05/15/18 23:59 23:59 23:59 23:59 Intake Total 3557.1 1180.3 3033 1884 Output Total 4600 3525 1050 900 Balance -1042.9 -2344.7 1983 984 Weight 122.924 kg 120.23 kg 123 kg 122.651 kg NAD awake and alert RRR, No M/R CTA soft NT/ND + edema in LE CBC, BMP 05/15/18 05:30 05/15/18 05:30 72M h/o HTN, HLD, COPD, ex smoker, PAD s/p AAA repair 12 years ago, femoral bypass 4 years ago p/w carrizales, lower extremity swelling, cough and found to have new onset afib with CHF and JACKIE. #JACKIE (baseline Cr is 0.8 in January 2018) secondary to hemodyanic injury/renal hypoprofusion #New Afib #Acute CHF #Hyponatremia in setting of volume overload #AMS/Cardiac arrest #Sepsis/Septic Shock Renal function stable at this time, pt is non-oliguric continue lasix gtt, can titrate to keep net negative keep MAP >65, titrate levophed as needed change drips to NS from D5 as serum na downtrending continue ICU care Vent support no indication for [employer] Joe Boss DO
[2018-05-15] MEDS: FENTANYL INJECTION 500 MCG in DEXTROSE 5%-WATER - 90 ML IVPB SCH ×2 (10:20→17:19)
[2018-05-15] MEDS: AMIODARONE IN DEXTROSE,ISO-OSM 360 MG/200 ML BAG IVPB SCH (11:00)
--- NOTE | 2018-05-15 11:21 | PN ---
Progress Note, Physician History of Present Illness: No CV events Family at bedside Tele: Afib 100s - Current Medication List Current Medications: Active Medications Al Hydroxide/Mg Hydroxide (Mylanta Oral Suspension -) 30 ml PO Q6H PRN PRN Reason: INDIGESTION Last Admin: 05/08/18 21:34 Dose: 30 ml Albuterol/Ipratropium (Duoneb -) 1 amp NEB RTID KINGSLEY Last Admin: 05/15/18 08:00 Dose: 1 amp Chlorhexidine Gluconate (Hibiclens For Decolonization -) 1 applic TP HS KINGSLEY Last Admin: 05/14/18 21:28 Dose: 1 applic Heparin Sodium (Porcine) (Heparin -) 1,000 unit IVPUSH PRN PRN PRN Reason: Heparin Last Admin: 05/15/18 07:33 Dose: 1,000 unit Heparin Sodium (Porcine) (Heparin -) 5,000 unit IVPUSH PRN PRN PRN Reason: Heparin Propofol (Diprivan -) 1,000,000 mcg in 100 mls @ 3.69 mls/hr IVPB TITR KINGSLEY; Protocol Last Titration: 05/15/18 03:00 Dose: 40 mcg/kg/min, 29.52 mls/hr Fentanyl 500 mcg/ Dextrose 100 mls @ 0.4 mls/hr IVPB TITR KINGSLEY; Protocol Last Admin: 05/14/18 17:31 Dose: 20 mls/hr Heparin Sodium/Dextrose (Heparin Infusion -) 25,000 units in 500 mls @ 20 mls/ hr IVPB TITR KINGSLEY; Protocol Last Titration: 05/15/18 07:32 Dose: 1,050 units/hr, 21 mls/hr Amiodarone HCl/Dextrose (Nexterone 360 Mg/200 Ml Bag) 360 mg in 200 mls @ 33.333 mls/hr IVPB TITR KINGSLEY; Protocol Last Admin: 05/14/18 12:49 Dose: 0.5 mg/min, 16.667 mls/hr Cefazolin Sodium/Dextrose (Ancef 2 Gm Premixed Ivpb -) 2 gm in 50 mls @ 200 mls /hr IVPB Q8H-IV [facility] Last Admin: 05/15/18 09:22 Dose: 200 mls/hr Meropenem 1 gm/ Dextrose 100 mls @ 200 mls/hr IVPB Q8H-IV [facility] Last Admin: 05/15/18 09:23 Dose: 200 mls/hr Norepinephrine Bitartrate 8, (000 mcg/ Dextrose) 500 mls @ 18.75 mls/hr IV TITR KINGSLEY; Protocol Last Titration: 05/15/18 06:48 Dose: 2 mcg/min, 7.5 mls/hr Furosemide 100 mg/ Sodium (Chloride) 100 mls @ 5 mls/hr IVPB ASDIR KINGSLEY; Protocol Last Admin: 05/15/18 06:45 Dose: 5 mls/hr Dobutamine HCl 250,000 mcg/ (Sodium Chloride) 250 mls @ 36.79 mls/hr IV TITR KINGSLEY; Protocol Last Admin: 05/15/18 09:25 Dose: 5 mcg/kg/min, 36.79 mls/hr Mupirocin (Bactroban 2% Ointment -) 1 applic TP BID [facility] Last Admin: 05/15/18 09:23 Dose: 1 applic Pantoprazole Sodium (Protonix Iv) 40 mg IVPUSH DAILY [facility] Last Admin: 05/15/18 09:24 Dose: 40 mg Fluticasone/Salmeterol (Advair 100mcg/50mcg -) 1 puff IH BID [facility] Last Admin: 05/15/18 09:28 Dose: Not Given - Objective Vital Signs: Vital Signs Temperature 95.6 F L 05/15/18 08:00 Pulse Rate 116 H 05/15/18 09:25 Respiratory Rate 16 05/15/18 08:25 Blood Pressure 103/80 05/15/18 09:25 O2 Sat by Pulse Oximetry (%) 97 05/15/18 08:25 Constitutional: Yes: No Distress (Opens eys to name) Eyes: Yes: WNL HENT: Yes: WNL Neck: Yes: WNL Cardiovascular: Yes: Tachycardia Respiratory: Yes: CTA Bilaterally (Intubated) Gastrointestinal: Yes: Normal Bowel Sounds Extremities: Yes: WNL Edema: No Peripheral Pulses WNL: No Labs: CBC, BMP 05/15/18 05:30 05/15/18 05:30 INR, PTT INR 1.17 (0.83-1.09) 05/10/18 06:10 Assessment/Plan a/p: 72M h/o HTN, HLD, COPD, ex smoker, PAD s/p AAA repair 12 years ago, femoral bypass 4 years ago p/w carrizales, lower extremity swelling, cough for two weeks with new afib, CHF exac, JACKIE, leukocytosis now s/p cardiac arrest with ROSC transferred to ICU on pressors, dobutamine on 05/11 Afib with RVR - echo showed severe LV dysfunction, likely related to tachycardia induced myopathy diltiazem was dc'ed and replaced with lopressor 50 mg-->stopped due to low bp - now with hypotension and HR fast at times, on Amiodarone with normal LFTs - on hep gtt for ac - will consider EL for possible cardioversion and rule out endocarditis when more clinically stable (off pressors and bp stable) - cont tele acute syst CHF - may be tachycardia induced in setting of afib with RVR, EF 30-35% on echo, will eventually need ischemic workup as outpatient - 05/06 received IV lasix 40 mg x1 in PM, 05/07 Cr 2.1->2.5 with obstruction and booth placement with improving UOP - 05/08 given lasix 40 mg IV x 1 with Cr 2.1 -> 2.9 - 05/09 lasix held due to rising Cr, auto diuresing post ATN - 05/10: received lasix 80 mg IV x1 - 05/11 overnight transferred to ICU, on dobumtamine and phenylephrine, remains with LE edema, JVD - discussed with ICU team, changing phenylephrine to levophed, will give additional dose of IV lasix 80 mg -05/12: effs on cxr, le edema, will give lasix 80 iv today -05/13: cxr improved, cont with prn lasix for now -05/14: Creat 2.6. CXR this AM worse. Would give lasix 80IV today, agree with considering lasix Gtt -On Lasix gtt at 5mg/hr, Creat improved to 2.4, K 3.9, Better UOP MSSA bacteremia, possible aspiration during code, septic shock - repeat bld cxs ngtd - pt with shoulder hardware, LE arterial graft material--may need minimum of 4 weeks abx regardless - no other stigmata of I.E., no vegetations seen on echo, no signif valve dysfunction - EL when patient more clinically stable - abx per ID -weaning off pressors Elevated troponin - intermediate range, flat trend--not c/w ACS - trop sec to decomp CHF vs demand ischemia from rapid AF COPD - on advair, duonebs, low dose steroid JACKEI, ? underlying CKD - cardiorenal syndrome vs ATN, had been improving, renal following - diuresis as above - holding home valsartan transaminitis: - AST/LT 800s on admit--both trending down progressively - likely congestive hepatopathy per GI, improving with improvement in HF status - sonogram with fatty infiltration vs hepatocellular dz picture - plan per GI H/o AAA s/p repair - holding home statin due to acute LFT elevation here--resume once LFTs stabilize - stopped ASA, as pt now on AC
--- NOTE | 2018-05-15 12:11 | PN ---
Teaching Attending Note Name of Resident: Dominguez Hedrick ATTENDING PHYSICIAN STATEMENT I saw and evaluated the patient. I reviewed the resident's note and discussed the case with the resident. I agree with the resident's findings and plan as documented. SUBJECTIVE: Pt seen and examined in the ICU. Remains intubated, sedated. On lasix, levophed and dobutamine gtts. OBJECTIVE: Vital Signs Period Temp Pulse Resp BP Sys/Carroll Pulse Ox Last 24 Hr 95.6 F-98.3 F 66-132 12-18 74-128/51-87 96-97 Intake & Output 05/12/18 05/13/18 05/14/18 05/15/18 23:59 23:59 23:59 23:59 Intake Total 3557.1 1180.3 3033 1884 Output Total 4600 3525 1050 900 Balance -1042.9 -2344.7 1983 984 Weight 122.924 kg 120.23 kg 123 kg 122.651 kg Gen: intubated, sedated Heart: tachycardic, regular Lung: scattered rhonchi Abd: soft, nontender Ext: + edema CBC, BMP 05/15/18 05:30 05/15/18 05:30 Active Medications Al Hydroxide/Mg Hydroxide (Mylanta Oral Suspension -) 30 ml PO Q6H PRN PRN Reason: INDIGESTION Last Admin: 05/08/18 21:34 Dose: 30 ml Albuterol/Ipratropium (Duoneb -) 1 amp NEB RTID [facility] Last Admin: 05/15/18 08:00 Dose: 1 amp Chlorhexidine Gluconate (Hibiclens For Decolonization -) 1 applic TP HS [facility] Last Admin: 05/14/18 21:28 Dose: 1 applic Heparin Sodium (Porcine) (Heparin -) 1,000 unit IVPUSH PRN PRN PRN Reason: Heparin Last Admin: 05/15/18 07:33 Dose: 1,000 unit Heparin Sodium (Porcine) (Heparin -) 5,000 unit IVPUSH PRN PRN PRN Reason: Heparin Propofol (Diprivan -) 1,000,000 mcg in 100 mls @ 3.69 mls/hr IVPB TITR [facility]; Protocol Last Titration: 05/15/18 03:00 Dose: 40 mcg/kg/min, 29.52 mls/hr Fentanyl 500 mcg/ Dextrose 100 mls @ 0.4 mls/hr IVPB TITR [facility]; Protocol Last Admin: 05/14/18 17:31 Dose: 20 mls/hr Heparin Sodium/Dextrose (Heparin Infusion -) 25,000 units in 500 mls @ 20 mls/ hr IVPB TITR [facility]; Protocol Last Titration: 05/15/18 07:32 Dose: 1,050 units/hr, 21 mls/hr Amiodarone HCl/Dextrose (Nexterone 360 Mg/200 Ml Bag) 360 mg in 200 mls @ 33.333 mls/hr IVPB TITR [facility]; Protocol Last Admin: 05/15/18 11:00 Dose: 0.5 mg/min, 16.667 mls/hr Cefazolin Sodium/Dextrose (Ancef 2 Gm Premixed Ivpb -) 2 gm in 50 mls @ 200 mls /hr IVPB Q8H-IV [facility] Last Admin: 05/15/18 09:22 Dose: 200 mls/hr Meropenem 1 gm/ Dextrose 100 mls @ 200 mls/hr IVPB Q8H-IV [facility] Last Admin: 05/15/18 09:23 Dose: 200 mls/hr Norepinephrine Bitartrate 8, (000 mcg/ Dextrose) 500 mls @ 18.75 mls/hr IV TITR [facility]; Protocol Last Titration: 05/15/18 06:48 Dose: 2 mcg/min, 7.5 mls/hr Furosemide 100 mg/ Sodium (Chloride) 100 mls @ 5 mls/hr IVPB ASDIR [facility]; Protocol Last Admin: 05/15/18 06:45 Dose: 5 mls/hr Dobutamine HCl 250,000 mcg/ (Sodium Chloride) 250 mls @ 36.79 mls/hr IV TITR [facility]; Protocol Last Admin: 05/15/18 09:25 Dose: 5 mcg/kg/min, 36.79 mls/hr Mupirocin (Bactroban 2% Ointment -) 1 applic TP BID [facility] Last Admin: 05/15/18 09:23 Dose: 1 applic Pantoprazole Sodium (Protonix Iv) 40 mg IVPUSH DAILY [facility] Last Admin: 05/15/18 09:24 Dose: 40 mg Fluticasone/Salmeterol (Advair 100mcg/50mcg -) 1 puff IH BID [facility] Last Admin: 05/15/18 09:28 Dose: Not Given ASSESSMENT AND PLAN: Acute Hypoxic Respiratory Failure s/p Cardiopulmonary Arrest Staph Bacteremia Shock - Cardiogenic vs Septic Acute on Chronic Systolic Heart Failure Atrial Fibrillation Acute Kidney Injury Elevated LFTs likely congestive hepatopathy +Troponins Hyponatremia PAD - continue antibiotics - cardiology considering EL/DCCV - rate control with amiodarone gtt - continue anticoagulation - pressor support to maintain MAP >65 - continue dobutamine gtt - IV lasix - monitor urine output, creatinine - keep net negative - inhaled bronchodilators - daily sedation vacations to assess mental status - spontaneous breathing trials as tolerated - enteral feeds - DVT/GI prophylaxis - continue ICU monitoring critical care time spent in reviewing chart, evaluating patient and formulating plan 35 min
--- NOTE | 2018-05-15 12:38 | PN ---
Physical Exam: SUBJECTIVE: Over the weekend sedation vacations have been revealing that pt is listening to commands and has an appropriate mental status. Pt has been enduring CPAP wean trials. Yesterday, lasix gtt was initiated for strict diuresis. Today pt is currently intubated and sedated with propofol and ventilator settings are unchanged from previous. Dobutamine and minimal levophed still on board. OBJECTIVE: Vital Signs Period Temp Pulse Resp BP Sys/Carroll Pulse Ox Last 24 Hr 95.6 F-98.3 F 66-132 12-18 74-128/51-87 96-97 GENERAL: Intubated and sedated HEENT: 3mm pupils with reactivity symmetrically, MMM NECK: Moderate JVD noted LUNGS: Diminished breath sounds at bases bilaterally, intubated on AC mode HEART: Tachycardic with regular rhythm (92 bpm), S1, S2 without murmur ABDOMEN: Soft, ND, hypoactive bowel sounds, no guarding EXTREMITIES: Warm extremities peripherally, 1+ DP and radial pulses, b/l edema noted SKIN: Warm, dry, nonblanching erythematous area on posterior R shoulder noted Laboratory Results - last 24 hr 05/15/18 05/15/18 05/15/18 05:30 05:30 05:30 WBC 15.1 H RBC 4.09 Hgb 12.8 Hct 38.4 MCV 93.8 MCH 31.2 MCHC 33.3 RDW 14.3 Plt Count 188 MPV 8.9 Absolute Neuts (auto) 14.1 Total Counted 100 Neutrophils % 93.2 H Neutrophils % (Manual) 92.0 H Band Neutrophils % 2.0 Lymphocytes % 3.3 L D Lymphocytes % (Manual) 3.0 L D Monocytes % 3.2 L Monocytes % (Manual) 3 L Eosinophils % 0.0 D Basophils % 0.3 Nucleated RBC % 0 Platelet Estimate Adequate Platelet Comment No clumping noted PTT (Actin FS) 45.5 H Sodium 127 L Potassium 3.9 Chloride 87 L Carbon Dioxide 32 Anion Gap 8 BUN 44 H Creatinine 2.4 H Creat Clearance w eGFR 26.82 Random Glucose 175 H D Calcium 7.9 L Phosphorus 6.0 H Magnesium 2.1 Total Bilirubin 0.6 AST 23 ALT 27 D Alkaline Phosphatase 121 H Total Protein 5.5 L Albumin 2.3 L Active Medications Generic Name Dose Route Start Last Admin Trade Name Freq PRN Reason Stop Dose Admin Al Hydroxide/Mg Hydroxide 30 ml 05/08/18 21:23 05/08/18 21:34 Mylanta Oral Suspension - PO 30 ml Q6H PRN Administration INDIGESTION Albuterol/Ipratropium 1 amp 05/13/18 14:00 05/15/18 08:00 Duoneb - NEB 1 amp RTID [facility] Administration Chlorhexidine Gluconate 1 applic 05/13/18 22:00 05/14/18 21:28 Hibiclens For Decolonization - TP 1 applic HS [facility] Administration Heparin Sodium (Porcine) 1,000 unit 05/11/18 17:06 05/15/18 07:33 Heparin - IVPUSH 1,000 unit PRN PRN Administration Heparin Heparin Sodium (Porcine) 5,000 unit 05/11/18 17:02 Heparin - IVPUSH PRN PRN Heparin Propofol 1,000,000 mcg in 100 mls @ 3.69 mls/hr 05/11/18 12:30 05/15/18 03:00 Diprivan - IVPB 40 mcg/kg/min TITR [facility] 29.52 mls/hr Titration Protocol 5 MCG/KG/MIN Fentanyl 500 mcg/ Dextrose 100 mls @ 0.4 mls/hr 05/11/18 16:30 05/14/18 17:31 IVPB 20 mls/hr TITR [facility] Administration Protocol 2 MCG/HR Heparin Sodium/Dextrose 25,000 units in 500 mls @ 20 mls/hr 05/11/18 17:15 07:32 Heparin Infusion - IVPB 1,050 units/hr TITR [facility] 21 mls/hr Titration Protocol 1,000 UNITS/HR Amiodarone HCl/Dextrose 360 mg in 200 mls @ 33.333 mls/hr 05/13/18 11:45 02/25 11:00 Nexterone 360 Mg/200 Ml Bag IVPB 0.5 mg/min TITR [facility] 16.667 mls/hr Administration Protocol 1 MG/MIN Cefazolin Sodium/Dextrose 2 gm in 50 mls @ 200 mls/hr 05/13/18 18:00 09:22 Ancef 2 Gm Premixed Ivpb - IVPB 200 mls/hr Q8H-IV [facility] Administration Meropenem 1 gm/ Dextrose 100 mls @ 200 mls/hr 05/13/18 18:00 05/15/18 09:23 IVPB 200 mls/hr Q8H-IV [facility] Administration Norepinephrine Bitartrate 8, 500 mls @ 18.75 mls/hr 05/14/18 02:15 05/15/18 06:48 000 mcg/ Dextrose IV 2 mcg/min TITR [facility] 7.5 mls/hr Titration Protocol 5 MCG/MIN Furosemide 100 mg/ Sodium 100 mls @ 5 mls/hr 05/15/18 06:00 05/15/18 06:45 Chloride IVPB 5 mls/hr ASDIR [facility] Administration Protocol Dobutamine HCl 250,000 mcg/ 250 mls @ 36.79 mls/hr 05/15/18 08:30 05/15/18 09 :25 Sodium Chloride IV 5 mcg/kg/min TITR [facility] 36.79 mls/hr Administration Protocol 5 MCG/KG/MIN Mupirocin 1 applic 05/13/18 10:00 05/15/18 09:23 Bactroban 2% Ointment - TP 1 applic BID [facility] Administration Pantoprazole Sodium 40 mg 05/11/18 14:30 05/15/18 09:24 Protonix Iv IVPUSH 40 mg DAILY [facility] Administration Fluticasone/Salmeterol 1 puff 05/06/18 22:00 05/15/18 09:28 Advair 100mcg/50mcg - IH Not Given BID [facility] ASSESSMENT/PLAN: Acute hypoxic respiratory failure Cardiogenic shock s/p Cardiovascular arrest Elevated troponins Staph bacteremia Hyponatremia Atrial fibrillation JACKIE Neuro: Pt currently sedated with propofol and fentanyl Sedation vacation today Respiratory: Continue wean trials; likely extubation if tolerates either today or tomorrow Continue Duonebs TID scheduled Continue Medrol 60mg q8h Cardiovascular: Continue dobutamine gtt for cardiogenic shock Will titrate Levophed to maintain MAP around 65 Continue Lasix gtt for strict diuresis to allow for reduction in afterload Heparin gtt due to cardiovascular event with elevation of troponins --Will switch to NS solution from D5W due to hyponatremia Cardiology on board; EL eventually when stable Currently being rate controlled with amiodarone gtt; will continue Renal: Monitor renal function while on Lasix gtt; slight increase today Nephrology on board Monitor output through booth; pt oliguria improved however remains oliguric --Goal 0.5cc/kg/hr --Maintain net negative output FEN: Fluids: None; consolidating dosages to minimize fluid intake Electrolyte abnormalities: Hyponatremia Nutrition: Will advance to enteral feeds if pt stabilizes: Promote at 15cc + [id number], goal 75cc/hr PPX: DVT - Heparin gtt already on board GI - Protonix 40mg qDaily IVP Dispo: Continue ICU monitoring; wean trials and pressor mgmt Case discussed with Dr. Alhaji Hedrick, DO - IM PGY-2 Visit type - Emergency Visit Emergency Visit: No - New Patient This patient is new to me today: No - Critical Care Critical Care patient: Yes Total Critical Care Time (in minutes): 40 Critical Care Statement: The care of this patient involved high complexity decision making to prevent further life threatening deterioration of the patient 's condition and/or to evaluate & treat vital organ system(s) failure or risk of failure.
--- NOTE | 2018-05-15 13:22 | PN ---
Progress Note, Physician Chief Complaint: Patient remained intubated required pressors to maintain BP, off sedation evaluated by the ICU team, patient was following verbal commands - Current Medication List Current Medications: Active Medications Al Hydroxide/Mg Hydroxide (Mylanta Oral Suspension -) 30 ml PO Q6H PRN PRN Reason: INDIGESTION Last Admin: 05/08/18 21:34 Dose: 30 ml Albuterol/Ipratropium (Duoneb -) 1 amp NEB RTID [facility] Last Admin: 05/15/18 08:00 Dose: 1 amp Chlorhexidine Gluconate (Hibiclens For Decolonization -) 1 applic TP HS [facility] Last Admin: 05/14/18 21:28 Dose: 1 applic Heparin Sodium (Porcine) (Heparin -) 1,000 unit IVPUSH PRN PRN PRN Reason: Heparin Last Admin: 05/15/18 07:33 Dose: 1,000 unit Heparin Sodium (Porcine) (Heparin -) 5,000 unit IVPUSH PRN PRN PRN Reason: Heparin Propofol (Diprivan -) 1,000,000 mcg in 100 mls @ 3.69 mls/hr IVPB TITR [facility]; Protocol Last Titration: 05/15/18 03:00 Dose: 40 mcg/kg/min, 29.52 mls/hr Fentanyl 500 mcg/ Dextrose 100 mls @ 0.4 mls/hr IVPB TITR [facility]; Protocol Last Admin: 05/14/18 17:31 Dose: 20 mls/hr Amiodarone HCl/Dextrose (Nexterone 360 Mg/200 Ml Bag) 360 mg in 200 mls @ 33.333 mls/hr IVPB TITR [facility]; Protocol Last Admin: 05/15/18 11:00 Dose: 0.5 mg/min, 16.667 mls/hr Cefazolin Sodium/Dextrose (Ancef 2 Gm Premixed Ivpb -) 2 gm in 50 mls @ 200 mls /hr IVPB Q8H-IV [facility] Last Admin: 05/15/18 09:22 Dose: 200 mls/hr Meropenem 1 gm/ Dextrose 100 mls @ 200 mls/hr IVPB Q8H-IV [facility] Last Admin: 05/15/18 09:23 Dose: 200 mls/hr Norepinephrine Bitartrate 8, (000 mcg/ Dextrose) 500 mls @ 18.75 mls/hr IV TITR [facility]; Protocol Last Titration: 05/15/18 06:48 Dose: 2 mcg/min, 7.5 mls/hr Furosemide 100 mg/ Sodium (Chloride) 100 mls @ 5 mls/hr IVPB ASDIR [facility]; Protocol Last Admin: 05/15/18 06:45 Dose: 5 mls/hr Dobutamine HCl 250,000 mcg/ (Sodium Chloride) 250 mls @ 36.79 mls/hr IV TITR [facility]; Protocol Last Admin: 05/15/18 09:25 Dose: 5 mcg/kg/min, 36.79 mls/hr Heparin Sodium (Porcine) 25, (000 unit/ Sodium Chloride) 500 mls @ 20 mls/hr IV TITR [facility]; Protocol Mupirocin (Bactroban 2% Ointment -) 1 applic TP BID [facility] Last Admin: 05/15/18 09:23 Dose: 1 applic Pantoprazole Sodium (Protonix Iv) 40 mg IVPUSH DAILY [facility] Last Admin: 05/15/18 09:24 Dose: 40 mg Fluticasone/Salmeterol (Advair 100mcg/50mcg -) 1 puff IH BID [facility] Last Admin: 05/15/18 09:28 Dose: Not Given - Objective Vital Signs: Vital Signs Temperature 95.6 F L 05/15/18 08:00 Pulse Rate 116 H 05/15/18 09:25 Respiratory Rate 15 05/15/18 11:56 Blood Pressure 103/80 05/15/18 09:25 O2 Sat by Pulse Oximetry (%) 97 05/15/18 08:25 Constitutional: sedated s/p intubation , ETT and NG tube at place. HEENT: Sedated ETT at place Neck: NO JVD Decreased ROM, Lumps, Pain on Movement Cardiovascular: Irr S1S2 Tachycardia no murmur or Gallop Respiratory: B/L Basal crepts on Vent Gastrointestinal: Obese, non tender BS + Genitourinary: Urinary retention s/p Foleys LE and Musculoskeletal: B/L LE edema nad puplish discoloration ICU team is aware Neurological: Sedated as per ICU team able to follow commands in am off sedation. Labs: CBC, BMP 05/15/18 05:30 05/15/18 05:30 INR, PTT INR 1.17 (0.83-1.09) 05/10/18 06:10 Problem List - Problems (1) Acute exacerbation of CHF (congestive heart failure) Assessment/Plan: Present with CHS symptoms with Afib , Bed side ECHO shows Low EF will F/U ECHO , most likely tachycardia induced, initially responsded to Lasix and rate control with PO Diltiazem , had a cardiac arrest on 05/11/2018 intubated now in ICU on Vent Code(s): I50.9 - HEART FAILURE, UNSPECIFIED Qualifiers: Heart failure type: systolic Qualified Code(s): I50.23 - Acute on chronic systolic (congestive) heart failure (2) Atrial fibrillation with RVR Assessment/Plan: On Heparin infusion and Amiodarone rate controlled possible EL and Cardioversion once stable. Code(s): I48.91 - UNSPECIFIED ATRIAL FIBRILLATION (3) COPD with exacerbation Assessment/Plan: On Vent cont Duoneb and IV Steroids Code(s): J44.1 - CHRONIC OBSTRUCTIVE PULMONARY DISEASE W (ACUTE) EXACERBATION (4) Elevated troponin I level Assessment/Plan: Most likely Demand ischemia F/U Ischemic w/u once stable Code(s): R74.8 - ABNORMAL LEVELS OF OTHER SERUM ENZYMES (5) JACKIE (acute kidney injury) Assessment/Plan: Worsening renal functions most likely JACKIE on CKD F/U Renal recommendations Code(s): N17.9 - ACUTE KIDNEY FAILURE, UNSPECIFIED (6) Transaminitis Assessment/Plan: Elevated SGOT PT most likely congestive Hepatopathy on stain, considering morbid obesity vcan be due to ROJAS will F/U Hepatitis panel F/U LFTS and GI recommondations Code(s): R74.0 - NONSPEC ELEV OF LEVELS OF TRANSAMNS & LACTIC ACID DEHYDRGNSE (7) Gram-positive bacteremia Assessment/Plan: Blood culture Grew Possible MSSA in both bottles sensitivity IV Cefazolin Code(s): R78.81 - BACTEREMIA (8) VAP (ventilator-associated pneumonia) Assessment/Plan: ETTT aspirates grew Pseudomonas and MSSA on abx f/u ID recommendations Code(s): J95.851 - VENTILATOR ASSOCIATED PNEUMONIA
[2018-05-15] MEDS: HEPARIN - 25,000 UNIT in SODIUM CHLORIDE 495 ML IV SCH (14:00)
--- NOTE | 2018-05-15 15:28 | PN ---
Progress Note, Physician History of Present Illness: Awake on ventilator Remains hypotensive on pressors Afebrile ? Hypothermic WBC remains elevated. Steroids D/C'd BC ( 05/12) no growth - Current Medication List Current Medications: Active Medications Al Hydroxide/Mg Hydroxide (Mylanta Oral Suspension -) 30 ml PO Q6H PRN PRN Reason: INDIGESTION Last Admin: 05/08/18 21:34 Dose: 30 ml Albuterol/Ipratropium (Duoneb -) 1 amp NEB RTID [facility] Last Admin: 05/15/18 08:00 Dose: 1 amp Chlorhexidine Gluconate (Hibiclens For Decolonization -) 1 applic TP HS [facility] Last Admin: 05/14/18 21:28 Dose: 1 applic Heparin Sodium (Porcine) (Heparin -) 1,000 unit IVPUSH PRN PRN PRN Reason: Heparin Last Admin: 05/15/18 07:33 Dose: 1,000 unit Heparin Sodium (Porcine) (Heparin -) 5,000 unit IVPUSH PRN PRN PRN Reason: Heparin Propofol (Diprivan -) 1,000,000 mcg in 100 mls @ 3.69 mls/hr IVPB TITR [facility]; Protocol Last Titration: 05/15/18 03:00 Dose: 40 mcg/kg/min, 29.52 mls/hr Fentanyl 500 mcg/ Dextrose 100 mls @ 0.4 mls/hr IVPB TITR [facility]; Protocol Last Admin: 05/14/18 17:31 Dose: 20 mls/hr Amiodarone HCl/Dextrose (Nexterone 360 Mg/200 Ml Bag) 360 mg in 200 mls @ 33.333 mls/hr IVPB TITR [facility]; Protocol Last Admin: 05/15/18 11:00 Dose: 0.5 mg/min, 16.667 mls/hr Cefazolin Sodium/Dextrose (Ancef 2 Gm Premixed Ivpb -) 2 gm in 50 mls @ 200 mls /hr IVPB Q8H-IV [facility] Last Admin: 05/15/18 09:22 Dose: 200 mls/hr Meropenem 1 gm/ Dextrose 100 mls @ 200 mls/hr IVPB Q8H-IV [facility] Last Admin: 05/15/18 09:23 Dose: 200 mls/hr Norepinephrine Bitartrate 8, (000 mcg/ Dextrose) 500 mls @ 18.75 mls/hr IV TITR [facility]; Protocol Last Titration: 05/15/18 06:48 Dose: 2 mcg/min, 7.5 mls/hr Furosemide 100 mg/ Sodium (Chloride) 100 mls @ 5 mls/hr IVPB ASDIR [facility]; Protocol Last Admin: 05/15/18 06:45 Dose: 5 mls/hr Dobutamine HCl 250,000 mcg/ (Sodium Chloride) 250 mls @ 36.79 mls/hr IV TITR [facility]; Protocol Last Admin: 05/15/18 09:25 Dose: 5 mcg/kg/min, 36.79 mls/hr Heparin Sodium (Porcine) 25, (000 unit/ Sodium Chloride) 500 mls @ 20 mls/hr IV TITR [facility]; Protocol Mupirocin (Bactroban 2% Ointment -) 1 applic TP BID [facility] Last Admin: 05/15/18 09:23 Dose: 1 applic Pantoprazole Sodium (Protonix Iv) 40 mg IVPUSH DAILY [facility] Last Admin: 05/15/18 09:24 Dose: 40 mg Fluticasone/Salmeterol (Advair 100mcg/50mcg -) 1 puff IH BID [facility] Last Admin: 05/15/18 09:28 Dose: Not Given - Objective Vital Signs: Vital Signs Temperature 97.5 F L 05/15/18 10:00 Pulse Rate 111 H 05/15/18 15:00 Respiratory Rate 12 05/15/18 15:00 Blood Pressure 92/56 05/15/18 15:00 O2 Sat by Pulse Oximetry (%) 97 05/15/18 08:25 Constitutional: Yes: No Distress Cardiovascular: Yes: Regular Rate and Rhythm, S1, S2 Respiratory: Yes: Mechanically Ventilated Gastrointestinal: Yes: Normal Bowel Sounds, Soft. No: Tenderness Edema: Yes Labs: CBC, BMP 05/15/18 05:30 05/15/18 05:30 INR, PTT INR 1.17 (0.83-1.09) 05/10/18 06:10 Assessment/Plan MSSA bacteremia, possible endocarditis Respiratory failure ? pneumonia Leukocytosis Azotemia Continue cefazolin/ meropenem Hemodynamic/ ventilatory support
[2018-05-15] MEDS ORDERED: ARTIFICIAL TEARS (POLYVINYL ALCOHOL 1.4%) OPTH DROPS OU PRN (16:33)
[2018-05-15] MEDS ORDERED: FENTANYL INJECTION 500 MCG in SODIUM CHLORIDE 90 ML IVPB SCH (19:15)
[2018-05-15] MEDS: FENTANYL INJECTION 500 MCG in SODIUM CHLORIDE 90 ML IVPB SCH (19:53)
[2018-05-15] MEDS: CHLORHEXIDINE GLUCONATE 4% CLEANSER FOR DECOLONIZATION TP SCH (21:36)
[2018-05-16] MEDS ORDERED: PT OWN MED DRAWER 7, Y5N ONE ×2 (01:22→09:52)
[2018-05-16] MEDS ORDERED: fentaNYL CITRATE 250 MCG/5 ML VIAL ONE ×4 (01:22→17:39)
[2018-05-16] MEDS: CEFAZOLIN 2 GM/D5W 2 GM/50 ML ML IVPB SCH ×2 (01:37→10:09)
[2018-05-16] MEDS: MEROPENEM 1 GM in DEXTROSE 5%-WATER 100 ML IVPB SCH ×2 (01:37→10:57)
[2018-05-16 06:04] LABS: HEMATOCRIT 37.3 % (35.4-49); HEMOGLOBIN 12.2 GM/dL (11.7-16.9); MCHC 32.7 g/dl (32.0-35.9); MEAN CELL VOLUME 94.7 fl (80-96); MEAN PLT VOLUME 9.1 fl (7.5-11.1); PLATELET COUNT 243 K/MM3 (134-434); RBC 3.94 M/mm3 (4.00-5.60); WHITE BLOOD COUNT 26.9 K/mm3 (4.0-10.0)
[2018-05-16] MEDS: FUROSEMIDE INJECTION 100 MG in SODIUM CHLORIDE 90 ML IVPB SCH (06:20)
[2018-05-16 06:32] LABS: CHLORIDE 86 mmol/L (98-107); POTASSIUM 4.6 mmol/L (3.5-5.1); SODIUM 127 mmol/L (136-145)
[2018-05-16 06:40] LABS: ALBUMIN 2.3 g/dl (3.4-5.0); ALK PHOS 107 U/L (45-117); ANION GAP 11 (8-16); BILIRUBIN,TOTAL 0.4 mg/dL (0.2-1.0); BLOOD UREA NITROGEN 49 mg/dL (7-18); CALCIUM 8.1 mg/dL (8.5-10.1); CO2 30 mmol/L (21-32); GLUCOSE,RANDOM 118 mg/dL (74-106); MAGNESIUM 2.1 mg/dL (1.8-2.4); PHOSPHOROUS 7.4 mg/dL (2.5-4.9); SGOT/AST 24 U/L (15-37); SGPT/ALT 22 U/L (12-78); TOT PROT 5.6 g/dl (6.4-8.2)
[2018-05-16] MEDS: FENTANYL INJECTION 500 MCG in SODIUM CHLORIDE 90 ML IVPB SCH ×3 (08:02→17:41)
[2018-05-16] MEDS: ALBUTEROL SO4 2.5/IPRATROPIUM 0.5 INH SOL 3 ML VIAL.NEB. NEB SCH ×2 (08:18→14:20)
--- NOTE | 2018-05-16 09:26 | PN ---
Progress Note, Physician Chief Complaint: SHOCK, ACUTE RESP FAILURE History of Present Illness: intubated, sedated. on norepi 15, dobut 5, amio gtt - Current Medication List Current Medications: Active Medications Al Hydroxide/Mg Hydroxide (Mylanta Oral Suspension -) 30 ml PO Q6H PRN PRN Reason: INDIGESTION Last Admin: 05/08/18 21:34 Dose: 30 ml Albuterol/Ipratropium (Duoneb -) 1 amp NEB RTID [facility] Last Admin: 05/16/18 08:18 Dose: 1 amp Artificial Tears (Artificial Tears) 1 drop OU BID PRN PRN Reason: PAIN Chlorhexidine Gluconate (Hibiclens For Decolonization -) 1 applic TP HS [facility] Last Admin: 05/15/18 21:36 Dose: 1 applic Heparin Sodium (Porcine) (Heparin -) 1,000 unit IVPUSH PRN PRN PRN Reason: Heparin Last Admin: 05/15/18 07:33 Dose: 1,000 unit Heparin Sodium (Porcine) (Heparin -) 5,000 unit IVPUSH PRN PRN PRN Reason: Heparin Propofol (Diprivan -) 1,000,000 mcg in 100 mls @ 3.69 mls/hr IVPB TITR [facility]; Protocol Last Titration: 05/15/18 19:30 Dose: 40 mcg/kg/min, 29.52 mls/hr Amiodarone HCl/Dextrose (Nexterone 360 Mg/200 Ml Bag) 360 mg in 200 mls @ 33.333 mls/hr IVPB TITR [facility]; Protocol Last Admin: 05/15/18 11:00 Dose: 0.5 mg/min, 16.667 mls/hr Cefazolin Sodium/Dextrose (Ancef 2 Gm Premixed Ivpb -) 2 gm in 50 mls @ 200 mls /hr IVPB Q8H-IV [facility] Last Admin: 05/16/18 01:37 Dose: 200 mls/hr Meropenem 1 gm/ Dextrose 100 mls @ 200 mls/hr IVPB Q8H-IV [facility] Last Admin: 05/16/18 01:37 Dose: 200 mls/hr Norepinephrine Bitartrate 8, (000 mcg/ Dextrose) 500 mls @ 18.75 mls/hr IV TITR [facility]; Protocol Last Titration: 05/15/18 20:30 Dose: 15 mcg/min, 56.25 mls/hr Furosemide 100 mg/ Sodium (Chloride) 100 mls @ 5 mls/hr IVPB ASDIR [facility]; Protocol Last Admin: 05/16/18 06:20 Dose: 5 mls/hr Dobutamine HCl 250,000 mcg/ (Sodium Chloride) 250 mls @ 36.79 mls/hr IV TITR [facility]; Protocol Last Admin: 05/15/18 09:25 Dose: 5 mcg/kg/min, 36.79 mls/hr Heparin Sodium (Porcine) 25, (000 unit/ Sodium Chloride) 500 mls @ 20 mls/hr IV TITR [facility]; Protocol Last Titration: 05/15/18 19:30 Dose: 1,050 unit/hr, 21 mls/hr Fentanyl 500 mcg/ Sodium (Chloride) 100 mls @ 1 mls/hr IVPB TITR [facility]; Protocol Last Admin: 05/16/18 08:02 Dose: 150 mcg/hr, 30 mls/hr Mupirocin (Bactroban 2% Ointment -) 1 applic TP BID [facility] Last Admin: 05/15/18 21:36 Dose: 1 applic Pantoprazole Sodium (Protonix Iv) 40 mg IVPUSH DAILY [facility] Last Admin: 05/15/18 09:24 Dose: 40 mg - Objective Vital Signs: Vital Signs Temperature 97.7 F 05/16/18 02:00 Pulse Rate 121 H 05/16/18 08:19 Respiratory Rate 12 05/16/18 08:19 Blood Pressure 101/68 05/16/18 07:00 O2 Sat by Pulse Oximetry (%) 92 L 05/16/18 08:19 Constitutional: Yes: Well Nourished, No Distress, Calm Cardiovascular: Yes: Pulse Irregular, S1, S2. No: JVD (tds exam), Gallop, Murmur Respiratory: Yes: Regular, CTA Bilaterally (anteriorly). No: Accessory Muscle Use, Rales, Wheezes Extremities: No: Cold Edema: No Neurological: No: Alert, Oriented Psychiatric: No: Agitated Labs: CBC, BMP 05/16/18 05:30 05/16/18 05:30 INR, PTT INR 1.17 (0.83-1.09) 05/10/18 06:10 Assessment/Plan EKG 05/06/18 afib with RVR 155, RBBB EKG 05/11/18 afib rate 70s, diffuse TWI cxr 05/14: signif worsening infiltrates R > L lung cxr 05/16: improved vs 05/14, worsened vs 05/13 Echo 04/27 (here): nl LV size, severely reduced LVSF global (EF 30-35%). mild RVE , mod decr RVSF. L/TODD. mild MR/TR. no signif (KOLE 1.3, mean gradient 10). RVSP at least 39. tele: AF to 120s a/p: 72M h/o HTN, HLD, COPD, ex smoker, PAD s/p AAA repair 12 years ago, femoral bypass 4 years ago p/w carrizales, lower extremity swelling, cough for two weeks with new afib, CHF exac, JACKIE, leukocytosis now s/p cardiac arrest with ROSC transferred to ICU on pressors, dobutamine on 05/11 Afib with RVR - echo showed severe LV dysfunction, likely related to tachycardia induced myopathy diltiazem was dc'ed and replaced with lopressor 50 mg-->stopped due to low bp - developed rapid HRs with hypotension--amio gtt started - on hep gtt for ac - ? afib rhythm per se, or tachy burden, contributing to shock status/low output but possible. blind cardioversion (i.e. without EL) would carry definite risk of thromboembolism/CVA and would reserve that only if emergently becoming unstable hemodynamically despite pressors. - EL presently is high risk given pt intubated and on 2 pressors with bp's 90s- 100s. concerned about risk of acute hypotension causing downward spiral, or loss of airway from EL probe. d/w'd dr villa critical care and team--would like to transfer pt to ICU at [facility] to have EL done there, and can do DCCV at that time. - cont amio gtt for now - cont tele acute syst CHF - may be tachycardia induced in setting of afib with RVR, EF 30-35% on echo, will eventually need ischemic workup as outpatient - 05/06 received IV lasix 40 mg x1 in PM, 05/07 Cr 2.1->2.5 with obstruction and booth placement with improving UOP - 05/08 given lasix 40 mg IV x 1 with Cr 2.1 -> 2.9 - 05/09 lasix held due to rising Cr, auto diuresing post ATN - 05/10: received lasix 80 mg IV x1 - 05/11 overnight transferred to ICU, on dobumtamine and phenylephrine, remains with LE edema, JVD - discussed with ICU team, changing phenylephrine to levophed, will give additional dose of IV lasix 80 mg -05/12: effs on cxr, le edema, will give lasix 80 iv today -05/13: cxr improved, cont with prn lasix for now -05/14: Creat 2.6. CXR this AM worse. given lasix 80 IV today, followed by initiation of lasix gtt -05/15: On Lasix gtt at 5mg/hr, Creat improved to 2.4, K 3.9, Better UOP -05/16: CXR remains congested, and worse vs last week. pt was net negative fluid balance total of 5L btw 05/10 and 05/13. since 05/14 he is net positive 4L. remains borderline hemodynamics frequently BPs 80s-90s. per d/w crit care, will change back to lasix 80 IVP boluses for better diuresis MSSA bacteremia, possible aspiration during code, septic shock - repeat bld cxs ngtd - pt with shoulder hardware, LE arterial graft material--may need minimum of 4 weeks abx regardless - no other stigmata of I.E., no vegetations seen on echo, no signif valve dysfunction - EL timing as above - abx per ID - now off pressors but bp low again, may need to resume levophed Elevated troponin - intermediate range, flat trend--not c/w ACS - trop sec to decomp CHF vs demand ischemia from rapid AF COPD - on advair, duonebs, low dose steroid JACKIE, ? underlying CKD - cardiorenal syndrome vs ATN - renal fxn worsening today, ? sepsis - renal consultants following - holding home valsartan transaminitis: - AST/LT 800s on admit--both trending down progressively - ? congestive hepatopathy per GI, normalized now ? due to improvement in HF status - sonogram with fatty infiltration vs hepatocellular dz picture - plan per GI, critical car H/o AAA s/p repair - holding home statin due to acute LFT elevation here--resume once LFTs stabilize - stopped ASA, as pt now on AC est'd time spent in pt exam, review of chart, and formulating mgmt plan for potentially life-threatening conditions = 40 min
[2018-05-16] MEDS: PROPOFOL 1,000,000 MCG/100 ML VIAL IVPB SCH ×2 (09:56→14:42)
[2018-05-16] MEDS: PANTOPRAZOLE SODIUM 40 MG VIAL IVPUSH SCH (10:15)
[2018-05-16] MEDS: DOBUTAMINE HCL 250,000 MCG in SODIUM CHLORIDE 230 ML IV SCH ×2 (11:09→18:28)
[2018-05-16] MEDS: AMIODARONE IN DEXTROSE,ISO-OSM 360 MG/200 ML BAG IVPB SCH (11:12)
[2018-05-16] MEDS ORDERED: FUROSEMIDE 40 MG/4 ML INJECTABLE VIAL IVPB ONE (11:35)
--- NOTE | 2018-05-16 11:36 | PN ---
Progress Note (short form) - Note Progress Note: Renal follow up for JACKIE Pt seen and examined in the ICU on Vent 40% FiO2 on levophed 17mcg, Dobutamine gtt, Lasix gtt, propofol gtt has urine output but remains net positive no fever, chills family at the bedside Vital Signs Temperature 98.3 F 05/16/18 11:00 Pulse Rate 116 H 05/16/18 11:00 Respiratory Rate 16 05/16/18 11:19 Blood Pressure 98/76 05/16/18 11:00 O2 Sat by Pulse Oximetry (%) 92 L 05/16/18 11:20 Intake & Output 05/13/18 05/14/18 05/15/18 05/16/18 23:59 23:59 23:59 23:59 Intake Total 1180.3 3033 3895 2230 Output Total 3525 1050 1800 400 Balance -2344.7 1982 2094 1830 Weight 120.23 kg 123 kg 122.651 kg 123.1 kg NAD awake and alert RRR, No M/R CTA soft NT/ND + edema in LE CBC, BMP 05/16/18 05:30 05/16/18 05:30 Current Medications Al Hydroxide/Mg Hydroxide (Mylanta Oral Suspension -) 30 ml PO Q6H PRN PRN Reason: INDIGESTION Last Admin: 05/08/18 21:34 Dose: 30 ml Albuterol/Ipratropium (Duoneb -) 1 amp NEB RTID [facility] Last Admin: 05/16/18 08:18 Dose: 1 amp Artificial Tears (Artificial Tears) 1 drop OU BID PRN PRN Reason: PAIN Chlorhexidine Gluconate (Hibiclens For Decolonization -) 1 applic TP HS [facility] Last Admin: 05/15/18 21:36 Dose: 1 applic Heparin Sodium (Porcine) (Heparin -) 1,000 unit IVPUSH PRN PRN PRN Reason: Heparin Last Admin: 05/15/18 07:33 Dose: 1,000 unit Heparin Sodium (Porcine) (Heparin -) 5,000 unit IVPUSH PRN PRN PRN Reason: Heparin Propofol (Diprivan -) 1,000,000 mcg in 100 mls @ 3.69 mls/hr IVPB TITR [facility]; Protocol Last Admin: 05/16/18 09:56 Dose: 7 mcg/kg/min, 5.166 mls/hr Amiodarone HCl/Dextrose (Nexterone 360 Mg/200 Ml Bag) 360 mg in 200 mls @ 33.333 mls/hr IVPB TITR [facility]; Protocol Last Admin: 05/16/18 11:12 Dose: 0.5 mg/min, 16.667 mls/hr Cefazolin Sodium/Dextrose (Ancef 2 Gm Premixed Ivpb -) 2 gm in 50 mls @ 200 mls /hr IVPB Q8H-IV [facility] Last Admin: 05/16/18 10:09 Dose: 200 mls/hr Meropenem 1 gm/ Dextrose 100 mls @ 200 mls/hr IVPB Q8H-IV [facility] Last Admin: 05/16/18 10:57 Dose: 200 mls/hr Norepinephrine Bitartrate 8, (000 mcg/ Dextrose) 500 mls @ 18.75 mls/hr IV TITR [facility]; Protocol Last Titration: 05/15/18 20:30 Dose: 15 mcg/min, 56.25 mls/hr Dobutamine HCl 250,000 mcg/ (Sodium Chloride) 250 mls @ 36.79 mls/hr IV TITR [facility]; Protocol Last Admin: 05/16/18 11:09 Dose: 5 mcg/kg/min, 36.79 mls/hr Heparin Sodium (Porcine) 25, (000 unit/ Sodium Chloride) 500 mls @ 20 mls/hr IV TITR [facility]; Protocol Last Titration: 05/15/18 19:30 Dose: 1,050 unit/hr, 21 mls/hr Fentanyl 500 mcg/ Sodium (Chloride) 100 mls @ 1 mls/hr IVPB TITR [facility]; Protocol Last Admin: 05/16/18 08:02 Dose: 150 mcg/hr, 30 mls/hr Mupirocin (Bactroban 2% Ointment -) 1 applic TP BID [facility] Last Admin: 05/15/18 21:36 Dose: 1 applic Pantoprazole Sodium (Protonix Iv) 40 mg IVPUSH DAILY [facility] Last Admin: 05/16/18 10:15 Dose: 40 mg 72M h/o HTN, HLD, COPD, ex smoker, PAD s/p AAA repair 12 years ago, femoral bypass 4 years ago p/w carrizales, lower extremity swelling, cough and found to have new onset afib with CHF and JACKIE. #JACKIE (baseline Cr is 0.8 in January 2018) secondary to hemodyanic injury/renal hypoprofusion #New Afib #Acute CHF #Hyponatremia in setting of volume overload #AMS/Cardiac arrest #Sepsis/Septic Shock Renal function worsening, likely secondary to hypoprofusion in setting of shock pt remains non-oliguric but is net positive and CXR shows continued congestion will check CVP now, if > 12 can give Lasix 120mg IVP x 1 and repeat Q8-12 hours depending on response D/c Lasix gtt pt may benifit from CVVHD if renal function and volume status does not improve possible transfer to tertiary care center Cardiology follow up Abx as per ID Joe Boss DO
--- NOTE | 2018-05-16 12:18 | PN ---
Teaching Attending Note Name of Resident: Fortino Pineda ATTENDING PHYSICIAN STATEMENT I saw and evaluated the patient. I reviewed the resident's note and discussed the case with the resident. I agree with the resident's findings and plan as documented. SUBJECTIVE: Pt seen and examined in the ICU. Remains intubated, sedated but arousable off sedation. On increased levophed gtt, remains on dobutamine and amiodarone gtts but heart rates still rapid. OBJECTIVE: Vital Signs Period Temp Pulse Resp BP Sys/Carroll Pulse Ox Last 24 Hr 97.7 F-98.4 F 110-128 11-22 72-115/56-86 92-94 Intake & Output 05/13/18 05/14/18 05/15/18 05/16/18 23:59 23:59 23:59 23:59 Intake Total 1180.3 3033 3895 2230 Output Total 3525 1050 1800 400 Balance -2344.7 1983 2094 1830 Weight 120.23 kg 123 kg 122.651 kg 123.1 kg Gen: intubated, sedated Heart: tachycardic, irregular Lung: scattered rhonchi Abd: soft, nontender Ext: + edema CBC, BMP 05/16/18 05:30 05/16/18 05:30 Active Medications Al Hydroxide/Mg Hydroxide (Mylanta Oral Suspension -) 30 ml PO Q6H PRN PRN Reason: INDIGESTION Last Admin: 05/08/18 21:34 Dose: 30 ml Albuterol/Ipratropium (Duoneb -) 1 amp NEB RTID [facility] Last Admin: 05/16/18 08:18 Dose: 1 amp Artificial Tears (Artificial Tears) 1 drop OU BID PRN PRN Reason: PAIN Chlorhexidine Gluconate (Hibiclens For Decolonization -) 1 applic TP HS [facility] Last Admin: 05/15/18 21:36 Dose: 1 applic Heparin Sodium (Porcine) (Heparin -) 1,000 unit IVPUSH PRN PRN PRN Reason: Heparin Last Admin: 05/15/18 07:33 Dose: 1,000 unit Heparin Sodium (Porcine) (Heparin -) 5,000 unit IVPUSH PRN PRN PRN Reason: Heparin Propofol (Diprivan -) 1,000,000 mcg in 100 mls @ 3.69 mls/hr IVPB TITR [facility]; Protocol Last Admin: 05/16/18 09:56 Dose: 7 mcg/kg/min, 5.166 mls/hr Amiodarone HCl/Dextrose (Nexterone 360 Mg/200 Ml Bag) 360 mg in 200 mls @ 33.333 mls/hr IVPB TITR [facility]; Protocol Last Admin: 05/16/18 11:12 Dose: 0.5 mg/min, 16.667 mls/hr Cefazolin Sodium/Dextrose (Ancef 2 Gm Premixed Ivpb -) 2 gm in 50 mls @ 200 mls /hr IVPB Q8H-IV [facility] Last Admin: 05/16/18 10:09 Dose: 200 mls/hr Meropenem 1 gm/ Dextrose 100 mls @ 200 mls/hr IVPB Q8H-IV [facility] Last Admin: 05/16/18 10:57 Dose: 200 mls/hr Norepinephrine Bitartrate 8, (000 mcg/ Dextrose) 500 mls @ 18.75 mls/hr IV TITR [facility]; Protocol Last Titration: 05/15/18 20:30 Dose: 15 mcg/min, 56.25 mls/hr Dobutamine HCl 250,000 mcg/ (Sodium Chloride) 250 mls @ 36.79 mls/hr IV TITR [facility]; Protocol Last Admin: 05/16/18 11:09 Dose: 5 mcg/kg/min, 36.79 mls/hr Heparin Sodium (Porcine) 25, (000 unit/ Sodium Chloride) 500 mls @ 20 mls/hr IV TITR [facility]; Protocol Last Titration: 05/15/18 19:30 Dose: 1,050 unit/hr, 21 mls/hr Fentanyl 500 mcg/ Sodium (Chloride) 100 mls @ 1 mls/hr IVPB TITR [facility]; Protocol Last Admin: 05/16/18 08:02 Dose: 150 mcg/hr, 30 mls/hr Mupirocin (Bactroban 2% Ointment -) 1 applic TP BID [facility] Last Admin: 05/15/18 21:36 Dose: 1 applic Pantoprazole Sodium (Protonix Iv) 40 mg IVPUSH DAILY [facility] Last Admin: 05/16/18 10:15 Dose: 40 mg ASSESSMENT AND PLAN: Acute Hypoxic Respiratory Failure s/p Cardiopulmonary Arrest Staph Bacteremia Shock - Cardiogenic vs Septic Acute on Chronic Systolic Heart Failure Atrial Fibrillation Acute Kidney Injury Elevated LFTs likely congestive hepatopathy +Troponins Hyponatremia PAD - CT C/A/P to investigate increasing leukocytosis - continue antibiotics - cardiology considering EL/DCCV, may need transfer to tertiary medical center - rate control with amiodarone gtt - continue anticoagulation - pressor support to maintain MAP >65 - continue dobutamine gtt - IV lasix - monitor urine output, creatinine - keep net negative - inhaled bronchodilators - daily sedation vacations to assess mental status - spontaneous breathing trials as tolerated - enteral feeds - DVT/GI prophylaxis - continue ICU monitoring critical care time spent in reviewing chart, evaluating patient and formulating plan 35 min
[2018-05-16] MEDS ORDERED: VASOPRESSIN 50 UNITS in SODIUM CHLORIDE 97.5 ML IVPB SCH (12:45)
[2018-05-16] MEDS ORDERED: VANCOMYCIN 1 GM PREMIX - 1 GM/200 ML BAG IVPB ONE (14:00)
[2018-05-16] MEDS ORDERED: NYSTATIN POWDER 100,000 UNITS/GM - 15 GM TOPICAL POWDER TP SCH (14:00)
[2018-05-16] MEDS: HEPARIN - 25,000 UNIT in SODIUM CHLORIDE 495 ML IV SCH (14:42)
--- NOTE | 2018-05-16 14:55 | PN ---
Progress Note, Physician Chief Complaint: Patient remained intubated required pressors to maintain BP, rising BUN/Creat and TWBC decreasing urine out put - Current Medication List Current Medications: Active Medications Al Hydroxide/Mg Hydroxide (Mylanta Oral Suspension -) 30 ml PO Q6H PRN PRN Reason: INDIGESTION Last Admin: 05/08/18 21:34 Dose: 30 ml Albuterol/Ipratropium (Duoneb -) 1 amp NEB RTID [facility] Last Admin: 05/16/18 14:20 Dose: 1 amp Artificial Tears (Artificial Tears) 1 drop OU BID PRN PRN Reason: PAIN Chlorhexidine Gluconate (Hibiclens For Decolonization -) 1 applic TP HS [facility] Last Admin: 05/15/18 21:36 Dose: 1 applic Heparin Sodium (Porcine) (Heparin -) 1,000 unit IVPUSH PRN PRN PRN Reason: Heparin Last Admin: 05/15/18 07:33 Dose: 1,000 unit Heparin Sodium (Porcine) (Heparin -) 5,000 unit IVPUSH PRN PRN PRN Reason: Heparin Propofol (Diprivan -) 1,000,000 mcg in 100 mls @ 3.69 mls/hr IVPB TITR [facility]; Protocol Last Admin: 05/16/18 14:42 Dose: Not Given Amiodarone HCl/Dextrose (Nexterone 360 Mg/200 Ml Bag) 360 mg in 200 mls @ 33.333 mls/hr IVPB TITR [facility]; Protocol Last Admin: 05/16/18 11:12 Dose: 0.5 mg/min, 16.667 mls/hr Cefazolin Sodium/Dextrose (Ancef 2 Gm Premixed Ivpb -) 2 gm in 50 mls @ 200 mls /hr IVPB Q8H-IV [facility] Last Admin: 05/16/18 10:09 Dose: 200 mls/hr Meropenem 1 gm/ Dextrose 100 mls @ 200 mls/hr IVPB Q8H-IV [facility] Last Admin: 05/16/18 10:57 Dose: 200 mls/hr Norepinephrine Bitartrate 8, (000 mcg/ Dextrose) 500 mls @ 18.75 mls/hr IV TITR [facility]; Protocol Last Titration: 05/16/18 12:35 Dose: 20 mcg/min, 75 mls/hr Dobutamine HCl 250,000 mcg/ (Sodium Chloride) 250 mls @ 36.79 mls/hr IV TITR [facility]; Protocol Last Admin: 05/16/18 11:09 Dose: 5 mcg/kg/min, 36.79 mls/hr Heparin Sodium (Porcine) 25, (000 unit/ Sodium Chloride) 500 mls @ 20 mls/hr IV TITR [facility]; Protocol Last Admin: 05/16/18 14:42 Dose: 1,050 unit/hr, 21 mls/hr Fentanyl 500 mcg/ Sodium (Chloride) 100 mls @ 1 mls/hr IVPB TITR [facility]; Protocol Last Admin: 05/16/18 12:57 Dose: 150 mcg/hr, 30 mls/hr Vasopressin 50 units/ Sodium (Chloride) 100 mls @ 4 mls/hr IVPB ASDIR [facility]; Protocol Last Admin: 05/16/18 14:30 Dose: 2 units/hr, 4 mls/hr Vancomycin HCl (Vancomycin 1 Gm Premix -) 1 gm in 200 mls @ 166.667 mls/hr IVPB ONCE ONE; Protocol Stop: 05/16/18 15:11 Mupirocin (Bactroban 2% Ointment -) 1 applic TP BID [facility] Last Admin: 05/15/18 21:36 Dose: 1 applic Nystatin (Nystop Powder -) 1 applic TP DAILY [facility] Pantoprazole Sodium (Protonix Iv) 40 mg IVPUSH DAILY [facility] Last Admin: 05/16/18 10:15 Dose: 40 mg - Objective Vital Signs: Vital Signs Temperature 98.3 F 05/16/18 11:00 Pulse Rate 124 H 05/16/18 14:30 Respiratory Rate 16 05/16/18 14:26 Blood Pressure 101/67 05/16/18 14:30 O2 Sat by Pulse Oximetry (%) 92 L 05/16/18 11:20 Constitutional: sedated s/p intubation , ETT and NG tube at place. HEENT: Sedated ETT at place Neck: NO JVD Decreased ROM, Lumps, Pain on Movement Cardiovascular: Irr S1S2 Tachycardia no murmur or Gallop Respiratory: B/L Basal crepts on Vent Gastrointestinal: Obese, non tender BS + Genitourinary: Urinary retention s/p Foleys LE and Musculoskeletal: B/L LE edema nad purplish discoloration ICU team is aware Neurological: Sedated as per ICU team able to follow commands in am off sedation. Labs: CBC, BMP 05/16/18 05:30 05/16/18 05:30 INR, PTT INR 1.17 (0.83-1.09) 05/10/18 06:10 - ....Imaging Chest X-ray: Report Reviewed (Pulmonary congestion) Problem List - Problems (1) Acute exacerbation of CHF (congestive heart failure) Assessment/Plan: Present with CHS symptoms with Afib , Bed side ECHO shows Low EF will F/U ECHO , most likely tachycardia induced, initially responsded to Lasix and rate control with PO Diltiazem , had a cardiac arrest on 05/11/2018 intubated now in ICU on Vent, patient still congested despite Vent and lasix , Code(s): I50.9 - HEART FAILURE, UNSPECIFIED Qualifiers: Heart failure type: systolic Qualified Code(s): I50.23 - Acute on chronic systolic (congestive) heart failure (2) Atrial fibrillation with RVR Assessment/Plan: On Heparin infusion and Amiodarone rate controlled possible EL and Cardioversion once stable will be transferred to [facility] fr further management.. Code(s): I48.91 - UNSPECIFIED ATRIAL FIBRILLATION (3) COPD with exacerbation Assessment/Plan: On Vent cont Duoneb and IV Steroids Code(s): J44.1 - CHRONIC OBSTRUCTIVE PULMONARY DISEASE W (ACUTE) EXACERBATION (4) Elevated troponin I level Assessment/Plan: Most likely Demand ischemia F/U Ischemic w/u once stable Code(s): R74.8 - ABNORMAL LEVELS OF OTHER SERUM ENZYMES (5) JACKIE (acute kidney injury) Assessment/Plan: Worsening renal functions most likely JACKIE on CKD F/U Renal recommendations IP/ Op chart Code(s): N17.9 - ACUTE KIDNEY FAILURE, UNSPECIFIED (6) Transaminitis Assessment/Plan: Improved with CHF managemen Code(s): R74.0 - NONSPEC ELEV OF LEVELS OF TRANSAMNS & LACTIC ACID DEHYDRGNSE (7) Gram-positive bacteremia Assessment/Plan: Blood culture Grew Possible MSSA in both bottles sensitivity IV Cefazolin, rpt cultures are -ve Code(s): R78.81 - BACTEREMIA (8) VAP (ventilator-associated pneumonia) Assessment/Plan: ETTT aspirates grew Pseudomonas and MSSA on abx f/u ID recommendations Code(s): J95.851 - VENTILATOR ASSOCIATED PNEUMONIA
[2018-05-16 15:00] VITALS: TEMP 98
--- NOTE | 2018-05-16 15:04 | PN ---
Progress Note (short form) - Note Progress Note: sedated intubated was awake and alert last pm Vital Signs Period Temp Pulse Resp BP Sys/Carroll Pulse Ox Last 24 Hr 97.7 F-98.4 F 110-128 11-16 59-115/51-86 92-94 cor-rrr lungs decreased bs at bases abd soft, firm rllq mass ext no edema +fungal [place] bilateral inguinal area booth decreased urine output CBC, [facility] 05/16/18 05:30 05/16/18 05:30 Microbiology 05/11/18 11:55 Blood - Peripheral Venous Blood Culture - Final NO GROWTH AFTER 5 DAYS INCUBATION 05/11/18 11:15 Blood - Central Line Blood Culture - Final NO GROWTH AFTER 5 DAYS INCUBATION 05/12/18 16:30 Blood - Peripheral Venous Blood Culture - Preliminary NO GROWTH OBTAINED AFTER 72 HOURS, INCUBATION TO CONTINUE FOR 2 DAYS. 05/12/18 16:15 Blood - Peripheral Venous Blood Culture - Preliminary NO GROWTH OBTAINED AFTER 72 HOURS, INCUBATION TO CONTINUE FOR 2 DAYS. 05/10/18 18:15 Blood - Peripheral Venous Blood Culture - Final Staphylococcus Latex Coag Pos 05/11/18 15:40 Sputum - Endotrachea Suction/Ventilator Gram Stain - Final 05/11/18 15:40 Sputum - Endotrachea Suction/Ventilator Sputum Culture - Final Pseudomonas Aeruginosa Staphylococcus Aureus 05/10/18 19:00 Blood - Peripheral Venous Blood Culture - Final Staphylococcus Aureus 05/08/18 11:30 Blood - Peripheral Venous Blood Culture - Final Staphylococcus Aureus 05/08/18 11:35 Blood - Peripheral Venous Blood Culture - Final Staphylococcus Aureus 05/06/18 18:48 Blood - Peripheral Venous Blood Culture - Final Staphylococcus Aureus 05/06/18 18:48 Blood - Peripheral Venous Blood Culture - Final Staphylococcus Aureus CBC, [facility] 05/16/18 05:30 05/16/18 05:30 Microbiology 05/11/18 11:55 Blood - Peripheral Venous Blood Culture - Final NO GROWTH AFTER 5 DAYS INCUBATION 05/11/18 11:15 Blood - Central Line Blood Culture - Final NO GROWTH AFTER 5 DAYS INCUBATION 05/12/18 16:30 Blood - Peripheral Venous Blood Culture - Preliminary NO GROWTH OBTAINED AFTER 72 HOURS, INCUBATION TO CONTINUE FOR 2 DAYS. 05/12/18 16:15 Blood - Peripheral Venous Blood Culture - Preliminary NO GROWTH OBTAINED AFTER 72 HOURS, INCUBATION TO CONTINUE FOR 2 DAYS. 05/10/18 18:15 Blood - Peripheral Venous Blood Culture - Final Staphylococcus Latex Coag Pos 05/11/18 15:40 Sputum - Endotrachea Suction/Ventilator Gram Stain - Final 05/11/18 15:40 Sputum - Endotrachea Suction/Ventilator Sputum Culture - Final Pseudomonas Aeruginosa Staphylococcus Aureus 05/10/18 19:00 Blood - Peripheral Venous Blood Culture - Final Staphylococcus Aureus 05/08/18 11:30 Blood - Peripheral Venous Blood Culture - Final Staphylococcus Aureus 05/08/18 11:35 Blood - Peripheral Venous Blood Culture - Final Staphylococcus Aureus 05/06/18 18:48 Blood - Peripheral Venous Blood Culture - Final Staphylococcus Aureus 05/06/18 18:48 Blood - Peripheral Venous Blood Culture - Final Staphylococcus Aureus a/p new hypotension with leukocytosis-r/o sepsis multiorgan failure, s/p code 99 afib -rapid afib with poor LVEF Staph Bacteremia-MSSA- day #8 antibiotics repeat blood cultures negative cefazolin/meropenem ?pseudomonas pneumonia- on meropenem TTE without vegetation/valvular disease worsening renal function will adjust doses of antibiotics recultured, vancomycin given today, check vancomycin random level in am add empiric antifungal treatment given steroids and fungal rash-start cancidas one dose azactam to increase GN coverage for ct scan chest/abd /pelvis possible transfer to [facility] overall prognosis is guarded, d/w at bedside over 45 minutes in the care of this ICU patient Problem List - Problems (1) Gram-positive bacteremia Code(s): R78.81 - BACTEREMIA (2) Thrush Code(s): B37.0 - CANDIDAL STOMATITIS (3) Atrial fibrillation with RVR Code(s): I48.91 - UNSPECIFIED ATRIAL FIBRILLATION (4) Urinary retention due to benign prostatic hyperplasia Code(s): N40.1 - BENIGN PROSTATIC HYPERPLASIA WITH LOWER URINARY TRACT SYMP; R33.8 - OTHER RETENTION OF URINE (5) Acute exacerbation of CHF (congestive heart failure) Code(s): I50.9 - HEART FAILURE, UNSPECIFIED Qualifiers: Heart failure type: systolic Qualified Code(s): I50.23 - Acute on chronic systolic (congestive) heart failure (6) Transaminitis Code(s): R74.0 - NONSPEC ELEV OF LEVELS OF TRANSAMNS & LACTIC ACID DEHYDRGNSE
[2018-05-16] MEDS ORDERED: CASPOFUNGIN ACETATE 70 MG in SODIUM CHLORIDE 250 ML IVPB ONE (16:00)
[2018-05-16 16:57] LABS: URINE APPEARANCE CLOUDY; URINE BILIRUBIN NEGATIVE (<2.0 mg/dL); URINE COLOR DKYELLOW; URINE GLUCOSE (UA) NEGATIVE (NEGATIVE); URINE KETONE NEGATIVE (NEGATIVE); URINE LEUK ESTERASE TRACE (NEGATIVE); URINE NITRITE NEGATIVE (NEGATIVE); URINE UROBILINOGEN NEGATIVE mg/dL (0.2-1.0)
[2018-05-16 17:07] LABS: URINE PROTEIN 1+ (NEGATIVE)
[2018-05-16 17:13] LABS: URINE MUCUS RARE
[2018-05-16 17:33] VITALS: BP 90/70; PULSE 116
[2018-05-16] MEDS ORDERED: AZTREONAM 2 GM in DEXTROSE 5%-WATER 100 ML IVPB ONE (19:00)
--- NOTE | 2018-05-16 19:40 | PN ---
Physical Exam: SUBJECTIVE: Patient seen and examined this am and evening in icu. Pt is sedated and intubated. Went for CT Chest/ CT Abd/Pelvis this afternoon. Pt is now transferred to [facility]. OBJECTIVE: Vital Signs Period Temp Pulse Resp BP Sys/Carroll Pulse Ox Last 24 Hr 97.7 F-98.4 F 90-128 11-16 59-141/51-86 92-94 GENERAL: Intubated, sedated. HEAD: NC/AT EYES: Pupils equal and reactive to light. Eyes open. ENT: WNL NECK: Trachea midline. LUNGS: Rhonchi B/L HEART: Irregular. Tachycardia. ABDOMEN: NT, ND, No HSM. Hard nodule right lower abdomen. EXTREMITIES: B/L edema lower extremities 1-2+. Feet Cool to touch NEUROLOGICAL: N/A PSYCH: N/A SKIN: Rash right axillary area. Extremities cool to touch. Laboratory Results - last 24 hr 05/16/18 05/16/18 05/16/18 05:30 05:30 05:30 WBC 26.9 H RBC 3.94 L Hgb 12.2 Hct 37.3 MCV 94.7 MCH 31.0 MCHC 32.7 RDW 14.0 Plt Count 243 D MPV 9.1 PTT (Actin FS) 61.3 H Sodium 127 L Potassium 4.6 Chloride 86 L Carbon Dioxide 30 Anion Gap 11 BUN 49 H Creatinine 3.0 H Creat Clearance w eGFR 20.73 Random Glucose 118 H D Calcium 8.1 L Phosphorus 7.4 H D Magnesium 2.1 Total Bilirubin 0.4 AST 24 ALT 22 Alkaline Phosphatase 107 D Total Protein 5.6 L Albumin 2.3 L Urine Color Urine Appearance Urine pH Ur Specific [place] Urine Protein Urine Glucose (UA) Urine Ketones Urine Blood Urine Nitrite Urine Bilirubin Urine Urobilinogen Ur Leukocyte Esterase Urine WBC (Auto) Urine RBC (Auto) Urine Mucus 05/16/18 11:49 WBC RBC Hgb Hct MCV MCH MCHC RDW Plt Count MPV PTT (Actin FS) Sodium Potassium Chloride Carbon Dioxide Anion Gap BUN Creatinine Creat Clearance w eGFR Random Glucose Calcium Phosphorus Magnesium Total Bilirubin AST ALT Alkaline Phosphatase Total Protein Albumin Urine Color Dkyellow Urine Appearance Cloudy Urine pH 5.0 Ur Specific [place] 1.020 Urine Protein 1+ H D Urine Glucose (UA) Negative Urine Ketones Negative Urine Blood 3+ H Urine Nitrite Negative Urine Bilirubin Negative Urine Urobilinogen Negative Ur Leukocyte Esterase Trace Urine WBC (Auto) 4 Urine RBC (Auto) 518 Urine Mucus Rare ASSESSMENT/PLAN: 72 y/o gentleman with PMH of CHF, low EF, new onset Atrial fibrillation, AAA repair, femoral bypass, BPH, obesity, COPD, former smoker (quit in 6 months ago ) who presented to [facility] [place]NOTE 2] with SOB, rapid A.Fib, and CHF exacerbation. S/P cardiac arrest. ROSC achieved after 9 minutes. Acute Hypoxic Respiratory Railure -Intubated - Levophed, Vasopressin -Sedation-Fentanyl and Propofol. -Dobutamine 5 mcg/kg/min -Chest XRAY 05/16/2018--> B/L pleural effusions and atelectasis. Blunting of costophrenic angles. Duplex U/S B/L Lower Extrem: No evidence of DVT's- 05/11/18 CT Abd/Pelvis 05/16---> Moderately severe COPD changes B/L pleural effusion w/ moderate bibasal consolidation/atelectasis. CHF exacerbation possibly 2/2 AFIB -Amiodorone gtt Rate Control. Cardiology on board. -Lasix drip D/C'ed this morning. Switched to IVPUSH Lasix 120 mg. -Pressor support to maintain MAP >65 -EL at [facility] to r/o endocarditis -Toprol being held due to likely cardiogenic shock. EKG 05/11/2018-->RBBB, Inferior ischemia, T wave inversion inferior leads ECHO 05/09-->LV Systolic function severely reduced, Severe global hypokinesis left ventricle, EF 30-35%, Right ventricular systolic function moderately reduced, left, right atriums mod dilated, mr regurg, tri regurg, MSSA bacteremia -EL to be done in near future to r/o endocarditis -ID on board -Meropenem 1 gm -Ancef 2 Gm Premixed Ivpb -Recultured, vancomycin given today -one dose azactam to increase GN coverage Per ID JACKIE- Most likely 2/[address] Boss On Board -Baseline Cr is 0.8 in 01/2018 -BUN/CR today--> 49/3.0. Spoke with Dr Boss- Rise in Creatinine most likely 2/ 2 hypoperfusion. -Trend renal function and electrolytes -Head CT 05/11/2018 -> No Intracranial Hemorrhage identified. Frannie Cevallos changed this afternoon. FEN No Fluids Monitor Electrolytes NPO DVT ppx: Heparin gtt. Dispo: PATIENT TRANSFERRED TO [facility]. Visit type - Emergency Visit Emergency Visit: Yes ED Registration Date: 05/06/18 Care time: The patient presented to the Emergency Department on the above date and was hospitalized for further evaluation of their emergent condition. - New Patient This patient is new to me today: No - Critical Care Critical Care patient: Yes Total Critical Care Time (in minutes): 35 Critical Care Statement: The care of this patient involved high complexity decision making to prevent further life threatening deterioration of the patient 's condition and/or to evaluate & treat vital organ system(s) failure or risk of failure.
[2018-05-16] MEDS ORDERED: MEROPENEM 1 GM in DEXTROSE 5%-WATER 100 ML IVPB SCH (22:00)
[2018-05-16] MEDS ORDERED: CHLORHEXIDINE GLUCONATE 4% CLEANSER FOR DECOLONIZATION TP SCH (22:00)
== END 2018-05-16 18:34 | disposition short-term general hospital (02) | DRG 291 ==
LOC: JER 15:55 → JERBED 17:39 → J4S 19:15 → JICU 05-11 02:01
PROVIDERS: ADMIT Internal Medicine; ATTEND Internal Medicine
PROC: 5A1955Z Respiratory Ventilation, Greater than 96 Consecutive Hours (ICD-10-PCS; principal; 2018-05-11)
PROC: 0BH17EZ Insertion of Endotracheal Airway into Trachea, Via Natural or Artificial Opening (ICD-10-PCS; 2018-05-11)
PROC: 05HM33Z Insertion of Infusion Device into Right Internal Jugular Vein, Percutaneous Approach (ICD-10-PCS; 2018-05-11)
PROC: B543ZZA Ultrasonography of Right Jugular Veins, Guidance (ICD-10-PCS; 2018-05-11)
DX: I13.0 Hypertensive heart and chronic kidney disease with heart failure and stage 1 through stage 4 chronic kidney disease, or unspecified chronic kidney disease (principal); I46.9 Cardiac arrest, cause unspecified; J96.01 Acute respiratory failure with hypoxia; J69.0 Pneumonitis due to inhalation of food and vomit; I50.23 Acute on chronic systolic (congestive) heart failure; A41.9 Sepsis, unspecified organism; R65.21 Severe sepsis with septic shock; N17.9 Acute kidney failure, unspecified; B37.0 Candidal stomatitis; E87.1 Hypo-osmolality and hyponatremia; J95.851 Ventilator associated pneumonia; J44.1 Chronic obstructive pulmonary disease with (acute) exacerbation; I48.91 Unspecified atrial fibrillation; E78.5 Hyperlipidemia, unspecified; I45.10 Unspecified right bundle-branch block; G62.9 Polyneuropathy, unspecified; Z87.891 Personal history of nicotine dependence; E66.01 Morbid (severe) obesity due to excess calories; Z68.39 Body mass index [BMI] 39.0-39.9, adult; N40.1 Benign prostatic hyperplasia with lower urinary tract symptoms; R33.8 Other retention of urine; R74.0 Nonspecific elevation of levels of transaminase and lactic acid dehydrogenase [LDH]; R94.5 Abnormal results of liver function studies; E87.5 Hyperkalemia; B95.5 Unspecified streptococcus as the cause of diseases classified elsewhere; N18.9 Chronic kidney disease, unspecified; Y84.8 Other medical procedures as the cause of abnormal reaction of the patient, or of later complication, without mention of misadventure at the time of the procedure
CPT/HCPCS: 36415; 36600; 70450-TC; 71045-TC-FY; 71250-TC; 74176-TC; 76700-TC; 80048; 80053; 80061; 80074; 80076; 81003; 81015; 82272; 82436; 82550; 82553; 82570; 82803; 82962; 83036; 83605; 83721; 83735; 83880; 83930; 83935; 84100; 84133; 84156; 84300; 84484; 84540; 85025; 85027; 85610; 85651; 85730; 86140; 86704; 86706; 86708; 86803; 87040; 87070; 87086; 87186; 87205; 87340; 93005; 93010; 93306-TC; 93970-TC; 94002; 94640; 99282-25; G0480; J1250; J1644; J7620